=== PATIENT | female | born 1960 | race African-American/Black ===

== ENCOUNTER 2018-11-01 15:38 | Inpatient (IN) | payer OTHER ==
--- NOTE | 2018-11-01 16:39 | PDOC ---
History of Present Illness - General Chief Complaint: Shortness of Breath Stated Complaint: SENT BY PCP Time Seen by Provider: 11/01/18 16:39 History Source: Patient Exam Limitations: No Limitations - History of Present Illness Initial Comments: Pt is a 58 yo F, with PMH of HTN, NIDDM, COPD (no home O2, CPAP at night), and L adrenal ademona, who is presenting with complaints of "not feeling well" over the past week, with nasal congestion and clear eye drainage, which she often gets "when the weather changes to rain". Pt also endorses worsening SOB and LE edema over the past 3 days with cough productive of whitish sputum. Pt saw her grain merchandising manager today (Dr. Garcia), who sent her to the ER as her O2 was low 80%s on RA. Pt states she uses a scooter at home for ambulation, but has noticed SOB even at rest. Pt takes 80 mg PO lasix every AM, with minimal relief of her swelling with this acute exacerbation. Pt denies any fevers/chills, headache, vision changes, syncope, chest pain, palpitations, nausea/vomiting, abdominal pain, urinary symptoms, diarrhea/constipation. Allergies: NKDA PCP: Dr Carter Kuhn Social: Pt denies any cigarette, alcohol, or drug use. Pt quit smoking 5 years ago. Pt denies any recent travel or sick contacts. Surgical: no relevant history. Family: no relevant history. 11/01/18 19:03 Past History - Travel Traveled outside of the country in the last 30 days: No Close contact w/someone who was outside of country & ill: No - Past Medical History Allergies/Adverse Reactions: Allergies Allergy/AdvReac Type Severity Reaction Status Date / Time No Known Allergies Allergy Verified 11/01/18 15:47 Home Medications: Ambulatory Orders Unobtainable 11/01/18 COPD: Yes Diabetes: Yes HTN: Yes Hypercholesterolemia: Yes - Suicide/Smoking/Psychosocial Hx Smoking History: Never smoked Information on smoking cessation initiated: No Hx Alcohol Use: No Drug/Substance Use Hx: No Review of Systems - Review of Systems Able to Perform ROS?: Yes Is the patient limited Romanian proficient: No Constitutional: Yes: Weight Stable. No: Chills, Diaphoresis, Fever, Loss of Appetite, Malaise, Weakness HEENTM: Yes: Nose Congestion. No: Blurred Vision, Double Vision, Throat Pain, Throat Swelling, Difficulty Swallowing Respiratory: Yes: See HPI, Cough, Shortness of Breath, SOB with Exertion, SOB at Rest, Productive cough. No: Orthopnea, Wheezing, Hemoptysis Cardiac (ROS): Yes: Edema. No: Chest Pain, Irregular Heart Rate, Lightheadedness, Palpitations, Syncope, Chest Tightness ABD/GI: No: Constipated, Diarrhea, Nausea, Poor Appetite, Poor Fluid Intake, Vomiting : No: Burning, Dysuria, Pain, Urgency Musculoskeletal: No: Back Pain, Joint Pain Integumentary: No: Rash Neurological: No: Headache, Numbness, Weakness, Unsteady Gait, Dizziness Psychiatric: No: Sleep Pattern Change, Change in Appetite Endocrine: No: Increased Urine, Change in Weight Hematologic/Lymphatic: Yes: Anemia. No: Blood Clots, Easy Bleeding, Easy Bruising All Other Systems: Reviewed and Negative *Physical Exam - Vital Signs Last Vital Signs Temp Pulse Resp BP Pulse Ox 98.8 F 85 19 133/67 87 L 11/01/18 15:44 11/01/18 15:44 11/01/18 15:44 11/01/18 15:44 11/01/18 15:44 - Physical Exam Comments: BP stable, 87% on 2L NC (improved to 92% on 4L on exam). Pt in NAD, morbidly obese body habitus. Pt alert and oriented x3. lip cutter generally intact, muscular strength and sensation intact. No midline spinal tenderness, step-offs, or crepitus. Head normocephalic, atraumatic. Eyes PERRLA, EOMI. Oropharynx without erythema or exudates, no LAD b/l. No nasal congestion, hearing intact. Clear heart sounds, S1/S2, no JVD, or heart murmur. B/l pitting edema to mid shins. Severely diminished lung sounds at b/l posterior bases with b/l wheezing. No abdominal or CVA tenderness to palpation, no rebound, no guarding. Abdomen soft, protuberant, and with normoactive bowel sounds. Skin without jaundice or rash. 11/01/18 18:12 ED Treatment Course - LABORATORY CBC & Chemistry Diagram: 11/01/18 17:00 11/01/18 17:00 Medical Decision Making - Medical Decision Making Pt was seen at bedside, also will be seen by attending Dr. Hill. Pt presenting with complaints of "not feeling well" over the past week, with nasal congestion and clear eye drainage, which she often gets "when the weather changes to rain" . Pt also endorses worsening SOB and LE edema over the past 3 days with cough productive of whitish sputum. Pt saw her grain merchandising manager today (Dr. Garcia), who sent her to the ER as her O2 was low 80%s on RA. Pt states she uses a scooter at home for ambulation, but has noticed SOB even at rest. Pt takes 80 mg PO lasix every AM, with minimal relief of her swelling with this acute exacerbation. Pt denies any fevers/chills, headache, vision changes, syncope, chest pain, palpitations, nausea/vomiting, abdominal pain, urinary symptoms, diarrhea/constipation. Considering COPD exacerbation vs HF vs ACS vs infectious (pneumonia) vs pulmonary (effusion). Pt has no history of DVT/PE, not tachycardic, and O2 has improved with oxygen supplementation. Will order infectious and cardiac work-up with ABG to eval for respiratory status. Provided duonebs and 40 mg IV lasix for improvement of SOB and edema. Will continue to reassess pt and monitor for symptomatic improvement. ECG: Sinus with PVCs and prolonged QTc (HR 93, OH 160, QRS 90, QTC 507). No TWIs or significant ST segment changes. No prior ECG for comparison. Paged Dr. Liriano x2 (admits for Dr. Carter Kuhn) for admission to inpatient m/ s. 11/01/18 18:48 Dr. Liriano accepted pt for admission for med/surg. Pt stable and resting comfortably. 11/01/18 18:59 *DC/Admit/Observation/Transfer Diagnosis at time of Disposition: COPD exacerbation, Hypoxia Obesity Qualifiers: Obesity type: unspecified obesity type Obesity classification: adult class 3 ( BMI >= 40) Serious obesity comorbidity presence: with serious comorbidity Body mass index: BMI 50.0-59.9 Qualified Code(s): E66.01 - Morbid (severe) obesity due to excess calories; Z68.43 - Body mass index (BMI) 50-59.9, adult - Discharge Dispostion Condition at time of disposition: Stable Decision to Admit order: Yes - Referrals Referrals: Carter Kuhn MD [Primary Care Provider] - - Patient Instructions - Post Discharge Activity
[2018-11-01 17:21] LABS: BASO % 0.4 % (0-2.0); EOS % 0.8 % (0-4.5); HEMATOCRIT 34.1 % (32.4-45.2); HEMOGLOBIN 10.7 GM/dL (10.7-15.3); LYMPH % 5.4 % (8-40); MCH 22.7 pg (25.7-33.7); MCHC 31.3 g/dl (32.0-36.0); MEAN CELL VOLUME 72.3 fl (80-96); MEAN PLT VOLUME 8.5 fl (7.5-11.1); MONO % 5.2 % (3.8-10.2); NEUT % 88.2 % (42.8-82.8); PLATELET COUNT 209 K/MM3 (134-434); RBC 4.72 M/mm3 (3.60-5.2); RDW 17.6 % (11.6-15.6); WHITE BLOOD COUNT 7.8 K/mm3 (4.0-10.0)
[2018-11-01 17:36] LABS: ALBUMIN 3.6 g/dl (3.4-5.0); ALK PHOS 102 U/L (45-117); ANION GAP 4 MMOL/L (8-16); BILIRUBIN,TOTAL 0.2 mg/dL (0.2-1); BLOOD UREA NITROGEN 16.4 mg/dL (7-18); CALCIUM 9.4 mg/dL (8.5-10.1); CHLORIDE 104 mmol/L (98-107); CO2 36 mmol/L (21-32); CREATININE 0.8 mg/dL (0.55-1.3); GLUCOSE,RANDOM 108 mg/dL (74-106); N-TERMINAL BNP 979.4 pg/ml (5-125); SGOT/AST 29 U/L (15-37); SGPT/ALT 39 U/L (13-61); SODIUM 143 mmol/L (136-145); TOT PROT 6.8 g/dl (6.4-8.2)
[2018-11-01 17:37] LABS: INR 1.25 (0.83-1.09); PROTHROMBIN TIME (PATIENT) 14.8 SEC (9.7-13.0)
[2018-11-01 17:45] LABS: ARTERIAL BLD GAS O2 SATURATION 92.6 % (95-98); ARTERIAL BLOOD GAS BASE EXCESS 9.5 meq/l (-2-2); ARTERIAL BLOOD GAS PCO2 66.3 mmHg (35-45); ARTERIAL BLOOD GAS PO2 70.1 mmHg (80-105); ARTERIAL BLOOD GAS pH 7.36 (7.35-7.45); CARBOXYHEMOGLOBIN 1.8 % (0-2)
[2018-11-01 17:48] LABS: ALLENS TEST POSITIVE
[2018-11-01] MEDS ORDERED: FUROSEMIDE 40 MG/4 ML INJECTABLE VIAL IVPUSH ONE (18:01)
[2018-11-01] MEDS ORDERED: FUROSEMIDE 40 MG/4 ML INJECTABLE VIAL ONE (18:34)
[2018-11-01] MEDS ORDERED: ALBUTEROL SO4 2.5/IPRATROPIUM 0.5 INH SOL 3 ML VIAL.NEB. NEB ONE ×2 (18:57→19:16)
[2018-11-01 18:58] LABS: PH,URINE 5.5 (5.0-8.0); URINE APPEARANCE CLEAR; URINE BILIRUBIN NEGATIVE (NEGATIVE); URINE COLOR YELLOW; URINE GLUCOSE (UA) NEGATIVE (NEGATIVE); URINE KETONE NEGATIVE (NEGATIVE); URINE LEUK ESTERASE NEGATIVE (NEGATIVE); URINE NITRITE NEGATIVE (NEGATIVE); URINE PROTEIN NEGATIVE (NEGATIVE); URINE UROBILINOGEN 0.2 mg/dL (0.2-1.0)
[2018-11-01] MEDS: ALBUTEROL SO4 0.083% IH SOL 2.5 MG/3 ML VIAL.NEB. NEB SCH (20:03)
[2018-11-01] MEDS ORDERED: ALBUTEROL SO4 0.083% IH SOL 2.5 MG/3 ML VIAL.NEB. NEB ONE (20:07)
[2018-11-01] MEDS ORDERED: ACETAMINOPHEN 325 MG TABLET (FP) PO ONE (23:15)
[2018-11-01] MEDS ORDERED: ALBUTEROL SO4 2.5/IPRATROPIUM 0.5 INH SOL 3 ML VIAL.NEB. NEB PRN (23:43)
[2018-11-01] MEDS ORDERED: AZITHROMYCIN IVPB 500 MG/250 ML BAG IVPB ONE (23:45)
[2018-11-02] MEDS ORDERED: DEXTROSE 5%-WATER - 50 ML IVPB ONE ×2 (00:08→10:38)
[2018-11-02] MEDS ORDERED: cefTRIAXone SODIUM 1 GM VIAL ONE ×2 (00:08→10:38)
[2018-11-02] MEDS: ALBUTEROL SO4 0.083% IH SOL 2.5 MG/3 ML VIAL.NEB. NEB SCH ×7 (00:34→23:47)
[2018-11-02] MEDS: CEFTRIAXONE 1 GM in DEXTROSE 5%-WATER - 50 ML IVPB SCH ×2 (00:58→10:40)
[2018-11-02] MEDS: methylPREDNISolone NA SUCC 40 MG/1 ML VIAL IVPUSH SCH ×3 (01:39→17:17)
[2018-11-02] MEDS: PANTOPRAZOLE 40 MG TABLET (FP) PO SCH ×2 (02:57→10:39)
[2018-11-02 06:23] LABS: ALBUMIN 3.5 g/dl (3.4-5.0); ALK PHOS 104 U/L (45-117); ANION GAP 5 MMOL/L (8-16); BILIRUBIN,TOTAL 0.3 mg/dL (0.2-1); BLOOD UREA NITROGEN 16.6 mg/dL (7-18); CALCIUM 9.1 mg/dL (8.5-10.1); CHLORIDE 102 mmol/L (98-107); CO2 36 mmol/L (21-32); CREATININE 0.8 mg/dL (0.55-1.3); GLUCOSE,RANDOM 187 mg/dL (74-106); POTASSIUM 3.9 mmol/L (3.5-5.1); SGOT/AST 31 U/L (15-37); SGPT/ALT 46 U/L (13-61); SODIUM 143 mmol/L (136-145); TOT PROT 6.9 g/dl (6.4-8.2)
[2018-11-02] MEDS: INSULIN SLIDING SCALE (NOVOLOG) 1 VIAL SQ SCH ×4 (06:51→21:11)
[2018-11-02] MEDS: metFORMIN HCL 500 MG TABLET (FP) PO SCH ×2 (06:52→17:18)
[2018-11-02 08:59] LABS: BASO % 0.4 % (0-2.0); EOS % 0.1 % (0-4.5); HEMATOCRIT 33.3 % (32.4-45.2); HEMOGLOBIN 10.3 GM/dL (10.7-15.3); LYMPH % 3.8 % (8-40); MCH 22.6 pg (25.7-33.7); MEAN CELL VOLUME 73.1 fl (80-96); MEAN PLT VOLUME 8.3 fl (7.5-11.1); MONO % 2.2 % (3.8-10.2); NEUT % 93.5 % (42.8-82.8); PLATELET COUNT 179 K/MM3 (134-434); RBC 4.56 M/mm3 (3.60-5.2)
[2018-11-02] MEDS ORDERED: methylPREDNISolone NA SUCC 125 MG/2 ML VIAL IVPUSH SCH (10:00)
[2018-11-02] MEDS ORDERED: AZITHROMYCIN IVPB 250 MG in DEXTROSE 5%-WATER - 250 ML IVPB SCH ×2 (10:00→22:00)
--- NOTE | 2018-11-02 10:32 | CON.CARD ---
Consult Consult Specialty:: Cardiology Referred by:: Dr. Liriano Reason for Consultation:: SOB, CHF, Abnl ECG - History of Present Illness Chief Complaint: SOB History of Present Illness: Pt is a 58 yo F, with PMH of HTN, NIDDM, Pulmonary Embolism, COPD (no home O2, CPAP at night), and L adrenal ademona, who is presenting with complaints of " not feeling well" over the past week, with nasal congestion and clear eye drainage, which she often gets "when the weather changes to rain". Pt also endorses worsening SOB and LE edema over the past 3 days with cough productive of whitish sputum. Pt saw her mycologist today (Dr. Garcia), who sent her to the ER as her O2 was low 80%s on RA. Pt states she uses a scooter at home for ambulation, but has noticed SOB even at rest. Pt takes 80 mg PO lasix every AM, with minimal relief of her swelling with this acute exacerbation. Pt denies any fevers/chills, headache, vision changes, syncope, chest pain, palpitations, nausea/vomiting, abdominal pain, urinary symptoms, diarrhea/constipation. Denies CP, syncope. + LE b/l - History Source History Provided By: Patient Limitations to Obtaining History: No Limitations - Past Medical History Cardio/Vascular: Yes: CHF, HTN, Other (LE Edema) Pulmonary: Yes: COPD, Pulmonary Embolus Endocrine: Yes: Diabetes Mellitus - Alcohol/Substance Use Hx Alcohol Use: No - Smoking History Smoking history: Former smoker Have you smoked in the past 12 months: No - Social History Usual Living Arrangement: Alone History of Recent Travel: No Home Medications - Allergies Allergies/Adverse Reactions: Allergies Allergy/AdvReac Type Severity Reaction Status Date / Time No Known Allergies Allergy Verified 11/01/18 15:47 - Home Medications Home Medications: Ambulatory Orders Apixaban [Eliquis] 5 mg PO BID 11/02/18 Aspirin 81 mg PO DAILY 11/02/18 Losartan Potassium 50 mg PO DAILY 11/02/18 Metformin HCl [Glucophage] 1,000 mg PO BID 11/02/18 Pantoprazole Sodium 40 mg PO DAILY 11/02/18 Rosuvastatin Calcium [Crestor] 40 mg PO HS 11/02/18 Family Disease History - Family Disease History Family History: Unremarkable Review of Systems - Review of Systems Constitutional: reports: No Symptoms Eyes: reports: No Symptoms Cardiovascular: reports: Edema, Shortness of Breath Respiratory: reports: SOB on Exertion Neurological: reports: No Symptoms Endocrine: reports: No Symptoms Hematology/Lymphatic: reports: No Symptoms - Risk Factors Known Risk Factors: Yes: Diabetes Mellitus, Hypertension, Smoking Vital Signs: Vital Signs Temperature 98.1 F 11/02/18 08:37 Pulse Rate 102 H 11/02/18 08:37 Respiratory Rate 20 11/02/18 08:37 Blood Pressure 142/80 11/02/18 08:37 O2 Sat by Pulse Oximetry (%) 93 L 11/01/18 23:28 Constitutional: Yes: No Distress, Calm Eyes: Yes: Conjunctiva Clear Respiratory: Yes: Other (rales at bases b/l) Gastrointestinal: Yes: Soft, Abdomen, Obese Cardiovascular: Yes: Regular Rate and Rhythm JVD: No Carotid Bruit: No Heart Sounds: Yes: S1, S2 (RRR, No M/R/G) Edema: Yes Edema: LLE: 2+, RLE: 2+ Peripheral Pulses WNL: Yes Neurological: Yes: Alert, Oriented ...Motor Strength: WNL - Other Data Labs, Other Data: CBC, BMP 11/02/18 07:24 11/02/18 05:30 INR, PTT INR 1.25 (0.83-1.09) H 11/01/18 17:00 Troponin, BNP 11/01/18 11/02/18 17:00 05:30 Troponin I < 0.02 < 0.02 B-Natriuretic Peptide 979.4 H Troponin, BNP 11/01/18 11/02/18 17:00 05:30 Troponin I < 0.02 < 0.02 B-Natriuretic Peptide 979.4 H Laboratory Tests 11/01/18 11/01/18 11/02/18 17:00 17:00 05:30 WBC Hgb Hct Plt Count INR 1.25 H Sodium 143 Potassium 3.9 Creatinine 0.8 AST 31 ALT 46 Creatine Kinase 508 H 547 H Troponin I < 0.02 < 0.02 11/02/18 07:24 WBC 7.0 Hgb 10.3 L Hct 33.3 Plt Count 179 INR Sodium Potassium Creatinine AST ALT Creatine Kinase Troponin I NSR, VPC, Prolonged QTc: 507ms Echo: Pending Prior Cardiac Procedures: Cardiac Catheterization, Other (Non-obstx CAD) Imaging - Results X-ray: Image Reviewed EKG: Image Reviewed Assessment/Plan IMP: 1. Morbid Obesity 2. Acute on Chronic combined systolic and diastolic CHF, non-ischemic CM 3. Chronic HTN 4. Obstructive sleep apnea 5. COPD, former smoker 6. Hypoxia: likely multifactorial--> MARIE, CHF, COPD 7. 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 DM 9. Prolonged QTc REC: 1. Transfer to telemetry: Prolonged QT, receiving IV Lasix for decomp. CHF 2. Echo 3. Daily weights and BMP to monitor renal fx and lytes: keep K+ and Mg2+ normalized 4. Agree w/ IV Lasix 40mg daily for now 5. Cont home Losartan, Statin and low dose ASA for h/o non-obstx CAD. 6. Cont Eliquis for h/o DVT, PE. Need to review old records to understand circumstances provoking VTE to determine length of AC 7. Supplimental O2/ Abx as per Pulmonary Will follow, thank you
[2018-11-02] MEDS: FUROSEMIDE 40 MG/4 ML INJECTABLE VIAL IVPUSH SCH (10:39)
[2018-11-02] MEDS: APIXABAN 5 MG TABLET PO SCH ×2 (10:39→21:06)
[2018-11-02] MEDS: ASPIRIN 81 MG CHEWABLE TABLETS PO SCH (10:39)
[2018-11-02] MEDS: LOSARTAN POTASSIUM 50 MG TABLET (FP) PO SCH (10:39)
[2018-11-02 12:49] LABS: ANISOCYTOSIS 1+; PLATELET ESTIMATE NORMAL
--- NOTE | 2018-11-02 13:36 | EKG ---
Test Reason : Blood Pressure : / mmHG Vent. Rate : 093 BPM Atrial Rate : 093 BPM P-R Int : 160 ms QRS Dur : 090 ms QT Int : 408 ms P-R-T Axes : 070 056 072 degrees QTc Int : 507 ms SINUS RHYTHM WITH FREQUENT and consecutive PREMATURE VENTRICULAR COMPLEXES POSSIBLE LEFT ATRIAL ENLARGEMENT PROLONGED QT ABNORMAL ECG NO PREVIOUS ECGS AVAILABLE Confirmed by OLGA SEGOVIA MD ([id number]) on 11/02/2018 1:36:37 PM Referred By: Confirmed By:OLGA SEGOVIA MD
--- NOTE | 2018-11-02 16:44 | PN ---
Progress Note (short form) - Note Progress Note: PULMONARY CONSULTATION DICTATED 11/02/18 IMP ACUTE ON CHRONIC HYPOXEMIC/HYPERCAPNEIC RESPIRATORY FAILURE LIKELY MARIE/OHS COPD ADVANCED ACUTE ON CHRONIC DIASTOLIC HF H/O DVT/PE ? UNPROVOKED PULMONARY HTN DM RECENT PNEUMONIA HTN PROLONGED QTc PLAN LASIX INHALED BRONCHODILATORS O2 NIPPV IF PT DEVELOPES INCREASED RESPIRATORY DISTRESS DAILY WTS CHEST CT ECHO WT REDUCTION PT WOULD BE A GOOD CANDIDATE FOR HOME TRILOGY DEVICE DR SHEIKH Problem List - Problems (1) Acute on chronic respiratory failure with hypoxia and hypercapnia Code(s): J96.21 - ACUTE AND CHRONIC RESPIRATORY FAILURE WITH HYPOXIA; J96.22 - ACUTE AND CHRONIC RESPIRATORY FAILURE WITH HYPERCAPNIA (2) COPD exacerbation Code(s): J44.1 - CHRONIC OBSTRUCTIVE PULMONARY DISEASE W (ACUTE) EXACERBATION (3) Pulmonary HTN Code(s): I27.20 - PULMONARY HYPERTENSION, UNSPECIFIED (4) Obesity hypoventilation syndrome Code(s): E66.2 - MORBID (SEVERE) OBESITY WITH ALVEOLAR HYPOVENTILATION (5) MARIE (obstructive sleep apnea) Code(s): G47.33 - OBSTRUCTIVE SLEEP APNEA (ADULT) (PEDIATRIC) (6) Diastolic CHF Code(s): I50.30 - UNSPECIFIED DIASTOLIC (CONGESTIVE) HEART FAILURE (7) Pulmonary embolism Code(s): I26.99 - OTHER PULMONARY EMBOLISM WITHOUT ACUTE COR PULMONALE
--- NOTE | 2018-11-02 17:10 | CONS ---
DATE OF CONSULTATION: 11/02/2018 PULMONARY CONSULTATION REFERRING PHYSICIAN: Kena Liriano M.D. HISTORY OF PRESENT ILLNESS: The patient is a 58-year-old black female with a past medical history of pulmonary embolism, DVT, currently on Eliquis, advanced COPD not on home O2, obstructive sleep apnea, currently not using CPAP, noninsulin dependent diabetes mellitus, hypertension, pulmonary hypertension, diastolic heart failure , left adrenal adenoma, recently hospitalized at [place] secondary to pneumonia, admitted to [facility] with increasing shortness of breath and dyspnea on exertion. Patient presented to my office yesterday with complaint of 3-4 day history of increasing shortness of breath, dyspnea on exertion and lower extremity edema. She also complained of cough productive of white sputum. In the office she was noted to have O2 saturation in the high 70s after minimal ambulation and ranged in 83 to 84 on room air at rest, at which time she was advised to go to the emergency room. Patient states normally uses scooter at home for ambulation but in the last few days noticed shortness of breath at rest. She denies any chest pain, nausea, vomiting, diaphoresis. Denied any fevers. Stated before she was complaining of cough productive of white sputum. She denies any hemoptysis. Patient has a history of tobacco use, quit a few years ago. There was no history of occupational exposure to chemicals or fumes. PAST MEDICAL HISTORY: Again includes hypertension, diastolic heart failure, noninsulin dependent diabetes mellitus, history of pulmonary emboli, DVT, chronic obstructive pulmonary disease not on home O2, obstructive sleep apnea currently not on CPAP, adrenal adenoma, diastolic heart failure, morbid obesity and a prolonged QTC. REVIEW OF SYSTEMS: Positive orthopnea. Positive dyspnea. No chest pain. No palpitations. Positive cough. No fever. No chills. No hemoptysis. No weight loss. No night sweats. CURRENT MEDICATIONS: Include Solu-Medrol 40 q.8, Tylenol, Cozaar, Zithromax, ceftriaxone, Eliquis, albuterol, DuoNeb, Glucophage, Crestor, NovoLog, Lasix, aspirin, and Protonix. SOCIAL HISTORY: Again, history of tobacco use, quit a few years ago. No occupational exposures. FAMILY HISTORY: Her mother of lung cancer. Father had diabetes and sepsis. One sister of sudden by CHF. Obesity. She has 2 children alive and well ages 32 and 34. PHYSICAL EXAMINATION: GENERAL: The patient is a morbidly obese female, awake, alert, sitting up in bed. Current in no acute distress. She is currently afebrile. VITAL SIGNS: Blood pressure 105/80, respiratory rate 20, O2 saturation 93% on 2 L. HEENT: Normocephalic, atraumatic. NECK: Supple. HEART: Regular S1, S2. CHEST: Diffuse bilateral scattered wheezes. ABDOMEN: Soft, bowel sounds positive. EXTREMITIES: Bilateral lower extremity edema right greater than left. LABORATORY: BUN is 16, creatinine 0.8. WBC is 7, hemoglobin 10.3, hematocrit 33.3, with platelet count of 179,000. INR is 1.25. Blood gas: pH 7.36, pCO2 of 66, pO2 of 70, bicarbonate 36, and saturation of 92 that was on 4 L of nasal cannula. Chest x-ray, cardiomegaly, prominent hilar markings, mild congestion. Atelectatic changes to the left base. IMPRESSION: Acute on chronic hypercapnic, hypoxemic respiratory failure likely secondary to: 1. Obstructive sleep apnea, obesity hypoventilation syndrome. 2. Chronic obstructive pulmonary disease, advanced, exacerbation. 3. Acute on chronic diastolic heart failure. 4. History of deep venous thrombosis, questionable unprovoked. 5. Diabetes. 6. Recent pneumonia. 7. Hypertension. 8. Pulmonary hypertension. 9. Prolonged QTC. PLAN: Continue Lasix. Inhaled bronchodilators. Supplemental O2. Daily weights. Chest CT. Echo. NIPPV if patient develops increasing respiratory distress, progressive hypercapnia. Also patient would be a good candidate for Trilogy device. So stress weight reduction. Discontinue Zithromax. LEO SHEIKH M.D. PETEY/[id number] MTDD
[2018-11-02] MEDS: ROSUVASTATIN CA 20 MG TABLET (FP) PO SCH (21:06)
--- NOTE | 2018-11-02 23:11 | HP ---
Admitting History and Physical - Admission History of Present Illness: Pt is a 58 yo F, with PMH of HTN, NIDDM, COPD (no home O2, CPAP at night), and L alessia luke, who is presenting with complaints of "not feeling well" over the past week, with nasal congestion and clear eye drainage, which she often gets "when the weather changes to rain". Pt also endorses worsening SOB and LE edema over the past 3 days with cough productive of whitish sputum. Pt saw her forensic economist (Dr. Garcia), who sent her to the ER as her O2 was low 80%s on RA. Pt states she uses a scooter at home for ambulation, but has noticed SOB even at rest. Pt takes 80 mg PO lasix every AM, with minimal relief of her swelling with this acute exacerbation. Pt denies any fevers/chills, headache, vision changes, syncope, chest pain, palpitations, nausea/vomiting, abdominal pain, urinary symptoms, diarrhea/constipation. - Past Medical History Cardiovascular: Yes: CHF, HTN, Other (LE Edema) Pulmonary: Yes: COPD, Pulmonary Embolus Endocrine: Yes: Diabetes Mellitus - Smoking History Smoking history: Former smoker Have you smoked in the past 12 months: No - Alcohol/Substance Use Hx Alcohol Use: No - Social History History of Recent Travel: No Home Medications - Allergies Allergies/Adverse Reactions: Allergies Allergy/AdvReac Type Severity Reaction Status Date / Time No Known Allergies Allergy Verified 11/01/18 15:47 - Home Medications Home Medications: Ambulatory Orders Apixaban [Eliquis] 5 mg PO BID 11/02/18 Aspirin 81 mg PO DAILY 11/02/18 Losartan Potassium 50 mg PO DAILY 11/02/18 Metformin HCl [Glucophage] 1,000 mg PO BID 11/02/18 Pantoprazole Sodium 40 mg PO DAILY 11/02/18 Rosuvastatin Calcium [Crestor] 40 mg PO HS 11/02/18 Family Disease History - Family Disease History Family History: Unremarkable Review of Systems - Review of Systems Constitutional: reports: Weakness HENT: reports: No Symptoms Neck: reports: No Symptoms Cardiovascular: reports: Edema, Shortness of Breath Respiratory: reports: Cough, SOB Gastrointestinal: reports: No Symptoms Genitourinary: reports: No Symptoms Physical Examination Vital Signs: Vital Signs Temperature 98.0 F 11/02/18 21:00 Pulse Rate 90 11/02/18 21:00 Respiratory Rate 20 11/02/18 21:00 Blood Pressure 146/57 L 11/02/18 21:00 O2 Sat by Pulse Oximetry (%) 94 L 11/02/18 21:00 Constitutional: Yes: Obese HENT: Yes: WNL Neck: Yes: WNL, Supple Cardiovascular: Yes: Regular Rate and Rhythm Respiratory: Yes: Rales, Wheezes Gastrointestinal: Yes: WNL, Normal Bowel Sounds, Soft, Abdomen, Obese Extremities: Yes: WNL Edema: LLE: 1+, RLE: 1+ Neurological: Yes: WNL, Alert, Oriented ...Motor Strength: WNL Labs: CBC, BMP 11/02/18 07:24 11/02/18 05:30 Problem List - Problems (1) Acute on chronic systolic and diastolic heart failure, NYHA class 1 Assessment/Plan: Cont IV lasix Check echo Monitor electrolytes Code(s): I50.43 - ACUTE ON CHRONIC COMBINED SYSTOLIC AND DIASTOLIC HRT FAIL (2) COPD exacerbation Assessment/Plan: Cont IV solumedrol and IV ceftriaxone Cont inhalers As per pulmonary Code(s): J44.1 - CHRONIC OBSTRUCTIVE PULMONARY DISEASE W (ACUTE) EXACERBATION (3) Diabetes Assessment/Plan: Cont metformin and sliding scale w/ coverage Code(s): E11.9 - TYPE 2 DIABETES MELLITUS WITHOUT COMPLICATIONS (4) HTN (hypertension) Assessment/Plan: BP stable Code(s): I10 - ESSENTIAL (PRIMARY) HYPERTENSION (5) HLD (hyperlipidemia) Assessment/Plan: Cont crestor Code(s): E78.5 - HYPERLIPIDEMIA, UNSPECIFIED (6) Pulmonary emboli Assessment/Plan: Cont eliquis Code(s): I26.99 - OTHER PULMONARY EMBOLISM WITHOUT ACUTE COR PULMONALE (7) MARIE (obstructive sleep apnea) Code(s): G47.33 - OBSTRUCTIVE SLEEP APNEA (ADULT) (PEDIATRIC) (8) Obesity Code(s): E66.9 - OBESITY, UNSPECIFIED Qualifiers: Obesity type: unspecified obesity type Obesity classification: adult class 3 (BMI >= 40) Serious obesity comorbidity presence: with serious comorbidity Body mass index: BMI 50.0-59.9 Qualified Code(s): E66.01 - Morbid (severe) obesity due to excess calories; Z68.43 - Body mass index (BMI) 50-59.9, adult
[2018-11-03] MEDS: methylPREDNISolone NA SUCC 40 MG/1 ML VIAL IVPUSH SCH ×4 (01:38→17:04)
[2018-11-03] MEDS: ALBUTEROL SO4 0.083% IH SOL 2.5 MG/3 ML VIAL.NEB. NEB SCH ×5 (03:11→19:36)
[2018-11-03] MEDS: ACETAMINOPHEN 650 MG/20.3 ML ORAL SOLUTION (CUPS) PO PRN (03:14)
[2018-11-03] MEDS: INSULIN SLIDING SCALE (NOVOLOG) 1 VIAL SQ SCH ×4 (06:16→22:20)
[2018-11-03] MEDS: metFORMIN HCL 500 MG TABLET (FP) PO SCH ×2 (06:19→16:51)
[2018-11-03 06:20] LABS: BASO % 0.1 % (0-2.0); HEMATOCRIT 33.9 % (32.4-45.2); HEMOGLOBIN 10.4 GM/dL (10.7-15.3); LYMPH % 3.2 % (8-40); MCH 22.5 pg (25.7-33.7); MCHC 30.5 g/dl (32.0-36.0); MEAN CELL VOLUME 73.8 fl (80-96); MEAN PLT VOLUME 8.6 fl (7.5-11.1); MONO % 3.6 % (3.8-10.2); NEUT % 93.1 % (42.8-82.8); PLATELET COUNT 199 K/MM3 (134-434); RBC 4.59 M/mm3 (3.60-5.2); RDW 17.8 % (11.6-15.6); WHITE BLOOD COUNT 8.3 K/mm3 (4.0-10.0)
[2018-11-03 07:31] LABS: ALBUMIN 3.5 g/dl (3.4-5.0); BILIRUBIN,TOTAL 0.2 mg/dL (0.2-1); BLOOD UREA NITROGEN 15.3 mg/dL (7-18); CALCIUM 9.6 mg/dL (8.5-10.1); CREATININE 0.9 mg/dL (0.55-1.3); MAGNESIUM 2.3 mg/dL (1.8-2.4); POTASSIUM 4.4 mmol/L (3.5-5.1); TOT PROT 6.6 g/dl (6.4-8.2)
--- NOTE | 2018-11-03 09:41 | PN ---
Progress Note (short form) - Note Progress Note: PULMONARY REPORTS SUBJECTIVE IMPROVEMENT APPEARS SLIGHTLY DYSPNEIC AT REST VSS/AFEBRILE M. OBESITY ANICTERIC DIMINISHED BREATH SOUNDS BIBASILAR S1S2 BS+ OBESE NONTENDER 2+BILATERAL LOWER EXT EDEMA LABS/MEDS/NOTES/IMAGES REVIEWED IMP ACUTE ON CHRONIC HYPOXEMIC/HYPERCAPNEIC RESPIRATORY FAILURE LIKELY MARIE/OHS COPD ADVANCED ACUTE ON CHRONIC DIASTOLIC HF H/O DVT/PE ? UNPROVOKED PULMONARY HTN DM RECENT PNEUMONIA HTN PROLONGED QTc PLAN LASIX INHALED BRONCHODILATORS O2 NIPPV IF PT DEVELOPES INCREASED RESPIRATORY DISTRESS DAILY WTS CHEST CT ECHO WT REDUCTION R MEL NI
--- NOTE | 2018-11-03 09:48 | PN ---
Progress Note, Physician Chief Complaint: c/o of headaches and cough History of Present Illness: Patient is a 58 year old female with a significant past medical history of hypertension, diabetes, COPD (does not currently have home oxygen, only CPAP at night) and left adrenal ademona. Patient presented to the ED with c/o nasal congestion and eye drainage. She attributes her symptoms to a sinus infection. She also endorses worsening shortness of breath and lower ext edema over the pat 3 days wit a cough with white sputum. She went to see her pulmonolosist Dr. Garcia who sent her to the ED when her oxygen levels were in the low 80s on room air. imaging: chest xray: congestive changes of the left base abdominal ultrasound 11/03/2018: borderline splenomegaly with probable left adrenal mass mimicking accessory spleen. - Current Medication List Current Medications: Active Medications Acetaminophen (Tylenol Oral Solution -) 650 mg PO Q4H PRN PRN Reason: pain Last Admin: 11/03/18 03:14 Dose: 650 mg Albuterol Sulfate (Ventolin 0.083% Nebulizer Soln -) 1 amp NEB RQ4H JANEY Last Admin: 11/03/18 03:11 Dose: Not Given Albuterol/Ipratropium (Duoneb -) 1 amp NEB Q6H PRN PRN Reason: SHORTNESS OF BREATH Apixaban (Eliquis -) 5 mg PO BID JANEY Last Admin: 11/02/18 21:06 Dose: 5 mg Aspirin (Asa -) 81 mg PO DAILY JANEY Last Admin: 11/02/18 10:39 Dose: 81 mg Furosemide (Lasix Injection -) 40 mg IVPUSH DAILY JANEY Last Admin: 11/02/18 10:39 Dose: 40 mg Ceftriaxone Sodium 1 gm/ (Dextrose) 50 mls @ 100 mls/hr IVPB DAILY JANEY; Protocol Last Admin: 11/02/18 10:40 Dose: 100 mls/hr Insulin Aspart (Novolog Vial Sliding Scale -) 1 vial SQ ACHS JANEY; Protocol Last Admin: 11/03/18 06:16 Dose: Not Given Losartan Potassium (Cozaar -) 50 mg PO DAILY JANEY Last Admin: 11/02/18 10:39 Dose: 50 mg Metformin HCl (Glucophage -) 1,000 mg PO BIDAC [facility] Last Admin: 11/03/18 06:19 Dose: 1,000 mg Methylprednisolone Sodium Succinate (Solu-Medrol -) 40 mg IVPUSH Q8H-IV [facility] Last Admin: 11/03/18 01:38 Dose: 40 mg Pantoprazole Sodium (Protonix -) 40 mg PO DAILY [facility] Last Admin: 11/02/18 10:39 Dose: 40 mg Rosuvastatin Calcium (Crestor -) 40 mg PO HS [facility] Last Admin: 11/02/18 21:06 Dose: 40 mg - Objective Vital Signs: Vital Signs Temperature 97.9 F 11/03/18 06:00 Pulse Rate 101 H 11/03/18 06:00 Respiratory Rate 20 11/03/18 06:00 Blood Pressure 114/62 11/03/18 06:00 O2 Sat by Pulse Oximetry (%) 97 11/02/18 22:46 Constitutional: Yes: No Distress, Calm Eyes: Yes: WNL HENT: Yes: WNL, Atraumatic, Tonsillar Exudate Neck: Yes: Supple Cardiovascular: Yes: Regular Rate and Rhythm Respiratory: Yes: Accessory Muscle Use, On Nasal O2, Poor Air Entry, SOB Gastrointestinal: Yes: Normal Bowel Sounds ...Rectal Exam: Yes: Deferred Edema: Yes Edema: LLE: 1+, RLE: 1+ Integumentary: Yes: WNL Wound/Incision: Yes: Clean/Dry Neurological: Yes: WNL, Alert, Oriented Psychiatric: Yes: Alert, Oriented Labs: CBC, BMP 11/03/18 05:15 11/03/18 05:15 INR, PTT INR 1.25 (0.83-1.09) H 11/01/18 17:00 - ....Imaging Chest X-ray: Report Reviewed Problem List - Problems (1) COPD exacerbation Assessment/Plan: On supplemental oxygen to maintain oxygen saturations above 92% On duonebs and solumedrol taper Will need pre and post prior to discharge to assess need for home oxygen Code(s): J44.1 - CHRONIC OBSTRUCTIVE PULMONARY DISEASE W (ACUTE) EXACERBATION (2) Diabetes Assessment/Plan: BGMs controlled continue SS and Novolog Code(s): E11.9 - TYPE 2 DIABETES MELLITUS WITHOUT COMPLICATIONS (3) HLD (hyperlipidemia) Assessment/Plan: On Crestor Code(s): E78.5 - HYPERLIPIDEMIA, UNSPECIFIED (4) HTN (hypertension) Assessment/Plan: BP stable Code(s): I10 - ESSENTIAL (PRIMARY) HYPERTENSION (5) Obesity Assessment/Plan: morbid obesity with BMI 45 along with other risk factors of DM, HTN, HLD and sedentary life style patient will benefit from outpatient nutrition evaluation Code(s): E66.9 - OBESITY, UNSPECIFIED Qualifiers: Obesity type: unspecified obesity type Obesity classification: adult class 3 (BMI >= 40) Serious obesity comorbidity presence: with serious comorbidity Body mass index: BMI 50.0-59.9 Qualified Code(s): E66.01 - Morbid (severe) obesity due to excess calories; Z68.43 - Body mass index (BMI) 50-59.9, adult (6) Pulmonary embolism Assessment/Plan: History of DVT/PE On Eliquis 5mg BID Code(s): I26.99 - OTHER PULMONARY EMBOLISM WITHOUT ACUTE COR PULMONALE Visit type - Emergency Visit Emergency Visit: Yes ED Registration Date: 11/01/18 Care time: The patient presented to the Emergency Department on the above date and was hospitalized for further evaluation of their emergent condition. - New Patient This patient is new to me today: Yes Date on this admission: 11/03/18 - Critical Care Critical Care patient: No - Discharge Referral Referred to [facility] Med P.C.: No
[2018-11-03] MEDS ORDERED: PT OWN MED DRAWER 7, Y5N ONE (10:33)
[2018-11-03] MEDS: ASPIRIN 81 MG CHEWABLE TABLETS PO SCH (10:59)
[2018-11-03] MEDS: FUROSEMIDE 40 MG/4 ML INJECTABLE VIAL IVPUSH SCH (10:59)
[2018-11-03] MEDS: LOSARTAN POTASSIUM 50 MG TABLET (FP) PO SCH (10:59)
[2018-11-03] MEDS: PANTOPRAZOLE 40 MG TABLET (FP) PO SCH (10:59)
[2018-11-03] MEDS: APIXABAN 5 MG TABLET PO SCH ×2 (10:59→22:20)
[2018-11-03] MEDS ORDERED: ACETAMINOPHEN/CAFFEINE/BUTALBITAL 1 TAB PO ONE (11:17)
[2018-11-03] MEDS ORDERED: DEXTROSE 5%-WATER - 50 ML IVPB ONE (11:28)
[2018-11-03] MEDS ORDERED: cefTRIAXone SODIUM 1 GM VIAL ONE (11:28)
[2018-11-03] MEDS: CEFTRIAXONE 1 GM in DEXTROSE 5%-WATER - 50 ML IVPB SCH (11:33)
--- NOTE | 2018-11-03 12:07 | PN ---
Progress Note (short form) - Note Progress Note: s: less sob, no cp palps dizzy o: Vital Signs Period Temp Pulse Resp BP Sys/Torres Pulse Ox Last 24 Hr 97.9 F-99.2 F 90-103 20-20 105-146/57-80 93-97 Constitutional: Yes: No Distress, Calm Eyes: Yes: Conjunctiva Clear Respiratory: cta bl nl eff Gastrointestinal: Yes: Soft, Abdomen, Obese Cardiovascular: Yes: Regular Rate and Rhythm JVD: No Heart Sounds: Yes: S1, S2 (RRR, No M/R/G) Edema:yes, trace bl le edema Neurological: Yes: Alert, Oriented no jaundice diaphoresis Current Medications Generic Name Dose Route Start Last Admin Trade Name Freq PRN Reason Stop Dose Admin Acetaminophen 650 mg 11/01/18 23:48 11/03/18 03:14 Tylenol Oral Solution - PO 650 mg Q4H PRN Administration pain Albuterol Sulfate 1 amp 11/01/18 20:00 11/03/18 08:19 Ventolin 0.083% Nebulizer Soln - NEB 1 amp RQ4H JANEY Administration Albuterol/Ipratropium 1 amp 11/01/18 23:43 Duoneb - NEB Q6H PRN SHORTNESS OF BREATH Apixaban 5 mg 11/02/18 10:00 11/03/18 10:59 Eliquis - PO 5 mg BID JANEY Administration Aspirin 81 mg 11/02/18 10:00 11/03/18 10:59 Asa - PO 81 mg DAILY JANEY Administration Furosemide 40 mg 11/02/18 10:00 11/03/18 10:59 Lasix Injection - IVPUSH 40 mg DAILY JANEY Administration Guaifenesin 10 ml 11/03/18 11:18 Robitussin - PO Q4H PRN COUGH Ceftriaxone Sodium 1 gm/ 50 mls @ 100 mls/hr 11/01/18 23:45 11/03/18 11:33 Dextrose IVPB 100 mls/hr DAILY JANEY Administration Protocol Insulin Aspart 1 vial 11/02/18 07:00 11/03/18 06:16 Novolog Vial Sliding Scale - SQ Not Given ACHS JANEY Protocol Losartan Potassium 50 mg 11/02/18 10:00 11/03/18 10:59 Cozaar - PO 50 mg DAILY JANEY Administration Metformin HCl 1,000 mg 11/02/18 07:00 11/03/18 06:19 Glucophage - PO 1,000 mg BIDAC JANEY Administration Methylprednisolone Sodium Succinate 40 mg 11/02/18 02:00 11/03/18 11:00 Solu-Medrol - IVPUSH 40 mg Q8H-IV JANEY Administration Pantoprazole Sodium 40 mg 11/02/18 02:27 11/03/18 10:59 Protonix - PO 40 mg DAILY JANEY Administration Rosuvastatin Calcium 40 mg 11/02/18 22:00 11/02/18 21:06 Crestor - PO 40 mg HS JANEY Administration CBC, BMP 11/03/18 05:15 11/03/18 05:15 tele: sr, occ pvcs Assessment/Plan IMP: 1. Morbid Obesity 2. Acute on Chronic combined systolic and diastolic CHF, non-ischemic CM 3. Chronic HTN 4. Obstructive sleep apnea 5. COPD, former smoker 6. Hypoxia: likely multifactorial--> MARIE, CHF, COPD 7. 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 DM 9. Prolonged QTc REC: 1. Tele benign. Prolonged QT, receiving IV Lasix for decomp. CHF 2. Echo pending 3. Daily weights and BMP to monitor renal fx and lytes: keep K+ and Mg2+ normalized 4. Agree w/ IV Lasix 40mg daily for now 5. Cont home Losartan, Statin and low dose ASA for h/o non-obstx CAD. 6. Cont Eliquis for h/o DVT, PE. Need to review old records to understand circumstances provoking VTE to determine length of AC 7. copd tx as per Pulmonary
[2018-11-03 13:19] LABS: ANISOCYTOSIS 1+; MACROCYTOSIS 0; OVALOCYTE 1+; PLATELET ESTIMATE NORMAL
[2018-11-03] MEDS: ROSUVASTATIN CA 20 MG TABLET (FP) PO SCH (22:20)
[2018-11-04] MEDS: methylPREDNISolone NA SUCC 40 MG/1 ML VIAL IVPUSH SCH ×3 (02:16→18:44)
[2018-11-04] MEDS: ALBUTEROL SO4 0.083% IH SOL 2.5 MG/3 ML VIAL.NEB. NEB SCH ×6 (02:27→20:28)
[2018-11-04] MEDS: ACETAMINOPHEN 650 MG/20.3 ML ORAL SOLUTION (CUPS) PO PRN (06:39)
[2018-11-04] MEDS: metFORMIN HCL 500 MG TABLET (FP) PO SCH ×2 (06:40→17:02)
[2018-11-04] MEDS: INSULIN SLIDING SCALE (NOVOLOG) 1 VIAL SQ SCH ×4 (06:50→22:23)
--- NOTE | 2018-11-04 10:52 | PN ---
Progress Note (short form) - Note Progress Note: s: less sob, no cp palps dizzy o: Vital Signs Period Temp Pulse Resp BP Sys/Torres Pulse Ox Last 24 Hr 97.5 F-98.8 F 96-111 19-20 122-135/50-80 94-95 Constitutional: Yes: No Distress, Calm Eyes: Yes: Conjunctiva Clear Respiratory: cta bl nl eff Gastrointestinal: Yes: Soft, Abdomen, Obese Cardiovascular: Yes: Regular Rate and Rhythm JVD: No Heart Sounds: Yes: S1, S2 (RRR, No M/R/G) Edema:yes, trace bl le edema Neurological: Yes: Alert, Oriented no jaundice diaphoresis Current Medications Generic Name Dose Route Start Last Admin Trade Name Freq PRN Reason Stop Dose Admin Acetaminophen 650 mg 11/01/18 23:48 11/04/18 06:39 Tylenol Oral Solution - PO 650 mg Q4H PRN Administration pain Albuterol Sulfate 1 amp 11/01/18 20:00 11/04/18 07:57 Ventolin 0.083% Nebulizer Soln - NEB 1 amp RQ4H JANEY Administration Albuterol/Ipratropium 1 amp 11/01/18 23:43 Duoneb - NEB Q6H PRN SHORTNESS OF BREATH Apixaban 5 mg 11/02/18 10:00 11/03/18 22:20 Eliquis - PO 5 mg BID JANEY Administration Aspirin 81 mg 11/02/18 10:00 11/03/18 10:59 Asa - PO 81 mg DAILY JANEY Administration Furosemide 40 mg 11/02/18 10:00 11/03/18 10:59 Lasix Injection - IVPUSH 40 mg DAILY JANEY Administration Guaifenesin 10 ml 11/03/18 11:18 Robitussin - PO Q4H PRN COUGH Ceftriaxone Sodium 1 gm/ 50 mls @ 100 mls/hr 11/01/18 23:45 11/03/18 11:33 Dextrose IVPB 100 mls/hr DAILY JANEY Administration Protocol Insulin Aspart 1 vial 11/02/18 07:00 11/04/18 06:50 Novolog Vial Sliding Scale - SQ 2 units ACHS JANEY Administration Protocol Losartan Potassium 50 mg 11/02/18 10:00 11/03/18 10:59 Cozaar - PO 50 mg DAILY JANEY Administration Metformin HCl 1,000 mg 11/02/18 07:00 07/14/19 06:40 Glucophage - PO 1,000 mg BIDAC JANEY Administration Methylprednisolone Sodium Succinate 40 mg 11/02/18 02:00 11/04/18 02:16 Solu-Medrol - IVPUSH 40 mg Q8H-IV JANEY Administration Pantoprazole Sodium 40 mg 11/02/18 02:27 11/03/18 10:59 Protonix - PO 40 mg DAILY JANEY Administration Rosuvastatin Calcium 40 mg 11/02/18 22:00 11/03/18 22:20 Crestor - PO 40 mg HS JANEY Administration CBC, BMP 11/03/18 05:15 11/03/18 05:15 tele: sr, occ pvcs Assessment/Plan IMP: 1. Morbid Obesity 2. Acute on Chronic combined systolic and diastolic CHF, non-ischemic CM 3. Chronic HTN 4. Obstructive sleep apnea 5. COPD, former smoker 6. Hypoxia: likely multifactorial--> MARIE, CHF, COPD 7. 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 DM REC: 1. Tele benign. 2. Echo pending 3. Daily weights and BMP to monitor renal fx and lytes: keep K+ and Mg2+ normalized 4. Agree w/ IV Lasix 40mg daily for now 5. Cont home Losartan, Statin and low dose ASA for h/o non-obstx CAD. 6. Cont Eliquis for h/o DVT, PE. Need to review old records to understand circumstances provoking VTE to determine length of AC 7. copd tx as per Pulmonary dc tele
[2018-11-04] MEDS ORDERED: DEXTROSE 5%-WATER - 50 ML IVPB ONE (11:43)
[2018-11-04] MEDS ORDERED: cefTRIAXone SODIUM 1 GM VIAL ONE (11:43)
[2018-11-04] MEDS: FUROSEMIDE 40 MG/4 ML INJECTABLE VIAL IVPUSH SCH (11:49)
[2018-11-04] MEDS: ASPIRIN 81 MG CHEWABLE TABLETS PO SCH (11:49)
[2018-11-04] MEDS: LOSARTAN POTASSIUM 50 MG TABLET (FP) PO SCH (11:49)
[2018-11-04] MEDS: APIXABAN 5 MG TABLET PO SCH ×2 (11:50→22:22)
[2018-11-04] MEDS: PANTOPRAZOLE 40 MG TABLET (FP) PO SCH (11:50)
[2018-11-04] MEDS: CEFTRIAXONE 1 GM in DEXTROSE 5%-WATER - 50 ML IVPB SCH (11:51)
--- NOTE | 2018-11-04 22:03 | PN ---
Progress Note, Physician History of Present Illness: Pt feels more dyspneic today - Current Medication List Current Medications: Active Medications Acetaminophen (Tylenol Oral Solution -) 650 mg PO Q4H PRN PRN Reason: pain Last Admin: 11/04/18 06:39 Dose: 650 mg Albuterol Sulfate (Ventolin 0.083% Nebulizer Soln -) 1 amp NEB RQ4H JANEY Last Admin: 11/04/18 20:28 Dose: 1 amp Albuterol/Ipratropium (Duoneb -) 1 amp NEB Q6H PRN PRN Reason: SHORTNESS OF BREATH Apixaban (Eliquis -) 5 mg PO BID JANEY Last Admin: 11/04/18 11:50 Dose: 5 mg Aspirin (Asa -) 81 mg PO DAILY JANEY Last Admin: 11/04/18 11:49 Dose: 81 mg Furosemide (Lasix Injection -) 40 mg IVPUSH DAILY JANEY Last Admin: 11/04/18 11:49 Dose: 40 mg Guaifenesin (Robitussin -) 10 ml PO Q4H PRN PRN Reason: COUGH Ceftriaxone Sodium 1 gm/ (Dextrose) 50 mls @ 100 mls/hr IVPB DAILY JANEY; Protocol Last Admin: 11/04/18 11:51 Dose: 100 mls/hr Insulin Aspart (Novolog Vial Sliding Scale -) 1 vial SQ ACHS JANEY; Protocol Last Admin: 11/04/18 17:02 Dose: 2 units Losartan Potassium (Cozaar -) 50 mg PO DAILY JANEY Last Admin: 11/04/18 11:49 Dose: 50 mg Metformin HCl (Glucophage -) 1,000 mg PO BIDAC JANEY Last Admin: 11/04/18 17:02 Dose: 1,000 mg Methylprednisolone Sodium Succinate (Solu-Medrol -) 40 mg IVPUSH Q8H-IV JANEY Last Admin: 11/04/18 18:44 Dose: 40 mg Pantoprazole Sodium (Protonix -) 40 mg PO DAILY JANEY Last Admin: 11/04/18 11:50 Dose: 40 mg Rosuvastatin Calcium (Crestor -) 40 mg PO HS JANEY Last Admin: 11/03/18 22:20 Dose: 40 mg - Objective Vital Signs: Vital Signs Temperature 97.9 F 11/04/18 18:00 Pulse Rate 103 H 11/04/18 18:00 Respiratory Rate 19 11/04/18 18:00 Blood Pressure 136/63 11/04/18 18:00 O2 Sat by Pulse Oximetry (%) 95 11/04/18 09:00 Constitutional: Yes: Well Nourished, Obese HENT: Yes: WNL Neck: Yes: WNL, Supple Cardiovascular: Yes: WNL, Regular Rate and Rhythm Respiratory: Yes: Diminished Gastrointestinal: Yes: WNL, Normal Bowel Sounds, Soft, Abdomen, Obese Edema: LLE: Trace, RLE: Trace Labs: CBC, BMP 11/03/18 05:15 11/03/18 05:15 INR, PTT INR 1.25 (0.83-1.09) H 11/01/18 17:00 Problem List - Problems (1) Acute on chronic systolic and diastolic heart failure, NYHA class 1 Assessment/Plan: Cont IV lasix Echo pending Monitor electrolytes Code(s): I50.43 - ACUTE ON CHRONIC COMBINED SYSTOLIC AND DIASTOLIC HRT FAIL (2) COPD exacerbation Assessment/Plan: Cont IV solumedrol and IV ceftriaxone/IV zithro Cont inhalers As per pulmonary Code(s): J44.1 - CHRONIC OBSTRUCTIVE PULMONARY DISEASE W (ACUTE) EXACERBATION (3) Diabetes Assessment/Plan: Cont metformin and sliding scale w/ coverage Code(s): E11.9 - TYPE 2 DIABETES MELLITUS WITHOUT COMPLICATIONS (4) HTN (hypertension) Assessment/Plan: BP stable Code(s): I10 - ESSENTIAL (PRIMARY) HYPERTENSION (5) HLD (hyperlipidemia) Assessment/Plan: Cont crestor Code(s): E78.5 - HYPERLIPIDEMIA, UNSPECIFIED (6) Pulmonary emboli Assessment/Plan: Cont eliquis Code(s): I26.99 - OTHER PULMONARY EMBOLISM WITHOUT ACUTE COR PULMONALE (7) MARIE (obstructive sleep apnea) Code(s): G47.33 - OBSTRUCTIVE SLEEP APNEA (ADULT) (PEDIATRIC) (8) Obesity Code(s): E66.9 - OBESITY, UNSPECIFIED Qualifiers: Obesity type: unspecified obesity type Obesity classification: adult class 3 (BMI >= 40) Serious obesity comorbidity presence: with serious comorbidity Body mass index: BMI 50.0-59.9 Qualified Code(s): E66.01 - Morbid (severe) obesity due to excess calories; Z68.43 - Body mass index (BMI) 50-59.9, adult
[2018-11-04] MEDS: ROSUVASTATIN CA 20 MG TABLET (FP) PO SCH (22:22)
[2018-11-05] MEDS: methylPREDNISolone NA SUCC 40 MG/1 ML VIAL IVPUSH SCH ×3 (01:20→17:24)
[2018-11-05] MEDS: ALBUTEROL SO4 0.083% IH SOL 2.5 MG/3 ML VIAL.NEB. NEB SCH ×7 (04:32→23:46)
[2018-11-05] MEDS: INSULIN SLIDING SCALE (NOVOLOG) 1 VIAL SQ SCH ×4 (06:37→22:25)
[2018-11-05] MEDS: metFORMIN HCL 500 MG TABLET (FP) PO SCH ×2 (06:37→17:24)
--- NOTE | 2018-11-05 07:02 | ECHO ---
Name: MILAN FRIEDMAN Exam:Adult Echocardiogram Study Date: 11/02/2018 09:47 AM Age: 58 yrs Reason For Study: CHF MMode/2D Measurements & Calculations IVSd: 1.2 cm Ao root diam: 2.9 cm LVIDd: 4.8 cm LA dimension: 5.4 cm LVIDs: 3.2 cm LVPWd: 1.7 cm LVPWs: 2.2 cm EDV(Teich): 109.5 ml ESV(Teich): 40.9 ml LVOT diam: 2.3 cm Doppler Measurements & Calculations MV E max boris: 89.3 cm/sec Ao V2 max: 181.3 cm/sec MV A max boris: 129.3 cm/sec Ao max P.2 mmHg MV E/A: 0.69 Ao V2 mean: 117.2 cm/sec MV dec time: 0.08 sec Ao mean P.6 mmHg Ao V2 VTI: 29.4 cm YUSRA(I,D): 2.4 cm2 YUSRA(V,D): 2.9 cm2 LV V1 max P.0 mmHg SV(LVOT): 71.4 ml LV V1 mean P.2 mmHg LV V1 max: 122.4 cm/sec LV V1 mean: 62.3 cm/sec LV V1 VTI: 16.9 cm PA V2 max: 99.0 cm/sec Med Peak E' Boris: 5.9 cm/sec PA max P.9 mmHg Med E/e': 15.2 Lat Peak E' Boris: 9.1 cm/sec Lat E/e': 9.8 Procedure The study was technically difficult with many images being suboptimal in quality. Left Ventricle Left ventricular systolic function is grossly normal. Ejection Fraction = 50-55%. The transmitral spe ctral Doppler flow pattern is suggestive of impaired LV relaxation. Regional wall motion abnormalities gabriella ot be excluded due to limited visualization. Right Ventricle The right ventricle is grossly normal size. The right ventricular systolic function is grossly normal . Atria The left atrium is moderately dilated. Right atrium not well visualized. Mitral Valve The mitral valve is grossly normal. There is no mitral valve stenosis. There is trace to mild mitral regurgitation. Tricuspid Valve The tricuspid valve is not well visualized, but is grossly normal. There is mild tricuspid regurgitat ion. There was insufficient TR detected to calculate RV systolic pressure. Aortic Valve The aortic valve is not well visualized. No hemodynamically significant valvular aortic stenosis. No aortic regurgitation is present. Pulmonic Valve The pulmonic valve is not well seen, but is grossly normal. There is no pulmonic valvular stenosis. T race pulmonic valvular regurgitation. Great Vessels The aortic root is normal size. Pericardium/Pleura There is no pericardial effusion. Interpretation Summary The study was technically difficult with many images being suboptimal in quality. Regional wall motion abnormalities cannot be excluded due to limited visualization. Left ventricular systolic function is grossly normal. Ejection Fraction = 50-55%. The transmitral spectral Doppler flow pattern is suggestive of impaired LV relaxation. The left atrium is moderately dilated. There is trace to mild mitral regurgitation. There is mild tricuspid regurgitation. There was insufficient TR detected to calculate RV systolic pressure. There is no pericardial effusion. MD Landeros *Phuong 11/02/2018 01:13 PM
[2018-11-05] MEDS ORDERED: INSULIN SLIDING SCALE (NOVOLOG) 1 VIAL SQ ONE (07:57)
[2018-11-05 08:25] LABS: ALBUMIN 3.3 g/dl (3.4-5.0); BILIRUBIN,TOTAL 0.2 mg/dL (0.2-1); BLOOD UREA NITROGEN 22.3 mg/dL (7-18); CALCIUM 9.5 mg/dL (8.5-10.1); CREATININE 0.8 mg/dL (0.55-1.3); POTASSIUM 5.1 mmol/L (3.5-5.1); TOT PROT 6.3 g/dl (6.4-8.2)
[2018-11-05 09:04] LABS: BASO % 0.1 % (0-2.0); HEMATOCRIT 34.1 % (32.4-45.2); HEMOGLOBIN 10.4 GM/dL (10.7-15.3); LYMPH % 3.3 % (8-40); MCH 22.7 pg (25.7-33.7); MCHC 30.6 g/dl (32.0-36.0); MEAN CELL VOLUME 74.1 fl (80-96); MEAN PLT VOLUME 8.6 fl (7.5-11.1); MONO % 4.2 % (3.8-10.2); NEUT % 92.4 % (42.8-82.8); PLATELET COUNT 198 K/MM3 (134-434); RDW 17.5 % (11.6-15.6); WHITE BLOOD COUNT 8.9 K/mm3 (4.0-10.0)
--- NOTE | 2018-11-05 09:42 | PN ---
Progress Note, Physician Chief Complaint: sob History of Present Illness: breathing is getting better. leg swelling going down. no cp, palpit, syncope - Current Medication List Current Medications: Active Medications Acetaminophen (Tylenol Oral Solution -) 650 mg PO Q4H PRN PRN Reason: pain Last Admin: 11/04/18 06:39 Dose: 650 mg Albuterol Sulfate (Ventolin 0.083% Nebulizer Soln -) 1 amp NEB RQ4H JANEY Last Admin: 11/05/18 07:31 Dose: 1 amp Albuterol/Ipratropium (Duoneb -) 1 amp NEB Q6H PRN PRN Reason: SHORTNESS OF BREATH Apixaban (Eliquis -) 5 mg PO BID JANEY Last Admin: 11/04/18 22:22 Dose: 5 mg Aspirin (Asa -) 81 mg PO DAILY JANEY Last Admin: 11/04/18 11:49 Dose: 81 mg Furosemide (Lasix Injection -) 40 mg IVPUSH DAILY JANEY Last Admin: 11/04/18 11:49 Dose: 40 mg Guaifenesin (Robitussin -) 10 ml PO Q4H PRN PRN Reason: COUGH Ceftriaxone Sodium 1 gm/ (Dextrose) 50 mls @ 100 mls/hr IVPB DAILY JANEY; Protocol Last Admin: 11/04/18 11:51 Dose: 100 mls/hr Insulin Aspart (Novolog Vial Sliding Scale -) 1 vial SQ ACHS JANEY; Protocol Last Admin: 11/05/18 06:37 Dose: Not Given Losartan Potassium (Cozaar -) 50 mg PO DAILY JANEY Last Admin: 11/04/18 11:49 Dose: 50 mg Metformin HCl (Glucophage -) 1,000 mg PO BIDAC JANEY Last Admin: 11/05/18 06:37 Dose: 1,000 mg Methylprednisolone Sodium Succinate (Solu-Medrol -) 40 mg IVPUSH Q8H-IV JANEY Last Admin: 11/05/18 01:20 Dose: 40 mg Pantoprazole Sodium (Protonix -) 40 mg PO DAILY JANEY Last Admin: 11/04/18 11:50 Dose: 40 mg Rosuvastatin Calcium (Crestor -) 40 mg PO HS JANEY Last Admin: 11/04/18 22:22 Dose: 40 mg - Objective Vital Signs: Vital Signs Temperature 97.8 F 11/05/18 06:00 Pulse Rate 104 H 11/05/18 06:00 Respiratory Rate 18 11/05/18 06:00 Blood Pressure 136/61 11/05/18 06:00 O2 Sat by Pulse Oximetry (%) 95 11/05/18 06:33 Constitutional: Yes: Well Nourished, No Distress, Obese Cardiovascular: Yes: Regular Rate and Rhythm, S1, S2. No: JVD (very tds neck, cpap on), Gallop, Murmur Respiratory: Yes: Regular, CTA Bilaterally. No: Accessory Muscle Use, Rales, Wheezes Extremities: No: Cold Edema: No Neurological: Yes: Alert, Oriented Psychiatric: No: Agitated Labs: CBC, BMP 11/05/18 06:55 11/05/18 06:55 INR, PTT INR 1.25 (0.83-1.09) H 11/01/18 17:00 Assessment/Plan Echo 11/09: nl LVEF. nl RV. LAE. mild TR. no RVSP CXR: prominent hilar markings, some congestive changes, L base atx vs infiltrate tele: NSR, artifact. IMP: 1. Morbid Obesity 2. Acute on Chronic combined systolic and diastolic CHF, non-ischemic CM. (note : normal coronaries on recent cath) 3. Chronic HTN, well controlled 4. Obstructive sleep apnea 5. COPD, former smoker 6. Hypoxia: likely sec to COPD, ? MARIE, suspect obesity hypoventilation 7. 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 DM REC: - initial cxr with congestive finding. receiving IV Lasix 40mg daily here. recorded wts not helpful. bun and bicarb rising. suspect she is becoming dry. repeat CXR--rec change to maintenance po lasix regimen if cxr ok - bp control, same regimen - Cont Eliquis for h/o DVT, PE. details unknown (provoked vs unprovoked)--outpt f/u including ? heme input - copd tx as per Pulmonary - D/C TELE
[2018-11-05] MEDS ORDERED: cefTRIAXone SODIUM 1 GM VIAL ONE (09:45)
[2018-11-05] MEDS ORDERED: DEXTROSE 5%-WATER - 50 ML IVPB ONE (09:45)
[2018-11-05] MEDS: APIXABAN 5 MG TABLET PO SCH ×2 (09:52→22:25)
[2018-11-05] MEDS: ASPIRIN 81 MG CHEWABLE TABLETS PO SCH (09:52)
[2018-11-05] MEDS: PANTOPRAZOLE 40 MG TABLET (FP) PO SCH (09:52)
[2018-11-05] MEDS: LOSARTAN POTASSIUM 50 MG TABLET (FP) PO SCH (09:52)
[2018-11-05] MEDS: FUROSEMIDE 40 MG/4 ML INJECTABLE VIAL IVPUSH SCH (09:55)
[2018-11-05] MEDS: CEFTRIAXONE 1 GM in DEXTROSE 5%-WATER - 50 ML IVPB SCH (09:56)
--- NOTE | 2018-11-05 11:51 | PN ---
Progress Note, Physician History of Present Illness: pulmonary alert,sitting up in bed,less dyspneic on nasal cannula - Current Medication List Current Medications: Active Medications Acetaminophen (Tylenol Oral Solution -) 650 mg PO Q4H PRN PRN Reason: pain Last Admin: 11/04/18 06:39 Dose: 650 mg Albuterol Sulfate (Ventolin 0.083% Nebulizer Soln -) 1 amp NEB RQ4H JANEY Last Admin: 11/05/18 07:31 Dose: 1 amp Albuterol/Ipratropium (Duoneb -) 1 amp NEB Q6H PRN PRN Reason: SHORTNESS OF BREATH Apixaban (Eliquis -) 5 mg PO BID JANEY Last Admin: 11/05/18 09:52 Dose: 5 mg Aspirin (Asa -) 81 mg PO DAILY JANEY Last Admin: 11/05/18 09:52 Dose: 81 mg Furosemide (Lasix Injection -) 40 mg IVPUSH DAILY JANEY Last Admin: 11/05/18 09:55 Dose: 40 mg Guaifenesin (Robitussin -) 10 ml PO Q4H PRN PRN Reason: COUGH Ceftriaxone Sodium 1 gm/ (Dextrose) 50 mls @ 100 mls/hr IVPB DAILY JANEY; Protocol Last Admin: 11/05/18 09:56 Dose: 100 mls/hr Insulin Aspart (Novolog Vial Sliding Scale -) 1 vial SQ ACHS JANEY; Protocol Last Admin: 11/05/18 06:37 Dose: Not Given Losartan Potassium (Cozaar -) 50 mg PO DAILY JANEY Last Admin: 11/05/18 09:52 Dose: 50 mg Metformin HCl (Glucophage -) 1,000 mg PO BIDAC JANEY Last Admin: 11/05/18 06:37 Dose: 1,000 mg Methylprednisolone Sodium Succinate (Solu-Medrol -) 40 mg IVPUSH Q8H-IV JANEY Last Admin: 11/05/18 09:55 Dose: 40 mg Pantoprazole Sodium (Protonix -) 40 mg PO DAILY JANEY Last Admin: 11/05/18 09:52 Dose: 40 mg Rosuvastatin Calcium (Crestor -) 40 mg PO HS JANEY Last Admin: 11/04/18 22:22 Dose: 40 mg - Objective Vital Signs: Vital Signs Temperature 98.1 F 11/05/18 10:12 Pulse Rate 104 H 11/05/18 10:12 Respiratory Rate 22 H 11/05/18 10:12 Blood Pressure 136/77 11/05/18 10:12 O2 Sat by Pulse Oximetry (%) 90 L 11/05/18 10:16 Constitutional: Yes: Well Nourished, Calm, Obese Eyes: Yes: WNL HENT: Yes: WNL Neck: Yes: WNL Cardiovascular: Yes: Regular Rate and Rhythm, S1, S2 Respiratory: Yes: Diminished Gastrointestinal: Yes: Normal Bowel Sounds, Soft Extremities: Yes: WNL Edema: Yes Labs: CBC, BMP 11/05/18 06:55 11/05/18 06:55 INR, PTT INR 1.25 (0.83-1.09) H 11/01/18 17:00 Problem List - Problems (1) Acute on chronic respiratory failure with hypoxia and hypercapnia Code(s): J96.21 - ACUTE AND CHRONIC RESPIRATORY FAILURE WITH HYPOXIA; J96.22 - ACUTE AND CHRONIC RESPIRATORY FAILURE WITH HYPERCAPNIA (2) COPD exacerbation Code(s): J44.1 - CHRONIC OBSTRUCTIVE PULMONARY DISEASE W (ACUTE) EXACERBATION (3) Pulmonary HTN Code(s): I27.20 - PULMONARY HYPERTENSION, UNSPECIFIED (4) Obesity hypoventilation syndrome Code(s): E66.2 - MORBID (SEVERE) OBESITY WITH ALVEOLAR HYPOVENTILATION (5) MARIE (obstructive sleep apnea) Code(s): G47.33 - OBSTRUCTIVE SLEEP APNEA (ADULT) (PEDIATRIC) (6) Diastolic CHF Code(s): I50.30 - UNSPECIFIED DIASTOLIC (CONGESTIVE) HEART FAILURE (7) Pulmonary embolism Code(s): I26.99 - OTHER PULMONARY EMBOLISM WITHOUT ACUTE COR PULMONALE Assessment/Plan IMP ACUTE ON CHRONIC HYPOXEMIC/HYPERCAPNEIC RESPIRATORY FAILURE clinically improving LIKELY MARIE/OHS COPD ADVANCED ACUTE ON CHRONIC DIASTOLIC HF H/O DVT/PE ? UNPROVOKED PULMONARY HTN DM RECENT PNEUMONIA HTN PROLONGED QTc PLAN LASIX INHALED BRONCHODILATORS O2 NIPPV IF PT DEVELOPES INCREASED RESPIRATORY DISTRESS DAILY WTS CHEST CT WT REDUCTION PT WOULD BE A GOOD CANDIDATE FOR HOME TRILOGY DEVICE DR SHEIKH Problem List - Problems (1) Acute on chronic respiratory failure with hypoxia and hypercapnia Code(s): J96.21 - ACUTE AND CHRONIC RESPIRATORY FAILURE WITH HYPOXIA; J96.22 - ACUTE AND CHRONIC RESPIRATORY FAILURE WITH HYPERCAPNIA (2) COPD exacerbation Code(s): J44.1 - CHRONIC OBSTRUCTIVE PULMONARY DISEASE W (ACUTE) EXACERBATION (3) Pulmonary HTN Code(s): I27.20 - PULMONARY HYPERTENSION, UNSPECIFIED (4) Obesity hypoventilation syndrome Code(s): E66.2 - MORBID (SEVERE) OBESITY WITH ALVEOLAR HYPOVENTILATION (5) MARIE (obstructive sleep apnea) Code(s): G47.33 - OBSTRUCTIVE SLEEP APNEA (ADULT) (PEDIATRIC) (6) Diastolic CHF Code(s): I50.30 - UNSPECIFIED DIASTOLIC (CONGESTIVE) HEART FAILURE (7) Pulmonary embolism Code(s): I26.99 - OTHER PULMONARY EMBOLISM WITHOUT ACUTE COR PULMONALE
[2018-11-05 12:21] LABS: ANISOCYTOSIS 0; MACROCYTOSIS 0; PLATELET ESTIMATE NORMAL
[2018-11-05 16:59] VITALS: BMI 52.8
[2018-11-05] MEDS: ACETAMINOPHEN 650 MG/20.3 ML ORAL SOLUTION (CUPS) PO PRN (20:19)
[2018-11-05] MEDS: ROSUVASTATIN CA 20 MG TABLET (FP) PO SCH (22:25)
--- NOTE | 2018-11-05 23:10 | PN ---
Progress Note, Physician - Current Medication List Current Medications: Active Medications Acetaminophen (Tylenol Oral Solution -) 650 mg PO Q4H PRN PRN Reason: pain Last Admin: 11/05/18 20:19 Dose: 650 mg Albuterol Sulfate (Ventolin 0.083% Nebulizer Soln -) 1 amp NEB RQ4H JANEY Last Admin: 11/05/18 22:17 Dose: 1 amp Albuterol/Ipratropium (Duoneb -) 1 amp NEB Q6H PRN PRN Reason: SHORTNESS OF BREATH Apixaban (Eliquis -) 5 mg PO BID JANEY Last Admin: 11/05/18 22:25 Dose: 5 mg Aspirin (Asa -) 81 mg PO DAILY JANEY Last Admin: 11/05/18 09:52 Dose: 81 mg Furosemide (Lasix Injection -) 40 mg IVPUSH DAILY JANEY Last Admin: 11/05/18 09:55 Dose: 40 mg Guaifenesin (Robitussin -) 10 ml PO Q4H PRN PRN Reason: COUGH Ceftriaxone Sodium 1 gm/ (Dextrose) 50 mls @ 100 mls/hr IVPB DAILY JANEY; Protocol Last Admin: 11/05/18 09:56 Dose: 100 mls/hr Insulin Aspart (Novolog Vial Sliding Scale -) 1 vial SQ ACHS JANEY; Protocol Last Admin: 11/05/18 22:25 Dose: 2 units Losartan Potassium (Cozaar -) 50 mg PO DAILY JANEY Last Admin: 11/05/18 09:52 Dose: 50 mg Metformin HCl (Glucophage -) 1,000 mg PO BIDAC JANEY Last Admin: 11/05/18 17:24 Dose: 1,000 mg Methylprednisolone Sodium Succinate (Solu-Medrol -) 40 mg IVPUSH Q8H-IV JANEY Last Admin: 11/05/18 17:24 Dose: 40 mg Pantoprazole Sodium (Protonix -) 40 mg PO DAILY JANEY Last Admin: 11/05/18 09:52 Dose: 40 mg Rosuvastatin Calcium (Crestor -) 40 mg PO HS JANEY Last Admin: 11/05/18 22:25 Dose: 40 mg - Objective Vital Signs: Vital Signs Temperature 98.2 F 11/05/18 22:40 Pulse Rate 107 H 11/05/18 22:40 Respiratory Rate 20 11/05/18 22:40 Blood Pressure 123/53 L 11/05/18 22:40 O2 Sat by Pulse Oximetry (%) 90 L 11/05/18 10:16 Labs: CBC, BMP 11/05/18 06:55 11/05/18 06:55 INR, PTT INR 1.25 (0.83-1.09) H 11/01/18 17:00 Problem List - Problems (1) Acute on chronic systolic and diastolic heart failure, NYHA class 1 Code(s): I50.43 - ACUTE ON CHRONIC COMBINED SYSTOLIC AND DIASTOLIC HRT FAIL (2) COPD exacerbation Code(s): J44.1 - CHRONIC OBSTRUCTIVE PULMONARY DISEASE W (ACUTE) EXACERBATION (3) Diabetes Code(s): E11.9 - TYPE 2 DIABETES MELLITUS WITHOUT COMPLICATIONS (4) HTN (hypertension) Code(s): I10 - ESSENTIAL (PRIMARY) HYPERTENSION (5) HLD (hyperlipidemia) Code(s): E78.5 - HYPERLIPIDEMIA, UNSPECIFIED (6) Pulmonary emboli Code(s): I26.99 - OTHER PULMONARY EMBOLISM WITHOUT ACUTE COR PULMONALE (7) MARIE (obstructive sleep apnea) Code(s): G47.33 - OBSTRUCTIVE SLEEP APNEA (ADULT) (PEDIATRIC) (8) Obesity Code(s): E66.9 - OBESITY, UNSPECIFIED Qualifiers: Obesity type: unspecified obesity type Obesity classification: adult class 3 (BMI >= 40) Serious obesity comorbidity presence: with serious comorbidity Body mass index: BMI 50.0-59.9 Qualified Code(s): E66.01 - Morbid (severe) obesity due to excess calories; Z68.43 - Body mass index (BMI) 50-59.9, adult
[2018-11-06] MEDS: methylPREDNISolone NA SUCC 40 MG/1 ML VIAL IVPUSH SCH ×3 (01:53→23:00)
[2018-11-06] MEDS: ALBUTEROL SO4 0.083% IH SOL 2.5 MG/3 ML VIAL.NEB. NEB SCH ×5 (03:29→20:39)
[2018-11-06] MEDS: INSULIN SLIDING SCALE (NOVOLOG) 1 VIAL SQ SCH ×4 (06:51→22:39)
[2018-11-06] MEDS: metFORMIN HCL 500 MG TABLET (FP) PO SCH ×2 (06:51→16:33)
[2018-11-06 07:12] LABS: BASO % 0.2 % (0-2.0); HEMATOCRIT 34.1 % (32.4-45.2); HEMOGLOBIN 10.5 GM/dL (10.7-15.3); LYMPH % 2.9 % (8-40); MCH 22.7 pg (25.7-33.7); MCHC 30.7 g/dl (32.0-36.0); MEAN CELL VOLUME 74.1 fl (80-96); MEAN PLT VOLUME 8.5 fl (7.5-11.1); MONO % 6.1 % (3.8-10.2); NEUT % 90.8 % (42.8-82.8); RDW 17.5 % (11.6-15.6); WHITE BLOOD COUNT 9.3 K/mm3 (4.0-10.0)
[2018-11-06 07:43] LABS: ALBUMIN 3.4 g/dl (3.4-5.0); BILIRUBIN,TOTAL 0.2 mg/dL (0.2-1); BLOOD UREA NITROGEN 27.8 mg/dL (7-18); CALCIUM 9.8 mg/dL (8.5-10.1); CREATININE 0.8 mg/dL (0.55-1.3); POTASSIUM 5.1 mmol/L (3.5-5.1); TOT PROT 6.7 g/dl (6.4-8.2)
[2018-11-06 08:17] LABS: PLATELET COUNT 218 K/MM3 (134-434)
[2018-11-06] MEDS ORDERED: cefTRIAXone SODIUM 1 GM VIAL ONE (10:05)
[2018-11-06] MEDS ORDERED: DEXTROSE 5%-WATER - 50 ML IVPB ONE (10:06)
[2018-11-06] MEDS: LOSARTAN POTASSIUM 50 MG TABLET (FP) PO SCH (10:27)
[2018-11-06] MEDS: PANTOPRAZOLE 40 MG TABLET (FP) PO SCH (10:27)
[2018-11-06] MEDS: APIXABAN 5 MG TABLET PO SCH ×2 (10:27→22:39)
[2018-11-06] MEDS: ASPIRIN 81 MG CHEWABLE TABLETS PO SCH (10:27)
[2018-11-06] MEDS: FUROSEMIDE 40 MG/4 ML INJECTABLE VIAL IVPUSH SCH ×2 (10:28→15:18)
[2018-11-06] MEDS: CEFTRIAXONE 1 GM in DEXTROSE 5%-WATER - 50 ML IVPB SCH (11:17)
[2018-11-06 11:31] LABS: ANISOCYTOSIS 1+; MACROCYTOSIS 0; PLATELET ESTIMATE NORMAL
--- NOTE | 2018-11-06 11:35 | PN ---
Progress Note, Physician History of Present Illness: PULMONARY ALERT,FEELING BETTER,LESS DYSPNEIC ON NASAL O2 - Current Medication List Current Medications: Active Medications Acetaminophen (Tylenol Oral Solution -) 650 mg PO Q4H PRN PRN Reason: pain Last Admin: 11/05/18 20:19 Dose: 650 mg Albuterol Sulfate (Ventolin 0.083% Nebulizer Soln -) 1 amp NEB RQ4H JANEY Last Admin: 11/06/18 08:25 Dose: 1 amp Albuterol/Ipratropium (Duoneb -) 1 amp NEB Q6H PRN PRN Reason: SHORTNESS OF BREATH Apixaban (Eliquis -) 5 mg PO BID JANEY Last Admin: 11/06/18 10:27 Dose: 5 mg Aspirin (Asa -) 81 mg PO DAILY JANEY Last Admin: 11/06/18 10:27 Dose: 81 mg Furosemide (Lasix Injection -) 40 mg IVPUSH DAILY JANEY Last Admin: 11/06/18 10:28 Dose: 40 mg Guaifenesin (Robitussin -) 10 ml PO Q4H PRN PRN Reason: COUGH Ceftriaxone Sodium 1 gm/ (Dextrose) 50 mls @ 100 mls/hr IVPB DAILY JANEY; Protocol Last Admin: 11/06/18 11:17 Dose: 100 mls/hr Insulin Aspart (Novolog Vial Sliding Scale -) 1 vial SQ ACHS JANEY; Protocol Last Admin: 11/06/18 06:51 Dose: Not Given Losartan Potassium (Cozaar -) 50 mg PO DAILY JANEY Last Admin: 11/06/18 10:27 Dose: 50 mg Metformin HCl (Glucophage -) 1,000 mg PO BIDAC JANEY Last Admin: 11/06/18 06:51 Dose: 1,000 mg Methylprednisolone Sodium Succinate (Solu-Medrol -) 40 mg IVPUSH Q8H-IV JANEY Last Admin: 11/06/18 10:27 Dose: 40 mg Pantoprazole Sodium (Protonix -) 40 mg PO DAILY JANEY Last Admin: 11/06/18 10:27 Dose: 40 mg Rosuvastatin Calcium (Crestor -) 40 mg PO HS JANEY Last Admin: 11/05/18 22:25 Dose: 40 mg - Objective Vital Signs: Vital Signs Temperature 98.2 F 11/06/18 06:00 Pulse Rate 104 H 11/06/18 06:00 Respiratory Rate 20 11/06/18 06:00 Blood Pressure 127/63 11/06/18 06:00 O2 Sat by Pulse Oximetry (%) 96 11/05/18 23:33 Constitutional: Yes: Calm, Obese Eyes: Yes: WNL HENT: Yes: WNL Neck: Yes: WNL Cardiovascular: Yes: Regular Rate and Rhythm, S1, S2 Respiratory: Yes: Diminished Gastrointestinal: Yes: Normal Bowel Sounds, Soft Extremities: Yes: WNL Edema: No Labs: CBC, BMP 11/06/18 06:25 11/06/18 06:25 INR, PTT INR 1.25 (0.83-1.09) H 11/01/18 17:00 Problem List - Problems (1) Acute on chronic respiratory failure with hypoxia and hypercapnia Code(s): J96.21 - ACUTE AND CHRONIC RESPIRATORY FAILURE WITH HYPOXIA; J96.22 - ACUTE AND CHRONIC RESPIRATORY FAILURE WITH HYPERCAPNIA (2) COPD exacerbation Code(s): J44.1 - CHRONIC OBSTRUCTIVE PULMONARY DISEASE W (ACUTE) EXACERBATION (3) Pulmonary HTN Code(s): I27.20 - PULMONARY HYPERTENSION, UNSPECIFIED (4) Obesity hypoventilation syndrome Code(s): E66.2 - MORBID (SEVERE) OBESITY WITH ALVEOLAR HYPOVENTILATION (5) MARIE (obstructive sleep apnea) Code(s): G47.33 - OBSTRUCTIVE SLEEP APNEA (ADULT) (PEDIATRIC) (6) Diastolic CHF Code(s): I50.30 - UNSPECIFIED DIASTOLIC (CONGESTIVE) HEART FAILURE (7) Pulmonary embolism Code(s): I26.99 - OTHER PULMONARY EMBOLISM WITHOUT ACUTE COR PULMONALE Assessment/Plan IMP ACUTE ON CHRONIC HYPOXEMIC/HYPERCAPNEIC RESPIRATORY FAILURE clinically improving LIKELY MARIE/OHS COPD ADVANCED ACUTE ON CHRONIC DIASTOLIC HF H/O DVT/PE ? UNPROVOKED PULMONARY HTN DM RECENT PNEUMONIA HTN PROLONGED QTc PLAN LASIX INHALED BRONCHODILATORS O2 NIPPV IF PT DEVELOPES INCREASED RESPIRATORY DISTRESS DAILY WTS CHEST CT WT REDUCTION MEDROL TAPER PT WOULD BE A GOOD CANDIDATE FOR HOME TRILOGY DEVICE DR SHEIKH Problem List - Problems (1) Acute on chronic respiratory failure with hypoxia and hypercapnia Code(s): J96.21 - ACUTE AND CHRONIC RESPIRATORY FAILURE WITH HYPOXIA; J96.22 - ACUTE AND CHRONIC RESPIRATORY FAILURE WITH HYPERCAPNIA (2) COPD exacerbation Code(s): J44.1 - CHRONIC OBSTRUCTIVE PULMONARY DISEASE W (ACUTE) EXACERBATION (3) Pulmonary HTN Code(s): I27.20 - PULMONARY HYPERTENSION, UNSPECIFIED (4) Obesity hypoventilation syndrome Code(s): E66.2 - MORBID (SEVERE) OBESITY WITH ALVEOLAR HYPOVENTILATION (5) MARIE (obstructive sleep apnea) Code(s): G47.33 - OBSTRUCTIVE SLEEP APNEA (ADULT) (PEDIATRIC) (6) Diastolic CHF Code(s): I50.30 - UNSPECIFIED DIASTOLIC (CONGESTIVE) HEART FAILURE (7) Pulmonary embolism Code(s): I26.99 - OTHER PULMONARY EMBOLISM WITHOUT ACUTE COR PULMONALE
--- NOTE | 2018-11-06 11:50 | PN ---
Progress Note (short form) - Note Progress Note: s: sob feels worse today, leg swelling improved. no chest pain, palps, dizziness Current Medications Acetaminophen (Tylenol Oral Solution -) 650 mg PO Q4H PRN PRN Reason: pain Last Admin: 11/05/18 20:19 Dose: 650 mg Albuterol Sulfate (Ventolin 0.083% Nebulizer Soln -) 1 amp NEB RQ4H JANEY Last Admin: 11/06/18 08:25 Dose: 1 amp Albuterol/Ipratropium (Duoneb -) 1 amp NEB Q6H PRN PRN Reason: SHORTNESS OF BREATH Apixaban (Eliquis -) 5 mg PO BID JANEY Last Admin: 11/06/18 10:27 Dose: 5 mg Aspirin (Asa -) 81 mg PO DAILY JANEY Last Admin: 11/06/18 10:27 Dose: 81 mg Furosemide (Lasix Injection -) 40 mg IVPUSH DAILY [facility] Last Admin: 11/06/18 10:28 Dose: 40 mg Guaifenesin (Robitussin -) 10 ml PO Q4H PRN PRN Reason: COUGH Ceftriaxone Sodium 1 gm/ (Dextrose) 50 mls @ 100 mls/hr IVPB DAILY [facility]; Protocol Last Admin: 11/06/18 11:17 Dose: 100 mls/hr Insulin Aspart (Novolog Vial Sliding Scale -) 1 vial SQ ACHS [facility]; Protocol Last Admin: 11/06/18 11:41 Dose: Not Given Losartan Potassium (Cozaar -) 50 mg PO DAILY [facility] Last Admin: 11/06/18 10:27 Dose: 50 mg Metformin HCl (Glucophage -) 1,000 mg PO BIDAC JANEY Last Admin: 11/06/18 06:51 Dose: 1,000 mg Methylprednisolone Sodium Succinate (Solu-Medrol -) 40 mg IVPUSH Q12H JANEY Pantoprazole Sodium (Protonix -) 40 mg PO DAILY JANEY Last Admin: 11/06/18 10:27 Dose: 40 mg Rosuvastatin Calcium (Crestor -) 40 mg PO HS [facility] Last Admin: 11/05/18 22:25 Dose: 40 mg Vital Signs Period Temp Pulse Resp BP Sys/Torres Pulse Ox Last 24 Hr 98 F-98.3 F 101-108 18-20 123-145/53-63 96-96 Constitutional: Yes: Well Nourished, No Distress, Obese Cardiovascular: Yes: Regular Rate and Rhythm, S1, S2. No: JVD (very tds neck, cpap on), Gallop, Murmur Respiratory: Yes: Regular, CTA Bilaterally. No: Accessory Muscle Use, Rales, Wheezes Extremities: No: Cold Edema: No Neurological: Yes: Alert, Oriented Psychiatric: No: Agitated Assessment/Plan Echo 11/09: nl LVEF. nl RV. LAE. mild TR. no RVSP CXR: prominent hilar markings, some congestive changes, L base atx vs infiltrate tele: NSR, artifact, ST IMP: 1. Morbid Obesity 2. Acute on Chronic combined systolic and diastolic CHF, non-ischemic CM. (note : normal coronaries on recent cath) 3. Chronic HTN, well controlled 4. Obstructive sleep apnea 5. COPD, former smoker 6. Hypoxia: likely sec to COPD, ? MARIE, suspect obesity hypoventilation 7. 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 DM REC: - initial cxr with congestive finding. receiving IV Lasix 40mg daily here. BUN rising, however CXR showed worsening effusions, respiratory status worse today - increase lasix to 40 mg IV BID - bp control, same regimen - Cont Eliquis for h/o DVT, PE. details unknown (provoked vs unprovoked)--outpt f/u including ? heme input - copd tx as per Pulmonary - D/C TELE
[2018-11-06] MEDS: ACETAMINOPHEN 650 MG/20.3 ML ORAL SOLUTION (CUPS) PO PRN (15:18)
--- NOTE | 2018-11-06 16:05 | PDOC ---
Documentation entered by Todd Pryor SCRIBE, acting as scribe for Bc Hill MD. Bc Hill MD: This documentation has been prepared by the Konstantin sin Daniel, SCRIBE, under my direction and personally reviewed by me in its entirety. I confirm that the documentation accurately reflects all work, treatment, procedures, and medical decision making performed by me. Attending Attestation - Resident Resident Name: CodySherrie - ED Attending Attestation I have performed the following: I have examined & evaluated the patient, The case was reviewed & discussed with the resident, I agree w/resident's findings & plan, Exceptions are as noted - HPI HPI: 11/01/18 18:01 58 F with h/o obesity, DM, HTN, presenting to ED with SOB. Pt attributes the SOB to the recent humidity. However, she also notes that her legs are more swollen than normal. Pt endorses BEE. Denies CP. Denies F/C. Pt uses CPAP occasionally when she sleeps but states she has not been 100% compliant with it because it is not comfortable. In Dr. Garcia's office today, pt was noted to be satting in the 80s on RA. - Physicial Exam PE: 11/01/18 18:11 "GENERAL: Awake, alert, and fully oriented, in no acute distress. HEAD: No signs of trauma EYES: PERRLA, EOMI, sclera anicteric, conjunctiva clear ENT: Auricles normal inspection, hearing grossly normal, nares patent, oropharynx clear without exudates. Moist mucosa NECK: Nontender, no stepoffs, Normal ROM, supple, no lymphadenopathy, JVD, or masses LUNGS: Breath sounds diminished bilaterally HEART: Regular rate and rhythm, normal S1 and S2, no murmurs, rubs or gallops ABDOMEN: Soft, nontender, normoactive bowel sounds. No guarding, no rebound. No masses EXTREMITIES: +2 PE BLE, No clubbing or cyanosis. No cords, erythema, or tenderness NEUROLOGICAL: Cranial nerves II through XII intact. 5/5 strength and sensation in all extremities, Normal speech, normal gait, normal cerebellar function SKIN: Warm, Dry, normal turgor, no rashes or lesions noted. - Medical Decision Making 11/01/18 18:11 58 F with SOB. Vitals notable for hypoxia to 80s on RA. Pt with worsening pitting edema, suspicious for volume overload. Lung sounds diminished on both sides due to body habitus. - Labs, trop, BNP - CXR - IV lasix 11/01/18 18:12 Pt with hypercapnia on ABG. Suspect this is chronic due to obesity hypoventilation. Pt with normal pH, elevated serum bicarb. CXR with mild congestion Will admit for diuresis
[2018-11-06] MEDS ORDERED: SODIUM CHLORIDE FOR INHALATION 3 ML VIAL.NEB IH PRN (21:34)
--- NOTE | 2018-11-06 21:50 | PN ---
Progress Note, Physician - Current Medication List Current Medications: Active Medications Acetaminophen (Tylenol Oral Solution -) 650 mg PO Q4H PRN PRN Reason: pain Last Admin: 11/06/18 15:18 Dose: 650 mg Al Hydroxide/Mg Hydroxide (Mylanta Suspension -) 30 ml PO TID JANEY Albuterol Sulfate (Ventolin 0.083% Nebulizer Soln -) 1 amp NEB RQ4H JANEY Last Admin: 11/06/18 20:39 Dose: 1 amp Albuterol/Ipratropium (Duoneb -) 1 amp NEB Q6H PRN PRN Reason: SHORTNESS OF BREATH Apixaban (Eliquis -) 5 mg PO BID JANEY Last Admin: 11/06/18 10:27 Dose: 5 mg Aspirin (Asa -) 81 mg PO DAILY JANEY Last Admin: 11/06/18 10:27 Dose: 81 mg Furosemide (Lasix Injection -) 40 mg IVPUSH BID@0600,1400 [facility] Last Admin: 11/06/18 15:18 Dose: 40 mg Guaifenesin (Robitussin -) 10 ml PO Q4H PRN PRN Reason: COUGH Ceftriaxone Sodium 1 gm/ (Dextrose) 50 mls @ 100 mls/hr IVPB DAILY [facility]; Protocol Last Admin: 11/06/18 11:17 Dose: 100 mls/hr Insulin Aspart (Novolog Vial Sliding Scale -) 1 vial SQ ACHS [facility]; Protocol Last Admin: 11/06/18 16:35 Dose: 4 units Losartan Potassium (Cozaar -) 50 mg PO DAILY [facility] Last Admin: 11/06/18 10:27 Dose: 50 mg Metformin HCl (Glucophage -) 1,000 mg PO BIDAC JANEY Last Admin: 11/06/18 16:33 Dose: 1,000 mg Methylprednisolone Sodium Succinate (Solu-Medrol -) 40 mg IVPUSH Q12H JANEY Pantoprazole Sodium (Protonix -) 40 mg PO DAILY JANEY Last Admin: 11/06/18 10:27 Dose: 40 mg Rosuvastatin Calcium (Crestor -) 40 mg PO HS [facility] Last Admin: 11/05/18 22:25 Dose: 40 mg Sodium Chloride (Normal Saline For Inhalation -) 3 ml IH Q6H PRN PRN Reason: FLUSH - Objective Vital Signs: Vital Signs Temperature 98.2 F 11/06/18 18:00 Pulse Rate 108 H 11/06/18 18:00 Respiratory Rate 18 11/06/18 18:00 Blood Pressure 109/81 11/06/18 18:00 O2 Sat by Pulse Oximetry (%) 92 L 11/06/18 20:40 Labs: CBC, BMP 11/06/18 06:25 11/06/18 06:25 INR, PTT INR 1.25 (0.83-1.09) H 11/01/18 17:00 Problem List - Problems (1) Acute on chronic systolic and diastolic heart failure, NYHA class 1 Code(s): I50.43 - ACUTE ON CHRONIC COMBINED SYSTOLIC AND DIASTOLIC HRT FAIL (2) COPD exacerbation Code(s): J44.1 - CHRONIC OBSTRUCTIVE PULMONARY DISEASE W (ACUTE) EXACERBATION (3) Diabetes Code(s): E11.9 - TYPE 2 DIABETES MELLITUS WITHOUT COMPLICATIONS (4) HTN (hypertension) Code(s): I10 - ESSENTIAL (PRIMARY) HYPERTENSION (5) HLD (hyperlipidemia) Code(s): E78.5 - HYPERLIPIDEMIA, UNSPECIFIED (6) Pulmonary emboli Code(s): I26.99 - OTHER PULMONARY EMBOLISM WITHOUT ACUTE COR PULMONALE (7) MARIE (obstructive sleep apnea) Code(s): G47.33 - OBSTRUCTIVE SLEEP APNEA (ADULT) (PEDIATRIC) (8) Obesity Code(s): E66.9 - OBESITY, UNSPECIFIED Qualifiers: Obesity type: unspecified obesity type Obesity classification: adult class 3 (BMI >= 40) Serious obesity comorbidity presence: with serious comorbidity Body mass index: BMI 50.0-59.9 Qualified Code(s): E66.01 - Morbid (severe) obesity due to excess calories; Z68.43 - Body mass index (BMI) 50-59.9, adult
[2018-11-06] MEDS ORDERED: MAG HYDROX/AL HYDROX/SIMETH -MYLANTA- ORAL SUSPENSION PO SCH (22:00)
[2018-11-06] MEDS: ROSUVASTATIN CA 20 MG TABLET (FP) PO SCH (22:38)
[2018-11-06] MEDS: MAG HYDROX/AL HYDROX/SIMETH 30 ML UNIT-DOSE CUP PO SCH (22:39)
[2018-11-07] MEDS: ALBUTEROL SO4 0.083% IH SOL 2.5 MG/3 ML VIAL.NEB. NEB SCH ×6 (00:45→20:55)
[2018-11-07 07:47] LABS: BASO % 0.1 % (0-2.0); HEMATOCRIT 33.8 % (32.4-45.2); HEMOGLOBIN 10.5 GM/dL (10.7-15.3); LYMPH % 4.9 % (8-40); MCH 22.6 pg (25.7-33.7); MEAN CELL VOLUME 72.8 fl (80-96); MEAN PLT VOLUME 8.5 fl (7.5-11.1); MONO % 5.4 % (3.8-10.2); NEUT % 89.6 % (42.8-82.8); PLATELET COUNT 219 K/MM3 (134-434); RBC 4.65 M/mm3 (3.60-5.2); RDW 17.6 % (11.6-15.6); WHITE BLOOD COUNT 9.1 K/mm3 (4.0-10.0)
[2018-11-07 08:10] LABS: ALBUMIN 3.6 g/dl (3.4-5.0); BILIRUBIN,TOTAL 0.3 mg/dL (0.2-1); BLOOD UREA NITROGEN 29.8 mg/dL (7-18); CALCIUM 9.8 mg/dL (8.5-10.1); CREATININE 0.8 mg/dL (0.55-1.3); POTASSIUM 4.5 mmol/L (3.5-5.1); TOT PROT 6.6 g/dl (6.4-8.2)
[2018-11-07 10:05] LABS: ANISOCYTOSIS 0; MACROCYTOSIS 0; PLATELET ESTIMATE NORMAL
[2018-11-07] MEDS ORDERED: DEXTROSE 5%-WATER - 50 ML IVPB ONE (10:06)
[2018-11-07] MEDS ORDERED: cefTRIAXone SODIUM 1 GM VIAL ONE (10:06)
[2018-11-07] MEDS: ASPIRIN 81 MG CHEWABLE TABLETS PO SCH (10:12)
[2018-11-07] MEDS: CEFTRIAXONE 1 GM in DEXTROSE 5%-WATER - 50 ML IVPB SCH (10:12)
[2018-11-07] MEDS: LOSARTAN POTASSIUM 50 MG TABLET (FP) PO SCH (10:12)
[2018-11-07] MEDS: PANTOPRAZOLE 40 MG TABLET (FP) PO SCH (10:12)
[2018-11-07] MEDS: APIXABAN 5 MG TABLET PO SCH ×2 (10:12→22:06)
[2018-11-07] MEDS: methylPREDNISolone NA SUCC 40 MG/1 ML VIAL IVPUSH SCH (10:13)
[2018-11-07] MEDS: INSULIN SLIDING SCALE (NOVOLOG) 1 VIAL SQ SCH ×3 (10:22→22:05)
[2018-11-07] MEDS ORDERED: PT OWN MED DRAWER 7, Y5N ONE ×2 (13:20→16:42)
[2018-11-07] MEDS: MAG HYDROX/AL HYDROX/SIMETH 30 ML UNIT-DOSE CUP PO SCH ×2 (14:54→22:05)
[2018-11-07] MEDS: FUROSEMIDE 40 MG/4 ML INJECTABLE VIAL IVPUSH SCH (14:54)
--- NOTE | 2018-11-07 15:39 | PN ---
Progress Note, Physician History of Present Illness: pulmonary alert,sitting up in bed less dyspneic,o2 sat 94% on o2 - Current Medication List Current Medications: Active Medications Acetaminophen (Tylenol Oral Solution -) 650 mg PO Q4H PRN PRN Reason: pain Last Admin: 11/06/18 15:18 Dose: 650 mg Al Hydroxide/Mg Hydroxide (Mylanta Oral Suspension -) 30 ml PO TID [facility] Last Admin: 11/07/18 14:54 Dose: 30 ml Albuterol Sulfate (Ventolin 0.083% Nebulizer Soln -) 1 amp NEB RQ4H JANEY Last Admin: 11/07/18 12:00 Dose: 1 amp Apixaban (Eliquis -) 5 mg PO BID JANEY Last Admin: 11/07/18 10:12 Dose: 5 mg Aspirin (Asa -) 81 mg PO DAILY [facility] Last Admin: 11/07/18 10:12 Dose: 81 mg Furosemide (Lasix Injection -) 40 mg IVPUSH BID@0600,1400 [facility] Last Admin: 11/07/18 14:54 Dose: 40 mg Guaifenesin (Robitussin -) 10 ml PO Q4H PRN PRN Reason: COUGH Ceftriaxone Sodium 1 gm/ (Dextrose) 50 mls @ 100 mls/hr IVPB DAILY [facility]; Protocol Last Admin: 11/07/18 10:12 Dose: 100 mls/hr Insulin Aspart (Novolog Vial Sliding Scale -) 1 vial SQ ACHS JANEY; Protocol Last Admin: 11/07/18 10:22 Dose: 2 units Losartan Potassium (Cozaar -) 50 mg PO DAILY [facility] Last Admin: 11/07/18 10:12 Dose: 50 mg Metformin HCl (Glucophage -) 1,000 mg PO BIDAC JANEY Last Admin: 11/06/18 16:33 Dose: 1,000 mg Methylprednisolone Sodium Succinate (Solu-Medrol -) 40 mg IVPUSH Q12H JANEY Last Admin: 11/07/18 10:13 Dose: 40 mg Pantoprazole Sodium (Protonix -) 40 mg PO DAILY JANEY Last Admin: 11/07/18 10:12 Dose: 40 mg Rosuvastatin Calcium (Crestor -) 40 mg PO HS [facility] Last Admin: 11/06/18 22:38 Dose: 40 mg Sodium Chloride (Normal Saline For Inhalation -) 3 ml IH Q6H PRN PRN Reason: FLUSH - Objective Vital Signs: Vital Signs Temperature 98.8 F 11/07/18 14:04 Pulse Rate 108 H 11/07/18 14:04 Respiratory Rate 18 11/07/18 14:04 Blood Pressure 133/72 11/07/18 14:04 O2 Sat by Pulse Oximetry (%) 98 11/07/18 09:00 Constitutional: Yes: Calm, Obese Eyes: Yes: WNL HENT: Yes: WNL Neck: Yes: WNL Cardiovascular: Yes: Regular Rate and Rhythm, S1, S2 Respiratory: Yes: Diminished Gastrointestinal: Yes: Normal Bowel Sounds, Abdomen, Obese Extremities: Yes: WNL Edema: No Labs: CBC, BMP 11/07/18 06:20 11/07/18 06:20 INR, PTT INR 1.25 (0.83-1.09) H 11/01/18 17:00 - ....Imaging Cat Scan: Report Reviewed, Image Reviewed (left adrenal mass) Problem List - Problems (1) Acute on chronic respiratory failure with hypoxia and hypercapnia Code(s): J96.21 - ACUTE AND CHRONIC RESPIRATORY FAILURE WITH HYPOXIA; J96.22 - ACUTE AND CHRONIC RESPIRATORY FAILURE WITH HYPERCAPNIA (2) COPD exacerbation Code(s): J44.1 - CHRONIC OBSTRUCTIVE PULMONARY DISEASE W (ACUTE) EXACERBATION (3) Pulmonary HTN Code(s): I27.20 - PULMONARY HYPERTENSION, UNSPECIFIED (4) Obesity hypoventilation syndrome Code(s): E66.2 - MORBID (SEVERE) OBESITY WITH ALVEOLAR HYPOVENTILATION (5) MARIE (obstructive sleep apnea) Code(s): G47.33 - OBSTRUCTIVE SLEEP APNEA (ADULT) (PEDIATRIC) (6) Diastolic CHF Code(s): I50.30 - UNSPECIFIED DIASTOLIC (CONGESTIVE) HEART FAILURE (7) Pulmonary embolism Code(s): I26.99 - OTHER PULMONARY EMBOLISM WITHOUT ACUTE COR PULMONALE Assessment/Plan IMP ACUTE ON CHRONIC HYPOXEMIC/HYPERCAPNEIC RESPIRATORY FAILURE clinically improving LIKELY MARIE/OHS COPD ADVANCED ACUTE ON CHRONIC DIASTOLIC HF H/O DVT/PE ? UNPROVOKED PULMONARY HTN DM RECENT PNEUMONIA HTN PROLONGED QTc LEFT ADRENAL MASS PLAN LASIX INHALED BRONCHODILATORS RENAL CONSULT O2 NIPPV IF PT DEVELOPES INCREASED RESPIRATORY DISTRESS DAILY WTS CHEST CT WT REDUCTION MEDROL TAPER PT WOULD BE A GOOD CANDIDATE FOR HOME TRILOGY DEVICE DR SHEIKH Problem List - Problems (1) Acute on chronic respiratory failure with hypoxia and hypercapnia Code(s): J96.21 - ACUTE AND CHRONIC RESPIRATORY FAILURE WITH HYPOXIA; J96.22 - ACUTE AND CHRONIC RESPIRATORY FAILURE WITH HYPERCAPNIA (2) COPD exacerbation Code(s): J44.1 - CHRONIC OBSTRUCTIVE PULMONARY DISEASE W (ACUTE) EXACERBATION (3) Pulmonary HTN Code(s): I27.20 - PULMONARY HYPERTENSION, UNSPECIFIED (4) Obesity hypoventilation syndrome Code(s): E66.2 - MORBID (SEVERE) OBESITY WITH ALVEOLAR HYPOVENTILATION (5) MARIE (obstructive sleep apnea) Code(s): G47.33 - OBSTRUCTIVE SLEEP APNEA (ADULT) (PEDIATRIC) (6) Diastolic CHF Code(s): I50.30 - UNSPECIFIED DIASTOLIC (CONGESTIVE) HEART FAILURE (7) Pulmonary embolism Code(s): I26.99 - OTHER PULMONARY EMBOLISM WITHOUT ACUTE COR PULMONALE
--- NOTE | 2018-11-07 15:54 | PN ---
Progress Note (short form) - Note Progress Note: s: less sob, no cp palps dizzy o: Vital Signs Period Temp Pulse Resp BP Sys/Torres Pulse Ox Last 24 Hr 98.2 F-98.8 F 108-108 18-18 109-159/72-81 92-98 Constitutional: Yes: No Distress, Calm Eyes: Yes: Conjunctiva Clear Respiratory: cta bl nl eff Gastrointestinal: Yes: Soft, Abdomen, Obese Cardiovascular: Yes: Regular Rate and Rhythm JVD: No Heart Sounds: Yes: S1, S2 (RRR, No M/R/G) Edema:yes, trace bl le edema Neurological: Yes: Alert, Oriented no jaundice diaphoresis Current Medications Generic Name Dose Route Start Last Admin Trade Name Freq PRN Reason Stop Dose Admin Acetaminophen 650 mg 11/01/18 23:48 11/06/18 15:18 Tylenol Oral Solution - PO 650 mg Q4H PRN Administration pain Al Hydroxide/Mg Hydroxide 30 ml 11/06/18 22:00 11/07/18 14:54 Mylanta Oral Suspension - PO 30 ml TID JANEY Administration Albuterol Sulfate 1 amp 11/01/18 20:00 11/07/18 12:00 Ventolin 0.083% Nebulizer Soln - NEB 1 amp RQ4H JANEY Administration Apixaban 5 mg 11/02/18 10:00 11/07/18 10:12 Eliquis - PO 5 mg BID JANEY Administration Aspirin 81 mg 11/02/18 10:00 11/07/18 10:12 Asa - PO 81 mg DAILY JANEY Administration Furosemide 40 mg 11/06/18 14:00 11/07/18 14:54 Lasix Injection - IVPUSH 40 mg BID@0600,1400 JANEY Administration Guaifenesin 10 ml 11/03/18 11:18 Robitussin - PO Q4H PRN COUGH Ceftriaxone Sodium 1 gm/ 50 mls @ 100 mls/hr 11/01/18 23:45 11/07/18 10:12 Dextrose IVPB 100 mls/hr DAILY JANEY Administration Protocol Insulin Aspart 1 vial 11/02/18 07:00 11/07/18 10:22 Novolog Vial Sliding Scale - SQ 2 units ACHS JANEY Administration Protocol Losartan Potassium 50 mg 11/02/18 10:00 11/07/18 10:12 Cozaar - PO 50 mg DAILY JANEY Administration Metformin HCl 1,000 mg 11/02/18 07:00 11/06/18 16:33 Glucophage - PO 1,000 mg BIDAC JANEY Administration Methylprednisolone Sodium Succinate 40 mg 11/08/18 10:00 Solu-Medrol - IVPUSH DAILY JANEY Pantoprazole Sodium 40 mg 11/02/18 02:27 11/07/18 10:12 Protonix - PO 40 mg DAILY JANEY Administration Rosuvastatin Calcium 40 mg 11/02/18 22:00 11/06/18 22:38 Crestor - PO 40 mg HS JANEY Administration Sodium Chloride 3 ml 11/06/18 21:34 Normal Saline For Inhalation - IH Q6H PRN FLUSH Vital Signs Period Temp Pulse Resp BP Sys/Torres Pulse Ox Last 24 Hr 98.2 F-98.8 F 108-108 18-18 109-159/72-81 92-98 Assessment/Plan IMP: 1. Morbid Obesity 2. Acute on Chronic combined systolic and diastolic CHF, non-ischemic CM 3. Chronic HTN 4. Obstructive sleep apnea 5. COPD, former smoker 6. Hypoxia: likely multifactorial--> MARIE, CHF, COPD 7. 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 DM REC: 1. Tele benign. 2. Echo unremarkable here. 3. Daily weights and BMP to monitor renal fx and lytes: keep K+ and Mg2+ normalized 4. Agree w/ IV Lasix for now. CT shows no sig chf. 5. Cont home Losartan, Statin and low dose ASA for h/o non-obstx CAD. 6. Cont Eliquis for h/o DVT, PE. 7. copd tx as per Pulmonary
[2018-11-07] MEDS: metFORMIN HCL 500 MG TABLET (FP) PO SCH (16:31)
[2018-11-07] MEDS: ACETAMINOPHEN 650 MG/20.3 ML ORAL SOLUTION (CUPS) PO PRN (17:47)
[2018-11-07] MEDS ORDERED: INSULIN (NOVOLOG) ASPART 100 UNITS/ML 10ML VIAL ONE (21:26)
[2018-11-07] MEDS: ROSUVASTATIN CA 20 MG TABLET (FP) PO SCH (22:06)
--- NOTE | 2018-11-07 23:55 | PN ---
Progress Note, Physician - Current Medication List Current Medications: Active Medications Acetaminophen (Tylenol Oral Solution -) 650 mg PO Q4H PRN PRN Reason: pain Last Admin: 11/07/18 17:47 Dose: 650 mg Al Hydroxide/Mg Hydroxide (Mylanta Oral Suspension -) 30 ml PO TID [facility] Last Admin: 11/07/18 22:05 Dose: 30 ml Albuterol Sulfate (Ventolin 0.083% Nebulizer Soln -) 1 amp NEB RQ4H [facility] Last Admin: 11/07/18 20:55 Dose: 1 amp Apixaban (Eliquis -) 5 mg PO BID [facility] Last Admin: 11/07/18 22:06 Dose: 5 mg Aspirin (Asa -) 81 mg PO DAILY [facility] Last Admin: 11/07/18 10:12 Dose: 81 mg Furosemide (Lasix Injection -) 40 mg IVPUSH BID@0600,1400 [facility] Last Admin: 11/07/18 14:54 Dose: 40 mg Guaifenesin (Robitussin -) 10 ml PO Q4H PRN PRN Reason: COUGH Ceftriaxone Sodium 1 gm/ (Dextrose) 50 mls @ 100 mls/hr IVPB DAILY [facility]; Protocol Last Admin: 11/07/18 10:12 Dose: 100 mls/hr Insulin Aspart (Novolog Vial Sliding Scale -) 1 vial SQ ACHS [facility]; Protocol Last Admin: 11/07/18 22:05 Dose: 4 units Losartan Potassium (Cozaar -) 50 mg PO DAILY [facility] Last Admin: 11/07/18 10:12 Dose: 50 mg Metformin HCl (Glucophage -) 1,000 mg PO BIDAC [facility] Last Admin: 11/07/18 16:31 Dose: Not Given Methylprednisolone Sodium Succinate (Solu-Medrol -) 40 mg IVPUSH DAILY [facility] Pantoprazole Sodium (Protonix -) 40 mg PO DAILY [facility] Last Admin: 11/07/18 10:12 Dose: 40 mg Rosuvastatin Calcium (Crestor -) 40 mg PO HS [facility] Last Admin: 11/07/18 22:06 Dose: 40 mg Sodium Chloride (Normal Saline For Inhalation -) 3 ml IH Q6H PRN PRN Reason: FLUSH - Objective Vital Signs: Vital Signs Temperature 98.7 F 11/07/18 19:05 Pulse Rate 107 H 11/07/18 19:05 Respiratory Rate 21 H 11/07/18 19:05 Blood Pressure 127/53 L 11/07/18 19:05 O2 Sat by Pulse Oximetry (%) 98 11/07/18 21:00 Labs: CBC, BMP 11/07/18 06:20 11/07/18 06:20 INR, PTT INR 1.25 (0.83-1.09) H 11/01/18 17:00 Problem List - Problems (1) Acute on chronic systolic and diastolic heart failure, NYHA class 1 Code(s): I50.43 - ACUTE ON CHRONIC COMBINED SYSTOLIC AND DIASTOLIC HRT FAIL (2) COPD exacerbation Code(s): J44.1 - CHRONIC OBSTRUCTIVE PULMONARY DISEASE W (ACUTE) EXACERBATION (3) Diabetes Code(s): E11.9 - TYPE 2 DIABETES MELLITUS WITHOUT COMPLICATIONS (4) HTN (hypertension) Code(s): I10 - ESSENTIAL (PRIMARY) HYPERTENSION (5) HLD (hyperlipidemia) Code(s): E78.5 - HYPERLIPIDEMIA, UNSPECIFIED (6) Pulmonary emboli Code(s): I26.99 - OTHER PULMONARY EMBOLISM WITHOUT ACUTE COR PULMONALE (7) MARIE (obstructive sleep apnea) Code(s): G47.33 - OBSTRUCTIVE SLEEP APNEA (ADULT) (PEDIATRIC) (8) Obesity Code(s): E66.9 - OBESITY, UNSPECIFIED Qualifiers: Obesity type: unspecified obesity type Obesity classification: adult class 3 (BMI >= 40) Serious obesity comorbidity presence: with serious comorbidity Body mass index: BMI 50.0-59.9 Qualified Code(s): E66.01 - Morbid (severe) obesity due to excess calories; Z68.43 - Body mass index (BMI) 50-59.9, adult
[2018-11-08] MEDS: ALBUTEROL SO4 0.083% IH SOL 2.5 MG/3 ML VIAL.NEB. NEB SCH ×6 (00:33→20:15)
[2018-11-08] MEDS: ACETAMINOPHEN 650 MG/20.3 ML ORAL SOLUTION (CUPS) PO PRN ×2 (02:14→18:01)
[2018-11-08] MEDS: guaiFENesin 200 MG/10 ML 10 ML UNIT-DOSE CUPS PO PRN ×2 (04:40→15:16)
[2018-11-08] MEDS: FUROSEMIDE 40 MG/4 ML INJECTABLE VIAL IVPUSH SCH ×2 (06:28→15:16)
[2018-11-08] MEDS: MAG HYDROX/AL HYDROX/SIMETH 30 ML UNIT-DOSE CUP PO SCH ×3 (06:28→22:30)
[2018-11-08] MEDS: INSULIN SLIDING SCALE (NOVOLOG) 1 VIAL SQ SCH ×4 (06:29→22:30)
[2018-11-08] MEDS: metFORMIN HCL 500 MG TABLET (FP) PO SCH ×2 (06:29→17:57)
[2018-11-08] MEDS ORDERED: cefTRIAXone SODIUM 1 GM VIAL ONE (09:46)
[2018-11-08] MEDS ORDERED: DEXTROSE 5%-WATER - 50 ML IVPB ONE (09:47)
[2018-11-08] MEDS: LOSARTAN POTASSIUM 50 MG TABLET (FP) PO SCH (09:58)
[2018-11-08] MEDS: APIXABAN 5 MG TABLET PO SCH ×2 (09:58→22:31)
[2018-11-08] MEDS: PANTOPRAZOLE 40 MG TABLET (FP) PO SCH (09:58)
[2018-11-08] MEDS: CEFTRIAXONE 1 GM in DEXTROSE 5%-WATER - 50 ML IVPB SCH (09:58)
[2018-11-08] MEDS: ASPIRIN 81 MG CHEWABLE TABLETS PO SCH (09:58)
[2018-11-08] MEDS: methylPREDNISolone NA SUCC 40 MG/1 ML VIAL IVPUSH SCH (10:00)
--- NOTE | 2018-11-08 11:00 | PN ---
Progress Note (short form) - Note Progress Note: PULMONARY States breathing is improving. Still some chest congestion, nonproductive cough. Vital Signs Period Temp Pulse Resp BP Sys/Torres Pulse Ox Last 24 Hr 98.2 F-98.8 F 97-108 18-21 127-143/53-76 98-98 Gen: NAD at rest Heart: RRR Lung: scattered rhonchi Abd: soft, nontender Ext: no edema CBC, BMP 11/07/18 06:20 11/07/18 06:20 Active Medications Acetaminophen (Tylenol Oral Solution -) 650 mg PO Q4H PRN PRN Reason: pain Last Admin: 11/08/18 02:14 Dose: 650 mg Al Hydroxide/Mg Hydroxide (Mylanta Oral Suspension -) 30 ml PO TID [facility] Last Admin: 11/08/18 06:28 Dose: 30 ml Albuterol Sulfate (Ventolin 0.083% Nebulizer Soln -) 1 amp NEB RQ4H JANEY Last Admin: 11/08/18 07:30 Dose: 1 amp Apixaban (Eliquis -) 5 mg PO BID JANEY Last Admin: 11/08/18 09:58 Dose: 5 mg Aspirin (Asa -) 81 mg PO DAILY [facility] Last Admin: 11/08/18 09:58 Dose: 81 mg Furosemide (Lasix Injection -) 40 mg IVPUSH BID@0600,1400 [facility] Last Admin: 11/08/18 06:28 Dose: 40 mg Guaifenesin (Robitussin -) 10 ml PO Q4H PRN PRN Reason: COUGH Last Admin: 11/08/18 04:40 Dose: 10 ml Ceftriaxone Sodium 1 gm/ (Dextrose) 50 mls @ 100 mls/hr IVPB DAILY [facility]; Protocol Last Admin: 11/08/18 09:58 Dose: 100 mls/hr Insulin Aspart (Novolog Vial Sliding Scale -) 1 vial SQ ACHS JANEY; Protocol Last Admin: 11/08/18 06:29 Dose: Not Given Losartan Potassium (Cozaar -) 50 mg PO DAILY [facility] Last Admin: 11/08/18 09:58 Dose: 50 mg Metformin HCl (Glucophage -) 1,000 mg PO BIDAC [facility] Last Admin: 11/08/18 06:29 Dose: 1,000 mg Methylprednisolone Sodium Succinate (Solu-Medrol -) 40 mg IVPUSH DAILY [facility] Last Admin: 11/08/18 10:00 Dose: 40 mg Pantoprazole Sodium (Protonix -) 40 mg PO DAILY [facility] Last Admin: 11/08/18 09:58 Dose: 40 mg Rosuvastatin Calcium (Crestor -) 40 mg PO HS [facility] Last Admin: 11/07/18 22:06 Dose: 40 mg Sodium Chloride (Normal Saline For Inhalation -) 3 ml IH Q6H PRN PRN Reason: FLUSH A/P Acute on Chronic Hypoxic and Hypercapneic Respiratory Failure improving COPD Acute on Chronic Diastolic Heart Failure Morbid Obesity Likely MARIE Pulmonary HTN HTN DM - continue lasix - monitor urine output, creatinine - medrol taper - O2 to keep Spo2 >90% - will need outpt PFTs, PSG - DVT prophylaxis
--- NOTE | 2018-11-08 11:51 | PN ---
Progress Note (short form) - Note Progress Note: s: less sob, no cp palps dizzy o: Vital Signs Period Temp Pulse Resp BP Sys/Torres Pulse Ox Last 24 Hr 98.2 F-98.8 F 97-108 18-21 127-143/53-76 98-98 Constitutional: Yes: No Distress, Calm Eyes: Yes: Conjunctiva Clear Respiratory: cta bl nl eff Gastrointestinal: Yes: Soft, Abdomen, Obese Cardiovascular: Yes: Regular Rate and Rhythm JVD: No Heart Sounds: Yes: S1, S2 (RRR, No M/R/G) Edema:yes, trace bl le edema Neurological: Yes: Alert, Oriented no jaundice diaphoresis Current Medications Generic Name Dose Route Start Last Admin Trade Name Freq PRN Reason Stop Dose Admin Acetaminophen 650 mg 11/01/18 23:48 11/08/18 02:14 Tylenol Oral Solution - PO 650 mg Q4H PRN Administration pain Al Hydroxide/Mg Hydroxide 30 ml 11/06/18 22:00 11/08/18 06:28 Mylanta Oral Suspension - PO 30 ml TID JANEY Administration Albuterol Sulfate 1 amp 11/01/18 20:00 11/08/18 11:15 Ventolin 0.083% Nebulizer Soln - NEB 1 amp RQ4H JANEY Administration Apixaban 5 mg 11/02/18 10:00 11/08/18 09:58 Eliquis - PO 5 mg BID JANEY Administration Aspirin 81 mg 11/02/18 10:00 11/08/18 09:58 Asa - PO 81 mg DAILY JANEY Administration Furosemide 40 mg 11/06/18 14:00 11/08/18 06:28 Lasix Injection - IVPUSH 40 mg BID@0600,1400 JANEY Administration Guaifenesin 10 ml 11/03/18 11:18 11/08/18 04:40 Robitussin - PO 10 ml Q4H PRN Administration COUGH Ceftriaxone Sodium 1 gm/ 50 mls @ 100 mls/hr 11/01/18 23:45 11/08/18 09:58 Dextrose IVPB 100 mls/hr DAILY JANEY Administration Protocol Insulin Aspart 1 vial 11/02/18 07:00 11/08/18 06:29 Novolog Vial Sliding Scale - SQ Not Given ACHS JANEY Protocol Losartan Potassium 50 mg 11/02/18 10:00 07/18/19 09:58 Cozaar - PO 50 mg DAILY JANEY Administration Metformin HCl 1,000 mg 11/02/18 07:00 11/08/18 06:29 Glucophage - PO 1,000 mg BIDAC JANEY Administration Methylprednisolone Sodium Succinate 40 mg 11/08/18 10:00 11/08/18 10:00 Solu-Medrol - IVPUSH 40 mg DAILY JANEY Administration Pantoprazole Sodium 40 mg 11/02/18 02:27 11/08/18 09:58 Protonix - PO 40 mg DAILY JANEY Administration Rosuvastatin Calcium 40 mg 11/02/18 22:00 11/07/18 22:06 Crestor - PO 40 mg HS JANEY Administration Sodium Chloride 3 ml 11/06/18 21:34 Normal Saline For Inhalation - IH Q6H PRN FLUSH CBC, BMP 11/07/18 06:20 11/07/18 06:20 Assessment/Plan IMP: 1. Morbid Obesity 2. Acute on Chronic combined systolic and diastolic CHF, non-ischemic CM 3. Chronic HTN 4. Obstructive sleep apnea 5. COPD, former smoker 6. Hypoxia: likely multifactorial--> MARIE, CHF, COPD 7. 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 DM REC: 1. Tele benign. 2. Echo unremarkable here. 3. Daily weights and BMP to monitor renal fx and lytes: keep K+ and Mg2+ normalized 4. Agree w/ IV Lasix for now. CT shows no sig chf. Can change to po lasix 40 bid when steroids changed to po 5. Cont home Losartan, Statin and low dose ASA for h/o non-obstx CAD. 6. Cont Eliquis for h/o DVT, PE. 7. copd tx as per Pulmonary
--- NOTE | 2018-11-08 15:22 | CONSULT ---
Consult Consult Specialty:: Nephrology Reason for Consultation:: azotemia - History of Present Illness Chief Complaint: malaise History of Present Illness: Pt is a 58 year old female with pmhx of htn, DM, COPD, left adrenal adenoma and obesity who presents to the ER with malaise. She was noted to have elevated bun and I was called to evaluate her. SHe denies history of CKD. She denies dysuria or hematuria. She did have shortness of breath that is improving. She also complained of lower ext edema when she presented. She denies fevers or chills. She denies chest pain or palpitations. - History Source History Provided By: Patient, Medical Record - Past Medical History Cardio/Vascular: Yes: CHF, HTN, Other (LE Edema) Pulmonary: Yes: COPD, Pulmonary Embolus Endocrine: Yes: Diabetes Mellitus - Alcohol/Substance Use Hx Alcohol Use: No - Smoking History Smoking history: Former smoker Have you smoked in the past 12 months: No - Social History Usual Living Arrangement: Alone History of Recent Travel: No Home Medications - Allergies Allergies/Adverse Reactions: Allergies Allergy/AdvReac Type Severity Reaction Status Date / Time No Known Allergies Allergy Verified 11/01/18 15:47 - Home Medications Home Medications: Ambulatory Orders Apixaban [Eliquis] 5 mg PO BID 11/02/18 Aspirin 81 mg PO DAILY 11/02/18 Losartan Potassium 50 mg PO DAILY 11/02/18 Metformin HCl [Glucophage] 1,000 mg PO BID 11/02/18 Pantoprazole Sodium 40 mg PO DAILY 11/02/18 Rosuvastatin Calcium [Crestor] 40 mg PO HS 11/02/18 Family Disease History - Family Disease History Family History: Denies Review of Systems - Review of Systems Constitutional: reports: Malaise Eyes: reports: No Symptoms HENT: reports: No Symptoms Neck: reports: No Symptoms Cardiovascular: reports: No Symptoms Respiratory: reports: SOB on Exertion Gastrointestinal: reports: No Symptoms Genitourinary: reports: No Symptoms Musculoskeletal: reports: No Symptoms Integumentary: reports: No Symptoms Neurological: reports: No Symptoms Endocrine: reports: No Symptoms Hematology/Lymphatic: reports: No Symptoms Physical Exam Vital Signs: Vital Signs Temperature 99.0 F 11/08/18 14:14 Pulse Rate 118 H 11/08/18 14:14 Respiratory Rate 20 11/08/18 14:14 Blood Pressure 115/75 11/08/18 14:14 O2 Sat by Pulse Oximetry (%) 95 11/08/18 10:00 Constitutional: Yes: Calm Eyes: Yes: Conjunctiva Clear HENT: Yes: Atraumatic Neck: Yes: Supple Cardiovascular: Yes: S1, S2 Respiratory: Yes: CTA Bilaterally Gastrointestinal: Yes: Soft, Abdomen, Obese Renal/: Yes: WNL Musculoskeletal: Yes: WNL Edema: Yes Edema: LLE: Trace, RLE: Trace Neurological: Yes: Oriented Psychiatric: Yes: Oriented Labs: CBC, BMP 11/07/18 06:20 11/07/18 06:20 Laboratory Tests 11/01/18 11/05/18 11/06/18 18:40 06:55 06:25 Hgb 10.5 L BUN 22.3 H Creatinine Urine Protein Negative Urine Blood Negative 11/06/18 11/07/18 11/07/18 06:25 06:20 06:20 Hgb 10.5 L BUN 27.8 H 29.8 H Creatinine 0.8 Urine Protein Urine Blood Imaging - Results Cat Scan: Report Reviewed (left adrenal mass) Problem List - Problems (1) Azotemia Code(s): R79.89 - OTHER SPECIFIED ABNORMAL FINDINGS OF BLOOD CHEMISTRY (2) Acute on chronic respiratory failure with hypoxia and hypercapnia Code(s): J96.21 - ACUTE AND CHRONIC RESPIRATORY FAILURE WITH HYPOXIA; J96.22 - ACUTE AND CHRONIC RESPIRATORY FAILURE WITH HYPERCAPNIA (3) HTN (hypertension) Code(s): I10 - ESSENTIAL (PRIMARY) HYPERTENSION (4) Obesity Code(s): E66.9 - OBESITY, UNSPECIFIED Qualifiers: Obesity type: unspecified obesity type Obesity classification: adult class 3 (BMI >= 40) Serious obesity comorbidity presence: with serious comorbidity Body mass index: BMI 50.0-59.9 Qualified Code(s): E66.01 - Morbid (severe) obesity due to excess calories; Z68.43 - Body mass index (BMI) 50-59.9, adult Assessment/Plan Current Medications Generic Name Dose Route Start Last Admin Trade Name Freq PRN Reason Stop Dose Admin Acetaminophen 650 mg 11/01/18 23:48 11/08/18 02:14 Tylenol Oral Solution - PO 650 mg Q4H PRN Administration pain Al Hydroxide/Mg Hydroxide 30 ml 11/06/18 22:00 11/08/18 15:16 Mylanta Oral Suspension - PO 30 ml TID JANEY Administration Albuterol Sulfate 1 amp 11/01/18 20:00 11/08/18 11:15 Ventolin 0.083% Nebulizer Soln - NEB 1 amp RQ4H JANEY Administration Apixaban 5 mg 11/02/18 10:00 11/08/18 09:58 Eliquis - PO 5 mg BID JANEY Administration Aspirin 81 mg 11/02/18 10:00 11/08/18 09:58 Asa - PO 81 mg DAILY JANEY Administration Furosemide 40 mg 11/06/18 14:00 11/08/18 15:16 Lasix Injection - IVPUSH 40 mg BID@0600,1400 JANEY Administration Guaifenesin 10 ml 11/03/18 11:18 11/08/18 15:16 Robitussin - PO 10 ml Q4H PRN Administration COUGH Ceftriaxone Sodium 1 gm/ 50 mls @ 100 mls/hr 11/01/18 23:45 11/08/18 09:58 Dextrose IVPB 100 mls/hr DAILY JANEY Administration Protocol Insulin Aspart 1 vial 11/02/18 07:00 11/08/18 15:16 Novolog Vial Sliding Scale - SQ Not Given ACHS JANEY Protocol Losartan Potassium 50 mg 11/02/18 10:00 11/08/18 09:58 Cozaar - PO 50 mg DAILY JANEY Administration Metformin HCl 1,000 mg 11/02/18 07:00 11/08/18 06:29 Glucophage - PO 1,000 mg BIDAC JANEY Administration Methylprednisolone Sodium Succinate 40 mg 11/08/18 10:00 11/08/18 10:00 Solu-Medrol - IVPUSH 40 mg DAILY JANEY Administration Pantoprazole Sodium 40 mg 11/02/18 02:27 11/08/18 09:58 Protonix - PO 40 mg DAILY JANEY Administration Rosuvastatin Calcium 40 mg 11/02/18 22:00 11/07/18 22:06 Crestor - PO 40 mg HS JANEY Administration Sodium Chloride 3 ml 11/06/18 21:34 Normal Saline For Inhalation - IH Q6H PRN FLUSH Impression 1. azotemia 2. obesity 3. left adrenal adenoma - follows with Javad 4. HLD 5. COPD 6. CHF Plan - steroids may be contributing to elevated bun - monitor bun - check stool for occult blood - repeat labs in am - pt follows with Javad for adrenal adenoma
[2018-11-08] MEDS: ROSUVASTATIN CA 20 MG TABLET (FP) PO SCH (22:31)
--- NOTE | 2018-11-08 22:31 | PN ---
Progress Note, Physician - Current Medication List Current Medications: Active Medications Acetaminophen (Tylenol Oral Solution -) 650 mg PO Q4H PRN PRN Reason: pain Last Admin: 11/08/18 18:01 Dose: 650 mg Al Hydroxide/Mg Hydroxide (Mylanta Oral Suspension -) 30 ml PO TID [facility] Last Admin: 11/08/18 15:16 Dose: 30 ml Albuterol Sulfate (Ventolin 0.083% Nebulizer Soln -) 1 amp NEB RQ4H JANEY Last Admin: 11/08/18 20:15 Dose: 1 amp Apixaban (Eliquis -) 5 mg PO BID JANEY Last Admin: 11/08/18 09:58 Dose: 5 mg Aspirin (Asa -) 81 mg PO DAILY JANEY Last Admin: 11/08/18 09:58 Dose: 81 mg Furosemide (Lasix Injection -) 40 mg IVPUSH BID@0600,1400 [facility] Last Admin: 11/08/18 15:16 Dose: 40 mg Guaifenesin (Robitussin -) 10 ml PO Q4H PRN PRN Reason: COUGH Last Admin: 11/08/18 15:16 Dose: 10 ml Ceftriaxone Sodium 1 gm/ (Dextrose) 50 mls @ 100 mls/hr IVPB DAILY [facility]; Protocol Last Admin: 11/08/18 09:58 Dose: 100 mls/hr Insulin Aspart (Novolog Vial Sliding Scale -) 1 vial SQ ACHS [facility]; Protocol Last Admin: 11/08/18 16:25 Dose: 4 units Losartan Potassium (Cozaar -) 50 mg PO DAILY [facility] Last Admin: 11/08/18 09:58 Dose: 50 mg Metformin HCl (Glucophage -) 1,000 mg PO BIDAC JANEY Last Admin: 11/08/18 17:57 Dose: 1,000 mg Methylprednisolone Sodium Succinate (Solu-Medrol -) 40 mg IVPUSH DAILY [facility] Last Admin: 11/08/18 10:00 Dose: 40 mg Pantoprazole Sodium (Protonix -) 40 mg PO DAILY [facility]ANEY Last Admin: 11/08/18 09:58 Dose: 40 mg Rosuvastatin Calcium (Crestor -) 40 mg PO HS [facility] Last Admin: 11/07/18 22:06 Dose: 40 mg Sodium Chloride (Normal Saline For Inhalation -) 3 ml IH Q6H PRN PRN Reason: FLUSH - Objective Vital Signs: Vital Signs Temperature 98.8 F 07/18/19 19:00 Pulse Rate 81 11/08/18 19:00 Respiratory Rate 20 11/08/18 19:00 Blood Pressure 143/88 11/08/18 19:00 O2 Sat by Pulse Oximetry (%) 95 11/08/18 10:00 Constitutional: Yes: Obese HENT: Yes: WNL Neck: Yes: WNL, Supple Cardiovascular: Yes: WNL, Regular Rate and Rhythm Respiratory: Yes: Diminished Gastrointestinal: Yes: WNL, Normal Bowel Sounds, Soft, Abdomen, Obese Edema: LLE: Trace, RLE: Trace Labs: CBC, BMP 11/07/18 06:20 11/07/18 06:20 INR, PTT INR 1.25 (0.83-1.09) H 11/01/18 17:00 Problem List - Problems (1) Acute on chronic systolic and diastolic heart failure, NYHA class 1 Assessment/Plan: Cont IV lasix Monitor electrolytes Code(s): I50.43 - ACUTE ON CHRONIC COMBINED SYSTOLIC AND DIASTOLIC HRT FAIL (2) COPD exacerbation Assessment/Plan: Cont IV solumedrol wc is being tapered IV ceftriaxone/IV zithro Cont inhalers As per pulmonary Code(s): J44.1 - CHRONIC OBSTRUCTIVE PULMONARY DISEASE W (ACUTE) EXACERBATION (3) Diabetes Assessment/Plan: Cont metformin and sliding scale w/ coverage Code(s): E11.9 - TYPE 2 DIABETES MELLITUS WITHOUT COMPLICATIONS (4) HTN (hypertension) Assessment/Plan: BP stable Code(s): I10 - ESSENTIAL (PRIMARY) HYPERTENSION (5) HLD (hyperlipidemia) Assessment/Plan: Cont crestor Code(s): E78.5 - HYPERLIPIDEMIA, UNSPECIFIED (6) Pulmonary emboli Assessment/Plan: Cont eliquis Code(s): I26.99 - OTHER PULMONARY EMBOLISM WITHOUT ACUTE COR PULMONALE (7) MARIE (obstructive sleep apnea) Code(s): G47.33 - OBSTRUCTIVE SLEEP APNEA (ADULT) (PEDIATRIC) (8) Obesity Code(s): E66.9 - OBESITY, UNSPECIFIED Qualifiers: Obesity type: unspecified obesity type Obesity classification: adult class 3 (BMI >= 40) Serious obesity comorbidity presence: with serious comorbidity Body mass index: BMI 50.0-59.9 Qualified Code(s): E66.01 - Morbid (severe) obesity due to excess calories; Z68.43 - Body mass index (BMI) 50-59.9, adult (9) Adrenal adenoma Assessment/Plan: Pt has follow up at [facility] as outpt Code(s): D35.00 - BENIGN NEOPLASM OF UNSPECIFIED ADRENAL GLAND (10) Acute on chronic respiratory failure with hypoxia and hypercapnia Code(s): J96.21 - ACUTE AND CHRONIC RESPIRATORY FAILURE WITH HYPOXIA; J96.22 - ACUTE AND CHRONIC RESPIRATORY FAILURE WITH HYPERCAPNIA
[2018-11-09] MEDS: ALBUTEROL SO4 0.083% IH SOL 2.5 MG/3 ML VIAL.NEB. NEB SCH ×7 (00:32→23:57)
[2018-11-09] MEDS: FUROSEMIDE 40 MG/4 ML INJECTABLE VIAL IVPUSH SCH ×2 (06:00→14:24)
[2018-11-09] MEDS: metFORMIN HCL 500 MG TABLET (FP) PO SCH ×2 (06:00→16:55)
[2018-11-09] MEDS: MAG HYDROX/AL HYDROX/SIMETH 30 ML UNIT-DOSE CUP PO SCH ×3 (06:00→21:51)
[2018-11-09] MEDS: INSULIN SLIDING SCALE (NOVOLOG) 1 VIAL SQ SCH ×4 (06:18→21:51)
[2018-11-09 09:22] LABS: BASO % 0.2 % (0-2.0); HEMATOCRIT 31.9 % (32.4-45.2); HEMOGLOBIN 9.8 GM/dL (10.7-15.3); LYMPH % 8.6 % (8-40); MCH 22.3 pg (25.7-33.7); MCHC 30.7 g/dl (32.0-36.0); MEAN CELL VOLUME 72.6 fl (80-96); MEAN PLT VOLUME 8.4 fl (7.5-11.1); MONO % 11.1 % (3.8-10.2); NEUT % 79.1 % (42.8-82.8); PLATELET COUNT 194 K/MM3 (134-434); RDW 18.4 % (11.6-15.6); WHITE BLOOD COUNT 7.2 K/mm3 (4.0-10.0)
[2018-11-09 09:32] LABS: ALBUMIN 3.2 g/dl (3.4-5.0); BILIRUBIN,TOTAL 0.2 mg/dL (0.2-1); BLOOD UREA NITROGEN 32.3 mg/dL (7-18); CALCIUM 9.5 mg/dL (8.5-10.1); CREATININE 0.8 mg/dL (0.55-1.3); POTASSIUM 4.1 mmol/L (3.5-5.1); TOT PROT 5.8 g/dl (6.4-8.2)
[2018-11-09] MEDS ORDERED: DEXTROSE 5%-WATER - 50 ML IVPB ONE (09:50)
[2018-11-09] MEDS ORDERED: cefTRIAXone SODIUM 1 GM VIAL ONE (09:50)
[2018-11-09] MEDS: CEFTRIAXONE 1 GM in DEXTROSE 5%-WATER - 50 ML IVPB SCH (09:51)
[2018-11-09] MEDS: APIXABAN 5 MG TABLET PO SCH ×2 (09:52→21:52)
[2018-11-09] MEDS: ASPIRIN 81 MG CHEWABLE TABLETS PO SCH (09:52)
[2018-11-09] MEDS: SERTRALINE HCL 50 MG TABLET (FP) PO SCH (09:52)
[2018-11-09] MEDS: methylPREDNISolone NA SUCC 40 MG/1 ML VIAL IVPUSH SCH (09:52)
[2018-11-09] MEDS: LORATADINE 10 MG TABLET PO SCH (09:52)
[2018-11-09] MEDS: PANTOPRAZOLE 40 MG TABLET (FP) PO SCH (09:52)
[2018-11-09] MEDS: guaiFENesin 200 MG/10 ML 10 ML UNIT-DOSE CUPS PO PRN (10:01)
[2018-11-09] MEDS: LOSARTAN POTASSIUM 50 MG TABLET (FP) PO SCH (11:11)
[2018-11-09] MEDS ORDERED: INSULIN (NOVOLOG) ASPART 100 UNITS/ML 10ML VIAL ONE ×2 (12:05→21:21)
[2018-11-09] MEDS: ACETAMINOPHEN 650 MG/20.3 ML ORAL SOLUTION (CUPS) PO PRN (14:58)
--- NOTE | 2018-11-09 15:15 | PN ---
Progress Note, Physician History of Present Illness: pulmonary alert,feeling better,less dyspneic. - Current Medication List Current Medications: Active Medications Acetaminophen (Tylenol Oral Solution -) 650 mg PO Q4H PRN PRN Reason: pain Last Admin: 11/09/18 14:58 Dose: 650 mg Al Hydroxide/Mg Hydroxide (Mylanta Oral Suspension -) 30 ml PO TID [facility] Last Admin: 11/09/18 14:24 Dose: 30 ml Albuterol Sulfate (Ventolin 0.083% Nebulizer Soln -) 1 amp NEB RQ4H JANEY Last Admin: 11/09/18 13:02 Dose: 1 amp Apixaban (Eliquis -) 5 mg PO BID [facility] Last Admin: 11/09/18 09:52 Dose: 5 mg Aspirin (Asa -) 81 mg PO DAILY [facility] Last Admin: 11/09/18 09:52 Dose: 81 mg Furosemide (Lasix Injection -) 40 mg IVPUSH BID@0600,1400 [facility] Last Admin: 11/09/18 14:24 Dose: 40 mg Guaifenesin (Robitussin -) 10 ml PO Q4H PRN PRN Reason: COUGH Last Admin: 11/09/18 10:01 Dose: 10 ml Ceftriaxone Sodium 1 gm/ (Dextrose) 50 mls @ 100 mls/hr IVPB DAILY [facility]; Protocol Last Admin: 11/09/18 09:51 Dose: 100 mls/hr Insulin Aspart (Novolog Vial Sliding Scale -) 1 vial SQ ACHS [facility]; Protocol Last Admin: 11/09/18 12:05 Dose: 2 units Loratadine (Claritin -) 10 mg PO DAILY [facility] Last Admin: 11/09/18 09:52 Dose: 10 mg Losartan Potassium (Cozaar -) 50 mg PO DAILY [facility] Last Admin: 11/09/18 11:11 Dose: 50 mg Metformin HCl (Glucophage -) 1,000 mg PO BIDAC [facility] Last Admin: 11/09/18 06:00 Dose: 1,000 mg Methylprednisolone Sodium Succinate (Solu-Medrol -) 40 mg IVPUSH DAILY [facility] Last Admin: 11/09/18 09:52 Dose: 40 mg Pantoprazole Sodium (Protonix -) 40 mg PO DAILY [facility] Last Admin: 11/09/18 09:52 Dose: 40 mg Rosuvastatin Calcium (Crestor -) 40 mg PO HS [facility] Last Admin: 11/08/18 22:31 Dose: 40 mg Sertraline HCl (Zoloft -) 100 mg PO DAILY [facility] Last Admin: 11/09/18 09:52 Dose: 100 mg Sodium Chloride (Normal Saline For Inhalation -) 3 ml IH Q6H PRN PRN Reason: FLUSH - Objective Vital Signs: Vital Signs Temperature 98.6 F 11/09/18 14:46 Pulse Rate 106 H 11/09/18 14:46 Respiratory Rate 20 11/09/18 14:46 Blood Pressure 136/84 11/09/18 14:46 O2 Sat by Pulse Oximetry (%) 94 L 11/09/18 10:00 Constitutional: Yes: Well Nourished, Obese Eyes: Yes: WNL HENT: Yes: WNL Neck: Yes: WNL Cardiovascular: Yes: Regular Rate and Rhythm, S1, S2 Respiratory: Yes: Diminished, Wheezes (few wheezes) Gastrointestinal: Yes: Normal Bowel Sounds, Soft Extremities: Yes: WNL Edema: No Labs: CBC, BMP 11/09/18 08:15 11/09/18 08:15 INR, PTT INR 1.25 (0.83-1.09) H 11/01/18 17:00 Problem List - Problems (1) Acute on chronic respiratory failure with hypoxia and hypercapnia Code(s): J96.21 - ACUTE AND CHRONIC RESPIRATORY FAILURE WITH HYPOXIA; J96.22 - ACUTE AND CHRONIC RESPIRATORY FAILURE WITH HYPERCAPNIA (2) COPD exacerbation Code(s): J44.1 - CHRONIC OBSTRUCTIVE PULMONARY DISEASE W (ACUTE) EXACERBATION (3) Pulmonary HTN Code(s): I27.20 - PULMONARY HYPERTENSION, UNSPECIFIED (4) Obesity hypoventilation syndrome Code(s): E66.2 - MORBID (SEVERE) OBESITY WITH ALVEOLAR HYPOVENTILATION (5) MARIE (obstructive sleep apnea) Code(s): G47.33 - OBSTRUCTIVE SLEEP APNEA (ADULT) (PEDIATRIC) (6) Diastolic CHF Code(s): I50.30 - UNSPECIFIED DIASTOLIC (CONGESTIVE) HEART FAILURE (7) Pulmonary embolism Code(s): I26.99 - OTHER PULMONARY EMBOLISM WITHOUT ACUTE COR PULMONALE Assessment/Plan IMP ACUTE ON CHRONIC HYPOXEMIC/HYPERCAPNEIC RESPIRATORY FAILURE clinically improving LIKELY MARIE/OHS COPD ADVANCED ACUTE ON CHRONIC DIASTOLIC HF H/O DVT/PE ? UNPROVOKED PULMONARY HTN DM RECENT PNEUMONIA HTN PROLONGED QTc LEFT ADRENAL ADENOMA PLAN LASIX INHALED BRONCHODILATORS O2 NIPPV NEEDED DAILY WTS WT REDUCTION MEDROL PT WOULD BE A GOOD CANDIDATE FOR HOME TRILOGY DEVICE DR SHEIKH Problem List - Problems (1) Acute on chronic respiratory failure with hypoxia and hypercapnia Code(s): J96.21 - ACUTE AND CHRONIC RESPIRATORY FAILURE WITH HYPOXIA; J96.22 - ACUTE AND CHRONIC RESPIRATORY FAILURE WITH HYPERCAPNIA (2) COPD exacerbation Code(s): J44.1 - CHRONIC OBSTRUCTIVE PULMONARY DISEASE W (ACUTE) EXACERBATION (3) Pulmonary HTN Code(s): I27.20 - PULMONARY HYPERTENSION, UNSPECIFIED (4) Obesity hypoventilation syndrome Code(s): E66.2 - MORBID (SEVERE) OBESITY WITH ALVEOLAR HYPOVENTILATION (5) MARIE (obstructive sleep apnea) Code(s): G47.33 - OBSTRUCTIVE SLEEP APNEA (ADULT) (PEDIATRIC) (6) Diastolic CHF Code(s): I50.30 - UNSPECIFIED DIASTOLIC (CONGESTIVE) HEART FAILURE (7) Pulmonary embolism Code(s): I26.99 - OTHER PULMONARY EMBOLISM WITHOUT ACUTE COR PULMONALE
--- NOTE | 2018-11-09 15:42 | PN ---
Progress Note (short form) - Note Progress Note: s: less sob, no cp palps dizzy o: Vital Signs Period Temp Pulse Resp BP Sys/Torres Pulse Ox Last 24 Hr 97.8 F-98.8 F 81-114 20-20 118-143/83-88 94 Constitutional: Yes: No Distress, Calm Eyes: Yes: Conjunctiva Clear Respiratory: cta bl nl eff Gastrointestinal: Yes: Soft, Abdomen, Obese Cardiovascular: Yes: Regular Rate and Rhythm JVD: No Heart Sounds: Yes: S1, S2 (RRR, No M/R/G) Edema:yes, trace bl le edema Neurological: Yes: Alert, Oriented no jaundice diaphoresis Current Medications Generic Name Dose Route Start Last Admin Trade Name Freq PRN Reason Stop Dose Admin Acetaminophen 650 mg 11/01/18 23:48 11/09/18 14:58 Tylenol Oral Solution - PO 650 mg Q4H PRN Administration pain Al Hydroxide/Mg Hydroxide 30 ml 11/06/18 22:00 11/09/18 14:24 Mylanta Oral Suspension - PO 30 ml TID JANEY Administration Albuterol Sulfate 1 amp 11/01/18 20:00 11/09/18 13:02 Ventolin 0.083% Nebulizer Soln - NEB 1 amp RQ4H JANEY Administration Apixaban 5 mg 11/02/18 10:00 11/09/18 09:52 Eliquis - PO 5 mg BID JANEY Administration Aspirin 81 mg 11/02/18 10:00 11/09/18 09:52 Asa - PO 81 mg DAILY JANEY Administration Furosemide 40 mg 11/06/18 14:00 11/09/18 14:24 Lasix Injection - IVPUSH 40 mg BID@0600,1400 JANEY Administration Guaifenesin 10 ml 11/03/18 11:18 11/09/18 10:01 Robitussin - PO 10 ml Q4H PRN Administration COUGH Ceftriaxone Sodium 1 gm/ 50 mls @ 100 mls/hr 11/01/18 23:45 11/09/18 09:51 Dextrose IVPB 100 mls/hr DAILY JANEY Administration Protocol Insulin Aspart 1 vial 11/02/18 07:00 11/09/18 12:05 Novolog Vial Sliding Scale - SQ 2 units ACHS JANEY Administration Protocol Loratadine 10 mg 11/09/18 10:00 07/19/19 09:52 Claritin - PO 10 mg DAILY JANEY Administration Losartan Potassium 50 mg 11/02/18 10:00 11/09/18 11:11 Cozaar - PO 50 mg DAILY JANEY Administration Metformin HCl 1,000 mg 11/02/18 07:00 11/09/18 06:00 Glucophage - PO 1,000 mg BIDAC JANEY Administration Methylprednisolone Sodium Succinate 40 mg 11/08/18 10:00 11/09/18 09:52 Solu-Medrol - IVPUSH 40 mg DAILY JANEY Administration Pantoprazole Sodium 40 mg 11/02/18 02:27 11/09/18 09:52 Protonix - PO 40 mg DAILY JANEY Administration Rosuvastatin Calcium 40 mg 11/02/18 22:00 11/08/18 22:31 Crestor - PO 40 mg HS JANEY Administration Sertraline HCl 100 mg 11/09/18 10:00 11/09/18 09:52 Zoloft - PO 100 mg DAILY JANEY Administration Sodium Chloride 3 ml 11/06/18 21:34 Normal Saline For Inhalation - IH Q6H PRN FLUSH CBC, BMP 11/09/18 08:15 11/09/18 08:15 Assessment/Plan IMP: 1. Morbid Obesity 2. Acute on Chronic combined systolic and diastolic CHF, non-ischemic CM 3. Chronic HTN 4. Obstructive sleep apnea 5. COPD, former smoker 6. Hypoxia: likely multifactorial--> MARIE, CHF, COPD 7. 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 DM REC: 1. Tele was benign here. 2. Echo unremarkable here. 3. Daily weights and BMP to monitor renal fx and lytes: keep K+ and Mg2+ normalized 4. Agree w/ IV Lasix for now. CT shows no sig chf. Can change to po lasix 40 bid when steroids changed to po 5. Cont home Losartan, Statin and low dose ASA for h/o non-obstx CAD. 6. Cont Eliquis for h/o DVT, PE. 7. copd tx as per Pulmonary
--- NOTE | 2018-11-09 16:11 | PN ---
Progress Note, Physician History of Present Illness: Pt seen and examined at bedside. She is awake and alert. She still complains of shortness of breath with minimal activity. - Current Medication List Current Medications: Active Medications Acetaminophen (Tylenol Oral Solution -) 650 mg PO Q4H PRN PRN Reason: pain Last Admin: 11/09/18 14:58 Dose: 650 mg Al Hydroxide/Mg Hydroxide (Mylanta Oral Suspension -) 30 ml PO TID [facility] Last Admin: 11/09/18 14:24 Dose: 30 ml Albuterol Sulfate (Ventolin 0.083% Nebulizer Soln -) 1 amp NEB RQ4H JANEY Last Admin: 11/09/18 13:02 Dose: 1 amp Apixaban (Eliquis -) 5 mg PO BID [facility] Last Admin: 11/09/18 09:52 Dose: 5 mg Aspirin (Asa -) 81 mg PO DAILY [facility] Last Admin: 11/09/18 09:52 Dose: 81 mg Furosemide (Lasix Injection -) 40 mg IVPUSH BID@0600,1400 [facility] Last Admin: 11/09/18 14:24 Dose: 40 mg Guaifenesin (Robitussin -) 10 ml PO Q4H PRN PRN Reason: COUGH Last Admin: 11/09/18 10:01 Dose: 10 ml Ceftriaxone Sodium 1 gm/ (Dextrose) 50 mls @ 100 mls/hr IVPB DAILY [facility]; Protocol Last Admin: 11/09/18 09:51 Dose: 100 mls/hr Insulin Aspart (Novolog Vial Sliding Scale -) 1 vial SQ ACHS [facility]; Protocol Last Admin: 11/09/18 12:05 Dose: 2 units Loratadine (Claritin -) 10 mg PO DAILY [facility] Last Admin: 11/09/18 09:52 Dose: 10 mg Losartan Potassium (Cozaar -) 50 mg PO DAILY [facility] Last Admin: 11/09/18 11:11 Dose: 50 mg Metformin HCl (Glucophage -) 1,000 mg PO BIDAC [facility] Last Admin: 11/09/18 06:00 Dose: 1,000 mg Methylprednisolone Sodium Succinate (Solu-Medrol -) 40 mg IVPUSH DAILY [facility] Last Admin: 11/09/18 09:52 Dose: 40 mg Pantoprazole Sodium (Protonix -) 40 mg PO DAILY [facility] Last Admin: 11/09/18 09:52 Dose: 40 mg Rosuvastatin Calcium (Crestor -) 40 mg PO HS [facility] Last Admin: 11/08/18 22:31 Dose: 40 mg Sertraline HCl (Zoloft -) 100 mg PO DAILY [facility] Last Admin: 11/09/18 09:52 Dose: 100 mg Sodium Chloride (Normal Saline For Inhalation -) 3 ml IH Q6H PRN PRN Reason: FLUSH - Objective Vital Signs: Vital Signs Temperature 98.6 F 11/09/18 14:46 Pulse Rate 106 H 11/09/18 14:46 Respiratory Rate 20 11/09/18 14:46 Blood Pressure 136/84 11/09/18 14:46 O2 Sat by Pulse Oximetry (%) 94 L 11/09/18 10:00 Constitutional: Yes: Calm Eyes: Yes: Conjunctiva Clear HENT: Yes: Atraumatic Neck: Yes: Supple Cardiovascular: Yes: S1, S2 Respiratory: Yes: On Nasal O2, Wheezes Gastrointestinal: Yes: Soft, Abdomen, Obese Genitourinary: Yes: WNL Musculoskeletal: Yes: WNL Edema: No Neurological: Yes: Oriented Psychiatric: Yes: Oriented Labs: CBC, BMP 11/09/18 08:15 11/09/18 08:15 INR, PTT INR 1.25 (0.83-1.09) H 11/01/18 17:00 Problem List - Problems (1) Azotemia Code(s): R79.89 - OTHER SPECIFIED ABNORMAL FINDINGS OF BLOOD CHEMISTRY (2) Acute on chronic respiratory failure with hypoxia and hypercapnia Code(s): J96.21 - ACUTE AND CHRONIC RESPIRATORY FAILURE WITH HYPOXIA; J96.22 - ACUTE AND CHRONIC RESPIRATORY FAILURE WITH HYPERCAPNIA (3) HTN (hypertension) Code(s): I10 - ESSENTIAL (PRIMARY) HYPERTENSION (4) Obesity Code(s): E66.9 - OBESITY, UNSPECIFIED Qualifiers: Obesity type: unspecified obesity type Obesity classification: adult class 3 (BMI >= 40) Serious obesity comorbidity presence: with serious comorbidity Body mass index: BMI 50.0-59.9 Qualified Code(s): E66.01 - Morbid (severe) obesity due to excess calories; Z68.43 - Body mass index (BMI) 50-59.9, adult Assessment/Plan Current Medications Generic Name Dose Route Start Last Admin Trade Name Freq PRN Reason Stop Dose Admin Acetaminophen 650 mg 11/01/18 23:48 11/09/18 14:58 Tylenol Oral Solution - PO 650 mg Q4H PRN Administration pain Al Hydroxide/Mg Hydroxide 30 ml 11/06/18 22:00 11/09/18 14:24 Mylanta Oral Suspension - PO 30 ml TID JANEY Administration Albuterol Sulfate 1 amp 11/01/18 20:00 11/09/18 13:02 Ventolin 0.083% Nebulizer Soln - NEB 1 amp RQ4H JANEY Administration Apixaban 5 mg 11/02/18 10:00 11/09/18 09:52 Eliquis - PO 5 mg BID [facility]ANEY Administration Aspirin 81 mg 11/02/18 10:00 11/09/18 09:52 Asa - PO 81 mg DAILY [facility]ANEY Administration Furosemide 40 mg 11/06/18 14:00 11/09/18 14:24 Lasix Injection - IVPUSH 40 mg BID@0600,1400 [facility] Administration Guaifenesin 10 ml 11/03/18 11:18 11/09/18 10:01 Robitussin - PO 10 ml Q4H PRN Administration COUGH Ceftriaxone Sodium 1 gm/ 50 mls @ 100 mls/hr 11/01/18 23:45 11/09/18 09:51 Dextrose IVPB 100 mls/hr DAILY [facility]ANEY Administration Protocol Insulin Aspart 1 vial 11/02/18 07:00 11/09/18 12:05 Novolog Vial Sliding Scale - SQ 2 units ACHS JANEY Administration Protocol Loratadine 10 mg 11/09/18 10:00 11/09/18 09:52 Claritin - PO 10 mg DAILY [facility] Administration Losartan Potassium 50 mg 11/02/18 10:00 11/09/18 11:11 Cozaar - PO 50 mg DAILY [facility] Administration Metformin HCl 1,000 mg 11/02/18 07:00 11/09/18 06:00 Glucophage - PO 1,000 mg BIDAC JANEY Administration Methylprednisolone Sodium Succinate 40 mg 11/08/18 10:00 11/09/18 09:52 Solu-Medrol - IVPUSH 40 mg DAILY [facility] Administration Pantoprazole Sodium 40 mg 11/02/18 02:27 11/09/18 09:52 Protonix - PO 40 mg DAILY [facility] Administration Rosuvastatin Calcium 40 mg 11/02/18 22:00 11/08/18 22:31 Crestor - PO 40 mg HS JANEY Administration Sertraline HCl 100 mg 11/09/18 10:00 11/09/18 09:52 Zoloft - PO 100 mg DAILY [facility]Y Administration Sodium Chloride 3 ml 11/06/18 21:34 Normal Saline For Inhalation - IH Q6H PRN FLUSH Impression 1. azotemia 2. obesity 3. left adrenal adenoma - follows with Javad 4. HLD 5. COPD 6. CHF Plan - monitor bun while on steroids - ua neg for blood or protein - follow up stool for occult blood and call gi if positive - pt follows with Javad for adrenal adenoma - recommend weight loss - will follow PRN
--- NOTE | 2018-11-09 21:42 | PN ---
Progress Note, Physician - Current Medication List Current Medications: Active Medications Acetaminophen (Tylenol Oral Solution -) 650 mg PO Q4H PRN PRN Reason: pain Last Admin: 11/09/18 14:58 Dose: 650 mg Al Hydroxide/Mg Hydroxide (Mylanta Oral Suspension -) 30 ml PO TID [facility] Last Admin: 11/09/18 14:24 Dose: 30 ml Albuterol Sulfate (Ventolin 0.083% Nebulizer Soln -) 1 amp NEB RQ4H JANEY Last Admin: 11/09/18 20:11 Dose: 1 amp Apixaban (Eliquis -) 5 mg PO BID [facility] Last Admin: 11/09/18 09:52 Dose: 5 mg Aspirin (Asa -) 81 mg PO DAILY [facility] Last Admin: 11/09/18 09:52 Dose: 81 mg Furosemide (Lasix Injection -) 40 mg IVPUSH BID@0600,1400 [facility] Last Admin: 11/09/18 14:24 Dose: 40 mg Guaifenesin (Robitussin -) 10 ml PO Q4H PRN PRN Reason: COUGH Last Admin: 11/09/18 10:01 Dose: 10 ml Ceftriaxone Sodium 1 gm/ (Dextrose) 50 mls @ 100 mls/hr IVPB DAILY [facility]; Protocol Last Admin: 11/09/18 09:51 Dose: 100 mls/hr Insulin Aspart (Novolog Vial Sliding Scale -) 1 vial SQ ACHS [facility]; Protocol Last Admin: 11/09/18 16:34 Dose: 6 units Loratadine (Claritin -) 10 mg PO DAILY [facility] Last Admin: 11/09/18 09:52 Dose: 10 mg Losartan Potassium (Cozaar -) 50 mg PO DAILY [facility] Last Admin: 11/09/18 11:11 Dose: 50 mg Metformin HCl (Glucophage -) 1,000 mg PO BIDAC [facility] Last Admin: 11/09/18 16:55 Dose: 1,000 mg Methylprednisolone Sodium Succinate (Solu-Medrol -) 40 mg IVPUSH DAILY [facility] Last Admin: 11/09/18 09:52 Dose: 40 mg Pantoprazole Sodium (Protonix -) 40 mg PO DAILY [facility] Last Admin: 11/09/18 09:52 Dose: 40 mg Rosuvastatin Calcium (Crestor -) 40 mg PO HS [facility] Last Admin: 11/08/18 22:31 Dose: 40 mg Sertraline HCl (Zoloft -) 100 mg PO DAILY [facility] Last Admin: 11/09/18 09:52 Dose: 100 mg Sodium Chloride (Normal Saline For Inhalation -) 3 ml IH Q6H PRN PRN Reason: FLUSH - Objective Vital Signs: Vital Signs Temperature 99.0 F 11/09/18 18:00 Pulse Rate 103 H 11/09/18 18:00 Respiratory Rate 20 11/09/18 18:00 Blood Pressure 126/55 L 11/09/18 18:00 O2 Sat by Pulse Oximetry (%) 94 L 11/09/18 16:24 Labs: CBC, BMP 11/09/18 08:15 11/09/18 08:15 INR, PTT INR 1.25 (0.83-1.09) H 11/01/18 17:00 Problem List - Problems (1) Acute on chronic systolic and diastolic heart failure, NYHA class 1 Code(s): I50.43 - ACUTE ON CHRONIC COMBINED SYSTOLIC AND DIASTOLIC HRT FAIL (2) COPD exacerbation Code(s): J44.1 - CHRONIC OBSTRUCTIVE PULMONARY DISEASE W (ACUTE) EXACERBATION (3) Diabetes Code(s): E11.9 - TYPE 2 DIABETES MELLITUS WITHOUT COMPLICATIONS (4) HTN (hypertension) Code(s): I10 - ESSENTIAL (PRIMARY) HYPERTENSION (5) HLD (hyperlipidemia) Code(s): E78.5 - HYPERLIPIDEMIA, UNSPECIFIED (6) Pulmonary emboli Code(s): I26.99 - OTHER PULMONARY EMBOLISM WITHOUT ACUTE COR PULMONALE (7) MARIE (obstructive sleep apnea) Code(s): G47.33 - OBSTRUCTIVE SLEEP APNEA (ADULT) (PEDIATRIC) (8) Obesity Code(s): E66.9 - OBESITY, UNSPECIFIED Qualifiers: Obesity type: unspecified obesity type Obesity classification: adult class 3 (BMI >= 40) Serious obesity comorbidity presence: with serious comorbidity Body mass index: BMI 50.0-59.9 Qualified Code(s): E66.01 - Morbid (severe) obesity due to excess calories; Z68.43 - Body mass index (BMI) 50-59.9, adult (9) Adrenal adenoma Code(s): D35.00 - BENIGN NEOPLASM OF UNSPECIFIED ADRENAL GLAND (10) Acute on chronic respiratory failure with hypoxia and hypercapnia Code(s): J96.21 - ACUTE AND CHRONIC RESPIRATORY FAILURE WITH HYPOXIA; J96.22 - ACUTE AND CHRONIC RESPIRATORY FAILURE WITH HYPERCAPNIA
[2018-11-09] MEDS: ROSUVASTATIN CA 20 MG TABLET (FP) PO SCH (21:51)
[2018-11-10] MEDS: ALBUTEROL SO4 0.083% IH SOL 2.5 MG/3 ML VIAL.NEB. NEB SCH ×6 (03:15→23:50)
[2018-11-10] MEDS: ACETAMINOPHEN 650 MG/20.3 ML ORAL SOLUTION (CUPS) PO PRN ×2 (03:44→13:35)
[2018-11-10] MEDS: FUROSEMIDE 40 MG/4 ML INJECTABLE VIAL IVPUSH SCH ×2 (06:34→14:58)
[2018-11-10] MEDS: MAG HYDROX/AL HYDROX/SIMETH 30 ML UNIT-DOSE CUP PO SCH ×4 (06:34→22:00)
[2018-11-10] MEDS: metFORMIN HCL 500 MG TABLET (FP) PO SCH ×2 (06:34→17:18)
[2018-11-10] MEDS: INSULIN SLIDING SCALE (NOVOLOG) 1 VIAL SQ SCH ×4 (06:34→21:04)
[2018-11-10] MEDS ORDERED: DEXTROSE 5%-WATER - 50 ML IVPB ONE (09:21)
[2018-11-10] MEDS ORDERED: cefTRIAXone SODIUM 1 GM VIAL ONE (09:21)
[2018-11-10] MEDS: SERTRALINE HCL 50 MG TABLET (FP) PO SCH (09:24)
[2018-11-10] MEDS: PANTOPRAZOLE 40 MG TABLET (FP) PO SCH (09:24)
[2018-11-10] MEDS: guaiFENesin 200 MG/10 ML 10 ML UNIT-DOSE CUPS PO PRN (09:24)
[2018-11-10] MEDS: LORATADINE 10 MG TABLET PO SCH (09:24)
[2018-11-10] MEDS: LOSARTAN POTASSIUM 50 MG TABLET (FP) PO SCH (09:24)
[2018-11-10] MEDS: ASPIRIN 81 MG CHEWABLE TABLETS PO SCH (09:24)
[2018-11-10] MEDS: APIXABAN 5 MG TABLET PO SCH ×2 (09:24→21:00)
[2018-11-10] MEDS: CEFTRIAXONE 1 GM in DEXTROSE 5%-WATER - 50 ML IVPB SCH (09:25)
[2018-11-10] MEDS: methylPREDNISolone NA SUCC 40 MG/1 ML VIAL IVPUSH SCH (09:25)
--- NOTE | 2018-11-10 12:47 | PN ---
Progress Note (short form) - Note Progress Note: Breathing overall feels better. Less SOB. No acute events overnight. Intake & Output 11/07/18 11/08/18 11/09/18 11/10/18 23:59 23:59 23:59 23:59 Intake Total 2240 1340 2300 50 Balance 2240 1340 2300 50 Weight 359 lb 4 oz 354 lb 11.2 oz 356 lb 1 oz Last Vital Signs Temp Pulse Resp BP Pulse Ox 99 F 101 H 20 131/73 94 L 11/10/18 06:06 11/10/18 06:06 11/10/18 06:06 11/10/18 06:06 11/10/18 10:00 Active Medications Acetaminophen (Tylenol Oral Solution -) 650 mg PO Q4H PRN PRN Reason: pain Last Admin: 11/10/18 03:44 Dose: 650 mg Al Hydroxide/Mg Hydroxide (Mylanta Oral Suspension -) 30 ml PO TID [facility] Last Admin: 11/10/18 06:34 Dose: 30 ml Albuterol Sulfate (Ventolin 0.083% Nebulizer Soln -) 1 amp NEB RQ4H [facility] Last Admin: 11/10/18 11:30 Dose: 1 amp Apixaban (Eliquis -) 5 mg PO BID [facility] Last Admin: 11/10/18 09:24 Dose: 5 mg Aspirin (Asa -) 81 mg PO DAILY [facility] Last Admin: 11/10/18 09:24 Dose: 81 mg Furosemide (Lasix Injection -) 40 mg IVPUSH BID@0600,1400 [facility] Last Admin: 11/10/18 06:34 Dose: 40 mg Guaifenesin (Robitussin -) 10 ml PO Q4H PRN PRN Reason: COUGH Last Admin: 11/10/18 09:24 Dose: 10 ml Ceftriaxone Sodium 1 gm/ (Dextrose) 50 mls @ 100 mls/hr IVPB DAILY [facility]; Protocol Last Admin: 11/10/18 09:25 Dose: 100 mls/hr Insulin Aspart (Novolog Vial Sliding Scale -) 1 vial SQ ACHS [facility]; Protocol Last Admin: 11/10/18 11:49 Dose: Not Given Loratadine (Claritin -) 10 mg PO DAILY [facility] Last Admin: 11/10/18 09:24 Dose: 10 mg Losartan Potassium (Cozaar -) 50 mg PO DAILY [facility] Last Admin: 11/10/18 09:24 Dose: 50 mg Metformin HCl (Glucophage -) 1,000 mg PO BIDAC [facility] Last Admin: 11/10/18 06:34 Dose: 1,000 mg Methylprednisolone Sodium Succinate (Solu-Medrol -) 40 mg IVPUSH DAILY [facility] Last Admin: 11/10/18 09:25 Dose: 40 mg Pantoprazole Sodium (Protonix -) 40 mg PO DAILY [facility] Last Admin: 11/10/18 09:24 Dose: 40 mg Rosuvastatin Calcium (Crestor -) 40 mg PO HS [facility] Last Admin: 11/09/18 21:51 Dose: 40 mg Sertraline HCl (Zoloft -) 100 mg PO DAILY [facility] Last Admin: 11/10/18 09:24 Dose: 100 mg Sodium Chloride (Normal Saline For Inhalation -) 3 ml IH Q6H PRN PRN Reason: FLUSH Constitutional: Yes: Well Nourished, Obese Eyes: Yes: WNL HENT: Yes: WNL Neck: Yes: WNL Cardiovascular: Yes: Regular Rate and Rhythm, S1, S2 Respiratory: Yes: Diminished, No wheezes Gastrointestinal: Yes: Normal Bowel Sounds, Soft, obese Extremities: Yes: WNL Edema: No Labs: Laboratory Results - last 24 hr 11/09/18 11/09/18 11/10/18 16:30 21:46 06:32 POC Glucometer 299 122 106 Hemoglobin A1c % 11/10/18 11/10/18 07:10 11:47 POC Glucometer 125 Hemoglobin A1c % 7.2 H Problem List - Problems (1) Acute on chronic respiratory failure with hypoxia and hypercapnia Code(s): J96.21 - ACUTE AND CHRONIC RESPIRATORY FAILURE WITH HYPOXIA; J96.22 - ACUTE AND CHRONIC RESPIRATORY FAILURE WITH HYPERCAPNIA (2) COPD exacerbation Code(s): J44.1 - CHRONIC OBSTRUCTIVE PULMONARY DISEASE W (ACUTE) EXACERBATION (3) Pulmonary HTN Code(s): I27.20 - PULMONARY HYPERTENSION, UNSPECIFIED (4) Obesity hypoventilation syndrome Code(s): E66.2 - MORBID (SEVERE) OBESITY WITH ALVEOLAR HYPOVENTILATION (5) MARIE (obstructive sleep apnea) Code(s): G47.33 - OBSTRUCTIVE SLEEP APNEA (ADULT) (PEDIATRIC) (6) Diastolic CHF Code(s): I50.30 - UNSPECIFIED DIASTOLIC (CONGESTIVE) HEART FAILURE (7) Pulmonary embolism Code(s): I26.99 - OTHER PULMONARY EMBOLISM WITHOUT ACUTE COR PULMONALE Assessment/Plan IMP ACUTE ON CHRONIC HYPOXEMIC/HYPERCAPNEIC RESPIRATORY FAILURE clinically improving LIKELY MARIE/OHS COPD ADVANCED ACUTE ON CHRONIC DIASTOLIC HF H/O DVT/PE ? UNPROVOKED PULMONARY HTN DM RECENT PNEUMONIA HTN PROLONGED QTc LEFT ADRENAL ADENOMA PLAN LASIX INHALED BRONCHODILATORS O2 NIPPV NEEDED DAILY WTS WT REDUCTION CHANGE TO PREDNISONE IN THE AM DR ALMEIDA
[2018-11-10] MEDS ORDERED: INSULIN (NOVOLOG) ASPART 100 UNITS/ML 10ML VIAL ONE (17:09)
--- NOTE | 2018-11-10 19:08 | CONSULT ---
Consult Consult Specialty:: endocrine Referred by:: dr.joseph francis Reason for Consultation:: adrenal mass - History of Present Illness Chief Complaint: short of breath History of Present Illness: 58 year old female with pmhx of left adrenal adenoma htn, DM, COPD, and obesity who presents with difficulty breathing cough, was noted to have elevated blood pressure,leftadrenal mass. SHe denies history of CKD. She denies dysuria or hematuria. She did have shortness of breath that is improving. She has leg edema,high sugars,muscle weakness denies palpitations, and chest pain. - History Source History Provided By: Patient - Past Medical History Cardio/Vascular: Yes: CHF, HTN, Other (LE Edema) Pulmonary: Yes: COPD, Pulmonary Embolus Endocrine: Yes: Diabetes Mellitus - Alcohol/Substance Use Hx Alcohol Use: No - Smoking History Smoking history: Former smoker Have you smoked in the past 12 months: No - Social History Usual Living Arrangement: Alone History of Recent Travel: No Home Medications - Allergies Allergies/Adverse Reactions: Allergies Allergy/AdvReac Type Severity Reaction Status Date / Time No Known Allergies Allergy Verified 11/01/18 15:47 - Home Medications Home Medications: Ambulatory Orders Apixaban [Eliquis] 5 mg PO BID 11/02/18 Aspirin 81 mg PO DAILY 11/02/18 Losartan Potassium 50 mg PO DAILY 11/02/18 Metformin HCl [Glucophage] 1,000 mg PO BID 11/02/18 Pantoprazole Sodium 40 mg PO DAILY 11/02/18 Rosuvastatin Calcium [Crestor] 40 mg PO HS 11/02/18 Review of Systems - Review of Systems Constitutional: reports: Loss of Appetite, Weakness Eyes: reports: No Symptoms HENT: reports: No Symptoms Neck: reports: No Symptoms Cardiovascular: reports: Shortness of Breath Respiratory: reports: Exercise Intolerance, Orthopnea, PND, SOB on Exertion Gastrointestinal: reports: Bloating Genitourinary: reports: No Symptoms Breasts: reports: No Symptoms Reported Musculoskeletal: reports: Joint Pain, Joint Swelling, Muscle Pain, Muscle Cramps Neurological: reports: Weakness Endocrine: reports: Unexplained Weight Gain Physical Exam Vital Signs: Vital Signs Temperature 99.1 F 11/10/18 15:49 Pulse Rate 111 H 11/10/18 15:49 Respiratory Rate 11/10/18 06:06 Blood Pressure 128/77 11/10/18 15:49 O2 Sat by Pulse Oximetry (%) 94 L 11/10/18 10:00 Constitutional: Yes: Anxious Eyes: Yes: EOM Intact HENT: Yes: Normocephalic Neck: Yes: Trachea Midline Cardiovascular: Yes: Tachycardia Respiratory: Yes: On BiPap Gastrointestinal: Yes: Normal Bowel Sounds ...Rectal Exam: Yes: Deferred Renal/: Yes: WNL Musculoskeletal: Yes: WNL Extremities: Yes: WNL Integumentary: Yes: WNL Psychiatric: Yes: Alert, Oriented Labs: CBC, BMP 11/09/18 08:15 11/09/18 08:15 Problem List - Problems (1) Acute on chronic respiratory failure with hypoxia and hypercapnia Code(s): J96.21 - ACUTE AND CHRONIC RESPIRATORY FAILURE WITH HYPOXIA; J96.22 - ACUTE AND CHRONIC RESPIRATORY FAILURE WITH HYPERCAPNIA (2) Acute on chronic systolic and diastolic heart failure, NYHA class 1 Code(s): I50.43 - ACUTE ON CHRONIC COMBINED SYSTOLIC AND DIASTOLIC HRT FAIL (3) Adrenal adenoma Code(s): D35.00 - BENIGN NEOPLASM OF UNSPECIFIED ADRENAL GLAND (4) COPD exacerbation Code(s): J44.1 - CHRONIC OBSTRUCTIVE PULMONARY DISEASE W (ACUTE) EXACERBATION (5) COPD exacerbation Code(s): J44.1 - CHRONIC OBSTRUCTIVE PULMONARY DISEASE W (ACUTE) EXACERBATION (6) Diabetes Code(s): E11.9 - TYPE 2 DIABETES MELLITUS WITHOUT COMPLICATIONS (7) Diastolic CHF Code(s): I50.30 - UNSPECIFIED DIASTOLIC (CONGESTIVE) HEART FAILURE Assessment/Plan Current Active Problems Acute on chronic respiratory failure with hypoxia and hypercapnia (Acute) Acute on chronic systolic and diastolic heart failure, NYHA class 1 (Acute) Adrenal adenoma (Acute) Azotemia (Acute) COPD exacerbation (Acute) COPD exacerbation (Acute) Diabetes (Acute) Diastolic CHF (Acute) HLD (hyperlipidemia) (Acute) HTN (hypertension) (Acute) Hypoxia (Acute) MARIE (obstructive sleep apnea) (Acute) Obesity (Acute) Obesity hypoventilation syndrome (Acute) Pulmonary HTN (Acute) Pulmonary emboli (Acute) Pulmonary embolism (Acute) Abnormal Lab Results 11/10/18 07:10 Hemoglobin A1c % 7.2 H Laboratory Results - last 24 hr 11/09/18 11/10/18 11/10/18 21:46 06:32 07:10 POC Glucometer 122 106 Hemoglobin A1c % 7.2 H 11/10/18 11/10/18 11:47 17:06 POC Glucometer 125 224 Hemoglobin A1c % Laboratory Tests 11/10/18 07:10 Hemoglobin A1c % 7.2 H plan; dexamethasone suppression test acth 24hr urine cortisol
--- NOTE | 2018-11-10 19:10 | PN ---
Progress Note, Physician History of Present Illness: Pt feels more dyspneic today - Current Medication List Current Medications: Active Medications Acetaminophen (Tylenol Oral Solution -) 650 mg PO Q4H PRN PRN Reason: pain Last Admin: 11/10/18 13:35 Dose: 650 mg Al Hydroxide/Mg Hydroxide (Mylanta Oral Suspension -) 30 ml PO TID [facility] Last Admin: 11/10/18 14:58 Dose: 30 ml Albuterol Sulfate (Ventolin 0.083% Nebulizer Soln -) 1 amp NEB RQ4H [facility] Last Admin: 11/10/18 16:21 Dose: Not Given Apixaban (Eliquis -) 5 mg PO BID [facility] Last Admin: 11/10/18 09:24 Dose: 5 mg Aspirin (Asa -) 81 mg PO DAILY [facility] Last Admin: 11/10/18 09:24 Dose: 81 mg Furosemide (Lasix Injection -) 40 mg IVPUSH BID@0600,1400 [facility] Last Admin: 11/10/18 14:58 Dose: 40 mg Guaifenesin (Robitussin -) 10 ml PO Q4H PRN PRN Reason: COUGH Last Admin: 11/10/18 09:24 Dose: 10 ml Ceftriaxone Sodium 1 gm/ (Dextrose) 50 mls @ 100 mls/hr IVPB DAILY [facility]; Protocol Last Admin: 11/10/18 09:25 Dose: 100 mls/hr Insulin Aspart (Novolog Vial Sliding Scale -) 1 vial SQ ACHS [facility]; Protocol Last Admin: 11/10/18 17:17 Dose: 4 units Loratadine (Claritin -) 10 mg PO DAILY [facility] Last Admin: 11/10/18 09:24 Dose: 10 mg Losartan Potassium (Cozaar -) 50 mg PO DAILY [facility] Last Admin: 11/10/18 09:24 Dose: 50 mg Metformin HCl (Glucophage -) 1,000 mg PO BIDAC [facility] Last Admin: 11/10/18 17:18 Dose: 1,000 mg Pantoprazole Sodium (Protonix -) 40 mg PO DAILY [facility] Last Admin: 11/10/18 09:24 Dose: 40 mg Prednisone (Deltasone -) 40 mg PO DAILY [facility] Rosuvastatin Calcium (Crestor -) 40 mg PO HS [facility] Last Admin: 11/09/18 21:51 Dose: 40 mg Sertraline HCl (Zoloft -) 100 mg PO DAILY [facility] Last Admin: 11/10/18 09:24 Dose: 100 mg Sodium Chloride (Normal Saline For Inhalation -) 3 ml IH Q6H PRN PRN Reason: FLUSH - Objective Vital Signs: Vital Signs Temperature 99.1 F 11/10/18 15:49 Pulse Rate 111 H 11/10/18 15:49 Respiratory Rate 11/10/18 06:06 Blood Pressure 128/77 11/10/18 15:49 O2 Sat by Pulse Oximetry (%) 94 L 11/10/18 10:00 Constitutional: Yes: Obese Neck: Yes: WNL, Supple Cardiovascular: Yes: WNL, Regular Rate and Rhythm Respiratory: Yes: WNL, Regular, CTA Bilaterally Gastrointestinal: Yes: WNL, Normal Bowel Sounds, Soft, Abdomen, Obese Labs: CBC, BMP 11/09/18 08:15 11/09/18 08:15 INR, PTT INR 1.25 (0.83-1.09) H 11/01/18 17:00 Problem List - Problems (1) Acute on chronic systolic and diastolic heart failure, NYHA class 1 Assessment/Plan: Cont IV lasix Monitor electrolytes Code(s): I50.43 - ACUTE ON CHRONIC COMBINED SYSTOLIC AND DIASTOLIC HRT FAIL (2) COPD exacerbation Assessment/Plan: Pt now on po prednisone IV ceftriaxone/IV zithro Cont inhalers Pt need pulmonary rehab Code(s): J44.1 - CHRONIC OBSTRUCTIVE PULMONARY DISEASE W (ACUTE) EXACERBATION (3) Diabetes Assessment/Plan: Cont metformin and sliding scale w/ coverage Code(s): E11.9 - TYPE 2 DIABETES MELLITUS WITHOUT COMPLICATIONS (4) HTN (hypertension) Assessment/Plan: BP stable Code(s): I10 - ESSENTIAL (PRIMARY) HYPERTENSION (5) HLD (hyperlipidemia) Assessment/Plan: Cont crestor Code(s): E78.5 - HYPERLIPIDEMIA, UNSPECIFIED (6) Pulmonary emboli Assessment/Plan: Cont eliquis Code(s): I26.99 - OTHER PULMONARY EMBOLISM WITHOUT ACUTE COR PULMONALE (7) MARIE (obstructive sleep apnea) Code(s): G47.33 - OBSTRUCTIVE SLEEP APNEA (ADULT) (PEDIATRIC) (8) Obesity Code(s): E66.9 - OBESITY, UNSPECIFIED Qualifiers: Obesity type: unspecified obesity type Obesity classification: adult class 3 (BMI >= 40) Serious obesity comorbidity presence: with serious comorbidity Body mass index: BMI 50.0-59.9 Qualified Code(s): E66.01 - Morbid (severe) obesity due to excess calories; Z68.43 - Body mass index (BMI) 50-59.9, adult (9) Adrenal adenoma Assessment/Plan: Pt has follow up at [facility] as outpt Code(s): D35.00 - BENIGN NEOPLASM OF UNSPECIFIED ADRENAL GLAND (10) Acute on chronic respiratory failure with hypoxia and hypercapnia Code(s): J96.21 - ACUTE AND CHRONIC RESPIRATORY FAILURE WITH HYPOXIA; J96.22 - ACUTE AND CHRONIC RESPIRATORY FAILURE WITH HYPERCAPNIA
[2018-11-10] MEDS: ROSUVASTATIN CA 20 MG TABLET (FP) PO SCH (20:59)
[2018-11-10] MEDS ORDERED: DEXAMETHASONE 0.5 MG TABLET PO ONE (22:00)
[2018-11-11] MEDS: ALBUTEROL SO4 0.083% IH SOL 2.5 MG/3 ML VIAL.NEB. NEB SCH ×5 (03:46→21:29)
[2018-11-11] MEDS: ACETAMINOPHEN 650 MG/20.3 ML ORAL SOLUTION (CUPS) PO PRN (03:49)
[2018-11-11] MEDS: FUROSEMIDE 40 MG/4 ML INJECTABLE VIAL IVPUSH SCH ×3 (06:17→14:45)
[2018-11-11] MEDS: MAG HYDROX/AL HYDROX/SIMETH 30 ML UNIT-DOSE CUP PO SCH ×3 (06:18→21:48)
[2018-11-11] MEDS: INSULIN SLIDING SCALE (NOVOLOG) 1 VIAL SQ SCH ×4 (06:18→21:49)
[2018-11-11] MEDS: metFORMIN HCL 500 MG TABLET (FP) PO SCH ×2 (06:19→17:09)
[2018-11-11] MEDS ORDERED: DEXTROSE 5%-WATER - 50 ML IVPB ONE (10:05)
[2018-11-11] MEDS ORDERED: cefTRIAXone SODIUM 1 GM VIAL ONE (10:05)
[2018-11-11] MEDS ORDERED: PT OWN MED DRAWER 7, Y5N ONE (10:05)
[2018-11-11] MEDS: CEFTRIAXONE 1 GM in DEXTROSE 5%-WATER - 50 ML IVPB SCH (10:14)
[2018-11-11] MEDS: LOSARTAN POTASSIUM 50 MG TABLET (FP) PO SCH (10:15)
[2018-11-11] MEDS: LORATADINE 10 MG TABLET PO SCH (10:15)
[2018-11-11] MEDS: PANTOPRAZOLE 40 MG TABLET (FP) PO SCH (10:15)
[2018-11-11] MEDS: predniSONE 20 MG TABLET (UD) PO SCH (10:15)
[2018-11-11] MEDS: ASPIRIN 81 MG CHEWABLE TABLETS PO SCH (10:15)
[2018-11-11] MEDS: APIXABAN 5 MG TABLET PO SCH ×2 (10:15→21:48)
--- NOTE | 2018-11-11 11:50 | PN ---
Progress Note (short form) - Note Progress Note: Breathing overall feels better. Less SOB. No acute events overnight. Intake & Output 11/08/18 11/09/18 11/10/18 11/11/18 23:59 23:59 23:59 23:59 Intake Total 1340 2300 1420 Balance 1340 2300 1420 Weight 354 lb 11.2 oz 356 lb 1 oz 350 lb 350 lb Last Vital Signs Temp Pulse Resp BP Pulse Ox 97.8 F 100 H 20 140/82 94 L 11/11/18 06:00 11/11/18 06:00 11/11/18 06:00 11/11/18 06:00 11/10/18 10:00 Active Medications Acetaminophen (Tylenol Oral Solution -) 650 mg PO Q4H PRN PRN Reason: pain Last Admin: 11/11/18 03:49 Dose: 650 mg Al Hydroxide/Mg Hydroxide (Mylanta Oral Suspension -) 30 ml PO TID [facility] Last Admin: 11/11/18 06:18 Dose: 30 ml Albuterol Sulfate (Ventolin 0.083% Nebulizer Soln -) 1 amp NEB RQ4H [facility] Last Admin: 11/11/18 11:36 Dose: 1 amp Apixaban (Eliquis -) 5 mg PO BID [facility] Last Admin: 11/11/18 10:15 Dose: 5 mg Aspirin (Asa -) 81 mg PO DAILY [facility] Last Admin: 11/11/18 10:15 Dose: 81 mg Furosemide (Lasix Injection -) 40 mg IVPUSH BID@0600,1400 [facility] Last Admin: 11/11/18 06:18 Dose: 40 mg Guaifenesin (Robitussin -) 10 ml PO Q4H PRN PRN Reason: COUGH Last Admin: 11/10/18 09:24 Dose: 10 ml Ceftriaxone Sodium 1 gm/ (Dextrose) 50 mls @ 100 mls/hr IVPB DAILY [facility]; Protocol Last Admin: 11/11/18 10:14 Dose: 100 mls/hr Insulin Aspart (Novolog Vial Sliding Scale -) 1 vial SQ ACHS [facility]; Protocol Last Admin: 11/11/18 11:48 Dose: Not Given Loratadine (Claritin -) 10 mg PO DAILY [facility] Last Admin: 11/11/18 10:15 Dose: 10 mg Losartan Potassium (Cozaar -) 50 mg PO DAILY [facility] Last Admin: 11/11/18 10:15 Dose: 50 mg Metformin HCl (Glucophage -) 1,000 mg PO BIDAC [facility] Last Admin: 11/11/18 06:19 Dose: 1,000 mg Pantoprazole Sodium (Protonix -) 40 mg PO DAILY [facility] Last Admin: 11/11/18 10:15 Dose: 40 mg Prednisone (Deltasone -) 40 mg PO DAILY [facility] Last Admin: 11/11/18 10:15 Dose: 40 mg Rosuvastatin Calcium (Crestor -) 40 mg PO HS [facility] Last Admin: 11/10/18 20:59 Dose: 40 mg Sertraline HCl (Zoloft -) [address] [facility] Sodium Chloride (Normal Saline For Inhalation -) 3 ml IH Q6H PRN PRN Reason: FLUSH Constitutional: Yes: Well Nourished, Obese Eyes: Yes: WNL HENT: Yes: WNL Neck: Yes: WNL Cardiovascular: Yes: Regular Rate and Rhythm, S1, S2 Respiratory: Yes: Diminished, No wheezes Gastrointestinal: Yes: Normal Bowel Sounds, Soft, obese Extremities: Yes: WNL Edema: No Labs: Laboratory Results - last 24 hr 11/10/18 11/10/18 11/10/18 11:47 17:06 21:02 POC Glucometer 125 224 144 11/11/18 06:17 POC Glucometer 162 Problem List - Problems (1) Acute on chronic respiratory failure with hypoxia and hypercapnia Code(s): J96.21 - ACUTE AND CHRONIC RESPIRATORY FAILURE WITH HYPOXIA; J96.22 - ACUTE AND CHRONIC RESPIRATORY FAILURE WITH HYPERCAPNIA (2) COPD exacerbation Code(s): J44.1 - CHRONIC OBSTRUCTIVE PULMONARY DISEASE W (ACUTE) EXACERBATION (3) Pulmonary HTN Code(s): I27.20 - PULMONARY HYPERTENSION, UNSPECIFIED (4) Obesity hypoventilation syndrome Code(s): E66.2 - MORBID (SEVERE) OBESITY WITH ALVEOLAR HYPOVENTILATION (5) MARIE (obstructive sleep apnea) Code(s): G47.33 - OBSTRUCTIVE SLEEP APNEA (ADULT) (PEDIATRIC) (6) Diastolic CHF Code(s): I50.30 - UNSPECIFIED DIASTOLIC (CONGESTIVE) HEART FAILURE (7) Pulmonary embolism Code(s): I26.99 - OTHER PULMONARY EMBOLISM WITHOUT ACUTE COR PULMONALE Assessment/Plan IMP ACUTE ON CHRONIC HYPOXEMIC/HYPERCAPNEIC RESPIRATORY FAILURE clinically improving LIKELY MARIE/OHS COPD ADVANCED ACUTE ON CHRONIC DIASTOLIC HF H/O DVT/PE ? UNPROVOKED PULMONARY HTN DM RECENT PNEUMONIA HTN PROLONGED QTc LEFT ADRENAL ADENOMA PLAN LASIX INHALED BRONCHODILATORS O2 NIPPV NEEDED DAILY WTS WT REDUCTION PREDNISONE D/C PLANNING DR ALMEIDA
--- NOTE | 2018-11-11 20:50 | PN ---
Progress Note, Physician History of Present Illness: No new complaints - Current Medication List Current Medications: Active Medications Acetaminophen (Tylenol Oral Solution -) 650 mg PO Q4H PRN PRN Reason: pain Last Admin: 11/11/18 03:49 Dose: 650 mg Al Hydroxide/Mg Hydroxide (Mylanta Oral Suspension -) 30 ml PO TID [facility] Last Admin: 11/11/18 14:45 Dose: 30 ml Albuterol Sulfate (Ventolin 0.083% Nebulizer Soln -) 1 amp NEB RQ4H [facility] Last Admin: 11/11/18 16:12 Dose: 1 amp Apixaban (Eliquis -) 5 mg PO BID [facility] Last Admin: 11/11/18 10:15 Dose: 5 mg Aspirin (Asa -) 81 mg PO DAILY [facility] Last Admin: 11/11/18 10:15 Dose: 81 mg Furosemide (Lasix Injection -) 40 mg IVPUSH BID@0600,1400 [facility] Last Admin: 11/11/18 14:45 Dose: 40 mg Guaifenesin (Robitussin -) 10 ml PO Q4H PRN PRN Reason: COUGH Last Admin: 11/10/18 09:24 Dose: 10 ml Ceftriaxone Sodium 1 gm/ (Dextrose) 50 mls @ 100 mls/hr IVPB DAILY [facility]; Protocol Last Admin: 11/11/18 10:14 Dose: 100 mls/hr Insulin Aspart (Novolog Vial Sliding Scale -) 1 vial SQ ACHS [facility]; Protocol Last Admin: 11/11/18 17:07 Dose: 6 units Loratadine (Claritin -) 10 mg PO DAILY [facility] Last Admin: 11/11/18 10:15 Dose: 10 mg Losartan Potassium (Cozaar -) 50 mg PO DAILY [facility] Last Admin: 11/11/18 10:15 Dose: 50 mg Metformin HCl (Glucophage -) 1,000 mg PO BIDAC [facility] Last Admin: 11/11/18 17:09 Dose: 1,000 mg Pantoprazole Sodium (Protonix -) 40 mg PO DAILY [facility] Last Admin: 11/11/18 10:15 Dose: 40 mg Prednisone (Deltasone -) 40 mg PO DAILY [facility] Last Admin: 11/11/18 10:15 Dose: 40 mg Rosuvastatin Calcium (Crestor -) 40 mg PO HS [facility] Last Admin: 11/10/18 20:59 Dose: 40 mg Sertraline HCl (Zoloft -) 100 mg PO HS [facility] Sodium Chloride (Normal Saline For Inhalation -) 3 ml IH Q6H PRN PRN Reason: FLUSH - Objective Vital Signs: Vital Signs Temperature 98.1 F 11/11/18 15:44 Pulse Rate 121 H 11/11/18 15:44 Respiratory Rate 11/11/18 09:00 Blood Pressure 153/97 11/11/18 15:44 O2 Sat by Pulse Oximetry (%) 93 L 11/11/18 16:11 Constitutional: Yes: Obese Neck: Yes: WNL, Supple Cardiovascular: Yes: WNL, Regular Rate and Rhythm Respiratory: Yes: WNL, Regular, CTA Bilaterally Gastrointestinal: Yes: WNL, Normal Bowel Sounds, Soft, Abdomen, Obese Labs: CBC, BMP 11/09/18 08:15 11/09/18 08:15 INR, PTT INR 1.25 (0.83-1.09) H 11/01/18 17:00 Problem List - Problems (1) Acute on chronic systolic and diastolic heart failure, NYHA class 1 Assessment/Plan: Change to po lasix in am DC planning to rehab in am Monitor electrolytes Code(s): I50.43 - ACUTE ON CHRONIC COMBINED SYSTOLIC AND DIASTOLIC HRT FAIL (2) COPD exacerbation Assessment/Plan: Pt now on po prednisone IV ceftriaxone/IV zithro Cont inhalers Pt need pulmonary rehab Code(s): J44.1 - CHRONIC OBSTRUCTIVE PULMONARY DISEASE W (ACUTE) EXACERBATION (3) Diabetes Assessment/Plan: Cont metformin and sliding scale w/ coverage Code(s): E11.9 - TYPE 2 DIABETES MELLITUS WITHOUT COMPLICATIONS (4) HTN (hypertension) Assessment/Plan: BP stable Code(s): I10 - ESSENTIAL (PRIMARY) HYPERTENSION (5) HLD (hyperlipidemia) Assessment/Plan: Cont crestor Code(s): E78.5 - HYPERLIPIDEMIA, UNSPECIFIED (6) Pulmonary emboli Assessment/Plan: Cont eliquis Code(s): I26.99 - OTHER PULMONARY EMBOLISM WITHOUT ACUTE COR PULMONALE (7) MARIE (obstructive sleep apnea) Code(s): G47.33 - OBSTRUCTIVE SLEEP APNEA (ADULT) (PEDIATRIC) (8) Obesity Code(s): E66.9 - OBESITY, UNSPECIFIED Qualifiers: Obesity type: unspecified obesity type Obesity classification: adult class 3 (BMI >= 40) Serious obesity comorbidity presence: with serious comorbidity Body mass index: BMI 50.0-59.9 Qualified Code(s): E66.01 - Morbid (severe) obesity due to excess calories; Z68.43 - Body mass index (BMI) 50-59.9, adult (9) Adrenal adenoma Assessment/Plan: Pt has follow up [facility] as outpt Code(s): D35.00 - BENIGN NEOPLASM OF UNSPECIFIED ADRENAL GLAND (10) Acute on chronic respiratory failure with hypoxia and hypercapnia Code(s): J96.21 - ACUTE AND CHRONIC RESPIRATORY FAILURE WITH HYPOXIA; J96.22 - ACUTE AND CHRONIC RESPIRATORY FAILURE WITH HYPERCAPNIA
[2018-11-11] MEDS ORDERED: INSULIN (NOVOLOG) ASPART 100 UNITS/ML 10ML VIAL ONE (21:42)
[2018-11-11] MEDS: ROSUVASTATIN CA 20 MG TABLET (FP) PO SCH (21:48)
[2018-11-11] MEDS: SERTRALINE HCL 50 MG TABLET (FP) PO SCH (21:48)
[2018-11-12] MEDS: ALBUTEROL SO4 0.083% IH SOL 2.5 MG/3 ML VIAL.NEB. NEB SCH ×7 (00:45→23:51)
[2018-11-12] MEDS: metFORMIN HCL 500 MG TABLET (FP) PO SCH ×2 (06:46→17:22)
[2018-11-12] MEDS: MAG HYDROX/AL HYDROX/SIMETH 30 ML UNIT-DOSE CUP PO SCH ×3 (06:46→21:11)
[2018-11-12] MEDS: FUROSEMIDE 40 MG/4 ML INJECTABLE VIAL IVPUSH SCH (06:46)
[2018-11-12] MEDS: INSULIN SLIDING SCALE (NOVOLOG) 1 VIAL SQ SCH ×4 (06:47→21:31)
[2018-11-12 07:57] LABS: BLOOD UREA NITROGEN 26.1 mg/dL (7-18); CALCIUM 9.4 mg/dL (8.5-10.1); CREATININE 0.8 mg/dL (0.55-1.3); POTASSIUM 4.4 mmol/L (3.5-5.1)
[2018-11-12] MEDS ORDERED: DEXTROSE 5%-WATER - 50 ML IVPB ONE (09:15)
[2018-11-12] MEDS ORDERED: cefTRIAXone SODIUM 1 GM VIAL ONE (09:15)
[2018-11-12] MEDS: CEFTRIAXONE 1 GM in DEXTROSE 5%-WATER - 50 ML IVPB SCH (09:22)
[2018-11-12] MEDS: LORATADINE 10 MG TABLET PO SCH (09:23)
[2018-11-12] MEDS: PANTOPRAZOLE 40 MG TABLET (FP) PO SCH (09:23)
[2018-11-12] MEDS: APIXABAN 5 MG TABLET PO SCH ×2 (09:23→21:12)
[2018-11-12] MEDS: ASPIRIN 81 MG CHEWABLE TABLETS PO SCH (09:23)
[2018-11-12] MEDS: LOSARTAN POTASSIUM 50 MG TABLET (FP) PO SCH (09:23)
[2018-11-12] MEDS: predniSONE 20 MG TABLET (UD) PO SCH (09:23)
[2018-11-12] MEDS: ACETAMINOPHEN 650 MG/20.3 ML ORAL SOLUTION (CUPS) PO PRN ×3 (10:24→21:12)
[2018-11-12] MEDS ORDERED: INSULIN (NOVOLOG) ASPART 100 UNITS/ML 10ML VIAL ONE (11:25)
[2018-11-12] MEDS: FUROSEMIDE 40 MG TABLET (FP) PO SCH (14:23)
--- NOTE | 2018-11-12 14:28 | PN ---
Progress Note, Physician History of Present Illness: PULMONARY ALERT,COMFORTABLE,-RESP DISTRESS - Current Medication List Current Medications: Active Medications Acetaminophen (Tylenol Oral Solution -) 650 mg PO Q4H PRN PRN Reason: pain Last Admin: 11/12/18 10:24 Dose: 650 mg Al Hydroxide/Mg Hydroxide (Mylanta Oral Suspension -) 30 ml PO TID [facility] Last Admin: 11/12/18 14:23 Dose: 30 ml Albuterol Sulfate (Ventolin 0.083% Nebulizer Soln -) 1 amp NEB RQ4H [facility] Last Admin: 11/12/18 11:17 Dose: 1 amp Apixaban (Eliquis -) 5 mg PO BID [facility] Last Admin: 11/12/18 09:23 Dose: 5 mg Aspirin (Asa -) 81 mg PO DAILY [facility] Last Admin: 11/12/18 09:23 Dose: 81 mg Furosemide (Lasix -) 40 mg PO BID@0600,1400 [facility] Last Admin: 11/12/18 14:23 Dose: 40 mg Guaifenesin (Robitussin -) 10 ml PO Q4H PRN PRN Reason: COUGH Last Admin: 11/10/18 09:24 Dose: 10 ml Ceftriaxone Sodium 1 gm/ (Dextrose) 50 mls @ 100 mls/hr IVPB DAILY [facility]; Protocol Last Admin: 11/12/18 09:22 Dose: 100 mls/hr Insulin Aspart (Novolog Vial Sliding Scale -) 1 vial SQ ACHS [facility]; Protocol Last Admin: 11/12/18 11:49 Dose: 2 units Loratadine (Claritin -) 10 mg PO DAILY [facility] Last Admin: 11/12/18 09:23 Dose: 10 mg Losartan Potassium (Cozaar -) 50 mg PO DAILY [facility] Last Admin: 11/12/18 09:23 Dose: 50 mg Metformin HCl (Glucophage -) 1,000 mg PO BIDAC [facility] Last Admin: 11/12/18 06:46 Dose: 1,000 mg Pantoprazole Sodium (Protonix -) 40 mg PO DAILY [facility] Last Admin: 11/12/18 09:23 Dose: 40 mg Prednisone (Deltasone -) 40 mg PO DAILY [facility] Last Admin: 11/12/18 09:23 Dose: 40 mg Rosuvastatin Calcium (Crestor -) 40 mg PO HS [facility] Last Admin: 11/11/18 21:48 Dose: 40 mg Sertraline HCl (Zoloft -) 100 mg PO HS [facility] Last Admin: 11/11/18 21:48 Dose: 100 mg Sodium Chloride (Normal Saline For Inhalation -) 3 ml IH Q6H PRN PRN Reason: FLUSH - Objective Vital Signs: Vital Signs Temperature 98.8 F 11/12/18 09:13 Pulse Rate 101 H 11/12/18 09:13 Respiratory Rate 18 11/12/18 09:13 Blood Pressure 133/67 11/12/18 09:13 O2 Sat by Pulse Oximetry (%) 93 L 11/12/18 09:13 Constitutional: Yes: Calm, Obese Eyes: Yes: WNL HENT: Yes: WNL Neck: Yes: WNL Cardiovascular: Yes: Regular Rate and Rhythm, S1, S2 Respiratory: Yes: Diminished Gastrointestinal: Yes: Normal Bowel Sounds, Soft Extremities: Yes: WNL Edema: No Labs: CBC, BMP 11/09/18 08:15 11/12/18 06:15 Problem List - Problems (1) Acute on chronic respiratory failure with hypoxia and hypercapnia Code(s): J96.21 - ACUTE AND CHRONIC RESPIRATORY FAILURE WITH HYPOXIA; J96.22 - ACUTE AND CHRONIC RESPIRATORY FAILURE WITH HYPERCAPNIA (2) COPD exacerbation Code(s): J44.1 - CHRONIC OBSTRUCTIVE PULMONARY DISEASE W (ACUTE) EXACERBATION (3) Pulmonary HTN Code(s): I27.20 - PULMONARY HYPERTENSION, UNSPECIFIED (4) Obesity hypoventilation syndrome Code(s): E66.2 - MORBID (SEVERE) OBESITY WITH ALVEOLAR HYPOVENTILATION (5) MARIE (obstructive sleep apnea) Code(s): G47.33 - OBSTRUCTIVE SLEEP APNEA (ADULT) (PEDIATRIC) (6) Diastolic CHF Code(s): I50.30 - UNSPECIFIED DIASTOLIC (CONGESTIVE) HEART FAILURE (7) Pulmonary embolism Code(s): I26.99 - OTHER PULMONARY EMBOLISM WITHOUT ACUTE COR PULMONALE Assessment/Plan IMP ACUTE ON CHRONIC HYPOXEMIC/HYPERCAPNEIC RESPIRATORY FAILURE IMPROVED LIKELY MARIE/OHS COPD ADVANCED ACUTE ON CHRONIC DIASTOLIC HF H/O DVT/PE ? UNPROVOKED PULMONARY HTN DM RECENT PNEUMONIA HTN PROLONGED QTc LEFT ADRENAL ADENOMA PLAN LASIX INHALED BRONCHODILATORS O2 NIPPV NEEDED WT REDUCTION [facility] HOME TRILOGY DEVICE DR SHEIKH Problem List - Problems (1) Acute on chronic respiratory failure with hypoxia and hypercapnia Code(s): J96.21 - ACUTE AND CHRONIC RESPIRATORY FAILURE WITH HYPOXIA; J96.22 - ACUTE AND CHRONIC RESPIRATORY FAILURE WITH HYPERCAPNIA (2) COPD exacerbation Code(s): J44.1 - CHRONIC OBSTRUCTIVE PULMONARY DISEASE W (ACUTE) EXACERBATION (3) Pulmonary HTN Code(s): I27.20 - PULMONARY HYPERTENSION, UNSPECIFIED (4) Obesity hypoventilation syndrome Code(s): E66.2 - MORBID (SEVERE) OBESITY WITH ALVEOLAR HYPOVENTILATION (5) MARIE (obstructive sleep apnea) Code(s): G47.33 - OBSTRUCTIVE SLEEP APNEA (ADULT) (PEDIATRIC) (6) Diastolic CHF Code(s): I50.30 - UNSPECIFIED DIASTOLIC (CONGESTIVE) HEART FAILURE (7) Pulmonary embolism Code(s): I26.99 - OTHER PULMONARY EMBOLISM WITHOUT ACUTE COR PULMONALE
--- NOTE | 2018-11-12 16:40 | PN ---
Progress Note (short form) - Note Progress Note: s: feels better. no cp palps dizzy o: Vital Signs Period Temp Pulse Resp BP Sys/Torres Pulse Ox Last 24 Hr 97 F-98.8 F 100-106 18-19 130-144/58-72 93-94 Constitutional: Yes: No Distress, Calm Eyes: Yes: Conjunctiva Clear Respiratory: cta bl nl eff Gastrointestinal: Yes: Soft, Abdomen, Obese Cardiovascular: Yes: Regular Rate and Rhythm JVD: No Heart Sounds: Yes: S1, S2 (RRR, No M/R/G) Edema:yes, trace bl le edema Neurological: Yes: Alert, Oriented no jaundice diaphoresis Current Medications Acetaminophen (Tylenol Oral Solution -) 650 mg PO Q4H PRN PRN Reason: pain Last Admin: 11/12/18 10:24 Dose: 650 mg Al Hydroxide/Mg Hydroxide (Mylanta Oral Suspension -) 30 ml PO TID [facility] Last Admin: 11/12/18 14:23 Dose: 30 ml Albuterol Sulfate (Ventolin 0.083% Nebulizer Soln -) 1 amp NEB RQ4H [facility] Last Admin: 11/12/18 11:17 Dose: 1 amp Apixaban (Eliquis -) 5 mg PO BID [facility] Last Admin: 11/12/18 09:23 Dose: 5 mg Aspirin (Asa -) 81 mg PO DAILY [facility] Last Admin: 11/12/18 09:23 Dose: 81 mg Furosemide (Lasix -) 40 mg PO BID@0600,1400 [facility] Last Admin: 11/12/18 14:23 Dose: 40 mg Guaifenesin (Robitussin -) 10 ml PO Q4H PRN PRN Reason: COUGH Last Admin: 11/10/18 09:24 Dose: 10 ml Ceftriaxone Sodium 1 gm/ (Dextrose) 50 mls @ 100 mls/hr IVPB DAILY [facility]; Protocol Last Admin: 11/12/18 09:22 Dose: 100 mls/hr Insulin Aspart (Novolog Vial Sliding Scale -) 1 vial SQ ACHS [facility]; Protocol Last Admin: 11/12/18 11:49 Dose: 2 units Loratadine (Claritin -) 10 mg PO DAILY [facility] Last Admin: 11/12/18 09:23 Dose: 10 mg Losartan Potassium (Cozaar -) 50 mg PO DAILY [facility] Last Admin: 11/12/18 09:23 Dose: 50 mg Metformin HCl (Glucophage -) 1,000 mg PO BIDAC [facility] Last Admin: 11/12/18 06:46 Dose: 1,000 mg Pantoprazole Sodium (Protonix -) 40 mg PO DAILY [facility] Last Admin: 11/12/18 09:23 Dose: 40 mg Prednisone (Deltasone -) 40 mg PO DAILY [facility] Last Admin: 11/12/18 09:23 Dose: 40 mg Rosuvastatin Calcium (Crestor -) 40 mg PO HS [facility] Last Admin: 11/11/18 21:48 Dose: 40 mg Sertraline HCl (Zoloft -) 100 mg PO HS [facility] Last Admin: 11/11/18 21:48 Dose: 100 mg Sodium Chloride (Normal Saline For Inhalation -) 3 ml IH Q6H PRN PRN Reason: FLUSH Assessment/Plan IMP: 1. Morbid Obesity 2. Acute on Chronic combined systolic and diastolic CHF, non-ischemic CM 3. Chronic HTN 4. Obstructive sleep apnea 5. COPD, former smoker 6. Hypoxia: likely multifactorial--> MARIE, CHF, COPD 7. 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 DM REC: 1. Tele was benign here. 2. Echo unremarkable here. 3. Daily weights and BMP to monitor renal fx and lytes: keep K+ and Mg2+ normalized 4. Diuresed with IV lasix, resp status improved, appears euvolemic. CT shows no sig chf. Now on po lasix 40 bid, continue 5. Cont home Losartan, Statin and low dose ASA for h/o non-obstx CAD. 6. Cont Eliquis for h/o DVT, PE. 7. copd tx as per Pulmonary
--- NOTE | 2018-11-12 20:35 | PN ---
Progress Note, Physician - Current Medication List Current Medications: Active Medications Acetaminophen (Tylenol Oral Solution -) 650 mg PO Q4H PRN PRN Reason: pain Last Admin: 11/12/18 17:48 Dose: 650 mg Al Hydroxide/Mg Hydroxide (Mylanta Oral Suspension -) 30 ml PO TID [facility] Last Admin: 11/12/18 14:23 Dose: 30 ml Albuterol Sulfate (Ventolin 0.083% Nebulizer Soln -) 1 amp NEB RQ4H [facility] Last Admin: 11/12/18 20:23 Dose: 1 amp Apixaban (Eliquis -) 5 mg PO BID [facility] Last Admin: 11/12/18 09:23 Dose: 5 mg Aspirin (Asa -) 81 mg PO DAILY [facility] Last Admin: 11/12/18 09:23 Dose: 81 mg Furosemide (Lasix -) 40 mg PO BID@0600,1400 [facility] Last Admin: 11/12/18 14:23 Dose: 40 mg Guaifenesin (Robitussin -) 10 ml PO Q4H PRN PRN Reason: COUGH Last Admin: 11/10/18 09:24 Dose: 10 ml Ceftriaxone Sodium 1 gm/ (Dextrose) 50 mls @ 100 mls/hr IVPB DAILY [facility]; Protocol Last Admin: 11/12/18 09:22 Dose: 100 mls/hr Insulin Aspart (Novolog Vial Sliding Scale -) 1 vial SQ ACHS [facility]; Protocol Last Admin: 11/12/18 17:22 Dose: 2 units Loratadine (Claritin -) 10 mg PO DAILY [facility] Last Admin: 11/12/18 09:23 Dose: 10 mg Losartan Potassium (Cozaar -) 50 mg PO DAILY [facility] Last Admin: 11/12/18 09:23 Dose: 50 mg Metformin HCl (Glucophage -) 1,000 mg PO BIDAC [facility] Last Admin: 11/12/18 17:22 Dose: 1,000 mg Pantoprazole Sodium (Protonix -) 40 mg PO DAILY [facility] Last Admin: 11/12/18 09:23 Dose: 40 mg Prednisone (Deltasone -) 40 mg PO DAILY [facility] Last Admin: 11/12/18 09:23 Dose: 40 mg Rosuvastatin Calcium (Crestor -) 40 mg PO HS [facility] Last Admin: 11/11/18 21:48 Dose: 40 mg Sertraline HCl (Zoloft -) 100 mg PO HS [facility] Last Admin: 11/11/18 21:48 Dose: 100 mg Sodium Chloride (Normal Saline For Inhalation -) 3 ml IH Q6H PRN PRN Reason: FLUSH - Objective Vital Signs: Vital Signs Temperature 99.0 F 11/12/18 18:45 Pulse Rate 120 H 11/12/18 18:45 Respiratory Rate 18 11/12/18 18:45 Blood Pressure 112/54 L 11/12/18 18:45 O2 Sat by Pulse Oximetry (%) 93 L 11/12/18 09:13 Labs: CBC, BMP 11/09/18 08:15 11/12/18 06:15 INR, PTT INR 1.25 (0.83-1.09) H 11/01/18 17:00 Problem List - Problems (1) Acute on chronic systolic and diastolic heart failure, NYHA class 1 Code(s): I50.43 - ACUTE ON CHRONIC COMBINED SYSTOLIC AND DIASTOLIC HRT FAIL (2) COPD exacerbation Code(s): J44.1 - CHRONIC OBSTRUCTIVE PULMONARY DISEASE W (ACUTE) EXACERBATION (3) Diabetes Code(s): E11.9 - TYPE 2 DIABETES MELLITUS WITHOUT COMPLICATIONS (4) HTN (hypertension) Code(s): I10 - ESSENTIAL (PRIMARY) HYPERTENSION (5) HLD (hyperlipidemia) Code(s): E78.5 - HYPERLIPIDEMIA, UNSPECIFIED (6) Pulmonary emboli Code(s): I26.99 - OTHER PULMONARY EMBOLISM WITHOUT ACUTE COR PULMONALE (7) MARIE (obstructive sleep apnea) Code(s): G47.33 - OBSTRUCTIVE SLEEP APNEA (ADULT) (PEDIATRIC) (8) Obesity Code(s): E66.9 - OBESITY, UNSPECIFIED Qualifiers: Obesity type: unspecified obesity type Obesity classification: adult class 3 (BMI >= 40) Serious obesity comorbidity presence: with serious comorbidity Body mass index: BMI 50.0-59.9 Qualified Code(s): E66.01 - Morbid (severe) obesity due to excess calories; Z68.43 - Body mass index (BMI) 50-59.9, adult (9) Adrenal adenoma Code(s): D35.00 - BENIGN NEOPLASM OF UNSPECIFIED ADRENAL GLAND (10) Acute on chronic respiratory failure with hypoxia and hypercapnia Code(s): J96.21 - ACUTE AND CHRONIC RESPIRATORY FAILURE WITH HYPOXIA; J96.22 - ACUTE AND CHRONIC RESPIRATORY FAILURE WITH HYPERCAPNIA
[2018-11-12] MEDS: ROSUVASTATIN CA 20 MG TABLET (FP) PO SCH (21:12)
[2018-11-12] MEDS: SERTRALINE HCL 50 MG TABLET (FP) PO SCH (21:12)
[2018-11-12] MEDS: guaiFENesin 200 MG/10 ML 10 ML UNIT-DOSE CUPS PO PRN (21:13)
[2018-11-13] MEDS: ALBUTEROL SO4 0.083% IH SOL 2.5 MG/3 ML VIAL.NEB. NEB SCH ×2 (04:00→08:00)
[2018-11-13] MEDS: metFORMIN HCL 500 MG TABLET (FP) PO SCH (06:40)
[2018-11-13] MEDS: MAG HYDROX/AL HYDROX/SIMETH 30 ML UNIT-DOSE CUP PO SCH (06:40)
[2018-11-13] MEDS: FUROSEMIDE 40 MG TABLET (FP) PO SCH (06:41)
[2018-11-13] MEDS: INSULIN SLIDING SCALE (NOVOLOG) 1 VIAL SQ SCH (06:44)
[2018-11-13] MEDS ORDERED: INSULIN (NOVOLOG) ASPART 100 UNITS/ML 10ML VIAL ONE (07:05)
[2018-11-13] MEDS ORDERED: DEXTROSE 5%-WATER - 50 ML IVPB ONE (10:01)
[2018-11-13] MEDS ORDERED: cefTRIAXone SODIUM 1 GM VIAL ONE (10:01)
[2018-11-13] MEDS: ASPIRIN 81 MG CHEWABLE TABLETS PO SCH (10:04)
[2018-11-13] MEDS: LOSARTAN POTASSIUM 50 MG TABLET (FP) PO SCH (10:04)
[2018-11-13] MEDS: CEFTRIAXONE 1 GM in DEXTROSE 5%-WATER - 50 ML IVPB SCH (10:04)
[2018-11-13] MEDS: PANTOPRAZOLE 40 MG TABLET (FP) PO SCH (10:04)
[2018-11-13] MEDS: APIXABAN 5 MG TABLET PO SCH (10:04)
[2018-11-13] MEDS: LORATADINE 10 MG TABLET PO SCH (10:04)
[2018-11-13] MEDS: predniSONE 20 MG TABLET (UD) PO SCH (10:05)
[2018-11-13] MEDS: ACETAMINOPHEN 650 MG/20.3 ML ORAL SOLUTION (CUPS) PO PRN (10:59)
[2018-11-13 11:19] VITALS: BP 151/88; PULSE 100; TEMP 98.3
--- NOTE | 2018-11-13 13:29 | PN ---
Progress Note, Physician History of Present Illness: PULMONARY ALERT,COMFORTABLE,-RESP DISTRESS - Current Medication List Current Medications: Active Medications Acetaminophen (Tylenol Oral Solution -) 650 mg PO Q4H PRN PRN Reason: pain Last Admin: 11/13/18 10:59 Dose: 650 mg Al Hydroxide/Mg Hydroxide (Mylanta Oral Suspension -) 30 ml PO TID [facility] Last Admin: 11/13/18 06:40 Dose: 30 ml Apixaban (Eliquis -) 5 mg PO BID [facility] Last Admin: 11/13/18 10:04 Dose: 5 mg Aspirin (Asa -) 81 mg PO DAILY [facility] Last Admin: 11/13/18 10:04 Dose: 81 mg Furosemide (Lasix -) 40 mg PO BID@0600,1400 [facility] Last Admin: 11/13/18 06:41 Dose: 40 mg Guaifenesin (Robitussin -) 10 ml PO Q4H PRN PRN Reason: COUGH Last Admin: 11/12/18 21:13 Dose: 10 ml Ceftriaxone Sodium 1 gm/ (Dextrose) 50 mls @ 100 mls/hr IVPB DAILY [facility]; Protocol Last Admin: 11/13/18 10:04 Dose: 100 mls/hr Insulin Aspart (Novolog Vial Sliding Scale -) 1 vial SQ ACHS [facility]; Protocol Last Admin: 11/13/18 06:44 Dose: Not Given Loratadine (Claritin -) 10 mg PO DAILY [facility] Last Admin: 11/13/18 10:04 Dose: 10 mg Losartan Potassium (Cozaar -) 50 mg PO DAILY [facility] Last Admin: 11/13/18 10:04 Dose: 50 mg Metformin HCl (Glucophage -) 1,000 mg PO BIDAC [facility] Last Admin: 11/13/18 06:40 Dose: 1,000 mg Pantoprazole Sodium (Protonix -) 40 mg PO DAILY [facility] Last Admin: 11/13/18 10:04 Dose: 40 mg Prednisone (Deltasone -) 40 mg PO DAILY [facility] Last Admin: 11/13/18 10:05 Dose: 40 mg Rosuvastatin Calcium (Crestor -) 40 mg PO HS [facility] Last Admin: 11/12/18 21:12 Dose: 40 mg Sertraline HCl (Zoloft -) 100 mg PO HS [facility] Last Admin: 11/12/18 21:12 Dose: 100 mg Sodium Chloride (Normal Saline For Inhalation -) 3 ml IH Q6H PRN PRN Reason: FLUSH - Objective Vital Signs: Vital Signs Temperature 98.3 F 11/13/18 10:00 Pulse Rate 100 H 11/13/18 10:00 Respiratory Rate 22 H 11/13/18 10:00 Blood Pressure 151/88 11/13/18 10:00 O2 Sat by Pulse Oximetry (%) 92 L 11/12/18 21:00 Constitutional: Yes: Well Nourished, Calm, Obese Eyes: Yes: WNL HENT: Yes: WNL Neck: Yes: WNL Cardiovascular: Yes: Regular Rate and Rhythm, S1, S2 Respiratory: Yes: Diminished Gastrointestinal: Yes: Normal Bowel Sounds, Soft Extremities: Yes: WNL Edema: No Labs: CBC, BMP Problem List - Problems (1) Acute on chronic respiratory failure with hypoxia and hypercapnia Code(s): J96.21 - ACUTE AND CHRONIC RESPIRATORY FAILURE WITH HYPOXIA; J96.22 - ACUTE AND CHRONIC RESPIRATORY FAILURE WITH HYPERCAPNIA (2) COPD exacerbation Code(s): J44.1 - CHRONIC OBSTRUCTIVE PULMONARY DISEASE W (ACUTE) EXACERBATION (3) Pulmonary HTN Code(s): I27.20 - PULMONARY HYPERTENSION, UNSPECIFIED (4) Obesity hypoventilation syndrome Code(s): E66.2 - MORBID (SEVERE) OBESITY WITH ALVEOLAR HYPOVENTILATION (5) MARIE (obstructive sleep apnea) Code(s): G47.33 - OBSTRUCTIVE SLEEP APNEA (ADULT) (PEDIATRIC) (6) Diastolic CHF Code(s): I50.30 - UNSPECIFIED DIASTOLIC (CONGESTIVE) HEART FAILURE (7) Pulmonary embolism Code(s): I26.99 - OTHER PULMONARY EMBOLISM WITHOUT ACUTE COR PULMONALE Assessment/Plan IMP ACUTE ON CHRONIC HYPOXEMIC/HYPERCAPNEIC RESPIRATORY FAILURE IMPROVED LIKELY MARIE/OHS COPD ADVANCED ACUTE ON CHRONIC DIASTOLIC HF H/O DVT/PE ? UNPROVOKED PULMONARY HTN DM RECENT PNEUMONIA HTN PROLONGED QTc LEFT ADRENAL ADENOMA PLAN LASIX INHALED BRONCHODILATORS O2 NIPPV NEEDED WT REDUCTION [facility] REHAB HOME TRILOGY DEVICE DR SHEIKH Problem List - Problems (1) Acute on chronic respiratory failure with hypoxia and hypercapnia Code(s): J96.21 - ACUTE AND CHRONIC RESPIRATORY FAILURE WITH HYPOXIA; J96.22 - ACUTE AND CHRONIC RESPIRATORY FAILURE WITH HYPERCAPNIA (2) COPD exacerbation Code(s): J44.1 - CHRONIC OBSTRUCTIVE PULMONARY DISEASE W (ACUTE) EXACERBATION (3) Pulmonary HTN Code(s): I27.20 - PULMONARY HYPERTENSION, UNSPECIFIED (4) Obesity hypoventilation syndrome Code(s): E66.2 - MORBID (SEVERE) OBESITY WITH ALVEOLAR HYPOVENTILATION (5) MARIE (obstructive sleep apnea) Code(s): G47.33 - OBSTRUCTIVE SLEEP APNEA (ADULT) (PEDIATRIC) (6) Diastolic CHF Code(s): I50.30 - UNSPECIFIED DIASTOLIC (CONGESTIVE) HEART FAILURE (7) Pulmonary embolism Code(s): I26.99 - OTHER PULMONARY EMBOLISM WITHOUT ACUTE COR PULMONALE
--- NOTE | 2018-11-13 13:36 | PN ---
Progress Note, Physician Chief Complaint: Denies CP or SOB - Current Medication List Current Medications: Active Medications Acetaminophen (Tylenol Oral Solution -) 650 mg PO Q4H PRN PRN Reason: pain Last Admin: 11/13/18 10:59 Dose: 650 mg Al Hydroxide/Mg Hydroxide (Mylanta Oral Suspension -) 30 ml PO TID [facility] Last Admin: 11/13/18 06:40 Dose: 30 ml Apixaban (Eliquis -) 5 mg PO BID [facility] Last Admin: 11/13/18 10:04 Dose: 5 mg Aspirin (Asa -) 81 mg PO DAILY [facility] Last Admin: 11/13/18 10:04 Dose: 81 mg Furosemide (Lasix -) 40 mg PO BID@0600,1400 [facility] Last Admin: 11/13/18 06:41 Dose: 40 mg Guaifenesin (Robitussin -) 10 ml PO Q4H PRN PRN Reason: COUGH Last Admin: 11/12/18 21:13 Dose: 10 ml Ceftriaxone Sodium 1 gm/ (Dextrose) 50 mls @ 100 mls/hr IVPB DAILY [facility]; Protocol Last Admin: 11/13/18 10:04 Dose: 100 mls/hr Insulin Aspart (Novolog Vial Sliding Scale -) 1 vial SQ ACHS [facility]; Protocol Last Admin: 11/13/18 06:44 Dose: Not Given Loratadine (Claritin -) 10 mg PO DAILY [facility] Last Admin: 11/13/18 10:04 Dose: 10 mg Losartan Potassium (Cozaar -) 50 mg PO DAILY [facility] Last Admin: 11/13/18 10:04 Dose: 50 mg Metformin HCl (Glucophage -) 1,000 mg PO BIDAC [facility] Last Admin: 11/13/18 06:40 Dose: 1,000 mg Pantoprazole Sodium (Protonix -) 40 mg PO DAILY [facility] Last Admin: 11/13/18 10:04 Dose: 40 mg Prednisone (Deltasone -) 40 mg PO DAILY [facility] Last Admin: 11/13/18 10:05 Dose: 40 mg Rosuvastatin Calcium (Crestor -) 40 mg PO HS [facility] Last Admin: 11/12/18 21:12 Dose: 40 mg Sertraline HCl (Zoloft -) 100 mg PO HS [facility] Last Admin: 11/12/18 21:12 Dose: 100 mg Sodium Chloride (Normal Saline For Inhalation -) 3 ml IH Q6H PRN PRN Reason: FLUSH - Objective Vital Signs: Vital Signs Temperature 98.3 F 11/13/18 10:00 Pulse Rate 100 H 11/13/18 10:00 Respiratory Rate 22 H 11/13/18 10:00 Blood Pressure 151/88 11/13/18 10:00 O2 Sat by Pulse Oximetry (%) 92 L 11/12/18 21:00 Constitutional: Yes: No Distress, Calm Eyes: Yes: Conjunctiva Clear Cardiovascular: Yes: Regular Rate and Rhythm Respiratory: Yes: CTA Bilaterally Gastrointestinal: Yes: Soft, Abdomen, Obese Edema: No Neurological: Yes: Alert, Oriented Labs: CBC, BMP 11/09/18 08:15 11/12/18 06:15 INR, PTT INR 1.25 (0.83-1.09) H 11/01/18 17:00 Laboratory Tests 11/09/18 11/12/18 08:15 06:15 WBC 7.2 Hgb 9.8 L Plt Count 194 Sodium 138 Potassium 4.4 Creatinine 0.8 Assessment/Plan IMP: 1. Morbid Obesity 2. Acute on Chronic combined systolic and diastolic CHF, non-ischemic CM 3. Chronic HTN 4. Obstructive sleep apnea 5. COPD, former smoker 6. Hypoxia: likely multifactorial--> MARIE, CHF, COPD 7. 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 DM REC: 1. Tele was benign here. 2. Echo unremarkable here. 3. Daily weights and BMP to monitor renal fx and lytes: keep K+ and Mg2+ normalized 4. Diuresed with IV lasix, resp status improved, appears euvolemic. CT shows no sig chf. Now on po lasix 40 bid, continue 5. Cont home Losartan, Statin and low dose ASA for h/o non-obstx CAD. 6. Cont Eliquis for h/o DVT, PE. 7. copd tx as per Pulmonary
--- NOTE | 2018-11-13 13:48 | PN ---
Progress Note, Physician History of Present Illness: Pt seen and examined at bedside. She is awake and alert. She feels that her breathing is improved. - Current Medication List Current Medications: Active Medications Acetaminophen (Tylenol Oral Solution -) 650 mg PO Q4H PRN PRN Reason: pain Last Admin: 11/13/18 10:59 Dose: 650 mg Al Hydroxide/Mg Hydroxide (Mylanta Oral Suspension -) 30 ml PO TID JANEY Last Admin: 11/13/18 06:40 Dose: 30 ml Apixaban (Eliquis -) 5 mg PO BID JANEY Last Admin: 11/13/18 10:04 Dose: 5 mg Aspirin (Asa -) 81 mg PO DAILY JANEY Last Admin: 11/13/18 10:04 Dose: 81 mg Furosemide (Lasix -) 40 mg PO BID@0600,1400 JANEY Last Admin: 11/13/18 06:41 Dose: 40 mg Guaifenesin (Robitussin -) 10 ml PO Q4H PRN PRN Reason: COUGH Last Admin: 11/12/18 21:13 Dose: 10 ml Ceftriaxone Sodium 1 gm/ (Dextrose) 50 mls @ 100 mls/hr IVPB DAILY [facility]; Protocol Last Admin: 11/13/18 10:04 Dose: 100 mls/hr Insulin Aspart (Novolog Vial Sliding Scale -) 1 vial SQ ACHS [facility]; Protocol Last Admin: 11/13/18 06:44 Dose: Not Given Loratadine (Claritin -) 10 mg PO DAILY [facility] Last Admin: 11/13/18 10:04 Dose: 10 mg Losartan Potassium (Cozaar -) 50 mg PO DAILY JANEY Last Admin: 11/13/18 10:04 Dose: 50 mg Metformin HCl (Glucophage -) 1,000 mg PO BIDAC JANEY Last Admin: 11/13/18 06:40 Dose: 1,000 mg Pantoprazole Sodium (Protonix -) 40 mg PO DAILY JANEY Last Admin: 11/13/18 10:04 Dose: 40 mg Prednisone (Deltasone -) 40 mg PO DAILY JANEY Last Admin: 11/13/18 10:05 Dose: 40 mg Rosuvastatin Calcium (Crestor -) 40 mg PO HS [facility] Last Admin: 11/12/18 21:12 Dose: 40 mg Sertraline HCl (Zoloft -) 100 mg PO HS [facility] Last Admin: 11/12/18 21:12 Dose: 100 mg Sodium Chloride (Normal Saline For Inhalation -) 3 ml IH Q6H PRN PRN Reason: FLUSH - Objective Vital Signs: Vital Signs Temperature 98.3 F 11/13/18 10:00 Pulse Rate 100 H 11/13/18 10:00 Respiratory Rate 22 H 11/13/18 10:00 Blood Pressure 151/88 11/13/18 10:00 O2 Sat by Pulse Oximetry (%) 92 L 11/12/18 21:00 Constitutional: Yes: Calm Eyes: Yes: Conjunctiva Clear HENT: Yes: Atraumatic Cardiovascular: Yes: S1, S2 Respiratory: Yes: CTA Bilaterally Gastrointestinal: Yes: Soft, Abdomen, Obese Genitourinary: Yes: WNL Musculoskeletal: Yes: WNL Edema: No Integumentary: Yes: WNL Neurological: Yes: Oriented Psychiatric: Yes: Oriented Labs: CBC, BMP 11/09/18 08:15 11/12/18 06:15 INR, PTT INR 1.25 (0.83-1.09) H 11/01/18 17:00 Problem List - Problems (1) Azotemia Code(s): R79.89 - OTHER SPECIFIED ABNORMAL FINDINGS OF BLOOD CHEMISTRY (2) Acute on chronic respiratory failure with hypoxia and hypercapnia Code(s): J96.21 - ACUTE AND CHRONIC RESPIRATORY FAILURE WITH HYPOXIA; J96.22 - ACUTE AND CHRONIC RESPIRATORY FAILURE WITH HYPERCAPNIA (3) HTN (hypertension) Code(s): I10 - ESSENTIAL (PRIMARY) HYPERTENSION (4) Obesity Code(s): E66.9 - OBESITY, UNSPECIFIED Qualifiers: Obesity type: unspecified obesity type Obesity classification: adult class 3 (BMI >= 40) Serious obesity comorbidity presence: with serious comorbidity Body mass index: BMI 50.0-59.9 Qualified Code(s): E66.01 - Morbid (severe) obesity due to excess calories; Z68.43 - Body mass index (BMI) 50-59.9, adult Assessment/Plan Current Medications Generic Name Dose Route Start Last Admin Trade Name Freq PRN Reason Stop Dose Admin Acetaminophen 650 mg 11/01/18 23:48 11/13/18 10:59 Tylenol Oral Solution - PO 650 mg Q4H PRN Administration pain Al Hydroxide/Mg Hydroxide 30 ml 11/06/18 22:00 11/13/18 06:40 Mylanta Oral Suspension - PO 30 ml TID JANEY Administration Apixaban 5 mg 11/02/18 10:00 11/13/18 10:04 Eliquis - PO 5 mg BID JANEY Administration Aspirin 81 mg 11/02/18 10:00 11/13/18 10:04 Asa - PO 81 mg DAILY JANEY Administration Furosemide 40 mg 11/12/18 14:00 11/13/18 06:41 Lasix - PO 40 mg BID@0600,1400 JANEY Administration Guaifenesin 10 ml 11/03/18 11:18 11/12/18 21:13 Robitussin - PO 10 ml Q4H PRN Administration COUGH Ceftriaxone Sodium 1 gm/ 50 mls @ 100 mls/hr 11/01/18 23:45 11/13/18 10:04 Dextrose IVPB 100 mls/hr DAILY JANEY Administration Protocol Insulin Aspart 1 vial 11/02/18 07:00 11/13/18 06:44 Novolog Vial Sliding Scale - SQ Not Given ACHS JANEY Protocol Loratadine 10 mg 11/09/18 10:00 11/13/18 10:04 Claritin - PO 10 mg DAILY JANEY Administration Losartan Potassium 50 mg 11/02/18 10:00 11/13/18 10:04 Cozaar - PO 50 mg DAILY JANEY Administration Metformin HCl 1,000 mg 11/02/18 07:00 11/13/18 06:40 Glucophage - PO 1,000 mg BIDAC JANEY Administration Pantoprazole Sodium 40 mg 11/02/18 02:27 11/13/18 10:04 Protonix - PO 40 mg DAILY JANEY Administration Prednisone 40 mg 11/11/18 10:00 11/13/18 10:05 Deltasone - PO 40 mg DAILY JANEY Administration Rosuvastatin Calcium 40 mg 11/02/18 22:00 11/12/18 21:12 Crestor - PO 40 mg HS JANEY Administration Sertraline HCl 100 mg 11/11/18 22:00 11/12/18 21:12 Zoloft - PO 100 mg HS JANEY Administration Sodium Chloride 3 ml 11/06/18 21:34 Normal Saline For Inhalation - IH Q6H PRN FLUSH Impression 1. azotemia 2. obesity 3. left adrenal adenoma - follows with Javad 4. HLD 5. COPD 6. CHF Plan - bun is improving with lower dose steroids - met alk is compendatory for resp acid - pt follows with Javad for adrenal adenoma - recommend weight loss - will follow PRN
== END 2018-11-13 14:17 | DRG 205 ==
LOC: JER 15:38 → JERBED 18:04 → J6S 20:21 → J4S 11-02 12:46 → J6S 11-06 22:07
PROVIDERS: ADMIT Internal Medicine; ATTEND Internal Medicine
PROC: 5A09457 Assistance with Respiratory Ventilation, 24-96 Consecutive Hours, Continuous Positive Airway Pressure (ICD-10-PCS; principal; 2018-11-02)
DX: E66.2 Morbid (severe) obesity with alveolar hypoventilation (principal); J96.21 Acute and chronic respiratory failure with hypoxia; I26.99 Other pulmonary embolism without acute cor pulmonale; I50.43 Acute on chronic combined systolic (congestive) and diastolic (congestive) heart failure; J96.22 Acute and chronic respiratory failure with hypercapnia; Z68.43 Body mass index [BMI] 50.0-59.9, adult; I42.8 Other cardiomyopathies; J44.1 Chronic obstructive pulmonary disease with (acute) exacerbation; R79.89 Other specified abnormal findings of blood chemistry; I10 Essential (primary) hypertension; E11.9 Type 2 diabetes mellitus without complications; D35.00 Benign neoplasm of unspecified adrenal gland; I11.0 Hypertensive heart disease with heart failure; I27.20 Pulmonary hypertension, unspecified; I45.81 Long QT syndrome; E78.5 Hyperlipidemia, unspecified; Z87.891 Personal history of nicotine dependence; Z86.718 Personal history of other venous thrombosis and embolism
CPT/HCPCS: 36415; 36600; 71045-TC-FY; 71260-TC; 76700-TC; 80048; 80053; 81003; 82024; 82375; 82533; 82550; 82553; 82803; 82962; 83036; 83050; 83735; 83880; 84484; 85025; 85610; 93005; 93010; 93306-TC; 94640; 94660; 97116-GP; 97162-GP; 99284-25; J8540

== ENCOUNTER 2021-05-18 14:25 | Inpatient (IN) | payer OTHER ==
[2021-05-18 14:56] VITALS: BMI 51.6
[2021-05-18] MEDS ORDERED: METOPROLOL TARTRATE 5 MG/5 ML VIAL IVPUSH ONE ×3 (16:13→16:58)
[2021-05-18] MEDS ORDERED: METOPROLOL TARTRATE 5 MG/5 ML VIAL ONE ×2 (16:30→17:05)
[2021-05-18] MEDS ORDERED: FUROSEMIDE 40 MG/4 ML INJECTABLE VIAL IVPUSH ONE (17:36)
[2021-05-18 17:39] LABS: BASO % 0.1 % (0-2.0); HEMATOCRIT 35.9 % (32.4-45.2); HEMOGLOBIN 11.4 GM/dL (10.7-15.3); LYMPH % 4.5 % (8-40); MCH 22.6 pg (25.7-33.7); MCHC 31.8 g/dl (32.0-36.0); MEAN CELL VOLUME 71.2 fl (80-96); MEAN PLT VOLUME 8.5 fl (7.5-11.1); NEUT % 88.4 % (42.8-82.8); PLATELET COUNT 234 10^3/uL (134-434); RBC 5.05 M/mm3 (3.60-5.2); RDW 18.1 % (11.6-15.6); WHITE BLOOD COUNT 7.8 K/mm3 (4.0-10.0)
[2021-05-18] MEDS ORDERED: FUROSEMIDE 40 MG/4 ML INJECTABLE VIAL ONE (17:49)
[2021-05-18 18:01] LABS: CHLORIDE 105 mmol/L (98-107); SODIUM 144 mmol/L (136-145)
[2021-05-18 18:04] LABS: ALBUMIN 3.6 g/dl (3.4-5.0); ANION GAP 4 MMOL/L (8-16); BLOOD UREA NITROGEN 28.3 mg/dL (7-18); CO2 35 mmol/L (21-32); GLUCOSE,RANDOM 130 mg/dL (74-106); MAGNESIUM 2.3 mg/dL (1.8-2.4)
[2021-05-18 18:06] LABS: CREATININE 0.9 mg/dL (0.55-1.3)
[2021-05-18 18:07] LABS: PHOSPHOROUS 4.6 mg/dL (2.5-4.9); SGOT/AST 18 U/L (15-37); SGPT/ALT 73 U/L (13-61)
[2021-05-18 18:08] LABS: BILIRUBIN,TOTAL 0.4 mg/dL (0.2-1); TOT PROT 6.9 g/dl (6.4-8.2)
[2021-05-18 18:09] LABS: ALK PHOS 118 U/L (45-117)
[2021-05-18 18:12] LABS: N-TERMINAL BNP 3157.1 pg/ml (5-125)
[2021-05-18] MEDS ORDERED: dilTIAZem HCL 25 MG/5 ML - 5 ML VIAL IV ONE (21:30)
[2021-05-18] MEDS: APIXABAN 5 MG TABLET PO SCH (21:54)
[2021-05-18] MEDS: NYSTATIN 500,000 UNITS/5 ML SUSPENSION PO SCH (21:54)
[2021-05-18] MEDS: ACETAMINOPHEN 325 MG TABLET (FP) PO PRN (22:25)
[2021-05-18] MEDS: ALBUTEROL SO4 0.083% IH SOL 2.5 MG/3 ML VIAL.NEB. NEB PRN (22:30)
[2021-05-19] MEDS ORDERED: dilTIAZem HCL 25 MG/5 ML - 5 ML VIAL IVPUSH PRN (00:09)
[2021-05-19] MEDS: NYSTATIN 500,000 UNITS/5 ML SUSPENSION PO SCH ×4 (02:44→22:17)
[2021-05-19] MEDS: ACETAMINOPHEN 325 MG TABLET (FP) PO PRN ×3 (04:45→22:18)
[2021-05-19] MEDS ORDERED: SODIUM CHLORIDE NASAL SPRAY 44 ML BOTTLE NS PRN (05:33)
[2021-05-19 08:16] LABS: BASO % 0.3 % (0-2.0); EOS % 0.9 % (0-4.5); HEMATOCRIT 35.4 % (32.4-45.2); HEMOGLOBIN 10.7 GM/dL (10.7-15.3); LYMPH % 8.1 % (8-40); MCH 21.8 pg (25.7-33.7); MCHC 30.1 g/dl (32.0-36.0); MEAN CELL VOLUME 72.4 fl (80-96); MEAN PLT VOLUME 8.6 fl (7.5-11.1); MONO % 11.6 % (3.8-10.2); NEUT % 79.1 % (42.8-82.8); PLATELET COUNT 247 10^3/uL (134-434); RBC 4.89 M/mm3 (3.60-5.2); RDW 17.7 % (11.6-15.6)
[2021-05-19 08:42] LABS: ALBUMIN 3.7 g/dl (3.4-5.0); BLOOD UREA NITROGEN 30.6 mg/dL (7-18); CALCIUM 9.4 mg/dL (8.5-10.1)
[2021-05-19 08:45] LABS: CREATININE 0.9 mg/dL (0.55-1.3)
[2021-05-19 08:47] LABS: BILIRUBIN,TOTAL 0.8 mg/dL (0.2-1); TOT PROT 6.6 g/dl (6.4-8.2)
[2021-05-19] MEDS: ALBUTEROL SO4 0.083% IH SOL 2.5 MG/3 ML VIAL.NEB. NEB PRN ×2 (09:09→18:42)
[2021-05-19] MEDS ORDERED: FLU VACC QS2021-22(6MOS UP)/PF 60 MCG/0.5 ML SYRINGE IM ONE (10:00)
[2021-05-19 10:16] LABS: ANISOCYTOSIS 1+; MACROCYTOSIS 0; PLATELET ESTIMATE NORMAL
[2021-05-19] MEDS: SERTRALINE HCL 50 MG TABLET (FP) PO SCH (11:07)
[2021-05-19] MEDS: hydrALAZINE HCL 10 MG TABLET PO SCH ×2 (11:07→22:17)
[2021-05-19] MEDS: APIXABAN 5 MG TABLET PO SCH ×2 (11:07→22:17)
[2021-05-19] MEDS: FUROSEMIDE 40 MG/4 ML INJECTABLE VIAL IVPUSH SCH (11:07)
[2021-05-19] MEDS: LOSARTAN POTASSIUM 50 MG TABLET PO SCH (11:08)
[2021-05-19] MEDS ORDERED: dilTIAZem HCL 50 MG/10 ML - 10 ML VIAL IVPUSH ONE (13:15)
[2021-05-19] MEDS ORDERED: FUROSEMIDE 40 MG/4 ML INJECTABLE VIAL IVPUSH ONE (14:00)
[2021-05-19 14:50] LABS: ARTERIAL BLD GAS O2 SATURATION 95.6 % (95-98); ARTERIAL BLOOD GAS BASE EXCESS 4.2 mmol/L (-2-2); ARTERIAL BLOOD GAS PO2 88.6 mmHg (80-100); ARTERIAL BLOOD GAS pH 7.297 (7.350-7.450)
[2021-05-19 14:52] LABS: ALLENS TEST POSITIVE
[2021-05-19] MEDS: DOCUSATE SODIUM 100 MG CAPSULE (FP) PO PRN (15:27)
[2021-05-19] MEDS: BUDESONIDE/FORMETEROL FUMARATE 160/4.5 mcg INHALER IH SCH ×2 (17:55→22:17)
[2021-05-19] MEDS: ATORVASTATIN CA 20 MG TABLET (FP) PO SCH (22:17)
[2021-05-19] MEDS: MONTELUKAST NA 10 MG TABLET PO SCH (22:17)
[2021-05-20] MEDS: NYSTATIN 500,000 UNITS/5 ML SUSPENSION PO SCH ×4 (03:53→21:33)
[2021-05-20] MEDS: ALBUTEROL SO4 0.083% IH SOL 2.5 MG/3 ML VIAL.NEB. NEB PRN (07:55)
[2021-05-20] MEDS: SERTRALINE HCL 50 MG TABLET (FP) PO SCH (09:05)
[2021-05-20] MEDS: LOSARTAN POTASSIUM 50 MG TABLET PO SCH (09:05)
[2021-05-20] MEDS: FUROSEMIDE 40 MG/4 ML INJECTABLE VIAL IVPUSH SCH (09:06)
[2021-05-20] MEDS: hydrALAZINE HCL 10 MG TABLET PO SCH ×2 (09:06→21:33)
[2021-05-20] MEDS: APIXABAN 5 MG TABLET PO SCH ×2 (09:06→21:33)
[2021-05-20] MEDS: BUDESONIDE/FORMETEROL FUMARATE 160/4.5 mcg INHALER IH SCH ×2 (09:07→21:34)
[2021-05-20 09:39] LABS: BASO % 0.2 % (0-2.0); EOS % 0.7 % (0-4.5); HEMATOCRIT 34.2 % (32.4-45.2); HEMOGLOBIN 10.2 GM/dL (10.7-15.3); LYMPH % 5.7 % (8-40); MCH 21.7 pg (25.7-33.7); MCHC 29.7 g/dl (32.0-36.0); MEAN CELL VOLUME 73.2 fl (80-96); MEAN PLT VOLUME 8.7 fl (7.5-11.1); MONO % 7.8 % (3.8-10.2); NEUT % 85.6 % (42.8-82.8); PLATELET COUNT 226 10^3/uL (134-434); RBC 4.67 M/mm3 (3.60-5.2); RDW 18.2 % (11.6-15.6); WHITE BLOOD COUNT 5.2 K/mm3 (4.0-10.0)
[2021-05-20 09:57] LABS: ALBUMIN 3.5 g/dl (3.4-5.0); CALCIUM 9.4 mg/dL (8.5-10.1)
[2021-05-20 10:02] LABS: BILIRUBIN,TOTAL 0.4 mg/dL (0.2-1); TOT PROT 6.6 g/dl (6.4-8.2)
[2021-05-20] MEDS: ACETAMINOPHEN 325 MG TABLET (FP) PO PRN ×2 (15:13→21:36)
[2021-05-20] MEDS: POLYETHYLENE GLYCOL (HEALTHYLAX) 3350 17 GM PACKET PO PRN (15:14)
[2021-05-20] MEDS: DOCUSATE SODIUM 100 MG CAPSULE (FP) PO PRN (15:16)
[2021-05-20] MEDS: ATORVASTATIN CA 20 MG TABLET (FP) PO SCH (21:33)
[2021-05-20] MEDS: MONTELUKAST NA 10 MG TABLET PO SCH (21:33)
[2021-05-20] MEDS: DOCUSATE SODIUM 100 MG CAPSULE (FP) PO SCH (21:33)
[2021-05-21] MEDS: ACETAMINOPHEN 325 MG TABLET (FP) PO PRN ×3 (03:12→20:14)
[2021-05-21] MEDS: NYSTATIN 500,000 UNITS/5 ML SUSPENSION PO SCH ×4 (03:12→21:07)
[2021-05-21] MEDS: DOCUSATE SODIUM 100 MG CAPSULE (FP) PO SCH ×2 (09:19→21:08)
[2021-05-21] MEDS: FUROSEMIDE 40 MG/4 ML INJECTABLE VIAL IVPUSH SCH (09:20)
[2021-05-21] MEDS: APIXABAN 5 MG TABLET PO SCH ×2 (09:20→21:08)
[2021-05-21] MEDS: SERTRALINE HCL 50 MG TABLET (FP) PO SCH (09:20)
[2021-05-21] MEDS: BUDESONIDE/FORMETEROL FUMARATE 160/4.5 mcg INHALER IH SCH ×2 (09:23→21:08)
[2021-05-21] MEDS: hydrALAZINE HCL 10 MG TABLET PO SCH (09:30)
[2021-05-21] MEDS: LOSARTAN POTASSIUM 50 MG TABLET PO SCH (09:30)
[2021-05-21] MEDS: dilTIAZem HCL 30 MG TABLET PO SCH ×2 (15:54→21:08)
[2021-05-21] MEDS: ATORVASTATIN CA 20 MG TABLET (FP) PO SCH (21:08)
[2021-05-21] MEDS: MONTELUKAST NA 10 MG TABLET PO SCH (21:08)
[2021-05-21] MEDS: GABAPENTIN 100 MG CAPSULE PO PRN (21:08)
[2021-05-22] MEDS: ACETAMINOPHEN 325 MG TABLET (FP) PO PRN ×2 (02:20→18:51)
[2021-05-22] MEDS: NYSTATIN 500,000 UNITS/5 ML SUSPENSION PO SCH ×4 (04:19→21:17)
[2021-05-22] MEDS: dilTIAZem HCL 30 MG TABLET PO SCH ×3 (05:39→21:18)
[2021-05-22] MEDS: LOSARTAN POTASSIUM 50 MG TABLET PO SCH (09:26)
[2021-05-22] MEDS: DOCUSATE SODIUM 100 MG CAPSULE (FP) PO SCH ×2 (09:26→21:18)
[2021-05-22] MEDS: SERTRALINE HCL 50 MG TABLET (FP) PO SCH (09:27)
[2021-05-22] MEDS: FUROSEMIDE 40 MG/4 ML INJECTABLE VIAL IVPUSH SCH (09:27)
[2021-05-22] MEDS: APIXABAN 5 MG TABLET PO SCH ×2 (09:27→21:17)
[2021-05-22] MEDS: BUDESONIDE/FORMETEROL FUMARATE 160/4.5 mcg INHALER IH SCH ×2 (09:30→21:50)
[2021-05-22] MEDS: GABAPENTIN 100 MG CAPSULE PO PRN (13:34)
[2021-05-22] MEDS: ATORVASTATIN CA 20 MG TABLET (FP) PO SCH (21:18)
[2021-05-22] MEDS: MONTELUKAST NA 10 MG TABLET PO SCH (21:18)
[2021-05-23] MEDS: NYSTATIN 500,000 UNITS/5 ML SUSPENSION PO SCH ×4 (02:31→21:47)
[2021-05-23] MEDS: dilTIAZem HCL 30 MG TABLET PO SCH ×3 (05:06→21:47)
[2021-05-23] MEDS: FUROSEMIDE 40 MG/4 ML INJECTABLE VIAL IVPUSH SCH (09:30)
[2021-05-23] MEDS: BUDESONIDE/FORMETEROL FUMARATE 160/4.5 mcg INHALER IH SCH ×2 (09:31→21:48)
[2021-05-23] MEDS: APIXABAN 5 MG TABLET PO SCH ×2 (09:31→21:47)
[2021-05-23] MEDS: DOCUSATE SODIUM 100 MG CAPSULE (FP) PO SCH ×2 (09:31→21:47)
[2021-05-23] MEDS: LOSARTAN POTASSIUM 50 MG TABLET PO SCH (09:31)
[2021-05-23] MEDS: SERTRALINE HCL 50 MG TABLET (FP) PO SCH (09:32)
[2021-05-23] MEDS: ACETAMINOPHEN 325 MG TABLET (FP) PO PRN (21:46)
[2021-05-23] MEDS: MONTELUKAST NA 10 MG TABLET PO SCH (21:47)
[2021-05-23] MEDS: ATORVASTATIN CA 20 MG TABLET (FP) PO SCH (21:47)
[2021-05-24] MEDS: NYSTATIN 500,000 UNITS/5 ML SUSPENSION PO SCH ×4 (03:30→21:58)
[2021-05-24] MEDS: dilTIAZem HCL 30 MG TABLET PO SCH ×3 (05:42→17:41)
[2021-05-24 07:27] LABS: BASO % 0.4 % (0-2.0); EOS % 3.4 % (0-4.5); HEMATOCRIT 32.5 % (32.4-45.2); HEMOGLOBIN 9.9 GM/dL (10.7-15.3); LYMPH % 6.4 % (8-40); MCH 22.2 pg (25.7-33.7); MCHC 30.6 g/dl (32.0-36.0); MEAN CELL VOLUME 72.5 fl (80-96); MEAN PLT VOLUME 8.3 fl (7.5-11.1); MONO % 11.3 % (3.8-10.2); NEUT % 78.5 % (42.8-82.8); PLATELET COUNT 184 10^3/uL (134-434); RBC 4.48 M/mm3 (3.60-5.2); WHITE BLOOD COUNT 4.3 K/mm3 (4.0-10.0)
[2021-05-24 07:40] LABS: ALBUMIN 3.5 g/dl (3.4-5.0); BLOOD UREA NITROGEN 19.2 mg/dL (7-18); CREATININE 0.7 mg/dL (0.55-1.3)
[2021-05-24 07:42] LABS: BILIRUBIN,TOTAL 0.4 mg/dL (0.2-1); TOT PROT 6.3 g/dl (6.4-8.2)
[2021-05-24] MEDS: SERTRALINE HCL 50 MG TABLET (FP) PO SCH (09:44)
[2021-05-24] MEDS: APIXABAN 5 MG TABLET PO SCH ×2 (09:45→21:58)
[2021-05-24] MEDS: LOSARTAN POTASSIUM 50 MG TABLET PO SCH (09:45)
[2021-05-24] MEDS: DOCUSATE SODIUM 100 MG CAPSULE (FP) PO SCH ×2 (09:46→21:58)
[2021-05-24] MEDS: FUROSEMIDE 40 MG/4 ML INJECTABLE VIAL IVPUSH SCH (09:46)
[2021-05-24] MEDS: BUDESONIDE/FORMETEROL FUMARATE 160/4.5 mcg INHALER IH SCH ×2 (09:47→22:00)
[2021-05-24] MEDS: ACETAMINOPHEN 325 MG TABLET (FP) PO PRN (10:02)
[2021-05-24] MEDS: LORATADINE 10 MG TABLET PO SCH (21:58)
[2021-05-24] MEDS: ATORVASTATIN CA 20 MG TABLET (FP) PO SCH (21:58)
[2021-05-24] MEDS: MONTELUKAST NA 10 MG TABLET PO SCH (21:58)
[2021-05-25] MEDS: dilTIAZem HCL 30 MG TABLET PO SCH ×4 (00:15→17:44)
[2021-05-25] MEDS ORDERED: MAG HYDROX/AL HYDROX/SIMETH 30 ML UNIT-DOSE CUP PO ONE (01:50)
[2021-05-25] MEDS: NYSTATIN 500,000 UNITS/5 ML SUSPENSION PO SCH ×4 (03:58→21:09)
[2021-05-25] MEDS: DOCUSATE SODIUM 100 MG CAPSULE (FP) PO SCH ×2 (09:29→21:09)
[2021-05-25] MEDS: LOSARTAN POTASSIUM 50 MG TABLET PO SCH (09:30)
[2021-05-25] MEDS: APIXABAN 5 MG TABLET PO SCH ×2 (09:30→21:09)
[2021-05-25] MEDS: SERTRALINE HCL 50 MG TABLET (FP) PO SCH (09:30)
[2021-05-25] MEDS: LORATADINE 10 MG TABLET PO SCH (09:30)
[2021-05-25] MEDS: FUROSEMIDE 40 MG/4 ML INJECTABLE VIAL IVPUSH SCH (09:31)
[2021-05-25] MEDS: BUDESONIDE/FORMETEROL FUMARATE 160/4.5 mcg INHALER IH SCH ×2 (10:04→21:07)
[2021-05-25] MEDS: AMIODARONE HCL 200 MG TABLET PO SCH ×2 (11:04→21:09)
[2021-05-25] MEDS: ACETAMINOPHEN 325 MG TABLET (FP) PO PRN ×2 (12:13→21:13)
[2021-05-25] MEDS: ATORVASTATIN CA 20 MG TABLET (FP) PO SCH (21:09)
[2021-05-25] MEDS: MONTELUKAST NA 10 MG TABLET PO SCH (21:09)
[2021-05-25] MEDS: PANTOPRAZOLE 40 MG TABLET PO SCH (22:11)
[2021-05-26] MEDS: dilTIAZem HCL 30 MG TABLET PO SCH ×5 (00:57→17:57)
[2021-05-26] MEDS: NYSTATIN 500,000 UNITS/5 ML SUSPENSION PO SCH ×5 (03:30→21:41)
[2021-05-26 07:41] LABS: BASO % 0.4 % (0-2.0); EOS % 3.8 % (0-4.5); HEMATOCRIT 31.7 % (32.4-45.2); HEMOGLOBIN 9.6 GM/dL (10.7-15.3); LYMPH % 6.4 % (8-40); MCH 22.1 pg (25.7-33.7); MCHC 30.3 g/dl (32.0-36.0); MEAN CELL VOLUME 72.8 fl (80-96); MEAN PLT VOLUME 8.6 fl (7.5-11.1); MONO % 10.5 % (3.8-10.2); NEUT % 78.9 % (42.8-82.8); PLATELET COUNT 183 10^3/uL (134-434); RBC 4.36 M/mm3 (3.60-5.2); RDW 17.7 % (11.6-15.6); WHITE BLOOD COUNT 5.1 K/mm3 (4.0-10.0)
[2021-05-26 08:10] LABS: ALBUMIN 3.6 g/dl (3.4-5.0); CALCIUM 9.9 mg/dL (8.5-10.1)
[2021-05-26 08:11] LABS: BLOOD UREA NITROGEN 24.9 mg/dL (7-18)
[2021-05-26 08:13] LABS: CREATININE 0.8 mg/dL (0.55-1.3)
[2021-05-26 08:14] LABS: TOT PROT 6.6 g/dl (6.4-8.2)
[2021-05-26 08:15] LABS: BILIRUBIN,TOTAL 0.4 mg/dL (0.2-1)
[2021-05-26] MEDS: DOCUSATE SODIUM 100 MG CAPSULE (FP) PO SCH ×2 (09:57→21:41)
[2021-05-26] MEDS: LOSARTAN POTASSIUM 50 MG TABLET PO SCH (09:58)
[2021-05-26] MEDS: LORATADINE 10 MG TABLET PO SCH (09:59)
[2021-05-26] MEDS: SERTRALINE HCL 50 MG TABLET (FP) PO SCH (10:00)
[2021-05-26] MEDS: PANTOPRAZOLE 40 MG TABLET PO SCH (10:00)
[2021-05-26] MEDS: AMIODARONE HCL 200 MG TABLET PO SCH ×2 (10:00→21:42)
[2021-05-26] MEDS: APIXABAN 5 MG TABLET PO SCH ×2 (10:00→21:41)
[2021-05-26] MEDS: FUROSEMIDE 40 MG/4 ML INJECTABLE VIAL IVPUSH SCH (10:01)
[2021-05-26] MEDS: ACETAMINOPHEN 325 MG TABLET (FP) PO PRN ×2 (10:13→19:43)
[2021-05-26] MEDS: BUDESONIDE/FORMETEROL FUMARATE 160/4.5 mcg INHALER IH SCH ×2 (10:14→21:43)
[2021-05-26] MEDS: MONTELUKAST NA 10 MG TABLET PO SCH (21:41)
[2021-05-26] MEDS: ATORVASTATIN CA 20 MG TABLET (FP) PO SCH (21:41)
[2021-05-27] MEDS: dilTIAZem HCL 30 MG TABLET PO SCH ×5 (00:18→23:56)
[2021-05-27] MEDS: NYSTATIN 500,000 UNITS/5 ML SUSPENSION PO SCH ×4 (04:10→21:07)
[2021-05-27] MEDS: ACETAMINOPHEN 325 MG TABLET (FP) PO PRN ×3 (05:47→22:46)
[2021-05-27] MEDS: FUROSEMIDE 40 MG/4 ML INJECTABLE VIAL IVPUSH SCH (09:49)
[2021-05-27] MEDS: AMIODARONE HCL 200 MG TABLET PO SCH ×2 (09:49→21:08)
[2021-05-27] MEDS: APIXABAN 5 MG TABLET PO SCH ×2 (09:49→21:07)
[2021-05-27] MEDS: SERTRALINE HCL 50 MG TABLET (FP) PO SCH (09:49)
[2021-05-27] MEDS: PANTOPRAZOLE 40 MG TABLET PO SCH (09:49)
[2021-05-27] MEDS: DOCUSATE SODIUM 100 MG CAPSULE (FP) PO SCH ×2 (09:49→21:07)
[2021-05-27] MEDS: LORATADINE 10 MG TABLET PO SCH (09:49)
[2021-05-27] MEDS: LOSARTAN POTASSIUM 50 MG TABLET PO SCH (09:49)
[2021-05-27] MEDS: BUDESONIDE/FORMETEROL FUMARATE 160/4.5 mcg INHALER IH SCH ×2 (09:50→21:10)
[2021-05-27] MEDS ORDERED: FUROSEMIDE 40 MG/4 ML INJECTABLE VIAL IVPUSH ONE (14:00)
[2021-05-27] MEDS: MONTELUKAST NA 10 MG TABLET PO SCH (21:07)
[2021-05-27] MEDS: ATORVASTATIN CA 20 MG TABLET (FP) PO SCH (21:07)
[2021-05-28] MEDS: NYSTATIN 500,000 UNITS/5 ML SUSPENSION PO SCH ×4 (04:46→23:28)
[2021-05-28] MEDS: dilTIAZem HCL 30 MG TABLET PO SCH ×4 (05:34→23:32)
[2021-05-28] MEDS: DOCUSATE SODIUM 100 MG CAPSULE (FP) PO SCH ×2 (09:59→23:32)
[2021-05-28] MEDS: FUROSEMIDE 40 MG/4 ML INJECTABLE VIAL IVPUSH SCH (10:00)
[2021-05-28] MEDS: LORATADINE 10 MG TABLET PO SCH (10:00)
[2021-05-28] MEDS: ACETAMINOPHEN 325 MG TABLET (FP) PO PRN ×2 (10:01→17:37)
[2021-05-28] MEDS: PANTOPRAZOLE 40 MG TABLET PO SCH (10:02)
[2021-05-28] MEDS: LOSARTAN POTASSIUM 50 MG TABLET PO SCH (10:02)
[2021-05-28] MEDS: APIXABAN 5 MG TABLET PO SCH ×2 (10:02→23:32)
[2021-05-28] MEDS: SERTRALINE HCL 50 MG TABLET (FP) PO SCH (10:02)
[2021-05-28] MEDS: GABAPENTIN 100 MG CAPSULE PO PRN ×2 (10:02→23:33)
[2021-05-28] MEDS: AMIODARONE HCL 200 MG TABLET PO SCH ×2 (10:03→23:32)
[2021-05-28] MEDS: BUDESONIDE/FORMETEROL FUMARATE 160/4.5 mcg INHALER IH SCH ×2 (10:13→23:32)
[2021-05-28] MEDS: MONTELUKAST NA 10 MG TABLET PO SCH (23:32)
[2021-05-28] MEDS: ATORVASTATIN CA 20 MG TABLET (FP) PO SCH (23:32)
[2021-05-29] MEDS: NYSTATIN 500,000 UNITS/5 ML SUSPENSION PO SCH ×4 (04:46→22:20)
[2021-05-29] MEDS: dilTIAZem HCL 30 MG TABLET PO SCH ×3 (05:58→17:45)
[2021-05-29] MEDS: ACETAMINOPHEN 325 MG TABLET (FP) PO PRN ×2 (06:36→17:45)
[2021-05-29] MEDS: LOSARTAN POTASSIUM 50 MG TABLET PO SCH (09:27)
[2021-05-29] MEDS: AMIODARONE HCL 200 MG TABLET PO SCH ×2 (09:27→22:20)
[2021-05-29] MEDS: PANTOPRAZOLE 40 MG TABLET PO SCH (09:27)
[2021-05-29] MEDS: SERTRALINE HCL 50 MG TABLET (FP) PO SCH (09:27)
[2021-05-29] MEDS: APIXABAN 5 MG TABLET PO SCH ×2 (09:27→22:20)
[2021-05-29] MEDS: DOCUSATE SODIUM 100 MG CAPSULE (FP) PO SCH ×2 (09:27→22:21)
[2021-05-29] MEDS: LORATADINE 10 MG TABLET PO SCH (09:28)
[2021-05-29] MEDS: FUROSEMIDE 40 MG/4 ML INJECTABLE VIAL IVPUSH SCH (09:28)
[2021-05-29] MEDS: BUDESONIDE/FORMETEROL FUMARATE 160/4.5 mcg INHALER IH SCH ×2 (09:28→22:21)
[2021-05-29] MEDS ORDERED: MAG HYDROX/AL HYDROX/SIMETH 30 ML UNIT-DOSE CUP PO ONE (21:45)
[2021-05-29] MEDS: GABAPENTIN 100 MG CAPSULE PO PRN (22:20)
[2021-05-29] MEDS: MONTELUKAST NA 10 MG TABLET PO SCH (22:21)
[2021-05-29] MEDS: ATORVASTATIN CA 20 MG TABLET (FP) PO SCH (22:21)
[2021-05-30] MEDS: dilTIAZem HCL 30 MG TABLET PO SCH ×4 (00:13→18:06)
[2021-05-30] MEDS: NYSTATIN 500,000 UNITS/5 ML SUSPENSION PO SCH ×4 (03:35→22:00)
[2021-05-30] MEDS: ACETAMINOPHEN 325 MG TABLET (FP) PO PRN (06:56)
[2021-05-30 07:31] LABS: BASO % 0.4 % (0-2.0); EOS % 3.1 % (0-4.5); HEMATOCRIT 30.9 % (32.4-45.2); HEMOGLOBIN 9.3 GM/dL (10.7-15.3); LYMPH % 8.2 % (8-40); MCH 22.2 pg (25.7-33.7); MCHC 30.3 g/dl (32.0-36.0); MEAN CELL VOLUME 73.3 fl (80-96); MEAN PLT VOLUME 9.1 fl (7.5-11.1); MONO % 10.7 % (3.8-10.2); NEUT % 77.6 % (42.8-82.8); PLATELET COUNT 163 10^3/uL (134-434); RBC 4.21 M/mm3 (3.60-5.2); RDW 18.4 % (11.6-15.6); WHITE BLOOD COUNT 4.3 K/mm3 (4.0-10.0)
[2021-05-30 08:00] LABS: ALBUMIN 3.5 g/dl (3.4-5.0); BLOOD UREA NITROGEN 25.2 mg/dL (7-18); CALCIUM 9.6 mg/dL (8.5-10.1)
[2021-05-30 08:03] LABS: CREATININE 0.9 mg/dL (0.55-1.3)
[2021-05-30 08:05] LABS: BILIRUBIN,TOTAL 0.2 mg/dL (0.2-1); TOT PROT 6.4 g/dl (6.4-8.2)
[2021-05-30] MEDS: APIXABAN 5 MG TABLET PO SCH ×2 (09:20→22:00)
[2021-05-30] MEDS: DOCUSATE SODIUM 100 MG CAPSULE (FP) PO SCH ×2 (09:20→22:00)
[2021-05-30] MEDS: BUDESONIDE/FORMETEROL FUMARATE 160/4.5 mcg INHALER IH SCH ×2 (09:20→22:01)
[2021-05-30] MEDS: FUROSEMIDE 40 MG/4 ML INJECTABLE VIAL IVPUSH SCH (09:20)
[2021-05-30] MEDS: PANTOPRAZOLE 40 MG TABLET PO SCH (09:20)
[2021-05-30] MEDS: SERTRALINE HCL 50 MG TABLET (FP) PO SCH (09:21)
[2021-05-30] MEDS: AMIODARONE HCL 200 MG TABLET PO SCH ×2 (09:21→22:00)
[2021-05-30] MEDS: LORATADINE 10 MG TABLET PO SCH (09:21)
[2021-05-30] MEDS: LOSARTAN POTASSIUM 50 MG TABLET PO SCH (09:30)
[2021-05-30] MEDS: ATORVASTATIN CA 20 MG TABLET (FP) PO SCH (22:00)
[2021-05-30] MEDS: MONTELUKAST NA 10 MG TABLET PO SCH (22:00)
[2021-05-31] MEDS: dilTIAZem HCL 30 MG TABLET PO SCH ×5 (00:34→23:12)
[2021-05-31] MEDS: NYSTATIN 500,000 UNITS/5 ML SUSPENSION PO SCH ×4 (03:53→21:41)
[2021-05-31] MEDS: FUROSEMIDE 40 MG/4 ML INJECTABLE VIAL IVPUSH SCH (10:25)
[2021-05-31] MEDS: LOSARTAN POTASSIUM 50 MG TABLET PO SCH (10:25)
[2021-05-31] MEDS: DOCUSATE SODIUM 100 MG CAPSULE (FP) PO SCH ×2 (10:26→21:41)
[2021-05-31] MEDS: PANTOPRAZOLE 40 MG TABLET PO SCH (10:26)
[2021-05-31] MEDS: APIXABAN 5 MG TABLET PO SCH ×2 (10:26→21:41)
[2021-05-31] MEDS: SERTRALINE HCL 50 MG TABLET (FP) PO SCH (10:26)
[2021-05-31] MEDS: BUDESONIDE/FORMETEROL FUMARATE 160/4.5 mcg INHALER IH SCH ×2 (10:27→21:41)
[2021-05-31] MEDS: AMIODARONE HCL 200 MG TABLET PO SCH ×2 (10:27→21:41)
[2021-05-31] MEDS: LORATADINE 10 MG TABLET PO SCH (10:27)
[2021-05-31 11:12] LABS: BASO % 0.3 % (0-2.0); EOS % 2.6 % (0-4.5); HEMATOCRIT 29.7 % (32.4-45.2); LYMPH % 4.5 % (8-40); MCH 22.2 pg (25.7-33.7); MCHC 30.1 g/dl (32.0-36.0); MEAN CELL VOLUME 73.5 fl (80-96); MEAN PLT VOLUME 8.8 fl (7.5-11.1); MONO % 11.4 % (3.8-10.2); NEUT % 81.2 % (42.8-82.8); PLATELET COUNT 153 10^3/uL (134-434); RBC 4.04 M/mm3 (3.60-5.2); RDW 18.7 % (11.6-15.6); WHITE BLOOD COUNT 4.4 K/mm3 (4.0-10.0)
[2021-05-31 11:29] LABS: ALBUMIN 3.3 g/dl (3.4-5.0); BLOOD UREA NITROGEN 23.3 mg/dL (7-18); CALCIUM 9.1 mg/dL (8.5-10.1)
[2021-05-31 11:32] LABS: CREATININE 0.9 mg/dL (0.55-1.3)
[2021-05-31 11:33] LABS: BILIRUBIN,TOTAL 0.3 mg/dL (0.2-1); TOT PROT 6.1 g/dl (6.4-8.2)
[2021-05-31] MEDS: ACETAMINOPHEN 325 MG TABLET (FP) PO PRN ×2 (13:04→22:26)
[2021-05-31] MEDS: MONTELUKAST NA 10 MG TABLET PO SCH (21:41)
[2021-05-31] MEDS: ATORVASTATIN CA 20 MG TABLET (FP) PO SCH (21:41)
[2021-05-31] MEDS: GABAPENTIN 100 MG CAPSULE PO PRN (22:27)
[2021-06-01] MEDS: NYSTATIN 500,000 UNITS/5 ML SUSPENSION PO SCH ×4 (03:30→21:15)
[2021-06-01] MEDS: dilTIAZem HCL 30 MG TABLET PO SCH ×4 (06:23→23:20)
[2021-06-01] MEDS: DOCUSATE SODIUM 100 MG CAPSULE (FP) PO SCH ×2 (11:06→21:15)
[2021-06-01] MEDS: ACETAMINOPHEN 325 MG TABLET (FP) PO PRN ×2 (11:06→18:16)
[2021-06-01] MEDS: APIXABAN 5 MG TABLET PO SCH ×2 (11:07→21:15)
[2021-06-01] MEDS: PANTOPRAZOLE 40 MG TABLET PO SCH (11:07)
[2021-06-01] MEDS: LORATADINE 10 MG TABLET PO SCH (11:07)
[2021-06-01] MEDS: AMIODARONE HCL 200 MG TABLET PO SCH ×2 (11:07→21:15)
[2021-06-01] MEDS: GABAPENTIN 100 MG CAPSULE PO PRN ×2 (11:07→23:13)
[2021-06-01] MEDS: LOSARTAN POTASSIUM 50 MG TABLET PO SCH (11:08)
[2021-06-01] MEDS: FUROSEMIDE 40 MG/4 ML INJECTABLE VIAL IVPUSH SCH (11:09)
[2021-06-01] MEDS: BUDESONIDE/FORMETEROL FUMARATE 160/4.5 mcg INHALER IH SCH ×2 (11:09→21:15)
[2021-06-01] MEDS: SERTRALINE HCL 50 MG TABLET (FP) PO SCH (11:09)
[2021-06-01] MEDS: POLYETHYLENE GLYCOL (HEALTHYLAX) 3350 17 GM PACKET PO PRN (17:25)
[2021-06-01] MEDS: MONTELUKAST NA 10 MG TABLET PO SCH (21:15)
[2021-06-01] MEDS: ATORVASTATIN CA 20 MG TABLET (FP) PO SCH (21:15)
[2021-06-02] MEDS: NYSTATIN 500,000 UNITS/5 ML SUSPENSION PO SCH ×4 (02:36→22:37)
[2021-06-02] MEDS: dilTIAZem HCL 30 MG TABLET PO SCH ×3 (05:32→18:26)
[2021-06-02] MEDS: LOSARTAN POTASSIUM 50 MG TABLET PO SCH (09:30)
[2021-06-02] MEDS: BUDESONIDE/FORMETEROL FUMARATE 160/4.5 mcg INHALER IH SCH ×2 (09:30→22:39)
[2021-06-02] MEDS: DOCUSATE SODIUM 100 MG CAPSULE (FP) PO SCH ×2 (09:30→22:37)
[2021-06-02] MEDS: AMIODARONE HCL 200 MG TABLET PO SCH ×2 (09:30→22:37)
[2021-06-02] MEDS: FUROSEMIDE 40 MG/4 ML INJECTABLE VIAL IVPUSH SCH (09:30)
[2021-06-02] MEDS: LORATADINE 10 MG TABLET PO SCH (09:30)
[2021-06-02] MEDS: APIXABAN 5 MG TABLET PO SCH ×2 (09:30→22:37)
[2021-06-02] MEDS: PANTOPRAZOLE 40 MG TABLET PO SCH (09:30)
[2021-06-02] MEDS: SERTRALINE HCL 50 MG TABLET (FP) PO SCH (09:30)
[2021-06-02] MEDS: ACETAMINOPHEN 325 MG TABLET (FP) PO PRN (12:54)
[2021-06-02] MEDS: GABAPENTIN 100 MG CAPSULE PO PRN (18:29)
[2021-06-02] MEDS: ATORVASTATIN CA 20 MG TABLET (FP) PO SCH (22:37)
[2021-06-02] MEDS: MONTELUKAST NA 10 MG TABLET PO SCH (22:38)
[2021-06-03] MEDS: ACETAMINOPHEN 325 MG TABLET (FP) PO PRN ×2 (00:26→10:22)
[2021-06-03] MEDS: dilTIAZem HCL 30 MG TABLET PO SCH ×2 (00:27→05:39)
[2021-06-03] MEDS: NYSTATIN 500,000 UNITS/5 ML SUSPENSION PO SCH ×3 (05:39→16:35)
[2021-06-03] MEDS: PANTOPRAZOLE 40 MG TABLET PO SCH (10:05)
[2021-06-03] MEDS: FUROSEMIDE 40 MG/4 ML INJECTABLE VIAL IVPUSH SCH (10:05)
[2021-06-03] MEDS: DOCUSATE SODIUM 100 MG CAPSULE (FP) PO SCH (10:05)
[2021-06-03] MEDS: LOSARTAN POTASSIUM 50 MG TABLET PO SCH (10:05)
[2021-06-03] MEDS: SERTRALINE HCL 50 MG TABLET (FP) PO SCH (10:05)
[2021-06-03] MEDS: LORATADINE 10 MG TABLET PO SCH (10:06)
[2021-06-03] MEDS: AMIODARONE HCL 200 MG TABLET PO SCH (10:06)
[2021-06-03] MEDS: APIXABAN 5 MG TABLET PO SCH (10:06)
[2021-06-03] MEDS: BUDESONIDE/FORMETEROL FUMARATE 160/4.5 mcg INHALER IH SCH (10:23)
[2021-06-03] MEDS ORDERED: FUROSEMIDE 40 MG/4 ML INJECTABLE VIAL IVPUSH ONE (14:00)
[2021-06-03 15:54] VITALS: BP 135/64; PULSE 108; TEMP 98.5
[2021-06-04] MEDS ORDERED: FUROSEMIDE 40 MG TABLET (FP) PO SCH (10:00)
[2021-06-04] MEDS ORDERED: AMIODARONE HCL 200 MG TABLET PO SCH (10:00)
== END 2021-06-03 18:32 | disposition home or self-care (01) | DRG 291 ==
LOC: JER 14:25 → JERBED 18:35 → J4S 20:40 → J4W 05-19 18:10
PROVIDERS: ADMIT Internal Medicine; ATTEND Internal Medicine
DX: I11.0 Hypertensive heart disease with heart failure (principal); J96.22 Acute and chronic respiratory failure with hypercapnia; J96.21 Acute and chronic respiratory failure with hypoxia; I50.43 Acute on chronic combined systolic (congestive) and diastolic (congestive) heart failure; I48.92 Unspecified atrial flutter; E66.2 Morbid (severe) obesity with alveolar hypoventilation; Z68.43 Body mass index [BMI] 50.0-59.9, adult; J44.9 Chronic obstructive pulmonary disease, unspecified; E11.9 Type 2 diabetes mellitus without complications; M54.41 Lumbago with sciatica, right side; E78.5 Hyperlipidemia, unspecified; I42.8 Other cardiomyopathies; I27.20 Pulmonary hypertension, unspecified; D64.9 Anemia, unspecified
CPT/HCPCS: 36415; 36600; 71045-TC-FY; 80053; 82550; 82803; 82962; 83735; 83880; 84100; 84439; 84443; 84481; 84484; 85025; 93005; 93010; 94640; 94660; 97116-GP; 97162-GP; 99285-25; C9803; U0003; U0005

== ENCOUNTER 2021-12-20 18:15 | Inpatient (IN) | payer OTHER ==
[2021-12-20 18:42] VITALS: BMI 47.5
[2021-12-20] MEDS ORDERED: ACETAMINOPHEN 1000 MG/100 ML BAG IVPB ONE (20:48)
[2021-12-20] MEDS ORDERED: SODIUM CHLORIDE 0.9%/KCL 20 MEQ/1,000 ML INFUS.BAG IV SCH (21:00)
[2021-12-20] MEDS ORDERED: FAMOTIDINE 20 MG/50 ML IVPB 20 MG/50 ML MG IVPB ONE (21:08)
[2021-12-20] MEDS ORDERED: MAG HYDROX/AL HYDROX/SIMETH 30 ML UNIT-DOSE CUP PO ONE (21:08)
[2021-12-20] MEDS ORDERED: POTASSIUM CHLORIDE TABS 20 MEQ TABLET.ER (FP) PO ONE ×2 (21:09→21:10)
[2021-12-20] MEDS ORDERED: MAG HYDROX/AL HYDROX/SIMETH 30 ML UNIT-DOSE CUP ONE (21:10)
[2021-12-20] MEDS ORDERED: ACETAMINOPHEN INJECTION 100 ML IVPB ONE (21:21)
[2021-12-21] MEDS ORDERED: METOCLOPRAMIDE HCL INJECTION 10 MG/2 ML VIAL ONE (00:23)
[2021-12-21] MEDS ORDERED: METOCLOPRAMIDE HCL INJECTION 10 MG/2 ML VIAL IVPUSH ONE (00:23)
[2021-12-21 00:50] LABS: CALCIUM 9.8 mg/dL (8.5-10.1)
[2021-12-21 00:52] LABS: BLOOD UREA NITROGEN 53.3 mg/dL (7-18)
[2021-12-21 00:55] LABS: CREATININE 2.2 mg/dL (0.55-1.3)
[2021-12-21] MEDS ORDERED: DEXTROSE 5%-0.45% SALINE 1,000 ML IV SCH (07:45)
[2021-12-21] MEDS ORDERED: FUROSEMIDE 40 MG TABLET (FP) ONE (09:20)
[2021-12-21] MEDS ORDERED: APIXABAN 5 MG TABLET ONE (09:20)
[2021-12-21] MEDS ORDERED: AMIODARONE HCL 200 MG TABLET ONE (09:21)
[2021-12-21] MEDS ORDERED: SERTRALINE HCL 50 MG TABLET (FP) ONE (09:21)
[2021-12-21] MEDS ORDERED: FUROSEMIDE 40 MG TABLET (FP) PO SCH (10:00)
[2021-12-21] MEDS: AMIODARONE HCL 200 MG TABLET PO SCH (10:05)
[2021-12-21] MEDS: APIXABAN 5 MG TABLET PO SCH ×2 (10:05→22:46)
[2021-12-21] MEDS: PANTOPRAZOLE 40 MG TABLET PO SCH (10:05)
[2021-12-21] MEDS: SERTRALINE HCL 50 MG TABLET (FP) PO SCH (10:06)
[2021-12-21] MEDS: SODIUM CHLORIDE 1,000 ML IV SCH (17:43)
[2021-12-21 18:10] LABS: BASO % 0.4 % (0-2.0); EOS % 2.3 % (0-4.5); HEMOGLOBIN 11.4 GM/dL (10.7-15.3); LYMPH % 8.2 % (8-40); MCH 23.7 pg (25.7-33.7); MCHC 30.9 g/dl (32.0-36.0); MEAN CELL VOLUME 76.7 fl (80-96); MEAN PLT VOLUME 8.3 fl (7.5-11.1); MONO % 8.9 % (3.8-10.2); NEUT % 80.2 % (42.8-82.8); PLATELET COUNT 230 10^3/uL (134-434); RBC 4.82 M/mm3 (3.60-5.2); RDW 16.8 % (11.6-15.6); WHITE BLOOD COUNT 5.2 K/mm3 (4.0-10.0)
[2021-12-21] MEDS ORDERED: GABAPENTIN 100 MG CAPSULE ONE (18:15)
[2021-12-21] MEDS: GABAPENTIN 100 MG CAPSULE PO PRN (18:18)
[2021-12-21 19:00] LABS: PH,URINE 5.5 (5.0-8.0); URINE APPEARANCE CLEAR; URINE BILIRUBIN NEGATIVE (NEGATIVE); URINE COLOR YELLOW; URINE GLUCOSE (UA) NEGATIVE (NEGATIVE); URINE KETONE NEGATIVE (NEGATIVE); URINE LEUK ESTERASE NEGATIVE (NEGATIVE); URINE NITRITE NEGATIVE (NEGATIVE); URINE PROTEIN TRACE (NEGATIVE); URINE UROBILINOGEN 0.2 mg/dL (0.2-1.0)
[2021-12-21 19:48] LABS: ALBUMIN 3.7 g/dl (3.4-5.0); BILIRUBIN,TOTAL 0.2 mg/dL (0.2-1); BLOOD UREA NITROGEN 53.1 mg/dL (7-18); CALCIUM 9.9 mg/dL (8.5-10.1); CREATININE 2.1 mg/dL (0.55-1.3); TOT PROT 6.6 g/dl (6.4-8.2)
[2021-12-21] MEDS: ATORVASTATIN CA 20 MG TABLET (FP) PO SCH (22:46)
[2021-12-21] MEDS: BUDESONIDE/FORMETEROL FUMARATE 160/4.5 mcg INHALER IH SCH (22:46)
[2021-12-22 05:00] LABS: PH,URINE 5.5 (5.0-8.0); URINE APPEARANCE CLEAR; URINE BILIRUBIN NEGATIVE (NEGATIVE); URINE COLOR YELLOW; URINE GLUCOSE (UA) NEGATIVE (NEGATIVE); URINE KETONE NEGATIVE (NEGATIVE); URINE LEUK ESTERASE NEGATIVE (NEGATIVE); URINE NITRITE NEGATIVE (NEGATIVE); URINE PROTEIN NEGATIVE (NEGATIVE); URINE UROBILINOGEN 0.2 mg/dL (0.2-1.0)
[2021-12-22] MEDS: AMIODARONE HCL 200 MG TABLET PO SCH (09:54)
[2021-12-22] MEDS: APIXABAN 5 MG TABLET PO SCH ×2 (09:55→22:38)
[2021-12-22] MEDS: SERTRALINE HCL 50 MG TABLET (FP) PO SCH (09:55)
[2021-12-22] MEDS: PANTOPRAZOLE 40 MG TABLET PO SCH (09:55)
[2021-12-22] MEDS: BUDESONIDE/FORMETEROL FUMARATE 160/4.5 mcg INHALER IH SCH ×2 (09:56→22:38)
[2021-12-22 12:21] LABS: BASO % 0.6 % (0-2.0); EOS % 3.2 % (0-4.5); HEMATOCRIT 33.6 % (32.4-45.2); HEMOGLOBIN 10.8 GM/dL (10.7-15.3); LYMPH % 6.8 % (8-40); MCH 24.7 pg (25.7-33.7); MCHC 32.1 g/dl (32.0-36.0); MEAN CELL VOLUME 76.9 fl (80-96); MEAN PLT VOLUME 8.6 fl (7.5-11.1); MONO % 11.2 % (3.8-10.2); NEUT % 78.2 % (42.8-82.8); PLATELET COUNT 201 10^3/uL (134-434); RBC 4.37 M/mm3 (3.60-5.2); RDW 16.6 % (11.6-15.6); WHITE BLOOD COUNT 4.8 K/mm3 (4.0-10.0)
[2021-12-22] MEDS: SODIUM CHLORIDE 1,000 ML IV SCH (12:56)
[2021-12-22 14:01] LABS: CALCIUM 9.3 mg/dL (8.5-10.1)
[2021-12-22 14:02] LABS: ALBUMIN 3.2 g/dl (3.4-5.0); BLOOD UREA NITROGEN 49.6 mg/dL (7-18); MAGNESIUM 2.5 mg/dL (1.8-2.4)
[2021-12-22 14:05] LABS: CREATININE 1.6 mg/dL (0.55-1.3)
[2021-12-22 14:11] LABS: BILIRUBIN,TOTAL 0.5 mg/dL (0.2-1); TOT PROT 5.8 g/dl (6.4-8.2)
[2021-12-22 15:59] VITALS: RESP 20
[2021-12-22] MEDS: KCL 10 MEQ IVPB 10 MEQ/100 ML INFUS.BAG IVPB SCH ×2 (17:23→23:00)
[2021-12-22] MEDS: ATORVASTATIN CA 20 MG TABLET (FP) PO SCH (22:38)
[2021-12-23] MEDS: KCL 10 MEQ IVPB 10 MEQ/100 ML INFUS.BAG IVPB SCH ×3 (00:56→04:04)
[2021-12-23] MEDS: ACETAMINOPHEN 325 MG TABLET (FP) PO PRN (08:42)
[2021-12-23] MEDS: PANTOPRAZOLE 40 MG TABLET PO SCH (09:22)
[2021-12-23] MEDS: AMIODARONE HCL 200 MG TABLET PO SCH (09:22)
[2021-12-23] MEDS: SERTRALINE HCL 50 MG TABLET (FP) PO SCH (09:22)
[2021-12-23] MEDS: APIXABAN 5 MG TABLET PO SCH ×2 (09:22→21:29)
[2021-12-23] MEDS: BUDESONIDE/FORMETEROL FUMARATE 160/4.5 mcg INHALER IH SCH ×2 (09:23→21:29)
[2021-12-23 10:22] LABS: BASO % 0.4 % (0-2.0); HEMATOCRIT 34.8 % (32.4-45.2); LYMPH % 9.4 % (8-40); MCH 24.1 pg (25.7-33.7); MCHC 31.5 g/dl (32.0-36.0); MEAN CELL VOLUME 76.5 fl (80-96); MONO % 12.2 % (3.8-10.2); PLATELET COUNT 233 10^3/uL (134-434); RBC 4.55 M/mm3 (3.60-5.2); RDW 16.7 % (11.6-15.6)
[2021-12-23 11:23] LABS: CALCIUM 9.6 mg/dL (8.5-10.1)
[2021-12-23 11:24] LABS: ALBUMIN 3.5 g/dl (3.4-5.0)
[2021-12-23 11:27] LABS: CREATININE 1.7 mg/dL (0.55-1.3)
[2021-12-23 11:29] LABS: TOT PROT 6.3 g/dl (6.4-8.2)
[2021-12-23 11:30] LABS: BILIRUBIN,TOTAL 0.8 mg/dL (0.2-1)
[2021-12-23] MEDS ORDERED: POTASSIUM CHLORIDE TABS 20 MEQ TABLET.ER (FP) PO ONE (13:34)
[2021-12-23] MEDS: GABAPENTIN 100 MG CAPSULE PO PRN (21:29)
[2021-12-23] MEDS: ATORVASTATIN CA 20 MG TABLET (FP) PO SCH (21:29)
[2021-12-23] MEDS ORDERED: DOCUSATE SODIUM 100 MG CAPSULE (FP) PO ONE (23:45)
[2021-12-24] MEDS: ACETAMINOPHEN 325 MG TABLET (FP) PO PRN ×2 (00:47→14:57)
[2021-12-24] MEDS: AMIODARONE HCL 200 MG TABLET PO SCH (09:18)
[2021-12-24] MEDS: SERTRALINE HCL 50 MG TABLET (FP) PO SCH (09:18)
[2021-12-24] MEDS: PANTOPRAZOLE 40 MG TABLET PO SCH (09:18)
[2021-12-24] MEDS: APIXABAN 5 MG TABLET PO SCH ×2 (09:18→22:29)
[2021-12-24] MEDS: BUDESONIDE/FORMETEROL FUMARATE 160/4.5 mcg INHALER IH SCH ×2 (09:19→22:29)
[2021-12-24 10:20] LABS: ALBUMIN 3.3 g/dl (3.4-5.0)
[2021-12-24 10:21] LABS: BLOOD UREA NITROGEN 46.8 mg/dL (7-18); CALCIUM 9.1 mg/dL (8.5-10.1); MAGNESIUM 2.6 mg/dL (1.8-2.4)
[2021-12-24 10:23] LABS: CREATININE 1.6 mg/dL (0.55-1.3)
[2021-12-24 10:26] LABS: BILIRUBIN,TOTAL 0.3 mg/dL (0.2-1)
[2021-12-24] MEDS ORDERED: POTASSIUM CHLORIDE TABS 20 MEQ TABLET.ER (FP) PO ONE (15:13)
[2021-12-24] MEDS ORDERED: ALBUTEROL SO4 2.5/IPRATROPIUM 0.5 INH SOL 3 ML VIAL.NEB. NEB PRN (22:15)
[2021-12-24] MEDS ORDERED: DOCUSATE SODIUM 100 MG CAPSULE (FP) PO SCH (22:15)
[2021-12-24] MEDS ORDERED: MELATONIN 5 MG TABLETS PO SCH (22:16)
[2021-12-24] MEDS: ATORVASTATIN CA 20 MG TABLET (FP) PO SCH (22:29)
[2021-12-24] MEDS: GABAPENTIN 100 MG CAPSULE PO PRN (22:29)
[2021-12-25] MEDS ORDERED: SACUBITRIL/VALSARTAN 24 MG-26 MG TABLET PO SCH (10:00)
[2021-12-25] MEDS: SERTRALINE HCL 50 MG TABLET (FP) PO SCH (10:46)
[2021-12-25] MEDS: AMIODARONE HCL 200 MG TABLET PO SCH (10:46)
[2021-12-25] MEDS: APIXABAN 5 MG TABLET PO SCH (10:46)
[2021-12-25] MEDS: PANTOPRAZOLE 40 MG TABLET PO SCH (10:47)
[2021-12-25] MEDS: BUDESONIDE/FORMETEROL FUMARATE 160/4.5 mcg INHALER IH SCH (10:57)
[2021-12-25 11:05] LABS: ALBUMIN 3.4 g/dl (3.4-5.0); CALCIUM 9.7 mg/dL (8.5-10.1)
[2021-12-25 11:06] LABS: BLOOD UREA NITROGEN 39.7 mg/dL (7-18); MAGNESIUM 2.5 mg/dL (1.8-2.4)
[2021-12-25 11:08] LABS: CREATININE 1.4 mg/dL (0.55-1.3)
[2021-12-25 11:10] LABS: BILIRUBIN,TOTAL 0.2 mg/dL (0.2-1); TOT PROT 5.9 g/dl (6.4-8.2)
[2021-12-25] MEDS: ACETAMINOPHEN 325 MG TABLET (FP) PO PRN (13:06)
[2021-12-25] MEDS ORDERED: POTASSIUM CHLORIDE TABS 20 MEQ TABLET.ER (FP) PO ONE (14:15)
[2021-12-25 15:28] VITALS: BP 109/78; PULSE 61; TEMP 98.2
== END 2021-12-25 16:38 | disposition home or self-care (01) | DRG 683 ==
LOC: JER 18:15 → JERBED 12-21 01:52 → OBSVTOIN 12-21 07:38 → J8W 12-21 19:11
PROVIDERS: ADMIT Internal Medicine; ATTEND Internal Medicine
DX: N17.9 Acute kidney failure, unspecified (principal); I13.0 Hypertensive heart and chronic kidney disease with heart failure and stage 1 through stage 4 chronic kidney disease, or unspecified chronic kidney disease; Z68.42 Body mass index [BMI] 45.0-49.9, adult; I50.32 Chronic diastolic (congestive) heart failure; J44.9 Chronic obstructive pulmonary disease, unspecified; Z99.81 Dependence on supplemental oxygen; G47.33 Obstructive sleep apnea (adult) (pediatric); E78.5 Hyperlipidemia, unspecified; Z86.718 Personal history of other venous thrombosis and embolism; M54.41 Lumbago with sciatica, right side; E87.6 Hypokalemia; E11.22 Type 2 diabetes mellitus with diabetic chronic kidney disease; D35.02 Benign neoplasm of left adrenal gland; F32.A Depression, unspecified; I48.0 Paroxysmal atrial fibrillation; Z79.01 Long term (current) use of anticoagulants; D64.9 Anemia, unspecified; I27.20 Pulmonary hypertension, unspecified; E66.01 Morbid (severe) obesity due to excess calories; N18.9 Chronic kidney disease, unspecified
CPT/HCPCS: 36415; 76775-TC; 76856-TC; 80048; 80053; 81003; 82436; 82570; 83735; 84133; 84156; 84300; 85025; 93005; 93010; 93306-TC; 99285-25; C9803-CS; G0378; U0003; U0005

== ENCOUNTER 2022-04-28 15:28 | Inpatient (IN) | payer OTHER ==
[2022-04-28] MEDS ORDERED: methylPREDNISolone NA SUCC 125 MG/2 ML VIAL IVPUSH ONE (17:32)
[2022-04-28] MEDS ORDERED: CEFTRIAXONE 1 GM in DEXTROSE 5%-WATER - 100 ML IVPB ONE (17:32)
[2022-04-28] MEDS ORDERED: AZITHROMYCIN IVPB 500 MG in DEXTROSE 5%-WATER - 250 ML IVPB ONE (17:32)
[2022-04-28 18:59] LABS: VENOUS BASE EXCESS 8.2 mmol/L (-2-2); VENOUS O2 SATURATION 72.3 % (70-80); VENOUS PCO2 61.5 mmHg (38-52); VENOUS PH 7.375 (7.310-7.410)
[2022-04-28 19:03] LABS: BASO % 0.6 % (0-2.0); EOS % 0.2 % (0-4.5); HEMOGLOBIN 12.7 GM/dL (10.7-15.3); LYMPH % 3.7 % (8-40); MCH 25.3 pg (25.7-33.7); MCHC 31.8 g/dl (32.0-36.0); MEAN CELL VOLUME 79.7 fl (80-96); MEAN PLT VOLUME 8.8 fl (7.5-11.1); MONO % 5.8 % (3.8-10.2); NEUT % 89.7 % (42.8-82.8); PLATELET COUNT 162 10^3/uL (134-434); RBC 5.02 M/mm3 (3.60-5.2); RDW 17.8 % (11.6-15.6)
[2022-04-28 19:17] LABS: ALBUMIN 3.5 g/dl (3.4-5.0); BLOOD UREA NITROGEN 10.6 mg/dL (7-18); CALCIUM 9.4 mg/dL (8.5-10.1)
[2022-04-28 19:20] LABS: CREATININE 0.9 mg/dL (0.55-1.3)
[2022-04-28 19:22] LABS: BILIRUBIN,TOTAL 0.3 mg/dL (0.2-1); TOT PROT 6.6 g/dl (6.4-8.2)
[2022-04-28 19:25] LABS: N-TERMINAL BNP 1265.5 pg/ml (5-125)
[2022-04-28] MEDS ORDERED: ACETAMINOPHEN 325 MG TABLET (FP) PO ONE (19:32)
[2022-04-28] MEDS ORDERED: AZITHROMYCIN IVPB 500 MG/250 ML BAG IVPB ONE (19:35)
[2022-04-28] MEDS ORDERED: methylPREDNISolone NA SUCC 125 MG/2 ML VIAL ONE (19:35)
[2022-04-28] MEDS ORDERED: ALBUTEROL SO4 2.5/IPRATROPIUM 0.5 INH SOL 3 ML VIAL.NEB. NEB SCH (20:00)
[2022-04-28] MEDS: ALBUTEROL SO4 2.5/IPRATROPIUM 0.5 INH SOL 3 ML VIAL.NEB. NEB SCH ×2 (20:22→20:48)
[2022-04-28] MEDS ORDERED: ACETAMINOPHEN 325 MG TABLET (FP) ONE (20:24)
[2022-04-29] MEDS ORDERED: ALBUTEROL SO4 HFA INHALER IH ONE (00:53)
[2022-04-29] MEDS: ALBUTEROL SO4 HFA INHALER IH PRN (00:56)
[2022-04-29] MEDS ORDERED: GABAPENTIN 100 MG CAPSULE PO PRN (01:39)
[2022-04-29] MEDS: TIOTROPIUM BROMIDE 2.5 MCG (SPIRIVA) RESPIMAT INHALER IH SCH ×2 (02:13→10:57)
[2022-04-29] MEDS ORDERED: ACETAMINOPHEN 325 MG TABLET (FP) PO ONE (04:15)
[2022-04-29] MEDS ORDERED: ACETAMINOPHEN 325 MG TABLET (FP) ONE ×2 (04:16→21:22)
[2022-04-29] MEDS ORDERED: AMIODARONE HCL 200 MG TABLET ONE (08:57)
[2022-04-29] MEDS ORDERED: SERTRALINE HCL 50 MG TABLET (FP) ONE (08:57)
[2022-04-29] MEDS ORDERED: APIXABAN 5 MG TABLET ONE ×2 (08:57→21:22)
[2022-04-29] MEDS ORDERED: LORATADINE 10 MG TABLET ONE (08:57)
[2022-04-29] MEDS: SERTRALINE HCL 50 MG TABLET (FP) PO SCH (09:13)
[2022-04-29] MEDS: LORATADINE 10 MG TABLET PO SCH (09:13)
[2022-04-29] MEDS: AMIODARONE HCL 200 MG TABLET PO SCH (09:13)
[2022-04-29] MEDS: SACUBITRIL/VALSARTAN 24 MG-26 MG TABLET PO SCH ×2 (09:13→23:57)
[2022-04-29] MEDS: APIXABAN 5 MG TABLET PO SCH ×2 (09:13→21:28)
[2022-04-29] MEDS ORDERED: DEXAMETHASONE 4 MG TABLET (FP) PO SCH (12:45)
[2022-04-29 13:24] LABS: BASO % 0.1 % (0-2.0); HEMATOCRIT 40.6 % (32.4-45.2); HEMOGLOBIN 12.5 GM/dL (10.7-15.3); LYMPH % 4.8 % (8-40); MCH 24.8 pg (25.7-33.7); MCHC 30.9 g/dl (32.0-36.0); MEAN CELL VOLUME 80.1 fl (80-96); MONO % 11.6 % (3.8-10.2); NEUT % 83.5 % (42.8-82.8); PLATELET COUNT 151 10^3/uL (134-434); RBC 5.07 M/mm3 (3.60-5.2); RDW 17.6 % (11.6-15.6); WHITE BLOOD COUNT 3.3 K/mm3 (4.0-10.0)
[2022-04-29 13:51] LABS: CALCIUM 9.6 mg/dL (8.5-10.1)
[2022-04-29 13:52] LABS: ALBUMIN 3.2 g/dl (3.4-5.0); BLOOD UREA NITROGEN 15.8 mg/dL (7-18)
[2022-04-29 13:56] LABS: BILIRUBIN,TOTAL 0.2 mg/dL (0.2-1); TOT PROT 6.2 g/dl (6.4-8.2)
[2022-04-29] MEDS ORDERED: DEXAMETHASONE 4 MG TABLET (FP) ONE (15:32)
[2022-04-29] MEDS: INSULIN SLIDING SCALE (NOVOLOG) 1 VIAL SQ SCH ×2 (16:00→21:29)
[2022-04-29] MEDS: REMDESIVIR 200 MG in SODIUM CHLORIDE 250 ML IVPB ONE ×2 (17:46→19:45)
[2022-04-29] MEDS ORDERED: ATORVASTATIN CA 20 MG TABLET (FP) ONE (21:22)
[2022-04-29] MEDS ORDERED: DOCUSATE SODIUM 100 MG CAPSULE (FP) PO ONE (21:22)
[2022-04-29] MEDS ORDERED: MONTELUKAST NA 10 MG TABLET ONE (21:22)
[2022-04-29] MEDS: ATORVASTATIN CA 20 MG TABLET (FP) PO SCH (21:28)
[2022-04-29] MEDS: DOCUSATE SODIUM 100 MG CAPSULE (FP) PO SCH (21:28)
[2022-04-29] MEDS: MONTELUKAST NA 10 MG TABLET PO SCH (21:29)
[2022-04-29] MEDS: BUDESONIDE/FORMETEROL FUMARATE 160/4.5 mcg INHALER IH SCH (21:29)
[2022-04-30] MEDS: ACETAMINOPHEN 325 MG TABLET (FP) PO PRN (00:15)
[2022-04-30] MEDS: INSULIN SLIDING SCALE (NOVOLOG) 1 VIAL SQ SCH ×4 (06:05→21:45)
[2022-04-30] MEDS ORDERED: PANTOPRAZOLE 40 MG TABLET PO SCH (10:00)
[2022-04-30] MEDS: SERTRALINE HCL 50 MG TABLET (FP) PO SCH (10:16)
[2022-04-30] MEDS: APIXABAN 5 MG TABLET PO SCH ×2 (10:17→21:40)
[2022-04-30] MEDS: LORATADINE 10 MG TABLET PO SCH (10:17)
[2022-04-30] MEDS: SACUBITRIL/VALSARTAN 24 MG-26 MG TABLET PO SCH ×2 (10:17→21:40)
[2022-04-30] MEDS: REMDESIVIR 100 MG in SODIUM CHLORIDE 250 ML IVPB SCH (10:23)
[2022-04-30] MEDS: ALBUTEROL SO4 HFA INHALER IH PRN (10:51)
[2022-04-30] MEDS: TIOTROPIUM BROMIDE 2.5 MCG (SPIRIVA) RESPIMAT INHALER IH SCH (10:52)
[2022-04-30] MEDS: AMIODARONE HCL 200 MG TABLET PO SCH (11:22)
[2022-04-30] MEDS: DOCUSATE SODIUM 100 MG CAPSULE (FP) PO SCH (21:40)
[2022-04-30] MEDS: MONTELUKAST NA 10 MG TABLET PO SCH (21:40)
[2022-04-30] MEDS: ATORVASTATIN CA 20 MG TABLET (FP) PO SCH (21:40)
[2022-05-01] MEDS: BUDESONIDE/FORMETEROL FUMARATE 160/4.5 mcg INHALER IH SCH ×2 (01:00→21:09)
[2022-05-01] MEDS: INSULIN SLIDING SCALE (NOVOLOG) 1 VIAL SQ SCH ×4 (06:27→21:21)
[2022-05-01] MEDS: PANTOPRAZOLE 40 MG TABLET PO SCH (06:28)
[2022-05-01] MEDS: SACUBITRIL/VALSARTAN 24 MG-26 MG TABLET PO SCH ×2 (09:32→21:09)
[2022-05-01] MEDS: LORATADINE 10 MG TABLET PO SCH (09:32)
[2022-05-01] MEDS: APIXABAN 5 MG TABLET PO SCH ×2 (09:32→21:09)
[2022-05-01] MEDS: SERTRALINE HCL 50 MG TABLET (FP) PO SCH (09:33)
[2022-05-01] MEDS: AMIODARONE HCL 200 MG TABLET PO SCH (09:33)
[2022-05-01] MEDS: REMDESIVIR 100 MG in SODIUM CHLORIDE 250 ML IVPB SCH (09:33)
[2022-05-01] MEDS: ALBUTEROL SO4 HFA INHALER IH PRN (09:43)
[2022-05-01] MEDS: TIOTROPIUM BROMIDE 2.5 MCG (SPIRIVA) RESPIMAT INHALER IH SCH (09:44)
[2022-05-01] MEDS: ACETAMINOPHEN 325 MG TABLET (FP) PO PRN (10:15)
[2022-05-01] MEDS ORDERED: DEXAMETHASONE SOD PHOSPHATE 10 MG/1 ML VIAL IVPUSH STA (11:01)
[2022-05-01 13:10] LABS: HEMATOCRIT 39.8 % (32.4-45.2); HEMOGLOBIN 12.1 GM/dL (10.7-15.3); MCH 24.8 pg (25.7-33.7); MCHC 30.5 g/dl (32.0-36.0); MEAN CELL VOLUME 81.5 fl (80-96); MEAN PLT VOLUME 7.8 fl (7.5-11.1); PLATELET COUNT 185 10^3/uL (134-434); RBC 4.89 M/mm3 (3.60-5.2); RDW 17.7 % (11.6-15.6); WHITE BLOOD COUNT 3.6 K/mm3 (4.0-10.0)
[2022-05-01 13:29] LABS: CALCIUM 9.4 mg/dL (8.5-10.1)
[2022-05-01 13:30] LABS: ALBUMIN 3.2 g/dl (3.4-5.0); BLOOD UREA NITROGEN 21.1 mg/dL (7-18)
[2022-05-01 13:33] LABS: CREATININE 0.9 mg/dL (0.55-1.3)
[2022-05-01 13:35] LABS: BILIRUBIN,TOTAL 0.2 mg/dL (0.2-1); TOT PROT 5.9 g/dl (6.4-8.2)
[2022-05-01] MEDS: FLUTICASONE PROP 0.05% 16 GM NASAL SPRAY NS SCH (13:44)
[2022-05-01 13:53] LABS: ARTERIAL BLD GAS O2 SATURATION 85.5 % (95-98); ARTERIAL BLOOD GAS BASE EXCESS 4.6 mmol/L (-2-2); ARTERIAL BLOOD GAS PO2 62.5 mmHg (80-100); ARTERIAL BLOOD GAS pH 7.213 (7.350-7.450)
[2022-05-01 13:55] LABS: ALLENS TEST POSITIVE
[2022-05-01 13:56] LABS: PT'S TEMP 98.6; VENT MODE S/T; VENT RATE 12
[2022-05-01 14:07] LABS: ANISOCYTOSIS 0; HELMET CELLS 0; HOWELL-JOLLY BODIES 0; MACROCYTOSIS 0; OVALOCYTE 0; ROULEAU 0; SICKELED CELLS 0; TARGET CELLS 0; TEAR DROP CELLS 0; TOXIC GRANULATION 0
[2022-05-01] MEDS ORDERED: FUROSEMIDE 40 MG/4 ML INJECTABLE VIAL IVPUSH ONE (19:43)
[2022-05-01 20:26] LABS: ARTERIAL BLD GAS O2 SATURATION 88.8 % (95-98); ARTERIAL BLOOD GAS BASE EXCESS 7.3 mmol/L (-2-2); ARTERIAL BLOOD GAS PO2 64.8 mmHg (80-100); ARTERIAL BLOOD GAS pH 7.274 (7.350-7.450)
[2022-05-01 20:27] LABS: ALLENS TEST POSITIVE; VENT MODE S/T; VENT RATE 12
[2022-05-01] MEDS: DOCUSATE SODIUM 100 MG CAPSULE (FP) PO SCH (21:09)
[2022-05-01] MEDS: MONTELUKAST NA 10 MG TABLET PO SCH (21:09)
[2022-05-01] MEDS: ATORVASTATIN CA 20 MG TABLET (FP) PO SCH (21:09)
[2022-05-02] MEDS: PANTOPRAZOLE 40 MG TABLET PO SCH (06:14)
[2022-05-02] MEDS: INSULIN SLIDING SCALE (NOVOLOG) 1 VIAL SQ SCH ×4 (06:36→21:34)
[2022-05-02 06:54] LABS: ARTERIAL BLD GAS O2 SATURATION 88.6 % (95-98); ARTERIAL BLOOD GAS BASE EXCESS 6.9 mmol/L (-2-2); ARTERIAL BLOOD GAS PO2 57.7 mmHg (80-100); ARTERIAL BLOOD GAS pH 7.374 (7.350-7.450)
[2022-05-02 07:09] LABS: ALLENS TEST POSITIVE
[2022-05-02 07:10] LABS: VENT MODE S/T
[2022-05-02 07:11] LABS: VENT RATE 22
[2022-05-02 07:25] LABS: HEMATOCRIT 39.5 % (32.4-45.2); HEMOGLOBIN 12.2 GM/dL (10.7-15.3); MCH 24.8 pg (25.7-33.7); MCHC 30.8 g/dl (32.0-36.0); MEAN CELL VOLUME 80.5 fl (80-96); MEAN PLT VOLUME 8.2 fl (7.5-11.1); PLATELET COUNT 159 10^3/uL (134-434); RBC 4.91 M/mm3 (3.60-5.2); RDW 16.9 % (11.6-15.6); WHITE BLOOD COUNT 2.9 K/mm3 (4.0-10.0)
[2022-05-02 07:51] LABS: CALCIUM 9.9 mg/dL (8.5-10.1)
[2022-05-02 07:52] LABS: ALBUMIN 3.2 g/dl (3.4-5.0)
[2022-05-02 07:55] LABS: BLOOD UREA NITROGEN 26.3 mg/dL (7-18)
[2022-05-02 07:56] LABS: BILIRUBIN,TOTAL 0.3 mg/dL (0.2-1)
[2022-05-02 07:57] LABS: TOT PROT 5.6 g/dl (6.4-8.2)
[2022-05-02 08:48] LABS: ANISOCYTOSIS 3+; MACROCYTOSIS 0; OVALOCYTE 1+
[2022-05-02] MEDS: LORATADINE 10 MG TABLET PO SCH (11:20)
[2022-05-02] MEDS: TIOTROPIUM BROMIDE 2.5 MCG (SPIRIVA) RESPIMAT INHALER IH SCH (11:20)
[2022-05-02] MEDS: FUROSEMIDE 40 MG/4 ML INJECTABLE VIAL IVPUSH SCH (11:20)
[2022-05-02] MEDS: APIXABAN 5 MG TABLET PO SCH ×2 (11:20→21:26)
[2022-05-02] MEDS: REMDESIVIR 100 MG in SODIUM CHLORIDE 270 ML IVPB SCH (11:20)
[2022-05-02] MEDS: SACUBITRIL/VALSARTAN 24 MG-26 MG TABLET PO SCH (11:20)
[2022-05-02] MEDS: DEXAMETHASONE SOD PHOSPHATE 10 MG/1 ML VIAL IVPUSH SCH (11:20)
[2022-05-02] MEDS: AMIODARONE HCL 200 MG TABLET PO SCH (11:20)
[2022-05-02] MEDS: SERTRALINE HCL 50 MG TABLET (FP) PO SCH (11:20)
[2022-05-02] MEDS: FLUTICASONE PROP 0.05% 16 GM NASAL SPRAY NS SCH (12:00)
[2022-05-02] MEDS: BUDESONIDE/FORMETEROL FUMARATE 160/4.5 mcg INHALER IH SCH (21:26)
[2022-05-02] MEDS: DOCUSATE SODIUM 100 MG CAPSULE (FP) PO SCH (21:26)
[2022-05-02] MEDS: MONTELUKAST NA 10 MG TABLET PO SCH (21:26)
[2022-05-02] MEDS: ATORVASTATIN CA 20 MG TABLET (FP) PO SCH (21:26)
[2022-05-03] MEDS: PANTOPRAZOLE 40 MG TABLET PO SCH (06:19)
[2022-05-03] MEDS: INSULIN SLIDING SCALE (NOVOLOG) 1 VIAL SQ SCH ×4 (06:20→21:56)
[2022-05-03 07:21] LABS: BASO % 0.2 % (0-2.0); HEMATOCRIT 40.5 % (32.4-45.2); HEMOGLOBIN 12.8 GM/dL (10.7-15.3); LYMPH % 6.9 % (8-40); MCH 24.8 pg (25.7-33.7); MCHC 31.5 g/dl (32.0-36.0); MEAN CELL VOLUME 78.7 fl (80-96); MEAN PLT VOLUME 8.6 fl (7.5-11.1); MONO % 11.4 % (3.8-10.2); NEUT % 81.5 % (42.8-82.8); PLATELET COUNT 199 10^3/uL (134-434); RBC 5.15 M/mm3 (3.60-5.2); RDW 17.1 % (11.6-15.6); WHITE BLOOD COUNT 4.2 K/mm3 (4.0-10.0)
[2022-05-03 07:39] LABS: CALCIUM 9.4 mg/dL (8.5-10.1)
[2022-05-03 07:40] LABS: ALBUMIN 3.1 g/dl (3.4-5.0); BLOOD UREA NITROGEN 27.5 mg/dL (7-18); MAGNESIUM 1.9 mg/dL (1.8-2.4)
[2022-05-03 07:43] LABS: PHOSPHOROUS 2.5 mg/dL (2.5-4.9)
[2022-05-03 07:44] LABS: TOT PROT 5.7 g/dl (6.4-8.2)
[2022-05-03 07:45] LABS: BILIRUBIN,TOTAL 0.3 mg/dL (0.2-1)
[2022-05-03] MEDS: REMDESIVIR 100 MG in SODIUM CHLORIDE 270 ML IVPB SCH (09:46)
[2022-05-03] MEDS: FUROSEMIDE 40 MG/4 ML INJECTABLE VIAL IVPUSH SCH (09:46)
[2022-05-03] MEDS: DEXAMETHASONE SOD PHOSPHATE 10 MG/1 ML VIAL IVPUSH SCH (09:46)
[2022-05-03] MEDS: LORATADINE 10 MG TABLET PO SCH (09:47)
[2022-05-03] MEDS: AMIODARONE HCL 200 MG TABLET PO SCH (09:47)
[2022-05-03] MEDS: SERTRALINE HCL 50 MG TABLET (FP) PO SCH (09:47)
[2022-05-03] MEDS: FLUTICASONE PROP 0.05% 16 GM NASAL SPRAY NS SCH ×2 (09:47→17:01)
[2022-05-03] MEDS: APIXABAN 5 MG TABLET PO SCH ×2 (09:47→21:50)
[2022-05-03] MEDS: TIOTROPIUM BROMIDE 2.5 MCG (SPIRIVA) RESPIMAT INHALER IH SCH ×2 (09:48→17:02)
[2022-05-03] MEDS: ACETAMINOPHEN 325 MG TABLET (FP) PO PRN ×2 (10:21→21:50)
[2022-05-03] MEDS ORDERED: ALBUTEROL SO4 HFA INHALER IH PRN (18:18)
[2022-05-03] MEDS: ATORVASTATIN CA 20 MG TABLET (FP) PO SCH (21:50)
[2022-05-03] MEDS: DOCUSATE SODIUM 100 MG CAPSULE (FP) PO SCH (21:50)
[2022-05-03] MEDS: MONTELUKAST NA 10 MG TABLET PO SCH (21:50)
[2022-05-03] MEDS: BUDESONIDE/FORMETEROL FUMARATE 160/4.5 mcg INHALER IH SCH (23:45)
[2022-05-04] MEDS: PANTOPRAZOLE 40 MG TABLET PO SCH (06:14)
[2022-05-04] MEDS: INSULIN SLIDING SCALE (NOVOLOG) 1 VIAL SQ SCH ×4 (06:14→22:03)
[2022-05-04 08:48] LABS: BASO % 0.1 % (0-2.0); HEMATOCRIT 39.9 % (32.4-45.2); HEMOGLOBIN 12.6 GM/dL (10.7-15.3); LYMPH % 7.2 % (8-40); MCH 24.9 pg (25.7-33.7); MCHC 31.6 g/dl (32.0-36.0); MEAN CELL VOLUME 78.6 fl (80-96); MEAN PLT VOLUME 8.2 fl (7.5-11.1); MONO % 10.2 % (3.8-10.2); NEUT % 82.5 % (42.8-82.8); PLATELET COUNT 203 10^3/uL (134-434); RBC 5.07 M/mm3 (3.60-5.2); RDW 17.4 % (11.6-15.6); WHITE BLOOD COUNT 4.4 K/mm3 (4.0-10.0)
[2022-05-04 09:19] LABS: ALBUMIN 3.2 g/dl (3.4-5.0); BLOOD UREA NITROGEN 26.6 mg/dL (7-18); CALCIUM 9.6 mg/dL (8.5-10.1); CREATININE 0.9 mg/dL (0.55-1.3); MAGNESIUM 1.9 mg/dL (1.8-2.4); PHOSPHOROUS 2.9 mg/dL (2.5-4.9)
[2022-05-04 09:20] LABS: BILIRUBIN,TOTAL 0.3 mg/dL (0.2-1)
[2022-05-04 09:21] LABS: TOT PROT 5.8 g/dl (6.4-8.2)
[2022-05-04] MEDS: SERTRALINE HCL 50 MG TABLET (FP) PO SCH (09:46)
[2022-05-04] MEDS: APIXABAN 5 MG TABLET PO SCH ×2 (09:46→22:02)
[2022-05-04] MEDS: DEXAMETHASONE SOD PHOSPHATE 10 MG/1 ML VIAL IVPUSH SCH (09:47)
[2022-05-04] MEDS: FUROSEMIDE 40 MG/4 ML INJECTABLE VIAL IVPUSH SCH (09:47)
[2022-05-04] MEDS: AMIODARONE HCL 200 MG TABLET PO SCH (09:48)
[2022-05-04] MEDS: LORATADINE 10 MG TABLET PO SCH (09:48)
[2022-05-04] MEDS: FLUTICASONE PROP 0.05% 16 GM NASAL SPRAY NS SCH (09:52)
[2022-05-04] MEDS: TIOTROPIUM BROMIDE 2.5 MCG (SPIRIVA) RESPIMAT INHALER IH SCH (09:52)
[2022-05-04] MEDS: BUDESONIDE/FORMETEROL FUMARATE 160/4.5 mcg INHALER IH SCH ×2 (09:52→22:03)
[2022-05-04] MEDS: ACETAMINOPHEN 325 MG TABLET (FP) PO PRN ×2 (11:27→22:04)
[2022-05-04] MEDS: GABAPENTIN 100 MG CAPSULE PO PRN ×2 (11:27→22:04)
[2022-05-04] MEDS ORDERED: INSULIN (NOVOLOG) ASPART 100 UNITS/ML 10ML VIAL ONE (17:04)
[2022-05-04] MEDS: DOCUSATE SODIUM 100 MG CAPSULE (FP) PO SCH (22:01)
[2022-05-04] MEDS: MONTELUKAST NA 10 MG TABLET PO SCH (22:02)
[2022-05-04] MEDS: ATORVASTATIN CA 20 MG TABLET (FP) PO SCH (22:03)
[2022-05-05] MEDS: INSULIN SLIDING SCALE (NOVOLOG) 1 VIAL SQ SCH ×3 (06:18→18:07)
[2022-05-05] MEDS: PANTOPRAZOLE 40 MG TABLET PO SCH (06:18)
[2022-05-05] MEDS: APIXABAN 5 MG TABLET PO SCH ×2 (10:37→22:34)
[2022-05-05] MEDS: DEXAMETHASONE SOD PHOSPHATE 10 MG/1 ML VIAL IVPUSH SCH (10:37)
[2022-05-05] MEDS: LORATADINE 10 MG TABLET PO SCH (10:37)
[2022-05-05] MEDS: SERTRALINE HCL 50 MG TABLET (FP) PO SCH (10:37)
[2022-05-05] MEDS: FUROSEMIDE 40 MG/4 ML INJECTABLE VIAL IVPUSH SCH (10:38)
[2022-05-05] MEDS: BUDESONIDE/FORMETEROL FUMARATE 160/4.5 mcg INHALER IH SCH ×2 (10:40→22:34)
[2022-05-05] MEDS: FLUTICASONE PROP 0.05% 16 GM NASAL SPRAY NS SCH (10:40)
[2022-05-05] MEDS: TIOTROPIUM BROMIDE 2.5 MCG (SPIRIVA) RESPIMAT INHALER IH SCH (10:40)
[2022-05-05] MEDS: AMIODARONE HCL 200 MG TABLET PO SCH (11:22)
[2022-05-05] MEDS: ACETAMINOPHEN 325 MG TABLET (FP) PO PRN ×2 (11:33→22:46)
[2022-05-05] MEDS: GABAPENTIN 100 MG CAPSULE PO PRN (11:33)
[2022-05-05] MEDS: DOCUSATE SODIUM 100 MG CAPSULE (FP) PO SCH (22:33)
[2022-05-05] MEDS: ATORVASTATIN CA 20 MG TABLET (FP) PO SCH (22:33)
[2022-05-05] MEDS: MONTELUKAST NA 10 MG TABLET PO SCH (22:33)
[2022-05-06] MEDS: INSULIN SLIDING SCALE (NOVOLOG) 1 VIAL SQ SCH ×5 (02:49→22:16)
[2022-05-06] MEDS: PANTOPRAZOLE 40 MG TABLET PO SCH (06:10)
[2022-05-06] MEDS: FLUTICASONE PROP 0.05% 16 GM NASAL SPRAY NS SCH (10:27)
[2022-05-06] MEDS: LORATADINE 10 MG TABLET PO SCH (10:27)
[2022-05-06] MEDS: APIXABAN 5 MG TABLET PO SCH ×2 (10:27→22:15)
[2022-05-06] MEDS: DEXAMETHASONE SOD PHOSPHATE 10 MG/1 ML VIAL IVPUSH SCH (10:27)
[2022-05-06] MEDS: AMIODARONE HCL 200 MG TABLET PO SCH (10:27)
[2022-05-06] MEDS: SERTRALINE HCL 50 MG TABLET (FP) PO SCH (10:28)
[2022-05-06] MEDS: TIOTROPIUM BROMIDE 2.5 MCG (SPIRIVA) RESPIMAT INHALER IH SCH (10:28)
[2022-05-06] MEDS: FUROSEMIDE 40 MG/4 ML INJECTABLE VIAL IVPUSH SCH (10:28)
[2022-05-06] MEDS: BUDESONIDE/FORMETEROL FUMARATE 160/4.5 mcg INHALER IH SCH ×2 (10:28→22:28)
[2022-05-06] MEDS: ACETAMINOPHEN 325 MG TABLET (FP) PO PRN (12:55)
[2022-05-06 14:04] VITALS: BMI 47.7
[2022-05-06] MEDS: DOCUSATE SODIUM 100 MG CAPSULE (FP) PO SCH (22:15)
[2022-05-06] MEDS: MONTELUKAST NA 10 MG TABLET PO SCH (22:15)
[2022-05-06] MEDS: ATORVASTATIN CA 20 MG TABLET (FP) PO SCH (22:15)
[2022-05-07] MEDS: ACETAMINOPHEN 325 MG TABLET (FP) PO PRN ×2 (05:45→10:08)
[2022-05-07] MEDS: PANTOPRAZOLE 40 MG TABLET PO SCH (06:03)
[2022-05-07] MEDS: INSULIN SLIDING SCALE (NOVOLOG) 1 VIAL SQ SCH ×4 (07:31→22:38)
[2022-05-07 08:23] LABS: BASO % 0.1 % (0-2.0); EOS % 0.1 % (0-4.5); HEMATOCRIT 40.4 % (32.4-45.2); HEMOGLOBIN 12.9 GM/dL (10.7-15.3); LYMPH % 6.7 % (8-40); MCHC 31.8 g/dl (32.0-36.0); MEAN CELL VOLUME 78.6 fl (80-96); MEAN PLT VOLUME 8.5 fl (7.5-11.1); MONO % 8.1 % (3.8-10.2); PLATELET COUNT 225 10^3/uL (134-434); RBC 5.14 M/mm3 (3.60-5.2); RDW 16.6 % (11.6-15.6); WHITE BLOOD COUNT 5.9 K/mm3 (4.0-10.0)
[2022-05-07 08:45] LABS: ALBUMIN 3.2 g/dl (3.4-5.0); BLOOD UREA NITROGEN 28.5 mg/dL (7-18); CALCIUM 9.7 mg/dL (8.5-10.1)
[2022-05-07 08:48] LABS: BILIRUBIN,TOTAL 0.3 mg/dL (0.2-1); TOT PROT 5.8 g/dl (6.4-8.2)
[2022-05-07] MEDS: LORATADINE 10 MG TABLET PO SCH (10:04)
[2022-05-07] MEDS: APIXABAN 5 MG TABLET PO SCH ×2 (10:04→22:38)
[2022-05-07] MEDS: AMIODARONE HCL 200 MG TABLET PO SCH (10:04)
[2022-05-07] MEDS: FUROSEMIDE 40 MG TABLET (FP) PO SCH (10:05)
[2022-05-07] MEDS: DEXAMETHASONE SOD PHOSPHATE 10 MG/1 ML VIAL IVPUSH SCH (10:05)
[2022-05-07] MEDS: SERTRALINE HCL 50 MG TABLET (FP) PO SCH (10:07)
[2022-05-07] MEDS: FLUTICASONE PROP 0.05% 16 GM NASAL SPRAY NS SCH (10:28)
[2022-05-07] MEDS: BUDESONIDE/FORMETEROL FUMARATE 160/4.5 mcg INHALER IH SCH ×2 (10:29→22:39)
[2022-05-07] MEDS: TIOTROPIUM BROMIDE 2.5 MCG (SPIRIVA) RESPIMAT INHALER IH SCH (10:29)
[2022-05-07] MEDS: DOCUSATE SODIUM 100 MG CAPSULE (FP) PO SCH (22:38)
[2022-05-07] MEDS: ATORVASTATIN CA 20 MG TABLET (FP) PO SCH (22:38)
[2022-05-07] MEDS: MONTELUKAST NA 10 MG TABLET PO SCH (22:38)
[2022-05-08] MEDS: INSULIN SLIDING SCALE (NOVOLOG) 1 VIAL SQ SCH ×4 (06:33→21:36)
[2022-05-08] MEDS: PANTOPRAZOLE 40 MG TABLET PO SCH (06:37)
[2022-05-08] MEDS: SERTRALINE HCL 50 MG TABLET (FP) PO SCH (10:16)
[2022-05-08] MEDS: AMIODARONE HCL 200 MG TABLET PO SCH (10:16)
[2022-05-08] MEDS: TIOTROPIUM BROMIDE 2.5 MCG (SPIRIVA) RESPIMAT INHALER IH SCH (10:16)
[2022-05-08] MEDS: FLUTICASONE PROP 0.05% 16 GM NASAL SPRAY NS SCH (10:16)
[2022-05-08] MEDS: DEXAMETHASONE SOD PHOSPHATE 10 MG/1 ML VIAL IVPUSH SCH (10:16)
[2022-05-08] MEDS: APIXABAN 5 MG TABLET PO SCH ×2 (10:16→21:31)
[2022-05-08] MEDS: LORATADINE 10 MG TABLET PO SCH (10:16)
[2022-05-08] MEDS: FUROSEMIDE 40 MG TABLET (FP) PO SCH (10:16)
[2022-05-08] MEDS: BUDESONIDE/FORMETEROL FUMARATE 160/4.5 mcg INHALER IH SCH ×2 (10:16→21:59)
[2022-05-08] MEDS: DOCUSATE SODIUM 100 MG CAPSULE (FP) PO SCH (21:31)
[2022-05-08] MEDS: MONTELUKAST NA 10 MG TABLET PO SCH (21:32)
[2022-05-08] MEDS: ATORVASTATIN CA 20 MG TABLET (FP) PO SCH (21:32)
[2022-05-08] MEDS: ACETAMINOPHEN 325 MG TABLET (FP) PO PRN (21:57)
[2022-05-09] MEDS: INSULIN SLIDING SCALE (NOVOLOG) 1 VIAL SQ SCH ×4 (06:36→22:33)
[2022-05-09] MEDS: PANTOPRAZOLE 40 MG TABLET PO SCH (06:40)
[2022-05-09] MEDS: DEXAMETHASONE SOD PHOSPHATE 10 MG/1 ML VIAL IVPUSH SCH (11:03)
[2022-05-09] MEDS: AMIODARONE HCL 200 MG TABLET PO SCH (11:03)
[2022-05-09] MEDS: FUROSEMIDE 40 MG TABLET (FP) PO SCH (11:04)
[2022-05-09] MEDS: LORATADINE 10 MG TABLET PO SCH (11:04)
[2022-05-09] MEDS: SERTRALINE HCL 50 MG TABLET (FP) PO SCH (11:04)
[2022-05-09] MEDS: APIXABAN 5 MG TABLET PO SCH ×2 (11:04→22:32)
[2022-05-09] MEDS: FLUTICASONE PROP 0.05% 16 GM NASAL SPRAY NS SCH (11:05)
[2022-05-09] MEDS: BUDESONIDE/FORMETEROL FUMARATE 160/4.5 mcg INHALER IH SCH ×2 (11:05→22:33)
[2022-05-09] MEDS: TIOTROPIUM BROMIDE 2.5 MCG (SPIRIVA) RESPIMAT INHALER IH SCH (11:06)
[2022-05-09] MEDS: ACETAMINOPHEN 325 MG TABLET (FP) PO PRN ×2 (11:54→22:32)
[2022-05-09] MEDS: MONTELUKAST NA 10 MG TABLET PO SCH (22:32)
[2022-05-09] MEDS: ATORVASTATIN CA 20 MG TABLET (FP) PO SCH (22:32)
[2022-05-09] MEDS: DOCUSATE SODIUM 100 MG CAPSULE (FP) PO SCH (22:32)
[2022-05-10] MEDS: INSULIN SLIDING SCALE (NOVOLOG) 1 VIAL SQ SCH ×4 (06:21→21:24)
[2022-05-10] MEDS: PANTOPRAZOLE 40 MG TABLET PO SCH (06:21)
[2022-05-10 08:10] LABS: HEMATOCRIT 38.9 % (32.4-45.2); HEMOGLOBIN 12.2 GM/dL (10.7-15.3); MCH 24.9 pg (25.7-33.7); MCHC 31.2 g/dl (32.0-36.0); MEAN CELL VOLUME 79.6 fl (80-96); MEAN PLT VOLUME 8.5 fl (7.5-11.1); PLATELET COUNT 204 10^3/uL (134-434); RBC 4.89 M/mm3 (3.60-5.2); RDW 16.6 % (11.6-15.6); WHITE BLOOD COUNT 6.6 K/mm3 (4.0-10.0)
[2022-05-10 08:23] LABS: CALCIUM 9.7 mg/dL (8.5-10.1)
[2022-05-10 08:24] LABS: BLOOD UREA NITROGEN 33.7 mg/dL (7-18)
[2022-05-10 08:27] LABS: CREATININE 1.1 mg/dL (0.55-1.3)
[2022-05-10 08:28] LABS: BILIRUBIN,TOTAL 0.3 mg/dL (0.2-1); TOT PROT 5.5 g/dl (6.4-8.2)
[2022-05-10 09:50] LABS: ANISOCYTOSIS 0; MACROCYTOSIS 0
[2022-05-10] MEDS: AMIODARONE HCL 200 MG TABLET PO SCH (09:53)
[2022-05-10] MEDS: LORATADINE 10 MG TABLET PO SCH (09:53)
[2022-05-10] MEDS: DEXAMETHASONE SOD PHOSPHATE 10 MG/1 ML VIAL IVPUSH SCH (09:53)
[2022-05-10] MEDS: FLUTICASONE PROP 0.05% 16 GM NASAL SPRAY NS SCH (09:53)
[2022-05-10] MEDS: FUROSEMIDE 40 MG TABLET (FP) PO SCH (09:53)
[2022-05-10] MEDS: SERTRALINE HCL 50 MG TABLET (FP) PO SCH (09:53)
[2022-05-10] MEDS: APIXABAN 5 MG TABLET PO SCH ×2 (09:53→21:24)
[2022-05-10] MEDS: BUDESONIDE/FORMETEROL FUMARATE 160/4.5 mcg INHALER IH SCH ×2 (09:54→21:24)
[2022-05-10] MEDS: TIOTROPIUM BROMIDE 2.5 MCG (SPIRIVA) RESPIMAT INHALER IH SCH (09:54)
[2022-05-10] MEDS: ACETAMINOPHEN 325 MG TABLET (FP) PO PRN (15:08)
[2022-05-10] MEDS: ATORVASTATIN CA 20 MG TABLET (FP) PO SCH (21:24)
[2022-05-10] MEDS: MONTELUKAST NA 10 MG TABLET PO SCH (21:24)
[2022-05-10] MEDS: DOCUSATE SODIUM 100 MG CAPSULE (FP) PO SCH (21:24)
[2022-05-11] MEDS: PANTOPRAZOLE 40 MG TABLET PO SCH (06:01)
[2022-05-11] MEDS: GABAPENTIN 100 MG CAPSULE PO PRN (06:01)
[2022-05-11] MEDS: INSULIN SLIDING SCALE (NOVOLOG) 1 VIAL SQ SCH ×4 (06:02→22:08)
[2022-05-11] MEDS: LORATADINE 10 MG TABLET PO SCH (10:34)
[2022-05-11] MEDS: SERTRALINE HCL 50 MG TABLET (FP) PO SCH (10:34)
[2022-05-11] MEDS: APIXABAN 5 MG TABLET PO SCH ×2 (10:34→22:05)
[2022-05-11] MEDS: AMIODARONE HCL 200 MG TABLET PO SCH (10:34)
[2022-05-11] MEDS: FUROSEMIDE 40 MG TABLET (FP) PO SCH (10:34)
[2022-05-11] MEDS: DEXAMETHASONE SOD PHOSPHATE 10 MG/1 ML VIAL IVPUSH SCH (10:34)
[2022-05-11] MEDS: TIOTROPIUM BROMIDE 2.5 MCG (SPIRIVA) RESPIMAT INHALER IH SCH (10:35)
[2022-05-11] MEDS: BUDESONIDE/FORMETEROL FUMARATE 160/4.5 mcg INHALER IH SCH ×2 (10:35→22:08)
[2022-05-11] MEDS: FLUTICASONE PROP 0.05% 16 GM NASAL SPRAY NS SCH (10:35)
[2022-05-11] MEDS: ACETAMINOPHEN 325 MG TABLET (FP) PO PRN (10:45)
[2022-05-11] MEDS ORDERED: INSULIN (NOVOLOG) ASPART 100 UNITS/ML 10ML VIAL ONE (12:29)
[2022-05-11] MEDS: MONTELUKAST NA 10 MG TABLET PO SCH (22:05)
[2022-05-11] MEDS: DOCUSATE SODIUM 100 MG CAPSULE (FP) PO SCH (22:05)
[2022-05-11] MEDS: ATORVASTATIN CA 20 MG TABLET (FP) PO SCH (22:05)
[2022-05-11] MEDS: GABAPENTIN 100 MG CAPSULE PO SCH (22:08)
[2022-05-12] MEDS: INSULIN SLIDING SCALE (NOVOLOG) 1 VIAL SQ SCH ×4 (06:39→22:41)
[2022-05-12] MEDS: GABAPENTIN 100 MG CAPSULE PO SCH ×3 (06:39→22:32)
[2022-05-12] MEDS: PANTOPRAZOLE 40 MG TABLET PO SCH (06:39)
[2022-05-12 08:29] LABS: CALCIUM 8.9 mg/dL (8.5-10.1)
[2022-05-12 08:30] LABS: ALBUMIN 3.6 g/dl (3.4-5.0); BLOOD UREA NITROGEN 18.2 mg/dL (7-18)
[2022-05-12 08:33] LABS: CREATININE 0.7 mg/dL (0.55-1.3)
[2022-05-12 08:34] LABS: BILIRUBIN,TOTAL 0.4 mg/dL (0.2-1)
[2022-05-12 08:35] LABS: TOT PROT 6.9 g/dl (6.4-8.2)
[2022-05-12] MEDS: FUROSEMIDE 40 MG TABLET (FP) PO SCH (09:19)
[2022-05-12] MEDS: AMIODARONE HCL 200 MG TABLET PO SCH (09:20)
[2022-05-12] MEDS: DEXAMETHASONE SOD PHOSPHATE 10 MG/1 ML VIAL IVPUSH SCH (09:20)
[2022-05-12] MEDS: SERTRALINE HCL 50 MG TABLET (FP) PO SCH (09:20)
[2022-05-12] MEDS: APIXABAN 5 MG TABLET PO SCH ×2 (09:20→22:32)
[2022-05-12] MEDS: FLUTICASONE PROP 0.05% 16 GM NASAL SPRAY NS SCH (09:20)
[2022-05-12] MEDS: TIOTROPIUM BROMIDE 2.5 MCG (SPIRIVA) RESPIMAT INHALER IH SCH (09:20)
[2022-05-12] MEDS: LORATADINE 10 MG TABLET PO SCH (09:20)
[2022-05-12] MEDS: BUDESONIDE/FORMETEROL FUMARATE 160/4.5 mcg INHALER IH SCH ×2 (09:21→22:41)
[2022-05-12 13:24] LABS: HEMOGLOBIN 12.4 GM/dL (10.7-15.3); MCHC 30.9 g/dl (32.0-36.0); MEAN CELL VOLUME 80.7 fl (80-96); MEAN PLT VOLUME 8.4 fl (7.5-11.1); PLATELET COUNT 181 10^3/uL (134-434); RBC 4.95 M/mm3 (3.60-5.2); RDW 17.2 % (11.6-15.6); WHITE BLOOD COUNT 7.8 K/mm3 (4.0-10.0)
[2022-05-12 13:49] LABS: ANISOCYTOSIS 3+; MACROCYTOSIS 0; OVALOCYTE 1+
[2022-05-12] MEDS ORDERED: ACETAMINOPHEN 325 MG TABLET (FP) PO PRN (16:28)
[2022-05-12] MEDS: MONTELUKAST NA 10 MG TABLET PO SCH (22:32)
[2022-05-12] MEDS: DOCUSATE SODIUM 100 MG CAPSULE (FP) PO SCH (22:37)
[2022-05-12] MEDS: ATORVASTATIN CA 20 MG TABLET (FP) PO SCH (22:40)
[2022-05-12] MEDS: ACETAMINOPHEN 325 MG TABLET (FP) PO PRN (22:47)
[2022-05-13] MEDS: PANTOPRAZOLE 40 MG TABLET PO SCH (07:00)
[2022-05-13] MEDS: GABAPENTIN 100 MG CAPSULE PO SCH ×3 (07:00→21:03)
[2022-05-13] MEDS: INSULIN SLIDING SCALE (NOVOLOG) 1 VIAL SQ SCH ×4 (07:00→21:04)
[2022-05-13] MEDS: SERTRALINE HCL 50 MG TABLET (FP) PO SCH (09:35)
[2022-05-13] MEDS: FLUTICASONE PROP 0.05% 16 GM NASAL SPRAY NS SCH (09:35)
[2022-05-13] MEDS: BUDESONIDE/FORMETEROL FUMARATE 160/4.5 mcg INHALER IH SCH ×2 (09:35→21:04)
[2022-05-13] MEDS: FUROSEMIDE 40 MG TABLET (FP) PO SCH (09:35)
[2022-05-13] MEDS: AMIODARONE HCL 200 MG TABLET PO SCH (09:35)
[2022-05-13] MEDS: DEXAMETHASONE SOD PHOSPHATE 10 MG/1 ML VIAL IVPUSH SCH (09:35)
[2022-05-13] MEDS: APIXABAN 5 MG TABLET PO SCH ×2 (09:35→21:03)
[2022-05-13] MEDS: LORATADINE 10 MG TABLET PO SCH (09:35)
[2022-05-13] MEDS: TIOTROPIUM BROMIDE 2.5 MCG (SPIRIVA) RESPIMAT INHALER IH SCH (09:36)
[2022-05-13] MEDS: MONTELUKAST NA 10 MG TABLET PO SCH (21:03)
[2022-05-13] MEDS: ACETAMINOPHEN 325 MG TABLET (FP) PO PRN (21:03)
[2022-05-13] MEDS: DOCUSATE SODIUM 100 MG CAPSULE (FP) PO SCH (21:03)
[2022-05-13] MEDS: ATORVASTATIN CA 20 MG TABLET (FP) PO SCH (21:03)
[2022-05-14] MEDS: GABAPENTIN 100 MG CAPSULE PO SCH ×3 (06:59→21:21)
[2022-05-14] MEDS: INSULIN SLIDING SCALE (NOVOLOG) 1 VIAL SQ SCH ×4 (06:59→21:39)
[2022-05-14] MEDS: PANTOPRAZOLE 40 MG TABLET PO SCH (07:00)
[2022-05-14 08:40] LABS: HEMATOCRIT 39.2 % (32.4-45.2); HEMOGLOBIN 12.5 GM/dL (10.7-15.3); MCH 25.4 pg (25.7-33.7); MEAN CELL VOLUME 79.2 fl (80-96); MEAN PLT VOLUME 8.6 fl (7.5-11.1); PLATELET COUNT 188 10^3/uL (134-434); RBC 4.94 M/mm3 (3.60-5.2); RDW 17.2 % (11.6-15.6); WHITE BLOOD COUNT 7.5 K/mm3 (4.0-10.0)
[2022-05-14 08:42] LABS: CALCIUM 9.8 mg/dL (8.5-10.1)
[2022-05-14 08:43] LABS: ALBUMIN 3.2 g/dl (3.4-5.0)
[2022-05-14 08:46] LABS: CREATININE 1.2 mg/dL (0.55-1.3)
[2022-05-14 08:47] LABS: BILIRUBIN,TOTAL 0.3 mg/dL (0.2-1); TOT PROT 5.9 g/dl (6.4-8.2)
[2022-05-14] MEDS: AMIODARONE HCL 200 MG TABLET PO SCH (10:46)
[2022-05-14] MEDS: LORATADINE 10 MG TABLET PO SCH (10:47)
[2022-05-14] MEDS: FUROSEMIDE 40 MG TABLET (FP) PO SCH (10:47)
[2022-05-14] MEDS: TIOTROPIUM BROMIDE 2.5 MCG (SPIRIVA) RESPIMAT INHALER IH SCH (10:47)
[2022-05-14] MEDS: BUDESONIDE/FORMETEROL FUMARATE 160/4.5 mcg INHALER IH SCH ×2 (10:47→21:39)
[2022-05-14] MEDS: SERTRALINE HCL 50 MG TABLET (FP) PO SCH (10:47)
[2022-05-14] MEDS: FLUTICASONE PROP 0.05% 16 GM NASAL SPRAY NS SCH (10:47)
[2022-05-14] MEDS: APIXABAN 5 MG TABLET PO SCH ×2 (10:47→21:21)
[2022-05-14] MEDS: DEXAMETHASONE SOD PHOSPHATE 10 MG/1 ML VIAL IVPUSH SCH (10:54)
[2022-05-14] MEDS: ATORVASTATIN CA 20 MG TABLET (FP) PO SCH (21:21)
[2022-05-14] MEDS: MONTELUKAST NA 10 MG TABLET PO SCH (21:21)
[2022-05-14] MEDS: DOCUSATE SODIUM 100 MG CAPSULE (FP) PO SCH (21:21)
[2022-05-14] MEDS: ACETAMINOPHEN 325 MG TABLET (FP) PO PRN (21:22)
[2022-05-15] MEDS: GABAPENTIN 100 MG CAPSULE PO SCH ×3 (06:37→21:09)
[2022-05-15] MEDS: PANTOPRAZOLE 40 MG TABLET PO SCH (06:38)
[2022-05-15] MEDS: INSULIN SLIDING SCALE (NOVOLOG) 1 VIAL SQ SCH ×4 (06:41→21:20)
[2022-05-15] MEDS: DEXAMETHASONE SOD PHOSPHATE 10 MG/1 ML VIAL IVPUSH SCH (10:35)
[2022-05-15] MEDS: ACETAMINOPHEN 325 MG TABLET (FP) PO PRN ×2 (10:35→18:55)
[2022-05-15] MEDS: BUDESONIDE/FORMETEROL FUMARATE 160/4.5 mcg INHALER IH SCH ×2 (10:38→21:14)
[2022-05-15] MEDS: FLUTICASONE PROP 0.05% 16 GM NASAL SPRAY NS SCH (10:38)
[2022-05-15] MEDS: SERTRALINE HCL 50 MG TABLET (FP) PO SCH (10:38)
[2022-05-15] MEDS: APIXABAN 5 MG TABLET PO SCH ×2 (10:38→21:09)
[2022-05-15] MEDS: TIOTROPIUM BROMIDE 2.5 MCG (SPIRIVA) RESPIMAT INHALER IH SCH ×2 (10:38→12:00)
[2022-05-15] MEDS: AMIODARONE HCL 200 MG TABLET PO SCH (10:38)
[2022-05-15] MEDS: FUROSEMIDE 40 MG TABLET (FP) PO SCH (10:38)
[2022-05-15] MEDS: LORATADINE 10 MG TABLET PO SCH (10:38)
[2022-05-15] MEDS: DOCUSATE SODIUM 100 MG CAPSULE (FP) PO SCH (21:08)
[2022-05-15] MEDS: MONTELUKAST NA 10 MG TABLET PO SCH (21:09)
[2022-05-15] MEDS: ATORVASTATIN CA 20 MG TABLET (FP) PO SCH (21:09)
[2022-05-16] MEDS: GABAPENTIN 100 MG CAPSULE PO SCH ×3 (06:22→21:27)
[2022-05-16] MEDS: PANTOPRAZOLE 40 MG TABLET PO SCH (06:22)
[2022-05-16] MEDS: INSULIN SLIDING SCALE (NOVOLOG) 1 VIAL SQ SCH ×4 (06:24→22:08)
[2022-05-16] MEDS: ACETAMINOPHEN 325 MG TABLET (FP) PO PRN (07:54)
[2022-05-16] MEDS: DEXAMETHASONE 4 MG TABLET (FP) PO SCH (11:02)
[2022-05-16] MEDS: APIXABAN 5 MG TABLET PO SCH ×2 (11:02→21:27)
[2022-05-16] MEDS: LORATADINE 10 MG TABLET PO SCH (11:02)
[2022-05-16] MEDS: AMIODARONE HCL 200 MG TABLET PO SCH (11:02)
[2022-05-16] MEDS: FUROSEMIDE 40 MG TABLET (FP) PO SCH (11:02)
[2022-05-16] MEDS: SERTRALINE HCL 50 MG TABLET (FP) PO SCH (11:02)
[2022-05-16] MEDS: FLUTICASONE PROP 0.05% 16 GM NASAL SPRAY NS SCH (11:03)
[2022-05-16] MEDS: BUDESONIDE/FORMETEROL FUMARATE 160/4.5 mcg INHALER IH SCH ×2 (11:03→21:27)
[2022-05-16] MEDS: TIOTROPIUM BROMIDE 2.5 MCG (SPIRIVA) RESPIMAT INHALER IH SCH (11:25)
[2022-05-16] MEDS: DOCUSATE SODIUM 100 MG CAPSULE (FP) PO SCH (21:27)
[2022-05-16] MEDS: ATORVASTATIN CA 20 MG TABLET (FP) PO SCH (21:27)
[2022-05-16] MEDS: MONTELUKAST NA 10 MG TABLET PO SCH (21:27)
[2022-05-17] MEDS: INSULIN SLIDING SCALE (NOVOLOG) 1 VIAL SQ SCH ×4 (07:05→21:49)
[2022-05-17] MEDS: GABAPENTIN 100 MG CAPSULE PO SCH ×3 (07:05→21:48)
[2022-05-17] MEDS: PANTOPRAZOLE 40 MG TABLET PO SCH (07:05)
[2022-05-17] MEDS: AMIODARONE HCL 200 MG TABLET PO SCH (10:09)
[2022-05-17] MEDS: DEXAMETHASONE 4 MG TABLET (FP) PO SCH (10:09)
[2022-05-17] MEDS: ACETAMINOPHEN 325 MG TABLET (FP) PO PRN ×2 (10:09→17:26)
[2022-05-17] MEDS: APIXABAN 5 MG TABLET PO SCH ×2 (10:09→21:46)
[2022-05-17] MEDS: FUROSEMIDE 40 MG TABLET (FP) PO SCH (10:09)
[2022-05-17] MEDS: LORATADINE 10 MG TABLET PO SCH (10:09)
[2022-05-17] MEDS: SERTRALINE HCL 50 MG TABLET (FP) PO SCH (10:09)
[2022-05-17] MEDS: BUDESONIDE/FORMETEROL FUMARATE 160/4.5 mcg INHALER IH SCH ×2 (10:39→21:52)
[2022-05-17] MEDS: FLUTICASONE PROP 0.05% 16 GM NASAL SPRAY NS SCH (10:39)
[2022-05-17] MEDS: TIOTROPIUM BROMIDE 2.5 MCG (SPIRIVA) RESPIMAT INHALER IH SCH (10:39)
[2022-05-17] MEDS ORDERED: INSULIN (NOVOLOG) ASPART 100 UNITS/ML 10ML VIAL ONE ×3 (17:10→21:38)
[2022-05-17] MEDS ORDERED: ALBUTEROL SO4 HFA INHALER IH PRN (18:24)
[2022-05-17] MEDS: MONTELUKAST NA 10 MG TABLET PO SCH (21:46)
[2022-05-17] MEDS: DOCUSATE SODIUM 100 MG CAPSULE (FP) PO SCH (21:47)
[2022-05-17] MEDS: ATORVASTATIN CA 20 MG TABLET (FP) PO SCH (21:48)
[2022-05-18] MEDS: GABAPENTIN 100 MG CAPSULE PO SCH ×2 (06:19→15:25)
[2022-05-18] MEDS: PANTOPRAZOLE 40 MG TABLET PO SCH (06:19)
[2022-05-18] MEDS: INSULIN SLIDING SCALE (NOVOLOG) 1 VIAL SQ SCH ×4 (06:30→21:37)
[2022-05-18] MEDS ORDERED: INSULIN (NOVOLOG) ASPART 100 UNITS/ML 10ML VIAL ONE (07:24)
[2022-05-18] MEDS: SERTRALINE HCL 50 MG TABLET (FP) PO SCH (09:38)
[2022-05-18] MEDS: AMIODARONE HCL 200 MG TABLET PO SCH (09:38)
[2022-05-18] MEDS: APIXABAN 5 MG TABLET PO SCH ×2 (09:39→21:42)
[2022-05-18] MEDS: LORATADINE 10 MG TABLET PO SCH (09:39)
[2022-05-18] MEDS: FUROSEMIDE 40 MG TABLET (FP) PO SCH (09:39)
[2022-05-18] MEDS: DEXAMETHASONE 4 MG TABLET (FP) PO SCH (09:39)
[2022-05-18] MEDS: TIOTROPIUM BROMIDE 2.5 MCG (SPIRIVA) RESPIMAT INHALER IH SCH (09:41)
[2022-05-18] MEDS: FLUTICASONE PROP 0.05% 16 GM NASAL SPRAY NS SCH (09:41)
[2022-05-18] MEDS: BUDESONIDE/FORMETEROL FUMARATE 160/4.5 mcg INHALER IH SCH ×2 (09:42→21:44)
[2022-05-18] MEDS: DOCUSATE SODIUM 100 MG CAPSULE (FP) PO SCH (21:41)
[2022-05-18] MEDS: ATORVASTATIN CA 20 MG TABLET (FP) PO SCH (21:42)
[2022-05-18] MEDS: MONTELUKAST NA 10 MG TABLET PO SCH (21:43)
[2022-05-19] MEDS: GABAPENTIN 100 MG CAPSULE PO SCH ×3 (06:32→21:03)
[2022-05-19] MEDS: PANTOPRAZOLE 40 MG TABLET PO SCH (06:33)
[2022-05-19] MEDS: INSULIN SLIDING SCALE (NOVOLOG) 1 VIAL SQ SCH ×4 (06:37→21:12)
[2022-05-19] MEDS: ACETAMINOPHEN 325 MG TABLET (FP) PO PRN ×2 (06:38→16:56)
[2022-05-19 08:19] LABS: CALCIUM 9.3 mg/dL (8.5-10.1)
[2022-05-19 08:20] LABS: BLOOD UREA NITROGEN 38.2 mg/dL (7-18)
[2022-05-19 08:23] LABS: CREATININE 0.9 mg/dL (0.55-1.3)
[2022-05-19 08:24] LABS: BILIRUBIN,TOTAL 0.3 mg/dL (0.2-1); TOT PROT 5.8 g/dl (6.4-8.2)
[2022-05-19] MEDS: LORATADINE 10 MG TABLET PO SCH (10:58)
[2022-05-19] MEDS: APIXABAN 5 MG TABLET PO SCH ×2 (10:59→21:04)
[2022-05-19] MEDS: AMIODARONE HCL 200 MG TABLET PO SCH (10:59)
[2022-05-19] MEDS: DEXAMETHASONE 4 MG TABLET (FP) PO SCH (10:59)
[2022-05-19] MEDS: FUROSEMIDE 40 MG TABLET (FP) PO SCH (10:59)
[2022-05-19] MEDS: TIOTROPIUM BROMIDE 2.5 MCG (SPIRIVA) RESPIMAT INHALER IH SCH (11:00)
[2022-05-19] MEDS: FLUTICASONE PROP 0.05% 16 GM NASAL SPRAY NS SCH (11:00)
[2022-05-19] MEDS: SERTRALINE HCL 50 MG TABLET (FP) PO SCH (11:00)
[2022-05-19] MEDS: BUDESONIDE/FORMETEROL FUMARATE 160/4.5 mcg INHALER IH SCH (11:00)
[2022-05-19 12:23] LABS: HEMATOCRIT 40.3 % (32.4-45.2); HEMOGLOBIN 12.2 GM/dL (10.7-15.3); MCHC 30.2 g/dl (32.0-36.0); MEAN CELL VOLUME 82.8 fl (80-96); MEAN PLT VOLUME 8.3 fl (7.5-11.1); PLATELET COUNT 126 10^3/uL (134-434); RBC 4.87 M/mm3 (3.60-5.2); RDW 17.4 % (11.6-15.6); WHITE BLOOD COUNT 5.5 K/mm3 (4.0-10.0)
[2022-05-19] MEDS ORDERED: INSULIN (NOVOLOG) ASPART 100 UNITS/ML 10ML VIAL ONE (17:20)
[2022-05-19] MEDS: DOCUSATE SODIUM 100 MG CAPSULE (FP) PO SCH (21:03)
[2022-05-19] MEDS: ATORVASTATIN CA 20 MG TABLET (FP) PO SCH (21:04)
[2022-05-19] MEDS: MONTELUKAST NA 10 MG TABLET PO SCH (21:05)
[2022-05-20] MEDS: BUDESONIDE/FORMETEROL FUMARATE 160/4.5 mcg INHALER IH SCH ×3 (00:26→22:45)
[2022-05-20] MEDS: GABAPENTIN 100 MG CAPSULE PO SCH ×4 (06:26→22:41)
[2022-05-20] MEDS: PANTOPRAZOLE 40 MG TABLET PO SCH (06:27)
[2022-05-20] MEDS: INSULIN SLIDING SCALE (NOVOLOG) 1 VIAL SQ SCH ×4 (06:33→22:42)
[2022-05-20] MEDS: DEXAMETHASONE 4 MG TABLET (FP) PO SCH (10:15)
[2022-05-20] MEDS: AMIODARONE HCL 200 MG TABLET PO SCH (10:15)
[2022-05-20] MEDS: SERTRALINE HCL 50 MG TABLET (FP) PO SCH (10:16)
[2022-05-20] MEDS: APIXABAN 5 MG TABLET PO SCH ×2 (10:17→22:41)
[2022-05-20] MEDS: LORATADINE 10 MG TABLET PO SCH (10:18)
[2022-05-20] MEDS: TIOTROPIUM BROMIDE 2.5 MCG (SPIRIVA) RESPIMAT INHALER IH SCH (10:20)
[2022-05-20] MEDS: FLUTICASONE PROP 0.05% 16 GM NASAL SPRAY NS SCH (10:21)
[2022-05-20] MEDS: FUROSEMIDE 40 MG TABLET (FP) PO SCH (11:30)
[2022-05-20] MEDS: ACETAMINOPHEN 325 MG TABLET (FP) PO PRN (16:40)
[2022-05-20] MEDS: DOCUSATE SODIUM 100 MG CAPSULE (FP) PO SCH (22:41)
[2022-05-20] MEDS: MONTELUKAST NA 10 MG TABLET PO SCH (22:41)
[2022-05-20] MEDS: ATORVASTATIN CA 20 MG TABLET (FP) PO SCH (22:42)
[2022-05-21] MEDS: INSULIN SLIDING SCALE (NOVOLOG) 1 VIAL SQ SCH ×4 (06:34→21:54)
[2022-05-21] MEDS: PANTOPRAZOLE 40 MG TABLET PO SCH (06:34)
[2022-05-21] MEDS: GABAPENTIN 100 MG CAPSULE PO SCH ×3 (06:34→21:54)
[2022-05-21] MEDS ORDERED: INSULIN (NOVOLOG) ASPART 100 UNITS/ML 10ML VIAL ONE (11:16)
[2022-05-21] MEDS: APIXABAN 5 MG TABLET PO SCH ×2 (12:14→21:54)
[2022-05-21] MEDS: LORATADINE 10 MG TABLET PO SCH (12:14)
[2022-05-21] MEDS: FUROSEMIDE 40 MG TABLET (FP) PO SCH (12:14)
[2022-05-21] MEDS: DEXAMETHASONE 4 MG TABLET (FP) PO SCH (12:14)
[2022-05-21] MEDS: SERTRALINE HCL 50 MG TABLET (FP) PO SCH (12:15)
[2022-05-21] MEDS: AMIODARONE HCL 200 MG TABLET PO SCH (12:15)
[2022-05-21] MEDS: ACETAMINOPHEN 325 MG TABLET (FP) PO PRN ×2 (12:15→17:35)
[2022-05-21] MEDS: TIOTROPIUM BROMIDE 2.5 MCG (SPIRIVA) RESPIMAT INHALER IH SCH (12:21)
[2022-05-21] MEDS: FLUTICASONE PROP 0.05% 16 GM NASAL SPRAY NS SCH (12:21)
[2022-05-21] MEDS: BUDESONIDE/FORMETEROL FUMARATE 160/4.5 mcg INHALER IH SCH ×2 (12:21→21:53)
[2022-05-21] MEDS: ATORVASTATIN CA 20 MG TABLET (FP) PO SCH (21:54)
[2022-05-21] MEDS: DOCUSATE SODIUM 100 MG CAPSULE (FP) PO SCH (21:54)
[2022-05-21] MEDS: MONTELUKAST NA 10 MG TABLET PO SCH (21:54)
[2022-05-22] MEDS: GABAPENTIN 100 MG CAPSULE PO SCH ×3 (06:25→22:20)
[2022-05-22] MEDS: INSULIN SLIDING SCALE (NOVOLOG) 1 VIAL SQ SCH ×3 (06:25→16:51)
[2022-05-22] MEDS: PANTOPRAZOLE 40 MG TABLET PO SCH (06:25)
[2022-05-22] MEDS: SERTRALINE HCL 50 MG TABLET (FP) PO SCH (10:00)
[2022-05-22] MEDS: FUROSEMIDE 40 MG TABLET (FP) PO SCH (10:14)
[2022-05-22] MEDS: DEXAMETHASONE 4 MG TABLET (FP) PO SCH (10:14)
[2022-05-22] MEDS: AMIODARONE HCL 200 MG TABLET PO SCH (10:15)
[2022-05-22] MEDS: LORATADINE 10 MG TABLET PO SCH (10:15)
[2022-05-22] MEDS: BUDESONIDE/FORMETEROL FUMARATE 160/4.5 mcg INHALER IH SCH ×2 (10:16→22:22)
[2022-05-22] MEDS: APIXABAN 5 MG TABLET PO SCH ×2 (10:16→22:20)
[2022-05-22] MEDS: TIOTROPIUM BROMIDE 2.5 MCG (SPIRIVA) RESPIMAT INHALER IH SCH (10:16)
[2022-05-22] MEDS: FLUTICASONE PROP 0.05% 16 GM NASAL SPRAY NS SCH (10:16)
[2022-05-22] MEDS: ATORVASTATIN CA 20 MG TABLET (FP) PO SCH (22:20)
[2022-05-22] MEDS: DOCUSATE SODIUM 100 MG CAPSULE (FP) PO SCH (22:20)
[2022-05-22] MEDS: MONTELUKAST NA 10 MG TABLET PO SCH (22:20)
[2022-05-23] MEDS: ACETAMINOPHEN 325 MG TABLET (FP) PO PRN ×2 (00:31→12:02)
[2022-05-23] MEDS: INSULIN SLIDING SCALE (NOVOLOG) 1 VIAL SQ SCH ×5 (00:31→22:44)
[2022-05-23] MEDS: PANTOPRAZOLE 40 MG TABLET PO SCH (07:09)
[2022-05-23] MEDS: GABAPENTIN 100 MG CAPSULE PO SCH ×3 (07:09→22:34)
[2022-05-23] MEDS: FLUTICASONE PROP 0.05% 16 GM NASAL SPRAY NS SCH (10:18)
[2022-05-23] MEDS: BUDESONIDE/FORMETEROL FUMARATE 160/4.5 mcg INHALER IH SCH ×2 (10:19→22:44)
[2022-05-23] MEDS: SERTRALINE HCL 50 MG TABLET (FP) PO SCH (10:19)
[2022-05-23] MEDS: DEXAMETHASONE 4 MG TABLET (FP) PO SCH (10:20)
[2022-05-23] MEDS: FUROSEMIDE 40 MG TABLET (FP) PO SCH (10:20)
[2022-05-23] MEDS: TIOTROPIUM BROMIDE 2.5 MCG (SPIRIVA) RESPIMAT INHALER IH SCH (10:20)
[2022-05-23] MEDS: APIXABAN 5 MG TABLET PO SCH ×2 (10:20→22:34)
[2022-05-23] MEDS: AMIODARONE HCL 200 MG TABLET PO SCH (10:20)
[2022-05-23] MEDS: LORATADINE 10 MG TABLET PO SCH (10:20)
[2022-05-23] MEDS ORDERED: INSULIN (NOVOLOG) ASPART 100 UNITS/ML 10ML VIAL ONE ×2 (16:49→22:27)
[2022-05-23] MEDS: ATORVASTATIN CA 20 MG TABLET (FP) PO SCH (22:34)
[2022-05-23] MEDS: DOCUSATE SODIUM 100 MG CAPSULE (FP) PO SCH (22:34)
[2022-05-23] MEDS: MONTELUKAST NA 10 MG TABLET PO SCH (22:34)
[2022-05-24] MEDS: GABAPENTIN 100 MG CAPSULE PO SCH ×3 (07:25→22:16)
[2022-05-24] MEDS: PANTOPRAZOLE 40 MG TABLET PO SCH (07:25)
[2022-05-24] MEDS: INSULIN SLIDING SCALE (NOVOLOG) 1 VIAL SQ SCH ×4 (07:28→22:40)
[2022-05-24] MEDS: DEXAMETHASONE 4 MG TABLET (FP) PO SCH (09:30)
[2022-05-24] MEDS: SERTRALINE HCL 50 MG TABLET (FP) PO SCH (09:30)
[2022-05-24] MEDS: AMIODARONE HCL 200 MG TABLET PO SCH (09:30)
[2022-05-24] MEDS: LORATADINE 10 MG TABLET PO SCH (09:30)
[2022-05-24] MEDS: FUROSEMIDE 40 MG TABLET (FP) PO SCH (09:30)
[2022-05-24] MEDS: APIXABAN 5 MG TABLET PO SCH ×2 (09:30→22:16)
[2022-05-24] MEDS: FLUTICASONE PROP 0.05% 16 GM NASAL SPRAY NS SCH (09:31)
[2022-05-24] MEDS: TIOTROPIUM BROMIDE 2.5 MCG (SPIRIVA) RESPIMAT INHALER IH SCH (09:31)
[2022-05-24] MEDS: BUDESONIDE/FORMETEROL FUMARATE 160/4.5 mcg INHALER IH SCH ×2 (09:31→22:17)
[2022-05-24] MEDS: ACETAMINOPHEN 325 MG TABLET (FP) PO PRN ×2 (14:24→20:40)
[2022-05-24] MEDS: ATORVASTATIN CA 20 MG TABLET (FP) PO SCH (22:16)
[2022-05-24] MEDS: MONTELUKAST NA 10 MG TABLET PO SCH (22:16)
[2022-05-24] MEDS: DOCUSATE SODIUM 100 MG CAPSULE (FP) PO SCH (22:16)
[2022-05-25] MEDS: PANTOPRAZOLE 40 MG TABLET PO SCH (06:11)
[2022-05-25] MEDS: GABAPENTIN 100 MG CAPSULE PO SCH ×3 (06:11→22:43)
[2022-05-25] MEDS: INSULIN SLIDING SCALE (NOVOLOG) 1 VIAL SQ SCH ×4 (06:11→22:50)
[2022-05-25] MEDS: LORATADINE 10 MG TABLET PO SCH (11:18)
[2022-05-25] MEDS: FUROSEMIDE 40 MG TABLET (FP) PO SCH (11:18)
[2022-05-25] MEDS: APIXABAN 5 MG TABLET PO SCH ×2 (11:18→22:43)
[2022-05-25] MEDS: AMIODARONE HCL 200 MG TABLET PO SCH (11:18)
[2022-05-25] MEDS: SERTRALINE HCL 50 MG TABLET (FP) PO SCH (11:18)
[2022-05-25] MEDS: DEXAMETHASONE 4 MG TABLET (FP) PO SCH (11:18)
[2022-05-25] MEDS: BUDESONIDE/FORMETEROL FUMARATE 160/4.5 mcg INHALER IH SCH ×2 (11:22→22:45)
[2022-05-25] MEDS: TIOTROPIUM BROMIDE 2.5 MCG (SPIRIVA) RESPIMAT INHALER IH SCH (11:22)
[2022-05-25] MEDS: FLUTICASONE PROP 0.05% 16 GM NASAL SPRAY NS SCH (11:23)
[2022-05-25] MEDS: ACETAMINOPHEN 325 MG TABLET (FP) PO PRN (11:52)
[2022-05-25] MEDS: DOCUSATE SODIUM 100 MG CAPSULE (FP) PO SCH (22:43)
[2022-05-25] MEDS: ATORVASTATIN CA 20 MG TABLET (FP) PO SCH (22:43)
[2022-05-25] MEDS: MONTELUKAST NA 10 MG TABLET PO SCH (22:44)
[2022-05-25] MEDS ORDERED: INSULIN (NOVOLOG) ASPART 100 UNITS/ML 10ML VIAL ONE (23:16)
[2022-05-26] MEDS: GABAPENTIN 100 MG CAPSULE PO SCH ×3 (07:06→22:56)
[2022-05-26] MEDS: PANTOPRAZOLE 40 MG TABLET PO SCH (07:06)
[2022-05-26] MEDS: INSULIN SLIDING SCALE (NOVOLOG) 1 VIAL SQ SCH ×4 (07:11→23:07)
[2022-05-26] MEDS: APIXABAN 5 MG TABLET PO SCH ×2 (10:46→22:56)
[2022-05-26] MEDS: FUROSEMIDE 40 MG TABLET (FP) PO SCH (10:46)
[2022-05-26] MEDS: LORATADINE 10 MG TABLET PO SCH (10:46)
[2022-05-26] MEDS: AMIODARONE HCL 200 MG TABLET PO SCH (10:46)
[2022-05-26] MEDS: DEXAMETHASONE 4 MG TABLET (FP) PO SCH (10:46)
[2022-05-26] MEDS: SERTRALINE HCL 50 MG TABLET (FP) PO SCH (10:48)
[2022-05-26] MEDS: FLUTICASONE PROP 0.05% 16 GM NASAL SPRAY NS SCH (10:49)
[2022-05-26] MEDS: TIOTROPIUM BROMIDE 2.5 MCG (SPIRIVA) RESPIMAT INHALER IH SCH (10:50)
[2022-05-26] MEDS: BUDESONIDE/FORMETEROL FUMARATE 160/4.5 mcg INHALER IH SCH ×2 (10:50→23:08)
[2022-05-26] MEDS: ACETAMINOPHEN 325 MG TABLET (FP) PO PRN (13:36)
[2022-05-26] MEDS ORDERED: INSULIN (NOVOLOG) ASPART 100 UNITS/ML 10ML VIAL ONE ×2 (16:56→17:19)
[2022-05-26] MEDS ORDERED: ALPRAZolam 0.25 MG TABLET PO ONE (19:12)
[2022-05-26] MEDS: DOCUSATE SODIUM 100 MG CAPSULE (FP) PO SCH (22:55)
[2022-05-26] MEDS: MONTELUKAST NA 10 MG TABLET PO SCH (22:56)
[2022-05-26] MEDS: ATORVASTATIN CA 20 MG TABLET (FP) PO SCH (22:56)
[2022-05-27] MEDS: GABAPENTIN 100 MG CAPSULE PO SCH ×2 (06:58→13:25)
[2022-05-27] MEDS: PANTOPRAZOLE 40 MG TABLET PO SCH (06:58)
[2022-05-27] MEDS: INSULIN SLIDING SCALE (NOVOLOG) 1 VIAL SQ SCH ×2 (07:01→11:38)
[2022-05-27] MEDS: ACETAMINOPHEN 325 MG TABLET (FP) PO PRN ×2 (07:02→13:30)
[2022-05-27] MEDS: AMIODARONE HCL 200 MG TABLET PO SCH (10:40)
[2022-05-27] MEDS: DEXAMETHASONE 4 MG TABLET (FP) PO SCH (10:40)
[2022-05-27] MEDS: LORATADINE 10 MG TABLET PO SCH (10:40)
[2022-05-27] MEDS: APIXABAN 5 MG TABLET PO SCH (10:41)
[2022-05-27] MEDS: SERTRALINE HCL 50 MG TABLET (FP) PO SCH (10:41)
[2022-05-27] MEDS: FUROSEMIDE 40 MG TABLET (FP) PO SCH (10:41)
[2022-05-27] MEDS: FLUTICASONE PROP 0.05% 16 GM NASAL SPRAY NS SCH (10:42)
[2022-05-27] MEDS: BUDESONIDE/FORMETEROL FUMARATE 160/4.5 mcg INHALER IH SCH (10:42)
[2022-05-27] MEDS: TIOTROPIUM BROMIDE 2.5 MCG (SPIRIVA) RESPIMAT INHALER IH SCH (10:42)
[2022-05-27 11:29] VITALS: RESP 20
[2022-05-27 12:51] VITALS: BP 100/59; PULSE 77; TEMP 98.9
== END 2022-05-27 14:58 | DRG 177 ==
LOC: JER 15:28 → JERBED 20:58 → J6S 04-29 23:58 → JICU 05-01 19:41 → J4W 05-03 17:39 → J7W 05-17 17:04
PROVIDERS: ADMIT Internal Medicine; ATTEND Internal Medicine
PROC: XW033E5 Introduction of Remdesivir Anti-infective into Peripheral Vein, Percutaneous Approach, New Technology Group 5 (ICD-10-PCS; principal; 2022-04-29)
DX: U07.1 COVID-19 (principal); I50.33 Acute on chronic diastolic (congestive) heart failure; J96.21 Acute and chronic respiratory failure with hypoxia; J96.22 Acute and chronic respiratory failure with hypercapnia; J12.82 Pneumonia due to coronavirus disease 2019; I13.0 Hypertensive heart and chronic kidney disease with heart failure and stage 1 through stage 4 chronic kidney disease, or unspecified chronic kidney disease; Z68.41 Body mass index [BMI] 40.0-44.9, adult; I48.92 Unspecified atrial flutter; J44.1 Chronic obstructive pulmonary disease with (acute) exacerbation; E66.01 Morbid (severe) obesity due to excess calories; Z99.81 Dependence on supplemental oxygen; G47.33 Obstructive sleep apnea (adult) (pediatric); M54.31 Sciatica, right side; D64.9 Anemia, unspecified; E11.42 Type 2 diabetes mellitus with diabetic polyneuropathy; E11.22 Type 2 diabetes mellitus with diabetic chronic kidney disease; N18.9 Chronic kidney disease, unspecified; I48.0 Paroxysmal atrial fibrillation; Z79.4 Long term (current) use of insulin; K21.9 Gastro-esophageal reflux disease without esophagitis; I27.20 Pulmonary hypertension, unspecified; F32.A Depression, unspecified
CPT/HCPCS: 0241U-QW; 36415; 36600; 71045-TC-FY; 71046-TC-FY; 80053; 82728; 82803; 82962; 83735; 83880; 84100; 84484; 85025; 85027; 85379; 86140; 93005; 93010; 94010; 94660; 97116-GP; 97162-GP; 99285-25; C9399; C9803-CS; J1100; U0003; U0005

== ENCOUNTER 2022-07-21 14:25 | Inpatient (IN) | payer OTHER ==
[2022-07-21] MEDS ORDERED: MAG HYDROX/AL HYDROX/SIMETH -MYLANTA- ORAL SUSPENSION PO ONE (15:16)
[2022-07-21] MEDS ORDERED: LIDOCAINE VISCOUS 2% ORAL/TOP 15 ML UNIT-DOSE CUP MM ONE (15:16)
[2022-07-21] MEDS ORDERED: ACETAMINOPHEN 325 MG TABLET (FP) PO ONE (16:26)
[2022-07-21] MEDS ORDERED: LIDOCAINE VISCOUS 2% ORAL/TOP 15 ML UNIT-DOSE CUP ONE (16:29)
[2022-07-21] MEDS ORDERED: MAG HYDROX/AL HYDROX/SIMETH 30 ML UNIT-DOSE CUP ONE (16:29)
[2022-07-21] MEDS ORDERED: ACETAMINOPHEN 325 MG TABLET (FP) ONE (16:29)
[2022-07-21 17:48] LABS: BASO % 0.3 % (0-2.0); EOS % 0.7 % (0-4.5); HEMATOCRIT 35.7 % (32.4-45.2); HEMOGLOBIN 11.3 GM/dL (10.7-15.3); LYMPH % 7.5 % (8-40); MCHC 31.6 g/dl (32.0-36.0); MEAN CELL VOLUME 79.2 fl (80-96); MONO % 8.6 % (3.8-10.2); NEUT % 82.9 % (42.8-82.8); PLATELET COUNT 160 10^3/uL (134-434); RBC 4.51 M/mm3 (3.60-5.2); RDW 16.8 % (11.6-15.6); WHITE BLOOD COUNT 4.9 K/mm3 (4.0-10.0)
[2022-07-21 17:49] LABS: VENOUS BASE EXCESS 17.3 mmol/L (-2-2); VENOUS O2 SATURATION 36.2 % (70-80); VENOUS PH 7.25 (7.310-7.410)
[2022-07-21 17:53] LABS: VENOUS PCO2 117.9 mmHg (38-52)
[2022-07-21 18:16] LABS: CALCIUM 9.4 mg/dL (8.5-10.1)
[2022-07-21 18:17] LABS: ALBUMIN 3.3 g/dl (3.4-5.0); BLOOD UREA NITROGEN 13.3 mg/dL (7-18)
[2022-07-21 18:19] LABS: CREATININE 0.7 mg/dL (0.55-1.3)
[2022-07-21 18:21] LABS: BILIRUBIN,TOTAL 0.4 mg/dL (0.2-1); TOT PROT 6.3 g/dl (6.4-8.2)
[2022-07-21] MEDS ORDERED: MAGNESIUM SULF 50% (8.12 MEQ/2 ML-1 GM VIAL) IVPB ONE (18:22)
[2022-07-21] MEDS ORDERED: POTASSIUM CHLORIDE ORAL LIQUID 20 MEQ/15 ML PO ONE (18:29)
[2022-07-21] MEDS ORDERED: POTASSIUM CHLORIDE ORAL LIQUID 20 MEQ/15 ML ONE (18:42)
[2022-07-21] MEDS ORDERED: MAGNESIUM SULFATE IN WATER 2 GM/50 ML IVPB IVPB ONE (18:42)
[2022-07-21] MEDS ORDERED: AZITHROMYCIN IVPB 500 MG in DEXTROSE 5%-WATER - 250 ML IVPB ONE (23:03)
[2022-07-21] MEDS ORDERED: CEFTRIAXONE 1,000 MG in DEXTROSE 5%-WATER - 50 ML IVPB ONE (23:03)
[2022-07-21] MEDS ORDERED: morphine CARPU-JECT 4 MG/1 ML DISP.SYRIN IVPUSH ONE (23:06)
[2022-07-21] MEDS ORDERED: morphine SULFATE 4 MG/ML VIAL ONE (23:06)
[2022-07-21] MEDS ORDERED: CEFTRIAXONE 1 GM/50 ML BAG ONE (23:07)
[2022-07-21] MEDS ORDERED: methylPREDNISolone NA SUCC 125 MG/2 ML VIAL IVPB ONE (23:17)
[2022-07-21] MEDS ORDERED: methylPREDNISolone NA SUCC 125 MG/2 ML VIAL ONE (23:25)
[2022-07-21] MEDS ORDERED: AZITHROMYCIN IVPB 500 MG/250 ML BAG IVPB ONE (23:25)
[2022-07-21] MEDS ORDERED: GABAPENTIN 100 MG CAPSULE PO ONE (23:31)
[2022-07-21] MEDS ORDERED: GABAPENTIN 300 MG CAPSULE ONE (23:31)
[2022-07-21] MEDS ORDERED: GABAPENTIN 300 MG CAPSULE PO ONE (23:33)
[2022-07-22 00:27] LABS: VENOUS BASE EXCESS 12.9 mmol/L (-2-2); VENOUS O2 SATURATION 69.6 % (70-80); VENOUS PH 7.304 (7.310-7.410)
[2022-07-22] MEDS ORDERED: ALBUTEROL SO4 2.5/IPRATROPIUM 0.5 INH SOL 3 ML VIAL.NEB. NEB PRN (09:31)
[2022-07-22] MEDS ORDERED: AZITHROMYCIN IVPB 250 MG in DEXTROSE 5%-WATER - 250 ML IVPB SCH (10:00)
[2022-07-22 11:03] LABS: HEMATOCRIT 38.6 % (32.4-45.2); HEMOGLOBIN 12.3 GM/dL (10.7-15.3); MCH 25.4 pg (25.7-33.7); MCHC 31.8 g/dl (32.0-36.0); MEAN PLT VOLUME 8.1 fl (7.5-11.1); PLATELET COUNT 175 10^3/uL (134-434); RBC 4.82 M/mm3 (3.60-5.2); RDW 16.9 % (11.6-15.6); WHITE BLOOD COUNT 5.5 K/mm3 (4.0-10.0)
[2022-07-22] MEDS: AZITHROMYCIN IVPB 250 MG in DEXTROSE 5%-WATER - 250 ML IVPB SCH (11:12)
[2022-07-22] MEDS: CEFTRIAXONE 1 GM in DEXTROSE 5%-WATER - 50 ML IVPB SCH (11:12)
[2022-07-22] MEDS: methylPREDNISolone NA SUCC 40 MG/1 ML VIAL IVPUSH SCH ×2 (11:12→18:02)
[2022-07-22] MEDS: FUROSEMIDE 40 MG TABLET (FP) PO SCH (11:13)
[2022-07-22] MEDS: APIXABAN 5 MG TABLET PO SCH ×2 (11:13→21:31)
[2022-07-22] MEDS: LORATADINE 10 MG TABLET PO SCH (11:13)
[2022-07-22] MEDS: SERTRALINE HCL 50 MG TABLET (FP) PO SCH (11:13)
[2022-07-22] MEDS: TIOTROPIUM BROMIDE 2.5 MCG (SPIRIVA) RESPIMAT INHALER IH SCH (11:13)
[2022-07-22] MEDS: AMIODARONE HCL 200 MG TABLET PO SCH (11:13)
[2022-07-22 11:22] LABS: POTASSIUM 4.3 mmol/L (3.5-5.1)
[2022-07-22 11:24] LABS: CALCIUM 9.8 mg/dL (8.5-10.1)
[2022-07-22 11:25] LABS: ALBUMIN 3.5 g/dl (3.4-5.0); BLOOD UREA NITROGEN 11.2 mg/dL (7-18)
[2022-07-22 11:28] LABS: CREATININE 0.8 mg/dL (0.55-1.3)
[2022-07-22 11:29] LABS: BILIRUBIN,TOTAL 0.3 mg/dL (0.2-1)
[2022-07-22 11:30] LABS: TOT PROT 6.8 g/dl (6.4-8.2)
[2022-07-22] MEDS: INSULIN SLIDING SCALE (NOVOLOG) 1 VIAL SQ SCH ×3 (13:00→23:28)
[2022-07-22 13:05] LABS: ANISOCYTOSIS 0; MACROCYTOSIS 0
[2022-07-22] MEDS: GABAPENTIN 100 MG CAPSULE PO SCH ×2 (14:58→21:28)
[2022-07-22] MEDS: SUCRALFATE 1 GM TABLET (FP) PO SCH ×3 (14:58→21:28)
[2022-07-22] MEDS: ATORVASTATIN CA 20 MG TABLET (FP) PO SCH (21:34)
[2022-07-22] MEDS: DOCUSATE SODIUM 100 MG CAPSULE (FP) PO SCH (21:34)
[2022-07-22] MEDS: PANTOPRAZOLE 40 MG TABLET PO SCH (23:29)
[2022-07-23] MEDS: methylPREDNISolone NA SUCC 40 MG/1 ML VIAL IVPUSH SCH ×3 (02:19→17:41)
[2022-07-23] MEDS: GABAPENTIN 100 MG CAPSULE PO SCH ×3 (06:16→21:09)
[2022-07-23] MEDS: INSULIN SLIDING SCALE (NOVOLOG) 1 VIAL SQ SCH ×4 (06:17→21:17)
[2022-07-23 06:38] LABS: HEMATOCRIT 36.2 % (32.4-45.2); HEMOGLOBIN 11.6 GM/dL (10.7-15.3); MCH 25.5 pg (25.7-33.7); MCHC 32.1 g/dl (32.0-36.0); MEAN CELL VOLUME 79.4 fl (80-96); MEAN PLT VOLUME 8.5 fl (7.5-11.1); PLATELET COUNT 168 10^3/uL (134-434); RBC 4.56 M/mm3 (3.60-5.2); RDW 16.6 % (11.6-15.6); WHITE BLOOD COUNT 6.8 K/mm3 (4.0-10.0)
[2022-07-23] MEDS ORDERED: PANTOPRAZOLE 40 MG TABLET PO SCH (07:00)
[2022-07-23 07:05] LABS: POTASSIUM 4.4 mmol/L (3.5-5.1)
[2022-07-23 07:11] LABS: CALCIUM 10.2 mg/dL (8.5-10.1)
[2022-07-23 07:12] LABS: ALBUMIN 3.4 g/dl (3.4-5.0); BLOOD UREA NITROGEN 19.3 mg/dL (7-18)
[2022-07-23 07:15] LABS: CREATININE 0.9 mg/dL (0.55-1.3)
[2022-07-23 07:16] LABS: BILIRUBIN,TOTAL 0.3 mg/dL (0.2-1); TOT PROT 6.7 g/dl (6.4-8.2)
[2022-07-23] MEDS: PANTOPRAZOLE 40 MG TABLET PO SCH ×2 (09:40→21:09)
[2022-07-23] MEDS: SUCRALFATE 1 GM TABLET (FP) PO SCH ×4 (09:40→21:09)
[2022-07-23] MEDS: SERTRALINE HCL 50 MG TABLET (FP) PO SCH (09:40)
[2022-07-23] MEDS: FUROSEMIDE 40 MG TABLET (FP) PO SCH (09:41)
[2022-07-23] MEDS: AMIODARONE HCL 200 MG TABLET PO SCH (09:41)
[2022-07-23] MEDS: APIXABAN 5 MG TABLET PO SCH ×2 (09:41→21:09)
[2022-07-23] MEDS: LORATADINE 10 MG TABLET PO SCH (09:41)
[2022-07-23] MEDS: CEFTRIAXONE 1 GM in DEXTROSE 5%-WATER - 50 ML IVPB SCH (09:41)
[2022-07-23] MEDS: TIOTROPIUM BROMIDE 2.5 MCG (SPIRIVA) RESPIMAT INHALER IH SCH (10:14)
[2022-07-23 10:21] LABS: ANISOCYTOSIS 0; HELMET CELLS 0; HOWELL-JOLLY BODIES 0; MACROCYTOSIS 0; OVALOCYTE 0; ROULEAU 0; SICKELED CELLS 0; TARGET CELLS 0; TEAR DROP CELLS 0; TOXIC GRANULATION 0
[2022-07-23] MEDS: AZITHROMYCIN IVPB 250 MG in DEXTROSE 5%-WATER - 250 ML IVPB SCH (10:48)
[2022-07-23] MEDS: ACETAMINOPHEN 325 MG TABLET (FP) PO PRN (17:07)
[2022-07-23] MEDS: DOCUSATE SODIUM 100 MG CAPSULE (FP) PO SCH (21:08)
[2022-07-23] MEDS: ATORVASTATIN CA 20 MG TABLET (FP) PO SCH (21:09)
[2022-07-24] MEDS: methylPREDNISolone NA SUCC 40 MG/1 ML VIAL IVPUSH SCH ×3 (02:16→17:15)
[2022-07-24] MEDS: ACETAMINOPHEN 325 MG TABLET (FP) PO PRN ×2 (02:24→17:15)
[2022-07-24] MEDS: GABAPENTIN 100 MG CAPSULE PO SCH ×3 (05:53→22:23)
[2022-07-24] MEDS: INSULIN SLIDING SCALE (NOVOLOG) 1 VIAL SQ SCH ×4 (06:19→22:23)
[2022-07-24] MEDS: SUCRALFATE 1 GM TABLET (FP) PO SCH ×4 (09:06→22:23)
[2022-07-24] MEDS: LORATADINE 10 MG TABLET PO SCH (09:06)
[2022-07-24] MEDS: APIXABAN 5 MG TABLET PO SCH ×2 (09:06→22:23)
[2022-07-24] MEDS: AMIODARONE HCL 200 MG TABLET PO SCH (09:06)
[2022-07-24] MEDS: FUROSEMIDE 40 MG TABLET (FP) PO SCH (09:06)
[2022-07-24] MEDS: CEFTRIAXONE 1 GM in DEXTROSE 5%-WATER - 50 ML IVPB SCH (09:07)
[2022-07-24] MEDS: SERTRALINE HCL 50 MG TABLET (FP) PO SCH (09:07)
[2022-07-24] MEDS: PANTOPRAZOLE 40 MG TABLET PO SCH ×2 (09:07→22:24)
[2022-07-24] MEDS: AZITHROMYCIN IVPB 250 MG in DEXTROSE 5%-WATER - 250 ML IVPB SCH (11:27)
[2022-07-24] MEDS ORDERED: INSULIN (NOVOLOG) ASPART 100 UNITS/ML 10ML VIAL ONE (11:53)
[2022-07-24] MEDS: TIOTROPIUM BROMIDE 2.5 MCG (SPIRIVA) RESPIMAT INHALER IH SCH (14:10)
[2022-07-24] MEDS: ATORVASTATIN CA 20 MG TABLET (FP) PO SCH (22:23)
[2022-07-24] MEDS: DOCUSATE SODIUM 100 MG CAPSULE (FP) PO SCH (22:23)
[2022-07-25] MEDS: ACETAMINOPHEN 325 MG TABLET (FP) PO PRN (00:54)
[2022-07-25] MEDS: methylPREDNISolone NA SUCC 40 MG/1 ML VIAL IVPUSH SCH ×3 (03:26→17:07)
[2022-07-25] MEDS: GABAPENTIN 100 MG CAPSULE PO SCH ×3 (05:53→21:44)
[2022-07-25] MEDS ORDERED: INSULIN (NOVOLOG) ASPART 100 UNITS/ML 10ML VIAL ONE ×3 (06:30→21:24)
[2022-07-25] MEDS: INSULIN SLIDING SCALE (NOVOLOG) 1 VIAL SQ SCH ×4 (06:32→21:45)
[2022-07-25] MEDS: SERTRALINE HCL 50 MG TABLET (FP) PO SCH (09:54)
[2022-07-25] MEDS: LORATADINE 10 MG TABLET PO SCH (09:54)
[2022-07-25] MEDS: APIXABAN 5 MG TABLET PO SCH ×2 (09:54→21:44)
[2022-07-25] MEDS: AMIODARONE HCL 200 MG TABLET PO SCH (09:54)
[2022-07-25] MEDS: CEFTRIAXONE 1 GM in DEXTROSE 5%-WATER - 50 ML IVPB SCH (09:54)
[2022-07-25] MEDS: SUCRALFATE 1 GM TABLET (FP) PO SCH ×4 (09:54→21:43)
[2022-07-25] MEDS: PANTOPRAZOLE 40 MG TABLET PO SCH ×2 (09:54→21:44)
[2022-07-25] MEDS: FUROSEMIDE 40 MG TABLET (FP) PO SCH (09:54)
[2022-07-25] MEDS: AZITHROMYCIN IVPB 250 MG in DEXTROSE 5%-WATER - 250 ML IVPB SCH (09:55)
[2022-07-25] MEDS: TIOTROPIUM BROMIDE 2.5 MCG (SPIRIVA) RESPIMAT INHALER IH SCH (09:55)
[2022-07-25] MEDS: ALBUTEROL SO4 2.5/IPRATROPIUM 0.5 INH SOL 3 ML VIAL.NEB. NEB SCH ×2 (16:24→20:40)
[2022-07-25] MEDS: DOCUSATE SODIUM 100 MG CAPSULE (FP) PO SCH (21:43)
[2022-07-25] MEDS: ATORVASTATIN CA 20 MG TABLET (FP) PO SCH (21:44)
[2022-07-26] MEDS: methylPREDNISolone NA SUCC 40 MG/1 ML VIAL IVPUSH SCH ×3 (03:32→17:39)
[2022-07-26] MEDS: INSULIN SLIDING SCALE (NOVOLOG) 1 VIAL SQ SCH ×4 (06:25→23:10)
[2022-07-26] MEDS: GABAPENTIN 100 MG CAPSULE PO SCH ×3 (06:25→23:01)
[2022-07-26] MEDS: ACETAMINOPHEN 325 MG TABLET (FP) PO PRN (06:28)
[2022-07-26 08:08] LABS: HEMATOCRIT 34.2 % (32.4-45.2); MCH 25.9 pg (25.7-33.7); MCHC 32.2 g/dl (32.0-36.0); MEAN CELL VOLUME 80.6 fl (80-96); MEAN PLT VOLUME 8.7 fl (7.5-11.1); PLATELET COUNT 151 10^3/uL (134-434); RBC 4.24 M/mm3 (3.60-5.2); RDW 16.6 % (11.6-15.6)
[2022-07-26 08:49] LABS: POTASSIUM 4.5 mmol/L (3.5-5.1)
[2022-07-26 09:05] LABS: ANISOCYTOSIS 0; HELMET CELLS 0; HOWELL-JOLLY BODIES 0; MACROCYTOSIS 0; OVALOCYTE 0; ROULEAU 0; SICKELED CELLS 0; TARGET CELLS 0; TEAR DROP CELLS 0; TOXIC GRANULATION 0
[2022-07-26 09:09] LABS: ALBUMIN 3.2 g/dl (3.4-5.0); CALCIUM 10.2 mg/dL (8.5-10.1)
[2022-07-26 09:10] LABS: BLOOD UREA NITROGEN 36.1 mg/dL (7-18)
[2022-07-26 09:11] LABS: CREATININE 0.9 mg/dL (0.55-1.3)
[2022-07-26 09:13] LABS: BILIRUBIN,TOTAL 0.2 mg/dL (0.2-1); TOT PROT 6.1 g/dl (6.4-8.2)
[2022-07-26] MEDS: ALBUTEROL SO4 2.5/IPRATROPIUM 0.5 INH SOL 3 ML VIAL.NEB. NEB SCH ×4 (10:14→20:50)
[2022-07-26] MEDS: AZITHROMYCIN IVPB 250 MG in DEXTROSE 5%-WATER - 250 ML IVPB SCH (10:18)
[2022-07-26] MEDS: CEFTRIAXONE 1 GM in DEXTROSE 5%-WATER - 50 ML IVPB SCH (10:18)
[2022-07-26] MEDS: APIXABAN 5 MG TABLET PO SCH ×2 (10:19→23:01)
[2022-07-26] MEDS: SERTRALINE HCL 50 MG TABLET (FP) PO SCH (10:19)
[2022-07-26] MEDS: PANTOPRAZOLE 40 MG TABLET PO SCH ×2 (10:19→23:02)
[2022-07-26] MEDS: AMIODARONE HCL 200 MG TABLET PO SCH (10:19)
[2022-07-26] MEDS: FUROSEMIDE 40 MG TABLET (FP) PO SCH (10:19)
[2022-07-26] MEDS: SUCRALFATE 1 GM TABLET (FP) PO SCH ×4 (10:19→23:02)
[2022-07-26] MEDS: LORATADINE 10 MG TABLET PO SCH (10:20)
[2022-07-26] MEDS ORDERED: INSULIN (NOVOLOG) ASPART 100 UNITS/ML 10ML VIAL ONE ×3 (12:03→23:10)
[2022-07-26 13:47] LABS: ARTERIAL BLD GAS O2 SATURATION 94.2 % (95-98); ARTERIAL BLOOD GAS BASE EXCESS 9.9 mmol/L (-2-2); ARTERIAL BLOOD GAS pH 7.246 (7.350-7.450)
[2022-07-26 13:51] LABS: ALLENS TEST POSITIVE
[2022-07-26] MEDS: FUROSEMIDE 40 MG/4 ML INJECTABLE VIAL IVPUSH SCH (15:03)
[2022-07-26 17:59] LABS: ARTERIAL BLOOD GAS BASE EXCESS 15.6 mmol/L (-2-2); ARTERIAL BLOOD GAS PO2 40.8 mmHg (80-100); ARTERIAL BLOOD GAS pH 7.345 (7.350-7.450)
[2022-07-26 18:05] LABS: ALLENS TEST POSITIVE
[2022-07-26] MEDS: ATORVASTATIN CA 20 MG TABLET (FP) PO SCH (23:01)
[2022-07-26] MEDS: DOCUSATE SODIUM 100 MG CAPSULE (FP) PO SCH (23:02)
[2022-07-27] MEDS: methylPREDNISolone NA SUCC 40 MG/1 ML VIAL IVPUSH SCH ×3 (03:30→18:20)
[2022-07-27] MEDS: INSULIN SLIDING SCALE (NOVOLOG) 1 VIAL SQ SCH ×4 (06:50→22:22)
[2022-07-27] MEDS: GABAPENTIN 100 MG CAPSULE PO SCH ×3 (06:50→22:25)
[2022-07-27] MEDS: ALBUTEROL SO4 2.5/IPRATROPIUM 0.5 INH SOL 3 ML VIAL.NEB. NEB SCH ×4 (08:25→21:42)
[2022-07-27] MEDS: SUCRALFATE 1 GM TABLET (FP) PO SCH ×4 (09:33→22:24)
[2022-07-27] MEDS: ACETAMINOPHEN 325 MG TABLET (FP) PO PRN ×2 (09:33→18:23)
[2022-07-27] MEDS: LORATADINE 10 MG TABLET PO SCH (09:33)
[2022-07-27] MEDS: APIXABAN 5 MG TABLET PO SCH ×2 (09:33→22:25)
[2022-07-27] MEDS: PANTOPRAZOLE 40 MG TABLET PO SCH ×2 (09:33→22:24)
[2022-07-27] MEDS: FUROSEMIDE 40 MG/4 ML INJECTABLE VIAL IVPUSH SCH (09:33)
[2022-07-27] MEDS: SERTRALINE HCL 50 MG TABLET (FP) PO SCH (09:34)
[2022-07-27] MEDS: AZITHROMYCIN IVPB 250 MG in DEXTROSE 5%-WATER - 250 ML IVPB SCH (09:34)
[2022-07-27] MEDS: AMIODARONE HCL 200 MG TABLET PO SCH (09:34)
[2022-07-27] MEDS: CEFTRIAXONE 1 GM in DEXTROSE 5%-WATER - 50 ML IVPB SCH (09:35)
[2022-07-27] MEDS ORDERED: INSULIN (NOVOLOG) ASPART 100 UNITS/ML 10ML VIAL ONE ×2 (12:18→22:20)
[2022-07-27] MEDS: ATORVASTATIN CA 20 MG TABLET (FP) PO SCH (22:24)
[2022-07-27] MEDS: DOCUSATE SODIUM 100 MG CAPSULE (FP) PO SCH (22:24)
[2022-07-28] MEDS: methylPREDNISolone NA SUCC 40 MG/1 ML VIAL IVPUSH SCH ×3 (01:19→17:41)
[2022-07-28] MEDS ORDERED: INSULIN (NOVOLOG) ASPART 100 UNITS/ML 10ML VIAL ONE ×4 (05:47→11:42)
[2022-07-28] MEDS: GABAPENTIN 100 MG CAPSULE PO SCH ×3 (05:48→22:19)
[2022-07-28] MEDS: INSULIN SLIDING SCALE (NOVOLOG) 1 VIAL SQ SCH ×4 (06:40→22:20)
[2022-07-28 07:34] LABS: MCH 25.5 pg (25.7-33.7); MCHC 32.2 g/dl (32.0-36.0); MEAN CELL VOLUME 79.1 fl (80-96); MEAN PLT VOLUME 8.7 fl (7.5-11.1); PLATELET COUNT 131 10^3/uL (134-434); RDW 16.6 % (11.6-15.6)
[2022-07-28 07:57] LABS: POTASSIUM 4.1 mmol/L (3.5-5.1)
[2022-07-28 08:00] LABS: ALBUMIN 3.2 g/dl (3.4-5.0); BLOOD UREA NITROGEN 36.2 mg/dL (7-18)
[2022-07-28 08:03] LABS: CREATININE 0.8 mg/dL (0.55-1.3)
[2022-07-28 08:05] LABS: BILIRUBIN,TOTAL 0.6 mg/dL (0.2-1); TOT PROT 5.9 g/dl (6.4-8.2)
[2022-07-28] MEDS: ALBUTEROL SO4 2.5/IPRATROPIUM 0.5 INH SOL 3 ML VIAL.NEB. NEB SCH ×4 (08:41→20:39)
[2022-07-28 08:55] LABS: ANISOCYTOSIS 0; HELMET CELLS 0; HOWELL-JOLLY BODIES 0; MACROCYTOSIS 0; OVALOCYTE 0; ROULEAU 0; SICKELED CELLS 0; TARGET CELLS 0; TEAR DROP CELLS 0; TOXIC GRANULATION 0
[2022-07-28] MEDS: CEFTRIAXONE 1 GM in DEXTROSE 5%-WATER - 50 ML IVPB SCH (09:30)
[2022-07-28] MEDS: SUCRALFATE 1 GM TABLET (FP) PO SCH ×4 (09:31→22:19)
[2022-07-28] MEDS: AMIODARONE HCL 200 MG TABLET PO SCH (09:31)
[2022-07-28] MEDS: LORATADINE 10 MG TABLET PO SCH (09:31)
[2022-07-28] MEDS: PANTOPRAZOLE 40 MG TABLET PO SCH ×2 (09:31→22:19)
[2022-07-28] MEDS: APIXABAN 5 MG TABLET PO SCH ×2 (09:31→22:19)
[2022-07-28] MEDS: FUROSEMIDE 40 MG/4 ML INJECTABLE VIAL IVPUSH SCH (09:31)
[2022-07-28] MEDS: SERTRALINE HCL 50 MG TABLET (FP) PO SCH (09:32)
[2022-07-28] MEDS: AZITHROMYCIN IVPB 250 MG in DEXTROSE 5%-WATER - 250 ML IVPB SCH (10:20)
[2022-07-28] MEDS: ACETAMINOPHEN 325 MG TABLET (FP) PO PRN ×2 (17:39→22:53)
[2022-07-28] MEDS: DOCUSATE SODIUM 100 MG CAPSULE (FP) PO SCH (22:19)
[2022-07-28] MEDS: ATORVASTATIN CA 20 MG TABLET (FP) PO SCH (22:19)
[2022-07-29] MEDS: methylPREDNISolone NA SUCC 40 MG/1 ML VIAL IVPUSH SCH ×3 (03:01→17:25)
[2022-07-29] MEDS: GABAPENTIN 100 MG CAPSULE PO SCH ×3 (06:42→22:06)
[2022-07-29] MEDS: INSULIN SLIDING SCALE (NOVOLOG) 1 VIAL SQ SCH ×4 (06:43→22:06)
[2022-07-29] MEDS: ACETAMINOPHEN 325 MG TABLET (FP) PO PRN ×2 (06:47→14:38)
[2022-07-29] MEDS: ALBUTEROL SO4 2.5/IPRATROPIUM 0.5 INH SOL 3 ML VIAL.NEB. NEB SCH ×4 (07:45→20:05)
[2022-07-29] MEDS: PANTOPRAZOLE 40 MG TABLET PO SCH ×2 (09:10→22:06)
[2022-07-29] MEDS: SERTRALINE HCL 50 MG TABLET (FP) PO SCH (09:11)
[2022-07-29] MEDS: AMIODARONE HCL 200 MG TABLET PO SCH (09:12)
[2022-07-29] MEDS: FUROSEMIDE 40 MG/4 ML INJECTABLE VIAL IVPUSH SCH (09:12)
[2022-07-29] MEDS: APIXABAN 5 MG TABLET PO SCH ×2 (09:12→22:06)
[2022-07-29] MEDS: LORATADINE 10 MG TABLET PO SCH (09:12)
[2022-07-29] MEDS: SUCRALFATE 1 GM TABLET (FP) PO SCH ×4 (10:12→22:06)
[2022-07-29] MEDS: ATORVASTATIN CA 20 MG TABLET (FP) PO SCH (22:06)
[2022-07-29] MEDS: DOCUSATE SODIUM 100 MG CAPSULE (FP) PO SCH (22:06)
[2022-07-30] MEDS: methylPREDNISolone NA SUCC 40 MG/1 ML VIAL IVPUSH SCH ×3 (02:50→14:18)
[2022-07-30] MEDS: GABAPENTIN 100 MG CAPSULE PO SCH ×3 (07:17→21:31)
[2022-07-30] MEDS: INSULIN SLIDING SCALE (NOVOLOG) 1 VIAL SQ SCH ×4 (07:17→21:29)
[2022-07-30] MEDS: ACETAMINOPHEN 325 MG TABLET (FP) PO PRN ×2 (07:20→13:37)
[2022-07-30] MEDS: ALBUTEROL SO4 2.5/IPRATROPIUM 0.5 INH SOL 3 ML VIAL.NEB. NEB SCH ×2 (08:10→11:25)
[2022-07-30] MEDS: SERTRALINE HCL 50 MG TABLET (FP) PO SCH (09:03)
[2022-07-30] MEDS: PANTOPRAZOLE 40 MG TABLET PO SCH ×2 (09:03→21:31)
[2022-07-30] MEDS: FUROSEMIDE 40 MG/4 ML INJECTABLE VIAL IVPUSH SCH (09:03)
[2022-07-30] MEDS: APIXABAN 5 MG TABLET PO SCH ×2 (09:03→21:31)
[2022-07-30] MEDS: AMIODARONE HCL 200 MG TABLET PO SCH (09:04)
[2022-07-30] MEDS: LORATADINE 10 MG TABLET PO SCH (09:04)
[2022-07-30] MEDS: SUCRALFATE 1 GM TABLET (FP) PO SCH ×4 (10:15→21:31)
[2022-07-30] MEDS ORDERED: INSULIN (NOVOLOG) ASPART 100 UNITS/ML 10ML VIAL ONE (11:07)
[2022-07-30] MEDS ORDERED: KETOROLAC TROMETHAMINE 30 MG/1 ML VIAL IVPUSH ONE (13:45)
[2022-07-30] MEDS: DOCUSATE SODIUM 100 MG CAPSULE (FP) PO SCH (21:31)
[2022-07-30] MEDS: ATORVASTATIN CA 20 MG TABLET (FP) PO SCH (21:31)
[2022-07-31] MEDS: methylPREDNISolone NA SUCC 40 MG/1 ML VIAL IVPUSH SCH ×2 (03:00→13:31)
[2022-07-31] MEDS: ACETAMINOPHEN 325 MG TABLET (FP) PO PRN ×2 (03:03→13:30)
[2022-07-31] MEDS: GABAPENTIN 100 MG CAPSULE PO SCH ×3 (06:12→21:51)
[2022-07-31] MEDS: INSULIN SLIDING SCALE (NOVOLOG) 1 VIAL SQ SCH ×4 (06:12→21:54)
[2022-07-31] MEDS: LORATADINE 10 MG TABLET PO SCH (09:42)
[2022-07-31] MEDS: SUCRALFATE 1 GM TABLET (FP) PO SCH ×4 (09:42→21:51)
[2022-07-31] MEDS: FUROSEMIDE 40 MG/4 ML INJECTABLE VIAL IVPUSH SCH (09:43)
[2022-07-31] MEDS: APIXABAN 5 MG TABLET PO SCH ×2 (09:43→21:51)
[2022-07-31] MEDS: PANTOPRAZOLE 40 MG TABLET PO SCH ×2 (09:43→21:51)
[2022-07-31] MEDS: SERTRALINE HCL 50 MG TABLET (FP) PO SCH (09:43)
[2022-07-31] MEDS: AMIODARONE HCL 200 MG TABLET PO SCH (09:44)
[2022-07-31] MEDS ORDERED: INSULIN (NOVOLOG) ASPART 100 UNITS/ML 10ML VIAL ONE (11:43)
[2022-07-31] MEDS: FLUTICASONE PROP 0.05% 16 GM NASAL SPRAY NS SCH ×2 (13:31→21:52)
[2022-07-31] MEDS: FLUTICASONE/UMECLIDIN/VILANTER(200-62.5-25 TRELEGY ELLIPTA) INAHLER IH SCH (13:31)
[2022-07-31] MEDS: ATORVASTATIN CA 20 MG TABLET (FP) PO SCH (21:51)
[2022-07-31] MEDS: DOCUSATE SODIUM 100 MG CAPSULE (FP) PO SCH (21:51)
[2022-08-01] MEDS: methylPREDNISolone NA SUCC 40 MG/1 ML VIAL IVPUSH SCH ×2 (00:29→13:46)
[2022-08-01] MEDS: INSULIN SLIDING SCALE (NOVOLOG) 1 VIAL SQ SCH ×4 (06:10→22:24)
[2022-08-01] MEDS: GABAPENTIN 100 MG CAPSULE PO SCH ×3 (06:10→22:23)
[2022-08-01 08:17] LABS: HEMATOCRIT 33.3 % (32.4-45.2); HEMOGLOBIN 10.8 GM/dL (10.7-15.3); MCHC 32.4 g/dl (32.0-36.0); MEAN CELL VOLUME 80.4 fl (80-96); MEAN PLT VOLUME 8.5 fl (7.5-11.1); PLATELET COUNT 106 10^3/uL (134-434); RBC 4.14 M/mm3 (3.60-5.2); RDW 16.3 % (11.6-15.6); WHITE BLOOD COUNT 8.2 K/mm3 (4.0-10.0)
[2022-08-01] MEDS: ACETAMINOPHEN 325 MG TABLET (FP) PO PRN (08:34)
[2022-08-01 08:42] LABS: CHLORIDE 94 mmol/L (98-107); POTASSIUM 4.5 mmol/L (3.5-5.1); SODIUM 140 mmol/L (136-145)
[2022-08-01 08:53] LABS: ALBUMIN 2.9 g/dl (3.4-5.0); BLOOD UREA NITROGEN 35.9 mg/dL (7-18); CALCIUM 9.5 mg/dL (8.5-10.1); CREATININE 0.8 mg/dL (0.55-1.3); GLUCOSE,RANDOM 236 mg/dL (74-106)
[2022-08-01 08:54] LABS: SGOT/AST 12 U/L (15-37)
[2022-08-01 08:55] LABS: BILIRUBIN,TOTAL 0.4 mg/dL (0.2-1); TOT PROT 5.7 g/dl (6.4-8.2)
[2022-08-01 08:57] LABS: ALK PHOS 85 U/L (45-117); SGPT/ALT 46 U/L (13-61)
[2022-08-01 09:15] LABS: ANION GAP 2 MMOL/L (8-16); CO2 > 45 mmol/L (21-32)
[2022-08-01] MEDS: SERTRALINE HCL 50 MG TABLET (FP) PO SCH (09:17)
[2022-08-01] MEDS: LORATADINE 10 MG TABLET PO SCH (09:18)
[2022-08-01] MEDS: AMIODARONE HCL 200 MG TABLET PO SCH (09:18)
[2022-08-01] MEDS: APIXABAN 5 MG TABLET PO SCH ×2 (09:22→22:23)
[2022-08-01] MEDS: SUCRALFATE 1 GM TABLET (FP) PO SCH ×4 (09:23→22:23)
[2022-08-01] MEDS: PANTOPRAZOLE 40 MG TABLET PO SCH ×2 (09:24→22:23)
[2022-08-01] MEDS: FUROSEMIDE 40 MG/4 ML INJECTABLE VIAL IVPUSH SCH (09:24)
[2022-08-01 09:33] LABS: ANISOCYTOSIS 0; MACROCYTOSIS 0
[2022-08-01] MEDS: FLUTICASONE PROP 0.05% 16 GM NASAL SPRAY NS SCH ×2 (09:36→22:23)
[2022-08-01] MEDS: FLUTICASONE/UMECLIDIN/VILANTER(200-62.5-25 TRELEGY ELLIPTA) INAHLER IH SCH (09:36)
[2022-08-01] MEDS ORDERED: INSULIN (NOVOLOG) ASPART 100 UNITS/ML 10ML VIAL ONE ×3 (12:31→22:26)
[2022-08-01] MEDS: DOCUSATE SODIUM 100 MG CAPSULE (FP) PO SCH (22:23)
[2022-08-01] MEDS: ATORVASTATIN CA 20 MG TABLET (FP) PO SCH (22:23)
[2022-08-02] MEDS: methylPREDNISolone NA SUCC 40 MG/1 ML VIAL IVPUSH SCH ×2 (02:04→12:58)
[2022-08-02] MEDS: ACETAMINOPHEN 325 MG TABLET (FP) PO PRN ×2 (04:58→20:35)
[2022-08-02] MEDS: GABAPENTIN 100 MG CAPSULE PO SCH ×3 (05:00→21:40)
[2022-08-02] MEDS ORDERED: INSULIN (NOVOLOG) ASPART 100 UNITS/ML 10ML VIAL ONE ×6 (06:33→21:37)
[2022-08-02] MEDS: INSULIN SLIDING SCALE (NOVOLOG) 1 VIAL SQ SCH ×4 (06:34→21:39)
[2022-08-02] MEDS: PANTOPRAZOLE 40 MG TABLET PO SCH ×2 (09:20→21:40)
[2022-08-02] MEDS: SUCRALFATE 1 GM TABLET (FP) PO SCH ×4 (09:20→21:40)
[2022-08-02] MEDS: SERTRALINE HCL 50 MG TABLET (FP) PO SCH (09:20)
[2022-08-02] MEDS: AMIODARONE HCL 200 MG TABLET PO SCH (09:21)
[2022-08-02] MEDS: FUROSEMIDE 40 MG/4 ML INJECTABLE VIAL IVPUSH SCH (09:21)
[2022-08-02] MEDS: APIXABAN 5 MG TABLET PO SCH ×2 (09:21→21:40)
[2022-08-02] MEDS: FLUTICASONE PROP 0.05% 16 GM NASAL SPRAY NS SCH ×2 (09:21→21:41)
[2022-08-02] MEDS: FLUTICASONE/UMECLIDIN/VILANTER(200-62.5-25 TRELEGY ELLIPTA) INAHLER IH SCH (09:21)
[2022-08-02] MEDS: LORATADINE 10 MG TABLET PO SCH (09:21)
[2022-08-02] MEDS: ATORVASTATIN CA 20 MG TABLET (FP) PO SCH (21:40)
[2022-08-02] MEDS: DOCUSATE SODIUM 100 MG CAPSULE (FP) PO SCH (21:40)
[2022-08-03] MEDS: methylPREDNISolone NA SUCC 40 MG/1 ML VIAL IVPUSH SCH ×2 (01:20→14:19)
[2022-08-03] MEDS ORDERED: INSULIN (NOVOLOG) ASPART 100 UNITS/ML 10ML VIAL ONE ×3 (06:53→17:31)
[2022-08-03] MEDS: GABAPENTIN 100 MG CAPSULE PO SCH ×3 (06:55→22:09)
[2022-08-03] MEDS: INSULIN SLIDING SCALE (NOVOLOG) 1 VIAL SQ SCH ×4 (06:55→22:11)
[2022-08-03] MEDS: SERTRALINE HCL 50 MG TABLET (FP) PO SCH (09:35)
[2022-08-03] MEDS: APIXABAN 5 MG TABLET PO SCH ×2 (09:35→22:10)
[2022-08-03] MEDS: SUCRALFATE 1 GM TABLET (FP) PO SCH ×4 (09:35→22:10)
[2022-08-03] MEDS: PANTOPRAZOLE 40 MG TABLET PO SCH ×2 (09:35→22:10)
[2022-08-03] MEDS: LORATADINE 10 MG TABLET PO SCH (09:35)
[2022-08-03] MEDS: AMIODARONE HCL 200 MG TABLET PO SCH (09:35)
[2022-08-03] MEDS: FUROSEMIDE 40 MG/4 ML INJECTABLE VIAL IVPUSH SCH (09:35)
[2022-08-03] MEDS: FLUTICASONE PROP 0.05% 16 GM NASAL SPRAY NS SCH ×2 (09:36→22:18)
[2022-08-03] MEDS: FLUTICASONE/UMECLIDIN/VILANTER(200-62.5-25 TRELEGY ELLIPTA) INAHLER IH SCH (09:36)
[2022-08-03] MEDS: ACETAMINOPHEN 325 MG TABLET (FP) PO PRN (18:47)
[2022-08-03] MEDS: DOCUSATE SODIUM 100 MG CAPSULE (FP) PO SCH (22:10)
[2022-08-03] MEDS: POLYETHYLENE GLYCOL (HEALTHYLAX) 3350 17 GM PACKET PO SCH (22:10)
[2022-08-03] MEDS: ATORVASTATIN CA 20 MG TABLET (FP) PO SCH (22:10)
[2022-08-04] MEDS: methylPREDNISolone NA SUCC 40 MG/1 ML VIAL IVPUSH SCH ×2 (01:58→13:44)
[2022-08-04] MEDS: INSULIN SLIDING SCALE (NOVOLOG) 1 VIAL SQ SCH ×4 (06:21→21:05)
[2022-08-04] MEDS: GABAPENTIN 100 MG CAPSULE PO SCH ×3 (06:22→21:04)
[2022-08-04] MEDS: ACETAMINOPHEN 325 MG TABLET (FP) PO PRN ×2 (06:22→21:05)
[2022-08-04 08:17] LABS: HEMATOCRIT 34.8 % (32.4-45.2); HEMOGLOBIN 10.9 GM/dL (10.7-15.3); MCH 25.8 pg (25.7-33.7); MCHC 31.5 g/dl (32.0-36.0); MEAN CELL VOLUME 81.9 fl (80-96); MEAN PLT VOLUME 9.1 fl (7.5-11.1); PLATELET COUNT 105 10^3/uL (134-434); RBC 4.25 M/mm3 (3.60-5.2); RDW 17.1 % (11.6-15.6); WHITE BLOOD COUNT 8.1 K/mm3 (4.0-10.0)
[2022-08-04 08:58] LABS: POTASSIUM 4.3 mmol/L (3.5-5.1)
[2022-08-04 09:07] LABS: ALBUMIN 3.1 g/dl (3.4-5.0); BLOOD UREA NITROGEN 36.3 mg/dL (7-18)
[2022-08-04 09:09] LABS: ANISOCYTOSIS 0; CREATININE 0.8 mg/dL (0.55-1.3); HELMET CELLS 0; HOWELL-JOLLY BODIES 0; MACROCYTOSIS 0; OVALOCYTE 0; ROULEAU 0; SICKELED CELLS 0; TARGET CELLS 0; TEAR DROP CELLS 0; TOXIC GRANULATION 0
[2022-08-04 09:11] LABS: BILIRUBIN,TOTAL 0.4 mg/dL (0.2-1); TOT PROT 5.6 g/dl (6.4-8.2)
[2022-08-04] MEDS: SUCRALFATE 1 GM TABLET (FP) PO SCH ×4 (10:05→21:04)
[2022-08-04] MEDS: APIXABAN 5 MG TABLET PO SCH ×2 (10:05→21:04)
[2022-08-04] MEDS: LORATADINE 10 MG TABLET PO SCH (10:06)
[2022-08-04] MEDS: SERTRALINE HCL 50 MG TABLET (FP) PO SCH (10:06)
[2022-08-04] MEDS: PANTOPRAZOLE 40 MG TABLET PO SCH ×2 (10:06→21:04)
[2022-08-04] MEDS: AMIODARONE HCL 200 MG TABLET PO SCH (10:06)
[2022-08-04] MEDS: FUROSEMIDE 40 MG/4 ML INJECTABLE VIAL IVPUSH SCH (10:07)
[2022-08-04] MEDS: FLUTICASONE/UMECLIDIN/VILANTER(200-62.5-25 TRELEGY ELLIPTA) INAHLER IH SCH (10:08)
[2022-08-04] MEDS: POLYETHYLENE GLYCOL (HEALTHYLAX) 3350 17 GM PACKET PO SCH ×2 (10:08→21:04)
[2022-08-04] MEDS: FLUTICASONE PROP 0.05% 16 GM NASAL SPRAY NS SCH ×2 (10:09→21:12)
[2022-08-04] MEDS ORDERED: INSULIN (NOVOLOG) ASPART 100 UNITS/ML 10ML VIAL ONE ×3 (12:13→21:00)
[2022-08-04] MEDS: ATORVASTATIN CA 20 MG TABLET (FP) PO SCH (21:04)
[2022-08-04] MEDS: DOCUSATE SODIUM 100 MG CAPSULE (FP) PO SCH (21:04)
[2022-08-05] MEDS ORDERED: INSULIN (NOVOLOG) ASPART 100 UNITS/ML 10ML VIAL ONE (06:56)
[2022-08-05] MEDS: methylPREDNISolone NA SUCC 40 MG/1 ML VIAL IVPUSH SCH ×2 (07:02→13:14)
[2022-08-05] MEDS: INSULIN (LEVEMIR) 100 UNITS/ML UNITS SQ SCH ×2 (07:02→22:13)
[2022-08-05] MEDS: GABAPENTIN 100 MG CAPSULE PO SCH ×3 (07:02→21:53)
[2022-08-05] MEDS: INSULIN SLIDING SCALE (NOVOLOG) 1 VIAL SQ SCH ×4 (07:04→22:14)
[2022-08-05] MEDS: INSULIN (NOVOLOG) ASPART 100 UNITS/ML 10ML VIAL SQ SCH ×3 (07:04→17:27)
[2022-08-05] MEDS: PANTOPRAZOLE 40 MG TABLET PO SCH ×2 (09:31→21:53)
[2022-08-05] MEDS: SUCRALFATE 1 GM TABLET (FP) PO SCH ×4 (09:31→21:53)
[2022-08-05] MEDS: APIXABAN 5 MG TABLET PO SCH ×2 (09:31→21:53)
[2022-08-05] MEDS: POLYETHYLENE GLYCOL (HEALTHYLAX) 3350 17 GM PACKET PO SCH ×2 (09:31→21:53)
[2022-08-05] MEDS: AMIODARONE HCL 200 MG TABLET PO SCH (09:31)
[2022-08-05] MEDS: SERTRALINE HCL 50 MG TABLET (FP) PO SCH (09:31)
[2022-08-05] MEDS: LORATADINE 10 MG TABLET PO SCH (09:31)
[2022-08-05] MEDS: FUROSEMIDE 40 MG/4 ML INJECTABLE VIAL IVPUSH SCH ×2 (09:31→13:13)
[2022-08-05] MEDS: FLUTICASONE PROP 0.05% 16 GM NASAL SPRAY NS SCH ×2 (09:45→22:14)
[2022-08-05] MEDS: FLUTICASONE/UMECLIDIN/VILANTER(200-62.5-25 TRELEGY ELLIPTA) INAHLER IH SCH (09:45)
[2022-08-05] MEDS: ACETAMINOPHEN 325 MG TABLET (FP) PO PRN (13:14)
[2022-08-05] MEDS: ATORVASTATIN CA 20 MG TABLET (FP) PO SCH (21:53)
[2022-08-05] MEDS: DOCUSATE SODIUM 100 MG CAPSULE (FP) PO SCH (21:53)
[2022-08-05] MEDS: SACUBITRIL/VALSARTAN 24 MG-26 MG TABLET PO SCH (21:53)
[2022-08-06] MEDS: methylPREDNISolone NA SUCC 40 MG/1 ML VIAL IVPUSH SCH ×2 (02:00→12:45)
[2022-08-06] MEDS: GABAPENTIN 100 MG CAPSULE PO SCH ×3 (06:04→21:03)
[2022-08-06] MEDS: INSULIN (LEVEMIR) 100 UNITS/ML UNITS SQ SCH ×2 (06:05→22:16)
[2022-08-06] MEDS: INSULIN (NOVOLOG) ASPART 100 UNITS/ML 10ML VIAL SQ SCH ×3 (06:05→17:28)
[2022-08-06] MEDS: INSULIN SLIDING SCALE (NOVOLOG) 1 VIAL SQ SCH ×4 (06:06→22:15)
[2022-08-06] MEDS: ACETAMINOPHEN 325 MG TABLET (FP) PO PRN ×2 (06:08→21:05)
[2022-08-06] MEDS: PANTOPRAZOLE 40 MG TABLET PO SCH ×2 (09:26→21:04)
[2022-08-06] MEDS: SERTRALINE HCL 50 MG TABLET (FP) PO SCH (09:26)
[2022-08-06] MEDS: SACUBITRIL/VALSARTAN 24 MG-26 MG TABLET PO SCH ×2 (09:26→21:04)
[2022-08-06] MEDS: AMIODARONE HCL 200 MG TABLET PO SCH (09:26)
[2022-08-06] MEDS: APIXABAN 5 MG TABLET PO SCH ×2 (09:26→21:04)
[2022-08-06] MEDS: FUROSEMIDE 40 MG/4 ML INJECTABLE VIAL IVPUSH SCH (09:26)
[2022-08-06] MEDS: POLYETHYLENE GLYCOL (HEALTHYLAX) 3350 17 GM PACKET PO SCH ×2 (09:26→21:07)
[2022-08-06] MEDS: LORATADINE 10 MG TABLET PO SCH (09:27)
[2022-08-06] MEDS: SUCRALFATE 1 GM TABLET (FP) PO SCH ×4 (09:27→21:11)
[2022-08-06] MEDS: FLUTICASONE PROP 0.05% 16 GM NASAL SPRAY NS SCH (09:27)
[2022-08-06] MEDS: FLUTICASONE/UMECLIDIN/VILANTER(200-62.5-25 TRELEGY ELLIPTA) INAHLER IH SCH (09:28)
[2022-08-06] MEDS: ATORVASTATIN CA 20 MG TABLET (FP) PO SCH (21:04)
[2022-08-06] MEDS: DOCUSATE SODIUM 100 MG CAPSULE (FP) PO SCH (21:06)
[2022-08-07] MEDS: methylPREDNISolone NA SUCC 40 MG/1 ML VIAL IVPUSH SCH (02:19)
[2022-08-07] MEDS: INSULIN (LEVEMIR) 100 UNITS/ML UNITS SQ SCH ×2 (06:07→23:04)
[2022-08-07] MEDS: GABAPENTIN 100 MG CAPSULE PO SCH ×3 (06:08→22:50)
[2022-08-07] MEDS: FLUTICASONE PROP 0.05% 16 GM NASAL SPRAY NS SCH ×3 (06:10→23:02)
[2022-08-07] MEDS: INSULIN SLIDING SCALE (NOVOLOG) 1 VIAL SQ SCH ×4 (06:14→22:35)
[2022-08-07] MEDS: INSULIN (NOVOLOG) ASPART 100 UNITS/ML 10ML VIAL SQ SCH ×3 (06:15→17:05)
[2022-08-07] MEDS: PANTOPRAZOLE 40 MG TABLET PO SCH ×2 (09:57→22:51)
[2022-08-07] MEDS: AMIODARONE HCL 200 MG TABLET PO SCH (09:57)
[2022-08-07] MEDS: SUCRALFATE 1 GM TABLET (FP) PO SCH ×4 (09:57→22:51)
[2022-08-07] MEDS: FUROSEMIDE 40 MG/4 ML INJECTABLE VIAL IVPUSH SCH (09:57)
[2022-08-07] MEDS: SERTRALINE HCL 50 MG TABLET (FP) PO SCH (09:57)
[2022-08-07] MEDS: SACUBITRIL/VALSARTAN 24 MG-26 MG TABLET PO SCH ×2 (09:57→22:51)
[2022-08-07] MEDS: LORATADINE 10 MG TABLET PO SCH (09:57)
[2022-08-07] MEDS: APIXABAN 5 MG TABLET PO SCH ×2 (09:57→22:50)
[2022-08-07] MEDS: FLUTICASONE/UMECLIDIN/VILANTER(200-62.5-25 TRELEGY ELLIPTA) INAHLER IH SCH (09:57)
[2022-08-07] MEDS: POLYETHYLENE GLYCOL (HEALTHYLAX) 3350 17 GM PACKET PO SCH ×2 (09:58→22:51)
[2022-08-07] MEDS ORDERED: INSULIN (NOVOLOG) ASPART 100 UNITS/ML 10ML VIAL ONE (16:37)
[2022-08-07] MEDS: ACETAMINOPHEN 325 MG TABLET (FP) PO PRN (22:50)
[2022-08-07] MEDS: ATORVASTATIN CA 20 MG TABLET (FP) PO SCH (22:51)
[2022-08-07] MEDS: DOCUSATE SODIUM 100 MG CAPSULE (FP) PO SCH (22:51)
[2022-08-08] MEDS: INSULIN (LEVEMIR) 100 UNITS/ML UNITS SQ SCH ×2 (06:13→22:48)
[2022-08-08] MEDS: GABAPENTIN 100 MG CAPSULE PO SCH ×3 (06:24→22:47)
[2022-08-08] MEDS: INSULIN SLIDING SCALE (NOVOLOG) 1 VIAL SQ SCH ×4 (07:23→22:48)
[2022-08-08] MEDS ORDERED: INSULIN (NOVOLOG) ASPART 100 UNITS/ML 10ML VIAL ONE ×2 (07:46→22:39)
[2022-08-08] MEDS: INSULIN (NOVOLOG) ASPART 100 UNITS/ML 10ML VIAL SQ SCH ×3 (07:51→17:35)
[2022-08-08] MEDS: FUROSEMIDE 40 MG/4 ML INJECTABLE VIAL IVPUSH SCH (10:05)
[2022-08-08] MEDS: methylPREDNISolone NA SUCC 40 MG/1 ML VIAL IVPUSH SCH (10:05)
[2022-08-08] MEDS: PANTOPRAZOLE 40 MG TABLET PO SCH ×2 (10:05→22:47)
[2022-08-08] MEDS: POLYETHYLENE GLYCOL (HEALTHYLAX) 3350 17 GM PACKET PO SCH ×2 (10:06→22:48)
[2022-08-08] MEDS: APIXABAN 5 MG TABLET PO SCH ×2 (10:06→22:47)
[2022-08-08] MEDS: SACUBITRIL/VALSARTAN 24 MG-26 MG TABLET PO SCH ×2 (10:06→22:47)
[2022-08-08] MEDS: SUCRALFATE 1 GM TABLET (FP) PO SCH ×4 (10:06→22:47)
[2022-08-08] MEDS: SERTRALINE HCL 50 MG TABLET (FP) PO SCH (10:06)
[2022-08-08] MEDS: AMIODARONE HCL 200 MG TABLET PO SCH (10:06)
[2022-08-08] MEDS: LORATADINE 10 MG TABLET PO SCH (10:06)
[2022-08-08] MEDS: FLUTICASONE PROP 0.05% 16 GM NASAL SPRAY NS SCH ×2 (10:23→22:53)
[2022-08-08] MEDS: FLUTICASONE/UMECLIDIN/VILANTER(200-62.5-25 TRELEGY ELLIPTA) INAHLER IH SCH (10:23)
[2022-08-08 10:40] LABS: BASO % 0.2 % (0-2.0); EOS % 1.2 % (0-4.5); HEMATOCRIT 37.6 % (32.4-45.2); HEMOGLOBIN 11.9 GM/dL (10.7-15.3); LYMPH % 4.4 % (8-40); MCHC 31.5 g/dl (32.0-36.0); MEAN CELL VOLUME 82.4 fl (80-96); MEAN PLT VOLUME 8.7 fl (7.5-11.1); MONO % 8.3 % (3.8-10.2); NEUT % 85.9 % (42.8-82.8); PLATELET COUNT 109 10^3/uL (134-434); RBC 4.57 M/mm3 (3.60-5.2); RDW 17.4 % (11.6-15.6); WHITE BLOOD COUNT 10.3 K/mm3 (4.0-10.0)
[2022-08-08 10:44] LABS: POTASSIUM 3.6 mmol/L (3.5-5.1)
[2022-08-08 11:03] LABS: CALCIUM 10.1 mg/dL (8.5-10.1)
[2022-08-08 11:04] LABS: ALBUMIN 3.4 g/dl (3.4-5.0); BLOOD UREA NITROGEN 35.8 mg/dL (7-18)
[2022-08-08 11:08] LABS: CREATININE 0.9 mg/dL (0.55-1.3)
[2022-08-08 11:09] LABS: BILIRUBIN,TOTAL 0.7 mg/dL (0.2-1); TOT PROT 6.3 g/dl (6.4-8.2)
[2022-08-08] MEDS ORDERED: INSULIN (LEVEMIR) 100 UNITS/ML UNITS SQ ONE (22:41)
[2022-08-08] MEDS: DOCUSATE SODIUM 100 MG CAPSULE (FP) PO SCH (22:47)
[2022-08-08] MEDS: ATORVASTATIN CA 20 MG TABLET (FP) PO SCH (22:47)
[2022-08-09] MEDS: INSULIN SLIDING SCALE (NOVOLOG) 1 VIAL SQ SCH ×4 (06:43→22:31)
[2022-08-09] MEDS: INSULIN (NOVOLOG) ASPART 100 UNITS/ML 10ML VIAL SQ SCH ×3 (06:45→17:27)
[2022-08-09] MEDS: INSULIN (LEVEMIR) 100 UNITS/ML UNITS SQ SCH ×2 (06:45→22:31)
[2022-08-09] MEDS: GABAPENTIN 100 MG CAPSULE PO SCH ×3 (06:48→22:32)
[2022-08-09] MEDS: SACUBITRIL/VALSARTAN 24 MG-26 MG TABLET PO SCH ×2 (09:46→22:31)
[2022-08-09] MEDS: POLYETHYLENE GLYCOL (HEALTHYLAX) 3350 17 GM PACKET PO SCH ×2 (09:47→22:33)
[2022-08-09] MEDS: LORATADINE 10 MG TABLET PO SCH (09:47)
[2022-08-09] MEDS: FUROSEMIDE 40 MG/4 ML INJECTABLE VIAL IVPUSH SCH (09:47)
[2022-08-09] MEDS: PANTOPRAZOLE 40 MG TABLET PO SCH ×2 (09:47→22:32)
[2022-08-09] MEDS: AMIODARONE HCL 200 MG TABLET PO SCH (09:47)
[2022-08-09] MEDS: APIXABAN 5 MG TABLET PO SCH ×2 (09:47→22:32)
[2022-08-09] MEDS: SUCRALFATE 1 GM TABLET (FP) PO SCH ×4 (09:47→22:32)
[2022-08-09] MEDS: SERTRALINE HCL 50 MG TABLET (FP) PO SCH (09:47)
[2022-08-09] MEDS: methylPREDNISolone NA SUCC 40 MG/1 ML VIAL IVPUSH SCH (09:47)
[2022-08-09] MEDS: FLUTICASONE/UMECLIDIN/VILANTER(200-62.5-25 TRELEGY ELLIPTA) INAHLER IH SCH (09:48)
[2022-08-09] MEDS: FLUTICASONE PROP 0.05% 16 GM NASAL SPRAY NS SCH ×2 (09:48→22:30)
[2022-08-09] MEDS: ACETAMINOPHEN 325 MG TABLET (FP) PO PRN ×2 (09:56→22:41)
[2022-08-09] MEDS ORDERED: INSULIN (NOVOLOG) ASPART 100 UNITS/ML 10ML VIAL ONE ×2 (12:05→22:28)
[2022-08-09] MEDS ORDERED: INSULIN (LEVEMIR) 100 UNITS/ML UNITS SQ ONE (22:28)
[2022-08-09] MEDS: ATORVASTATIN CA 20 MG TABLET (FP) PO SCH (22:32)
[2022-08-09] MEDS: DOCUSATE SODIUM 100 MG CAPSULE (FP) PO SCH (22:32)
[2022-08-10] MEDS: GABAPENTIN 100 MG CAPSULE PO SCH ×3 (06:43→22:17)
[2022-08-10] MEDS: INSULIN SLIDING SCALE (NOVOLOG) 1 VIAL SQ SCH ×4 (06:43→22:26)
[2022-08-10] MEDS: INSULIN (LEVEMIR) 100 UNITS/ML UNITS SQ SCH ×2 (06:45→22:24)
[2022-08-10] MEDS: INSULIN (NOVOLOG) ASPART 100 UNITS/ML 10ML VIAL SQ SCH ×3 (06:45→17:28)
[2022-08-10] MEDS: ACETAMINOPHEN 325 MG TABLET (FP) PO PRN ×3 (06:47→22:16)
[2022-08-10] MEDS: SERTRALINE HCL 50 MG TABLET (FP) PO SCH (09:37)
[2022-08-10] MEDS: APIXABAN 5 MG TABLET PO SCH ×2 (09:37→22:17)
[2022-08-10] MEDS: POLYETHYLENE GLYCOL (HEALTHYLAX) 3350 17 GM PACKET PO SCH ×2 (09:37→22:16)
[2022-08-10] MEDS: FUROSEMIDE 40 MG/4 ML INJECTABLE VIAL IVPUSH SCH (09:38)
[2022-08-10] MEDS: FLUTICASONE/UMECLIDIN/VILANTER(200-62.5-25 TRELEGY ELLIPTA) INAHLER IH SCH (09:38)
[2022-08-10] MEDS: SACUBITRIL/VALSARTAN 24 MG-26 MG TABLET PO SCH ×2 (09:38→22:18)
[2022-08-10] MEDS: FLUTICASONE PROP 0.05% 16 GM NASAL SPRAY NS SCH ×2 (09:38→22:23)
[2022-08-10] MEDS: PANTOPRAZOLE 40 MG TABLET PO SCH ×2 (09:38→22:16)
[2022-08-10] MEDS: AMIODARONE HCL 200 MG TABLET PO SCH (09:38)
[2022-08-10] MEDS: SUCRALFATE 1 GM TABLET (FP) PO SCH ×4 (09:38→22:17)
[2022-08-10] MEDS: methylPREDNISolone NA SUCC 40 MG/1 ML VIAL IVPUSH SCH (09:38)
[2022-08-10] MEDS: LORATADINE 10 MG TABLET PO SCH (09:38)
[2022-08-10] MEDS: DOCUSATE SODIUM 100 MG CAPSULE (FP) PO SCH (22:17)
[2022-08-10] MEDS: ATORVASTATIN CA 20 MG TABLET (FP) PO SCH (22:17)
[2022-08-11] MEDS: ACETAMINOPHEN 325 MG TABLET (FP) PO PRN ×3 (05:29→22:58)
[2022-08-11] MEDS: GABAPENTIN 100 MG CAPSULE PO SCH ×3 (05:29→21:45)
[2022-08-11] MEDS: INSULIN SLIDING SCALE (NOVOLOG) 1 VIAL SQ SCH ×4 (06:26→21:46)
[2022-08-11] MEDS: INSULIN (LEVEMIR) 100 UNITS/ML UNITS SQ SCH ×2 (07:14→21:45)
[2022-08-11] MEDS: INSULIN (NOVOLOG) ASPART 100 UNITS/ML 10ML VIAL SQ SCH ×3 (07:16→17:36)
[2022-08-11] MEDS: SUCRALFATE 1 GM TABLET (FP) PO SCH ×4 (10:27→21:45)
[2022-08-11] MEDS: SACUBITRIL/VALSARTAN 24 MG-26 MG TABLET PO SCH ×2 (10:27→21:47)
[2022-08-11] MEDS: SERTRALINE HCL 50 MG TABLET (FP) PO SCH (10:27)
[2022-08-11] MEDS: APIXABAN 5 MG TABLET PO SCH ×2 (10:27→21:45)
[2022-08-11] MEDS: AMIODARONE HCL 200 MG TABLET PO SCH (10:27)
[2022-08-11] MEDS: PANTOPRAZOLE 40 MG TABLET PO SCH ×2 (10:28→21:45)
[2022-08-11] MEDS: FLUTICASONE PROP 0.05% 16 GM NASAL SPRAY NS SCH ×2 (10:28→21:48)
[2022-08-11] MEDS: POLYETHYLENE GLYCOL (HEALTHYLAX) 3350 17 GM PACKET PO SCH ×2 (10:28→21:47)
[2022-08-11] MEDS: FLUTICASONE/UMECLIDIN/VILANTER(200-62.5-25 TRELEGY ELLIPTA) INAHLER IH SCH (10:28)
[2022-08-11] MEDS: LORATADINE 10 MG TABLET PO SCH (10:28)
[2022-08-11] MEDS: methylPREDNISolone NA SUCC 40 MG/1 ML VIAL IVPUSH SCH (10:28)
[2022-08-11] MEDS: FUROSEMIDE 40 MG/4 ML INJECTABLE VIAL IVPUSH SCH (10:28)
[2022-08-11] MEDS ORDERED: INSULIN (NOVOLOG) ASPART 100 UNITS/ML 10ML VIAL ONE (21:39)
[2022-08-11] MEDS: ATORVASTATIN CA 20 MG TABLET (FP) PO SCH (21:45)
[2022-08-11] MEDS: DOCUSATE SODIUM 100 MG CAPSULE (FP) PO SCH (21:46)
[2022-08-12 00:16] VITALS: BMI 48.7
[2022-08-12] MEDS: ACETAMINOPHEN 325 MG TABLET (FP) PO PRN ×3 (05:13→22:03)
[2022-08-12] MEDS: GABAPENTIN 100 MG CAPSULE PO SCH ×3 (05:15→21:32)
[2022-08-12] MEDS: INSULIN (NOVOLOG) ASPART 100 UNITS/ML 10ML VIAL SQ SCH ×3 (06:34→17:22)
[2022-08-12] MEDS: INSULIN SLIDING SCALE (NOVOLOG) 1 VIAL SQ SCH ×4 (06:34→21:39)
[2022-08-12] MEDS: INSULIN (LEVEMIR) 100 UNITS/ML UNITS SQ SCH ×2 (07:02→21:39)
[2022-08-12 08:51] LABS: BASO % 0.2 % (0-2.0); EOS % 1.1 % (0-4.5); HEMATOCRIT 33.7 % (32.4-45.2); HEMOGLOBIN 10.6 GM/dL (10.7-15.3); LYMPH % 5.5 % (8-40); MCH 25.9 pg (25.7-33.7); MCHC 31.6 g/dl (32.0-36.0); MEAN CELL VOLUME 82.2 fl (80-96); MEAN PLT VOLUME 8.7 fl (7.5-11.1); MONO % 7.4 % (3.8-10.2); NEUT % 85.8 % (42.8-82.8); PLATELET COUNT 93 10^3/uL (134-434); RBC 4.11 M/mm3 (3.60-5.2); RDW 17.3 % (11.6-15.6); WHITE BLOOD COUNT 5.9 K/mm3 (4.0-10.0)
[2022-08-12 09:06] LABS: CHLORIDE 93 mmol/L (98-107); POTASSIUM 4.2 mmol/L (3.5-5.1); SODIUM 139 mmol/L (136-145)
[2022-08-12 09:12] LABS: ALBUMIN 3.2 g/dl (3.4-5.0); BLOOD UREA NITROGEN 33.7 mg/dL (7-18); CALCIUM 10.1 mg/dL (8.5-10.1)
[2022-08-12 09:13] LABS: GLUCOSE,RANDOM 195 mg/dL (74-106)
[2022-08-12 09:15] LABS: CREATININE 0.9 mg/dL (0.55-1.3); SGOT/AST 15 U/L (15-37); SGPT/ALT 41 U/L (13-61)
[2022-08-12 09:17] LABS: BILIRUBIN,TOTAL 0.4 mg/dL (0.2-1)
[2022-08-12 09:18] LABS: ALK PHOS 91 U/L (45-117)
[2022-08-12] MEDS: FUROSEMIDE 40 MG/4 ML INJECTABLE VIAL IVPUSH SCH (09:28)
[2022-08-12] MEDS: POLYETHYLENE GLYCOL (HEALTHYLAX) 3350 17 GM PACKET PO SCH ×2 (09:28→21:33)
[2022-08-12] MEDS: AMIODARONE HCL 200 MG TABLET PO SCH (09:28)
[2022-08-12] MEDS: APIXABAN 5 MG TABLET PO SCH ×2 (09:28→21:31)
[2022-08-12] MEDS: methylPREDNISolone NA SUCC 40 MG/1 ML VIAL IVPUSH SCH (09:28)
[2022-08-12] MEDS: SUCRALFATE 1 GM TABLET (FP) PO SCH ×4 (09:29→21:32)
[2022-08-12] MEDS: SERTRALINE HCL 50 MG TABLET (FP) PO SCH (09:29)
[2022-08-12] MEDS: PANTOPRAZOLE 40 MG TABLET PO SCH ×2 (09:29→21:35)
[2022-08-12] MEDS: SACUBITRIL/VALSARTAN 24 MG-26 MG TABLET PO SCH ×2 (09:29→21:33)
[2022-08-12] MEDS: FLUTICASONE/UMECLIDIN/VILANTER(200-62.5-25 TRELEGY ELLIPTA) INAHLER IH SCH (09:30)
[2022-08-12] MEDS: FLUTICASONE PROP 0.05% 16 GM NASAL SPRAY NS SCH ×2 (09:30→21:31)
[2022-08-12 09:31] LABS: ANION GAP 1 MMOL/L (8-16); CO2 > 45 mmol/L (21-32)
[2022-08-12] MEDS: LORATADINE 10 MG TABLET PO SCH (11:22)
[2022-08-12] MEDS ORDERED: INSULIN (NOVOLOG) ASPART 100 UNITS/ML 10ML VIAL ONE ×3 (12:04→21:39)
[2022-08-12] MEDS: DOCUSATE SODIUM 100 MG CAPSULE (FP) PO SCH (21:31)
[2022-08-12] MEDS: ATORVASTATIN CA 20 MG TABLET (FP) PO SCH (21:33)
[2022-08-13] MEDS: GABAPENTIN 100 MG CAPSULE PO SCH ×3 (06:03→21:04)
[2022-08-13] MEDS: ACETAMINOPHEN 325 MG TABLET (FP) PO PRN ×3 (06:04→21:18)
[2022-08-13] MEDS: INSULIN (LEVEMIR) 100 UNITS/ML UNITS SQ SCH ×2 (06:29→22:55)
[2022-08-13] MEDS: INSULIN SLIDING SCALE (NOVOLOG) 1 VIAL SQ SCH ×4 (06:29→22:55)
[2022-08-13] MEDS: INSULIN (NOVOLOG) ASPART 100 UNITS/ML 10ML VIAL SQ SCH ×3 (06:30→17:36)
[2022-08-13] MEDS: POLYETHYLENE GLYCOL (HEALTHYLAX) 3350 17 GM PACKET PO SCH ×2 (09:46→21:04)
[2022-08-13] MEDS: FUROSEMIDE 40 MG/4 ML INJECTABLE VIAL IVPUSH SCH (09:46)
[2022-08-13] MEDS: SACUBITRIL/VALSARTAN 24 MG-26 MG TABLET PO SCH ×2 (09:46→21:03)
[2022-08-13] MEDS: SERTRALINE HCL 50 MG TABLET (FP) PO SCH (09:46)
[2022-08-13] MEDS: methylPREDNISolone NA SUCC 40 MG/1 ML VIAL IVPUSH SCH (09:47)
[2022-08-13] MEDS: AMIODARONE HCL 200 MG TABLET PO SCH (09:47)
[2022-08-13] MEDS: PANTOPRAZOLE 40 MG TABLET PO SCH ×2 (09:47→21:04)
[2022-08-13] MEDS: LORATADINE 10 MG TABLET PO SCH (09:47)
[2022-08-13] MEDS: SUCRALFATE 1 GM TABLET (FP) PO SCH ×4 (09:47→21:03)
[2022-08-13] MEDS: APIXABAN 5 MG TABLET PO SCH ×2 (09:47→21:03)
[2022-08-13] MEDS: FLUTICASONE PROP 0.05% 16 GM NASAL SPRAY NS SCH ×2 (09:57→21:05)
[2022-08-13] MEDS: FLUTICASONE/UMECLIDIN/VILANTER(200-62.5-25 TRELEGY ELLIPTA) INAHLER IH SCH (09:57)
[2022-08-13] MEDS ORDERED: INSULIN (NOVOLOG) ASPART 100 UNITS/ML 10ML VIAL ONE ×2 (12:40→17:49)
[2022-08-13] MEDS: DOCUSATE SODIUM 100 MG CAPSULE (FP) PO SCH (21:03)
[2022-08-13] MEDS: ATORVASTATIN CA 20 MG TABLET (FP) PO SCH (21:04)
[2022-08-14] MEDS: GABAPENTIN 100 MG CAPSULE PO SCH ×3 (05:26→21:32)
[2022-08-14] MEDS: ACETAMINOPHEN 325 MG TABLET (FP) PO PRN ×3 (05:26→21:32)
[2022-08-14] MEDS: INSULIN SLIDING SCALE (NOVOLOG) 1 VIAL SQ SCH ×4 (06:18→21:32)
[2022-08-14] MEDS: INSULIN (LEVEMIR) 100 UNITS/ML UNITS SQ SCH ×2 (06:25→21:31)
[2022-08-14] MEDS: INSULIN (NOVOLOG) ASPART 100 UNITS/ML 10ML VIAL SQ SCH ×3 (06:26→16:15)
[2022-08-14] MEDS: methylPREDNISolone NA SUCC 40 MG/1 ML VIAL IVPUSH SCH (09:06)
[2022-08-14] MEDS: APIXABAN 5 MG TABLET PO SCH ×2 (09:06→21:29)
[2022-08-14] MEDS: LORATADINE 10 MG TABLET PO SCH (09:06)
[2022-08-14] MEDS: POLYETHYLENE GLYCOL (HEALTHYLAX) 3350 17 GM PACKET PO SCH ×2 (09:06→21:30)
[2022-08-14] MEDS: SUCRALFATE 1 GM TABLET (FP) PO SCH ×4 (09:06→21:29)
[2022-08-14] MEDS: SACUBITRIL/VALSARTAN 24 MG-26 MG TABLET PO SCH ×2 (09:06→21:29)
[2022-08-14] MEDS: PANTOPRAZOLE 40 MG TABLET PO SCH ×2 (09:06→21:32)
[2022-08-14] MEDS: SERTRALINE HCL 50 MG TABLET (FP) PO SCH (09:06)
[2022-08-14] MEDS: AMIODARONE HCL 200 MG TABLET PO SCH (09:06)
[2022-08-14] MEDS: FUROSEMIDE 40 MG/4 ML INJECTABLE VIAL IVPUSH SCH (09:06)
[2022-08-14] MEDS: FLUTICASONE/UMECLIDIN/VILANTER(200-62.5-25 TRELEGY ELLIPTA) INAHLER IH SCH (09:07)
[2022-08-14] MEDS: FLUTICASONE PROP 0.05% 16 GM NASAL SPRAY NS SCH ×2 (09:07→21:30)
[2022-08-14] MEDS ORDERED: INSULIN (NOVOLOG) ASPART 100 UNITS/ML 10ML VIAL ONE (21:20)
[2022-08-14] MEDS ORDERED: INSULIN (LEVEMIR) 100 UNITS/ML UNITS SQ ONE (21:20)
[2022-08-14] MEDS: DOCUSATE SODIUM 100 MG CAPSULE (FP) PO SCH (21:29)
[2022-08-14] MEDS: ATORVASTATIN CA 20 MG TABLET (FP) PO SCH (21:32)
[2022-08-15] MEDS ORDERED: INSULIN (LEVEMIR) 100 UNITS/ML UNITS SQ ONE (05:53)
[2022-08-15] MEDS ORDERED: INSULIN (NOVOLOG) ASPART 100 UNITS/ML 10ML VIAL ONE ×3 (05:54→16:38)
[2022-08-15] MEDS: GABAPENTIN 100 MG CAPSULE PO SCH ×3 (06:04→22:19)
[2022-08-15] MEDS: INSULIN SLIDING SCALE (NOVOLOG) 1 VIAL SQ SCH ×4 (06:05→22:20)
[2022-08-15] MEDS: INSULIN (LEVEMIR) 100 UNITS/ML UNITS SQ SCH ×2 (06:05→22:00)
[2022-08-15] MEDS: INSULIN (NOVOLOG) ASPART 100 UNITS/ML 10ML VIAL SQ SCH ×3 (06:05→16:41)
[2022-08-15] MEDS: ACETAMINOPHEN 325 MG TABLET (FP) PO PRN ×2 (06:21→11:21)
[2022-08-15 07:45] LABS: HEMOGLOBIN 10.8 GM/dL (10.7-15.3); MCH 26.1 pg (25.7-33.7); MCHC 31.7 g/dl (32.0-36.0); MEAN CELL VOLUME 82.1 fl (80-96); MEAN PLT VOLUME 8.8 fl (7.5-11.1); PLATELET COUNT 93 10^3/uL (134-434); RBC 4.14 M/mm3 (3.60-5.2); RDW 17.4 % (11.6-15.6); WHITE BLOOD COUNT 5.8 K/mm3 (4.0-10.0)
[2022-08-15 08:05] LABS: POTASSIUM 3.9 mmol/L (3.5-5.1)
[2022-08-15 08:08] LABS: CALCIUM 9.9 mg/dL (8.5-10.1)
[2022-08-15 08:09] LABS: BLOOD UREA NITROGEN 32.2 mg/dL (7-18)
[2022-08-15 08:12] LABS: CREATININE 0.8 mg/dL (0.55-1.3)
[2022-08-15] MEDS: POLYETHYLENE GLYCOL (HEALTHYLAX) 3350 17 GM PACKET PO SCH ×2 (10:22→22:18)
[2022-08-15] MEDS: FUROSEMIDE 40 MG/4 ML INJECTABLE VIAL IVPUSH SCH (10:23)
[2022-08-15] MEDS: PANTOPRAZOLE 40 MG TABLET PO SCH ×2 (10:23→22:19)
[2022-08-15] MEDS: APIXABAN 5 MG TABLET PO SCH ×2 (10:23→22:19)
[2022-08-15] MEDS: SACUBITRIL/VALSARTAN 24 MG-26 MG TABLET PO SCH ×2 (10:23→22:19)
[2022-08-15] MEDS: LORATADINE 10 MG TABLET PO SCH (10:23)
[2022-08-15] MEDS: methylPREDNISolone NA SUCC 40 MG/1 ML VIAL IVPUSH SCH (10:23)
[2022-08-15] MEDS: SERTRALINE HCL 50 MG TABLET (FP) PO SCH (10:23)
[2022-08-15] MEDS: AMIODARONE HCL 200 MG TABLET PO SCH (10:23)
[2022-08-15] MEDS: SUCRALFATE 1 GM TABLET (FP) PO SCH ×4 (10:23→22:19)
[2022-08-15] MEDS: FLUTICASONE PROP 0.05% 16 GM NASAL SPRAY NS SCH ×2 (10:27→23:03)
[2022-08-15] MEDS: FLUTICASONE/UMECLIDIN/VILANTER(200-62.5-25 TRELEGY ELLIPTA) INAHLER IH SCH (10:28)
[2022-08-15] MEDS: ATORVASTATIN CA 20 MG TABLET (FP) PO SCH (22:19)
[2022-08-15] MEDS: DOCUSATE SODIUM 100 MG CAPSULE (FP) PO SCH (22:19)
[2022-08-16] MEDS: INSULIN SLIDING SCALE (NOVOLOG) 1 VIAL SQ SCH ×4 (06:11→21:51)
[2022-08-16] MEDS: INSULIN (LEVEMIR) 100 UNITS/ML UNITS SQ SCH ×2 (06:15→23:21)
[2022-08-16] MEDS: ACETAMINOPHEN 325 MG TABLET (FP) PO PRN ×3 (06:17→20:00)
[2022-08-16] MEDS: GABAPENTIN 100 MG CAPSULE PO SCH ×3 (06:18→21:50)
[2022-08-16] MEDS: INSULIN (NOVOLOG) ASPART 100 UNITS/ML 10ML VIAL SQ SCH ×3 (06:19→17:04)
[2022-08-16] MEDS: FUROSEMIDE 40 MG/4 ML INJECTABLE VIAL IVPUSH SCH (10:39)
[2022-08-16] MEDS: POLYETHYLENE GLYCOL (HEALTHYLAX) 3350 17 GM PACKET PO SCH ×2 (10:40→21:49)
[2022-08-16] MEDS: PANTOPRAZOLE 40 MG TABLET PO SCH ×2 (10:40→21:49)
[2022-08-16] MEDS: SERTRALINE HCL 50 MG TABLET (FP) PO SCH (10:40)
[2022-08-16] MEDS: APIXABAN 5 MG TABLET PO SCH ×2 (10:40→21:49)
[2022-08-16] MEDS: methylPREDNISolone NA SUCC 40 MG/1 ML VIAL IVPUSH SCH (10:40)
[2022-08-16] MEDS: SUCRALFATE 1 GM TABLET (FP) PO SCH ×4 (10:40→21:49)
[2022-08-16] MEDS: LORATADINE 10 MG TABLET PO SCH (10:40)
[2022-08-16] MEDS: SACUBITRIL/VALSARTAN 49 MG-51 MG TABLET PO SCH ×2 (10:41→21:49)
[2022-08-16] MEDS: FLUTICASONE PROP 0.05% 16 GM NASAL SPRAY NS SCH ×2 (10:43→21:56)
[2022-08-16] MEDS: FLUTICASONE/UMECLIDIN/VILANTER(200-62.5-25 TRELEGY ELLIPTA) INAHLER IH SCH (10:43)
[2022-08-16] MEDS ORDERED: INSULIN (NOVOLOG) ASPART 100 UNITS/ML 10ML VIAL ONE ×2 (18:03→21:36)
[2022-08-16] MEDS ORDERED: INSULIN (LEVEMIR) 100 UNITS/ML UNITS SQ ONE (18:04)
[2022-08-16] MEDS: ATORVASTATIN CA 20 MG TABLET (FP) PO SCH (21:49)
[2022-08-16] MEDS: DOCUSATE SODIUM 100 MG CAPSULE (FP) PO SCH (21:49)
[2022-08-17] MEDS: ACETAMINOPHEN 325 MG TABLET (FP) PO PRN ×2 (03:43→17:36)
[2022-08-17] MEDS: GABAPENTIN 100 MG CAPSULE PO SCH ×3 (06:30→21:52)
[2022-08-17] MEDS: INSULIN (NOVOLOG) ASPART 100 UNITS/ML 10ML VIAL SQ SCH ×3 (06:31→17:35)
[2022-08-17] MEDS: INSULIN (LEVEMIR) 100 UNITS/ML UNITS SQ SCH ×2 (06:31→21:53)
[2022-08-17] MEDS: INSULIN SLIDING SCALE (NOVOLOG) 1 VIAL SQ SCH ×4 (06:32→22:15)
[2022-08-17] MEDS: FUROSEMIDE 40 MG/4 ML INJECTABLE VIAL IVPUSH SCH (10:07)
[2022-08-17] MEDS: methylPREDNISolone NA SUCC 40 MG/1 ML VIAL IVPUSH SCH (10:07)
[2022-08-17] MEDS: PANTOPRAZOLE 40 MG TABLET PO SCH ×2 (10:08→21:52)
[2022-08-17] MEDS: SERTRALINE HCL 50 MG TABLET (FP) PO SCH (10:08)
[2022-08-17] MEDS: APIXABAN 5 MG TABLET PO SCH ×2 (10:08→21:53)
[2022-08-17] MEDS: LORATADINE 10 MG TABLET PO SCH (10:08)
[2022-08-17] MEDS: SUCRALFATE 1 GM TABLET (FP) PO SCH ×4 (10:08→21:51)
[2022-08-17] MEDS: FLUTICASONE PROP 0.05% 16 GM NASAL SPRAY NS SCH ×2 (10:10→22:01)
[2022-08-17] MEDS: POLYETHYLENE GLYCOL (HEALTHYLAX) 3350 17 GM PACKET PO SCH ×2 (10:10→21:51)
[2022-08-17] MEDS: SACUBITRIL/VALSARTAN 49 MG-51 MG TABLET PO SCH ×2 (10:10→21:52)
[2022-08-17] MEDS: FLUTICASONE/UMECLIDIN/VILANTER(200-62.5-25 TRELEGY ELLIPTA) INAHLER IH SCH (10:10)
[2022-08-17 13:59] LABS: ARTERIAL BLD GAS O2 SATURATION 90.2 % (95-98); ARTERIAL BLOOD GAS BASE EXCESS 14.1 mmol/L (-2-2); ARTERIAL BLOOD GAS PO2 65.5 mmHg (80-100); ARTERIAL BLOOD GAS pH 7.327 (7.350-7.450)
[2022-08-17 14:02] LABS: ALLENS TEST POSITIVE
[2022-08-17] MEDS: ATORVASTATIN CA 20 MG TABLET (FP) PO SCH (21:52)
[2022-08-17] MEDS: DOCUSATE SODIUM 100 MG CAPSULE (FP) PO SCH (21:52)
[2022-08-17] MEDS ORDERED: INSULIN (NOVOLOG) ASPART 100 UNITS/ML 10ML VIAL ONE (21:59)
[2022-08-18] MEDS ORDERED: INSULIN (NOVOLOG) ASPART 100 UNITS/ML 10ML VIAL ONE ×3 (05:49→16:25)
[2022-08-18] MEDS: INSULIN (NOVOLOG) ASPART 100 UNITS/ML 10ML VIAL SQ SCH ×3 (06:22→16:13)
[2022-08-18] MEDS: INSULIN (LEVEMIR) 100 UNITS/ML UNITS SQ SCH ×2 (06:23→22:50)
[2022-08-18] MEDS: ACETAMINOPHEN 325 MG TABLET (FP) PO PRN ×2 (06:36→20:00)
[2022-08-18] MEDS: INSULIN SLIDING SCALE (NOVOLOG) 1 VIAL SQ SCH ×4 (06:37→22:41)
[2022-08-18] MEDS: GABAPENTIN 100 MG CAPSULE PO SCH ×3 (06:37→22:05)
[2022-08-18] MEDS: APIXABAN 5 MG TABLET PO SCH ×2 (09:19→22:04)
[2022-08-18] MEDS: SACUBITRIL/VALSARTAN 49 MG-51 MG TABLET PO SCH ×2 (09:19→22:04)
[2022-08-18] MEDS: FUROSEMIDE 40 MG/4 ML INJECTABLE VIAL IVPUSH SCH (09:19)
[2022-08-18] MEDS: SUCRALFATE 1 GM TABLET (FP) PO SCH ×4 (09:19→22:04)
[2022-08-18] MEDS: PANTOPRAZOLE 40 MG TABLET PO SCH ×2 (09:19→22:05)
[2022-08-18] MEDS: methylPREDNISolone NA SUCC 40 MG/1 ML VIAL IVPUSH SCH (09:19)
[2022-08-18] MEDS: LORATADINE 10 MG TABLET PO SCH (09:19)
[2022-08-18] MEDS: SERTRALINE HCL 50 MG TABLET (FP) PO SCH (09:19)
[2022-08-18] MEDS: FLUTICASONE/UMECLIDIN/VILANTER(200-62.5-25 TRELEGY ELLIPTA) INAHLER IH SCH (09:20)
[2022-08-18] MEDS: POLYETHYLENE GLYCOL (HEALTHYLAX) 3350 17 GM PACKET PO SCH ×2 (09:20→22:05)
[2022-08-18] MEDS: FLUTICASONE PROP 0.05% 16 GM NASAL SPRAY NS SCH ×2 (09:20→22:06)
[2022-08-18] MEDS: DOCUSATE SODIUM 100 MG CAPSULE (FP) PO SCH (22:04)
[2022-08-18] MEDS: ATORVASTATIN CA 20 MG TABLET (FP) PO SCH (22:05)
[2022-08-19] MEDS: GABAPENTIN 100 MG CAPSULE PO SCH ×3 (06:48→21:20)
[2022-08-19] MEDS: INSULIN SLIDING SCALE (NOVOLOG) 1 VIAL SQ SCH ×4 (06:49→22:20)
[2022-08-19] MEDS: INSULIN (NOVOLOG) ASPART 100 UNITS/ML 10ML VIAL SQ SCH ×3 (06:49→15:48)
[2022-08-19] MEDS: INSULIN (LEVEMIR) 100 UNITS/ML UNITS SQ SCH ×2 (06:49→22:20)
[2022-08-19] MEDS: ACETAMINOPHEN 325 MG TABLET (FP) PO PRN ×3 (06:49→21:27)
[2022-08-19] MEDS: methylPREDNISolone NA SUCC 40 MG/1 ML VIAL IVPUSH SCH (09:15)
[2022-08-19] MEDS: APIXABAN 5 MG TABLET PO SCH ×2 (09:15→21:21)
[2022-08-19] MEDS: LORATADINE 10 MG TABLET PO SCH (09:15)
[2022-08-19] MEDS: SUCRALFATE 1 GM TABLET (FP) PO SCH ×4 (09:15→21:21)
[2022-08-19] MEDS: SERTRALINE HCL 50 MG TABLET (FP) PO SCH (09:15)
[2022-08-19] MEDS: PANTOPRAZOLE 40 MG TABLET PO SCH ×2 (09:15→21:33)
[2022-08-19] MEDS: FUROSEMIDE 40 MG/4 ML INJECTABLE VIAL IVPUSH SCH (09:15)
[2022-08-19] MEDS: FLUTICASONE PROP 0.05% 16 GM NASAL SPRAY NS SCH ×2 (09:16→21:24)
[2022-08-19] MEDS: FLUTICASONE/UMECLIDIN/VILANTER(200-62.5-25 TRELEGY ELLIPTA) INAHLER IH SCH (09:16)
[2022-08-19] MEDS: SACUBITRIL/VALSARTAN 49 MG-51 MG TABLET PO SCH ×2 (09:16→21:24)
[2022-08-19] MEDS: POLYETHYLENE GLYCOL (HEALTHYLAX) 3350 17 GM PACKET PO SCH ×2 (09:16→21:25)
[2022-08-19] MEDS ORDERED: INSULIN (NOVOLOG) ASPART 100 UNITS/ML 10ML VIAL ONE ×2 (12:39→15:57)
[2022-08-19] MEDS: ATORVASTATIN CA 20 MG TABLET (FP) PO SCH (21:21)
[2022-08-19] MEDS: DOCUSATE SODIUM 100 MG CAPSULE (FP) PO SCH (21:23)
[2022-08-19] MEDS ORDERED: INSULIN (LEVEMIR) 100 UNITS/ML UNITS SQ ONE (22:15)
[2022-08-19] MEDS: MELATONIN 5 MG TABLETS PO PRN (22:19)
[2022-08-20] MEDS: GABAPENTIN 100 MG CAPSULE PO SCH (06:14)
[2022-08-20] MEDS: ACETAMINOPHEN 325 MG TABLET (FP) PO PRN (06:14)
[2022-08-20] MEDS ORDERED: INSULIN (LEVEMIR) 100 UNITS/ML UNITS SQ ONE (06:18)
[2022-08-20] MEDS: INSULIN (LEVEMIR) 100 UNITS/ML UNITS SQ SCH ×2 (06:19→23:03)
[2022-08-20] MEDS: INSULIN (NOVOLOG) ASPART 100 UNITS/ML 10ML VIAL SQ SCH ×3 (07:13→16:13)
[2022-08-20] MEDS: INSULIN SLIDING SCALE (NOVOLOG) 1 VIAL SQ SCH ×4 (07:32→23:03)
[2022-08-20] MEDS: SUCRALFATE 1 GM TABLET (FP) PO SCH ×4 (09:53→22:52)
[2022-08-20] MEDS: APIXABAN 5 MG TABLET PO SCH ×2 (09:53→22:53)
[2022-08-20] MEDS: FUROSEMIDE 40 MG/4 ML INJECTABLE VIAL IVPUSH SCH (09:54)
[2022-08-20] MEDS: methylPREDNISolone NA SUCC 40 MG/1 ML VIAL IVPUSH SCH (09:54)
[2022-08-20] MEDS: PANTOPRAZOLE 40 MG TABLET PO SCH ×2 (09:54→22:54)
[2022-08-20] MEDS: SERTRALINE HCL 50 MG TABLET (FP) PO SCH (09:54)
[2022-08-20] MEDS: POLYETHYLENE GLYCOL (HEALTHYLAX) 3350 17 GM PACKET PO SCH ×2 (09:54→22:53)
[2022-08-20] MEDS: LORATADINE 10 MG TABLET PO SCH (09:54)
[2022-08-20] MEDS: SACUBITRIL/VALSARTAN 49 MG-51 MG TABLET PO SCH ×2 (09:55→22:53)
[2022-08-20] MEDS: FLUTICASONE/UMECLIDIN/VILANTER(200-62.5-25 TRELEGY ELLIPTA) INAHLER IH SCH (09:55)
[2022-08-20] MEDS: FLUTICASONE PROP 0.05% 16 GM NASAL SPRAY NS SCH ×2 (09:55→22:54)
[2022-08-20] MEDS ORDERED: INSULIN (NOVOLOG) ASPART 100 UNITS/ML 10ML VIAL ONE ×3 (11:38→23:03)
[2022-08-20 13:08] LABS: BASO % 0.1 % (0-2.0); EOS % 1.7 % (0-4.5); HEMATOCRIT 34.8 % (32.4-45.2); HEMOGLOBIN 10.9 GM/dL (10.7-15.3); LYMPH % 3.5 % (8-40); MCH 26.1 pg (25.7-33.7); MCHC 31.3 g/dl (32.0-36.0); MEAN CELL VOLUME 83.4 fl (80-96); MONO % 4.6 % (3.8-10.2); NEUT % 90.1 % (42.8-82.8); PLATELET COUNT 116 10^3/uL (134-434); RBC 4.17 M/mm3 (3.60-5.2); RDW 17.4 % (11.6-15.6); WHITE BLOOD COUNT 5.3 K/mm3 (4.0-10.0)
[2022-08-20 13:32] LABS: CHLORIDE 93 mmol/L (98-107); POTASSIUM 3.9 mmol/L (3.5-5.1); SODIUM 140 mmol/L (136-145)
[2022-08-20 13:35] LABS: ALBUMIN 3.5 g/dl (3.4-5.0); BLOOD UREA NITROGEN 34.3 mg/dL (7-18); GLUCOSE,RANDOM 192 mg/dL (74-106)
[2022-08-20 13:38] LABS: CREATININE 0.9 mg/dL (0.55-1.3); SGOT/AST 25 U/L (15-37); SGPT/ALT 54 U/L (13-61)
[2022-08-20 13:40] LABS: BILIRUBIN,TOTAL 0.2 mg/dL (0.2-1); TOT PROT 6.2 g/dl (6.4-8.2)
[2022-08-20 13:41] LABS: ALK PHOS 94 U/L (45-117)
[2022-08-20 14:02] LABS: ANION GAP 2 MMOL/L (8-16); CO2 > 45 mmol/L (21-32)
[2022-08-20] MEDS: GABAPENTIN 300 MG CAPSULE PO SCH ×2 (14:08→22:54)
[2022-08-20] MEDS ORDERED: FUROSEMIDE 40 MG/4 ML INJECTABLE VIAL IVPUSH ONE (18:00)
[2022-08-20] MEDS: DOCUSATE SODIUM 100 MG CAPSULE (FP) PO SCH (22:52)
[2022-08-20] MEDS: ATORVASTATIN CA 20 MG TABLET (FP) PO SCH (22:53)
[2022-08-20] MEDS: MELATONIN 5 MG TABLETS PO PRN (22:57)
[2022-08-21] MEDS: INSULIN SLIDING SCALE (NOVOLOG) 1 VIAL SQ SCH ×4 (06:25→22:22)
[2022-08-21] MEDS: INSULIN (NOVOLOG) ASPART 100 UNITS/ML 10ML VIAL SQ SCH ×3 (06:25→17:19)
[2022-08-21] MEDS: GABAPENTIN 300 MG CAPSULE PO SCH ×3 (06:25→22:18)
[2022-08-21] MEDS: ACETAMINOPHEN 325 MG TABLET (FP) PO PRN ×2 (06:48→17:17)
[2022-08-21] MEDS: INSULIN (LEVEMIR) 100 UNITS/ML UNITS SQ SCH ×2 (07:32→22:22)
[2022-08-21 08:37] LABS: BASO % 0.2 % (0-2.0); EOS % 1.2 % (0-4.5); HEMOGLOBIN 10.8 GM/dL (10.7-15.3); LYMPH % 8.2 % (8-40); MCH 26.1 pg (25.7-33.7); MCHC 31.7 g/dl (32.0-36.0); MEAN CELL VOLUME 82.3 fl (80-96); MEAN PLT VOLUME 8.1 fl (7.5-11.1); MONO % 9.6 % (3.8-10.2); NEUT % 80.8 % (42.8-82.8); PLATELET COUNT 123 10^3/uL (134-434); RBC 4.14 M/mm3 (3.60-5.2); RDW 17.3 % (11.6-15.6); WHITE BLOOD COUNT 4.7 K/mm3 (4.0-10.0)
[2022-08-21 08:49] LABS: POTASSIUM 3.6 mmol/L (3.5-5.1)
[2022-08-21 08:52] LABS: ALBUMIN 3.2 g/dl (3.4-5.0); BLOOD UREA NITROGEN 34.7 mg/dL (7-18); CALCIUM 9.7 mg/dL (8.5-10.1)
[2022-08-21 08:55] LABS: CREATININE 0.8 mg/dL (0.55-1.3)
[2022-08-21 08:57] LABS: BILIRUBIN,TOTAL 0.3 mg/dL (0.2-1); TOT PROT 5.9 g/dl (6.4-8.2)
[2022-08-21] MEDS: methylPREDNISolone NA SUCC 40 MG/1 ML VIAL IVPUSH SCH (10:33)
[2022-08-21] MEDS: POLYETHYLENE GLYCOL (HEALTHYLAX) 3350 17 GM PACKET PO SCH ×3 (10:33→22:35)
[2022-08-21] MEDS: SERTRALINE HCL 50 MG TABLET (FP) PO SCH (10:33)
[2022-08-21] MEDS: FUROSEMIDE 40 MG/4 ML INJECTABLE VIAL IVPUSH SCH (10:33)
[2022-08-21] MEDS: APIXABAN 5 MG TABLET PO SCH ×2 (10:34→22:18)
[2022-08-21] MEDS: SUCRALFATE 1 GM TABLET (FP) PO SCH ×4 (10:34→22:17)
[2022-08-21] MEDS: SACUBITRIL/VALSARTAN 49 MG-51 MG TABLET PO SCH ×2 (10:34→22:18)
[2022-08-21] MEDS: PANTOPRAZOLE 40 MG TABLET PO SCH ×2 (10:34→22:18)
[2022-08-21] MEDS: LORATADINE 10 MG TABLET PO SCH (10:34)
[2022-08-21] MEDS: FLUTICASONE/UMECLIDIN/VILANTER(200-62.5-25 TRELEGY ELLIPTA) INAHLER IH SCH (10:35)
[2022-08-21] MEDS: FLUTICASONE PROP 0.05% 16 GM NASAL SPRAY NS SCH ×2 (10:35→22:35)
[2022-08-21] MEDS ORDERED: INSULIN (NOVOLOG) ASPART 100 UNITS/ML 10ML VIAL ONE ×3 (12:07→22:22)
[2022-08-21] MEDS: IRON SUCROSE INJECTION 200 MG in SODIUM CHLORIDE 90 ML IVPB SCH (17:17)
[2022-08-21] MEDS: DOCUSATE SODIUM 100 MG CAPSULE (FP) PO SCH (22:17)
[2022-08-21] MEDS: ATORVASTATIN CA 20 MG TABLET (FP) PO SCH (22:18)
[2022-08-21] MEDS: MELATONIN 5 MG TABLETS PO PRN (22:25)
[2022-08-22] MEDS: ACETAMINOPHEN 325 MG TABLET (FP) PO PRN ×4 (00:08→23:06)
[2022-08-22] MEDS: GABAPENTIN 300 MG CAPSULE PO SCH ×3 (06:12→23:06)
[2022-08-22] MEDS: INSULIN (NOVOLOG) ASPART 100 UNITS/ML 10ML VIAL SQ SCH ×3 (06:24→17:21)
[2022-08-22] MEDS: INSULIN SLIDING SCALE (NOVOLOG) 1 VIAL SQ SCH ×4 (06:24→23:05)
[2022-08-22] MEDS: INSULIN (LEVEMIR) 100 UNITS/ML UNITS SQ SCH ×2 (06:24→23:12)
[2022-08-22] MEDS: methylPREDNISolone NA SUCC 40 MG/1 ML VIAL IVPUSH SCH (10:23)
[2022-08-22] MEDS: IRON SUCROSE INJECTION 200 MG in SODIUM CHLORIDE 90 ML IVPB SCH (10:23)
[2022-08-22] MEDS: PANTOPRAZOLE 40 MG TABLET PO SCH ×2 (10:23→23:06)
[2022-08-22] MEDS: SUCRALFATE 1 GM TABLET (FP) PO SCH ×4 (10:23→23:06)
[2022-08-22] MEDS: LORATADINE 10 MG TABLET PO SCH (10:23)
[2022-08-22] MEDS: FUROSEMIDE 40 MG/4 ML INJECTABLE VIAL IVPUSH SCH (10:23)
[2022-08-22] MEDS: SERTRALINE HCL 50 MG TABLET (FP) PO SCH (10:24)
[2022-08-22] MEDS: APIXABAN 5 MG TABLET PO SCH ×2 (10:24→23:06)
[2022-08-22] MEDS: SACUBITRIL/VALSARTAN 49 MG-51 MG TABLET PO SCH ×2 (10:24→23:12)
[2022-08-22] MEDS: POLYETHYLENE GLYCOL (HEALTHYLAX) 3350 17 GM PACKET PO SCH ×2 (10:25→23:12)
[2022-08-22] MEDS: FLUTICASONE/UMECLIDIN/VILANTER(200-62.5-25 TRELEGY ELLIPTA) INAHLER IH SCH (10:25)
[2022-08-22] MEDS: FLUTICASONE PROP 0.05% 16 GM NASAL SPRAY NS SCH ×2 (12:30→23:13)
[2022-08-22] MEDS ORDERED: INSULIN (NOVOLOG) ASPART 100 UNITS/ML 10ML VIAL ONE ×2 (12:36→17:51)
[2022-08-22] MEDS: ATORVASTATIN CA 20 MG TABLET (FP) PO SCH (23:06)
[2022-08-22] MEDS: DOCUSATE SODIUM 100 MG CAPSULE (FP) PO SCH (23:06)
[2022-08-22] MEDS ORDERED: INSULIN (LEVEMIR) 100 UNITS/ML UNITS SQ ONE (23:10)
[2022-08-22] MEDS: MELATONIN 5 MG TABLETS PO PRN (23:18)
[2022-08-23] MEDS: INSULIN (NOVOLOG) ASPART 100 UNITS/ML 10ML VIAL SQ SCH ×3 (06:38→17:46)
[2022-08-23] MEDS: INSULIN (LEVEMIR) 100 UNITS/ML UNITS SQ SCH ×2 (06:38→23:20)
[2022-08-23] MEDS: INSULIN SLIDING SCALE (NOVOLOG) 1 VIAL SQ SCH ×4 (06:38→23:15)
[2022-08-23] MEDS: GABAPENTIN 300 MG CAPSULE PO SCH ×3 (06:39→23:16)
[2022-08-23 08:16] LABS: BASO % 0.2 % (0-2.0); EOS % 0.8 % (0-4.5); HEMATOCRIT 31.5 % (32.4-45.2); HEMOGLOBIN 10.1 GM/dL (10.7-15.3); LYMPH % 9.3 % (8-40); MCH 26.5 pg (25.7-33.7); MCHC 32.1 g/dl (32.0-36.0); MEAN CELL VOLUME 82.5 fl (80-96); MEAN PLT VOLUME 8.2 fl (7.5-11.1); MONO % 10.3 % (3.8-10.2); NEUT % 79.4 % (42.8-82.8); PLATELET COUNT 122 10^3/uL (134-434); RBC 3.81 M/mm3 (3.60-5.2); RDW 17.5 % (11.6-15.6); WHITE BLOOD COUNT 4.3 K/mm3 (4.0-10.0)
[2022-08-23 08:34] LABS: CHLORIDE 96 mmol/L (98-107); POTASSIUM 3.6 mmol/L (3.5-5.1); SODIUM 143 mmol/L (136-145)
[2022-08-23 08:42] LABS: BLOOD UREA NITROGEN 34.7 mg/dL (7-18); CALCIUM 9.6 mg/dL (8.5-10.1); GLUCOSE,RANDOM 98 mg/dL (74-106)
[2022-08-23 08:46] LABS: CREATININE 0.8 mg/dL (0.55-1.3); SGOT/AST 20 U/L (15-37); SGPT/ALT 40 U/L (13-61)
[2022-08-23 08:47] LABS: BILIRUBIN,TOTAL 0.2 mg/dL (0.2-1)
[2022-08-23 08:48] LABS: ALK PHOS 67 U/L (45-117); TOT PROT 5.3 g/dl (6.4-8.2)
[2022-08-23 08:54] LABS: ANISOCYTOSIS 0; HELMET CELLS 0; HOWELL-JOLLY BODIES 0; MACROCYTOSIS 0; OVALOCYTE 0; ROULEAU 0; SICKELED CELLS 0; TARGET CELLS 0; TEAR DROP CELLS 0; TOXIC GRANULATION 0
[2022-08-23 09:02] LABS: ANION GAP 2 MMOL/L (8-16); CO2 > 45 mmol/L (21-32)
[2022-08-23] MEDS: POLYETHYLENE GLYCOL (HEALTHYLAX) 3350 17 GM PACKET PO SCH ×2 (10:17→23:16)
[2022-08-23] MEDS: IRON SUCROSE INJECTION 200 MG in SODIUM CHLORIDE 90 ML IVPB SCH (10:17)
[2022-08-23] MEDS: methylPREDNISolone NA SUCC 40 MG/1 ML VIAL IVPUSH SCH (10:17)
[2022-08-23] MEDS: SERTRALINE HCL 50 MG TABLET (FP) PO SCH (10:17)
[2022-08-23] MEDS: FUROSEMIDE 40 MG/4 ML INJECTABLE VIAL IVPUSH SCH (10:17)
[2022-08-23] MEDS: ACETAMINOPHEN 325 MG TABLET (FP) PO PRN (10:17)
[2022-08-23] MEDS: PANTOPRAZOLE 40 MG TABLET PO SCH ×2 (10:18→23:16)
[2022-08-23] MEDS: SUCRALFATE 1 GM TABLET (FP) PO SCH ×4 (10:18→23:16)
[2022-08-23] MEDS: LORATADINE 10 MG TABLET PO SCH (10:18)
[2022-08-23] MEDS: APIXABAN 5 MG TABLET PO SCH ×2 (10:18→23:17)
[2022-08-23] MEDS: FLUTICASONE PROP 0.05% 16 GM NASAL SPRAY NS SCH ×2 (10:19→23:17)
[2022-08-23] MEDS: FLUTICASONE/UMECLIDIN/VILANTER(200-62.5-25 TRELEGY ELLIPTA) INAHLER IH SCH (10:19)
[2022-08-23] MEDS: SACUBITRIL/VALSARTAN 49 MG-51 MG TABLET PO SCH ×2 (10:22→23:16)
[2022-08-23] MEDS ORDERED: INSULIN (NOVOLOG) ASPART 100 UNITS/ML 10ML VIAL ONE ×2 (11:59→18:02)
[2022-08-23] MEDS: ATORVASTATIN CA 20 MG TABLET (FP) PO SCH (23:16)
[2022-08-23] MEDS: DOCUSATE SODIUM 100 MG CAPSULE (FP) PO SCH (23:17)
[2022-08-23] MEDS: MELATONIN 5 MG TABLETS PO PRN (23:27)
[2022-08-24] MEDS: ACETAMINOPHEN 325 MG TABLET (FP) PO PRN ×2 (04:20→16:13)
[2022-08-24] MEDS: GABAPENTIN 300 MG CAPSULE PO SCH ×3 (06:57→22:29)
[2022-08-24] MEDS: INSULIN SLIDING SCALE (NOVOLOG) 1 VIAL SQ SCH ×4 (06:58→22:30)
[2022-08-24] MEDS: INSULIN (LEVEMIR) 100 UNITS/ML UNITS SQ SCH ×2 (06:58→22:29)
[2022-08-24] MEDS: INSULIN (NOVOLOG) ASPART 100 UNITS/ML 10ML VIAL SQ SCH ×3 (06:58→16:44)
[2022-08-24] MEDS: IRON SUCROSE INJECTION 200 MG in SODIUM CHLORIDE 90 ML IVPB SCH (08:32)
[2022-08-24] MEDS: SACUBITRIL/VALSARTAN 49 MG-51 MG TABLET PO SCH ×2 (10:05→22:29)
[2022-08-24] MEDS: SERTRALINE HCL 50 MG TABLET (FP) PO SCH (10:05)
[2022-08-24] MEDS: methylPREDNISolone NA SUCC 40 MG/1 ML VIAL IVPUSH SCH (10:06)
[2022-08-24] MEDS: LORATADINE 10 MG TABLET PO SCH (10:06)
[2022-08-24] MEDS: PANTOPRAZOLE 40 MG TABLET PO SCH ×2 (10:06→22:29)
[2022-08-24] MEDS: SUCRALFATE 1 GM TABLET (FP) PO SCH ×4 (10:06→22:29)
[2022-08-24] MEDS: APIXABAN 5 MG TABLET PO SCH ×2 (10:06→22:29)
[2022-08-24] MEDS: POLYETHYLENE GLYCOL (HEALTHYLAX) 3350 17 GM PACKET PO SCH ×2 (10:06→22:30)
[2022-08-24] MEDS: FUROSEMIDE 40 MG/4 ML INJECTABLE VIAL IVPUSH SCH (10:06)
[2022-08-24] MEDS: FLUTICASONE PROP 0.05% 16 GM NASAL SPRAY NS SCH ×2 (10:07→22:33)
[2022-08-24] MEDS: FLUTICASONE/UMECLIDIN/VILANTER(200-62.5-25 TRELEGY ELLIPTA) INAHLER IH SCH (10:21)
[2022-08-24] MEDS: ATORVASTATIN CA 20 MG TABLET (FP) PO SCH (22:29)
[2022-08-24] MEDS: MELATONIN 5 MG TABLETS PO PRN (22:29)
[2022-08-24] MEDS: DOCUSATE SODIUM 100 MG CAPSULE (FP) PO SCH (22:29)
[2022-08-25] MEDS: ACETAMINOPHEN 325 MG TABLET (FP) PO PRN ×2 (06:00→16:32)
[2022-08-25] MEDS: INSULIN (NOVOLOG) ASPART 100 UNITS/ML 10ML VIAL SQ SCH ×3 (06:17→17:19)
[2022-08-25] MEDS: GABAPENTIN 300 MG CAPSULE PO SCH ×3 (06:17→21:27)
[2022-08-25] MEDS: INSULIN SLIDING SCALE (NOVOLOG) 1 VIAL SQ SCH ×4 (06:17→23:19)
[2022-08-25] MEDS: INSULIN (LEVEMIR) 100 UNITS/ML UNITS SQ SCH ×2 (06:17→23:21)
[2022-08-25 07:50] LABS: HEMATOCRIT 32.9 % (32.4-45.2); HEMOGLOBIN 10.7 GM/dL (10.7-15.3); MCH 26.9 pg (25.7-33.7); MCHC 32.4 g/dl (32.0-36.0); MEAN CELL VOLUME 82.9 fl (80-96); MEAN PLT VOLUME 8.4 fl (7.5-11.1); PLATELET COUNT 147 10^3/uL (134-434); RBC 3.97 M/mm3 (3.60-5.2); RDW 17.5 % (11.6-15.6); WHITE BLOOD COUNT 5.2 K/mm3 (4.0-10.0)
[2022-08-25 08:08] LABS: CHLORIDE 98 mmol/L (98-107); POTASSIUM 3.5 mmol/L (3.5-5.1); SODIUM 146 mmol/L (136-145)
[2022-08-25 08:18] LABS: ALBUMIN 3.4 g/dl (3.4-5.0); CALCIUM 10.2 mg/dL (8.5-10.1); CREATININE 0.9 mg/dL (0.55-1.3); GLUCOSE,RANDOM 108 mg/dL (74-106); SGOT/AST 14 U/L (15-37)
[2022-08-25 08:20] LABS: ALK PHOS 87 U/L (45-117); BILIRUBIN,TOTAL 0.4 mg/dL (0.2-1); SGPT/ALT 43 U/L (13-61); TOT PROT 5.9 g/dl (6.4-8.2)
[2022-08-25 08:25] LABS: ANION GAP 3 MMOL/L (8-16); CO2 > 45 mmol/L (21-32)
[2022-08-25] MEDS: FLUTICASONE PROP 0.05% 16 GM NASAL SPRAY NS SCH ×2 (09:46→23:12)
[2022-08-25] MEDS: FLUTICASONE/UMECLIDIN/VILANTER(200-62.5-25 TRELEGY ELLIPTA) INAHLER IH SCH (09:47)
[2022-08-25] MEDS: methylPREDNISolone NA SUCC 40 MG/1 ML VIAL IVPUSH SCH (09:47)
[2022-08-25] MEDS: FUROSEMIDE 40 MG/4 ML INJECTABLE VIAL IVPUSH SCH (09:47)
[2022-08-25] MEDS: APIXABAN 5 MG TABLET PO SCH ×2 (09:48→21:27)
[2022-08-25] MEDS: SERTRALINE HCL 50 MG TABLET (FP) PO SCH (09:48)
[2022-08-25] MEDS: SACUBITRIL/VALSARTAN 49 MG-51 MG TABLET PO SCH ×2 (09:48→21:33)
[2022-08-25] MEDS: PANTOPRAZOLE 40 MG TABLET PO SCH ×2 (09:48→22:00)
[2022-08-25] MEDS: LORATADINE 10 MG TABLET PO SCH (09:48)
[2022-08-25] MEDS: SUCRALFATE 1 GM TABLET (FP) PO SCH ×4 (09:48→21:29)
[2022-08-25] MEDS: POLYETHYLENE GLYCOL (HEALTHYLAX) 3350 17 GM PACKET PO SCH (09:50)
[2022-08-25] MEDS: IRON SUCROSE INJECTION 200 MG in SODIUM CHLORIDE 90 ML IVPB SCH (09:55)
[2022-08-25 11:51] LABS: ANISOCYTOSIS 1+; MACROCYTOSIS 0; OVALOCYTE 2+
[2022-08-25] MEDS ORDERED: ALBUTEROL SO4 HFA INHALER IH PRN (12:11)
[2022-08-25] MEDS ORDERED: MAG HYDROX/AL HYDROX/SIMETH 30 ML UNIT-DOSE CUP PO ONE (12:15)
[2022-08-25] MEDS: ALBUTEROL SO4 0.042% IH SOL 1.25 MG/3 ML VIAL.NEB NEB PRN (14:23)
[2022-08-25] MEDS: DOCUSATE SODIUM 100 MG CAPSULE (FP) PO SCH (21:26)
[2022-08-25] MEDS: MELATONIN 5 MG TABLETS PO PRN (21:26)
[2022-08-25] MEDS: ATORVASTATIN CA 20 MG TABLET (FP) PO SCH (21:29)
[2022-08-26] MEDS: ACETAMINOPHEN 325 MG TABLET (FP) PO PRN ×3 (03:04→22:01)
[2022-08-26] MEDS: POLYETHYLENE GLYCOL (HEALTHYLAX) 3350 17 GM PACKET PO SCH ×4 (05:46→22:44)
[2022-08-26] MEDS: GABAPENTIN 300 MG CAPSULE PO SCH ×3 (05:47→22:01)
[2022-08-26] MEDS: INSULIN (LEVEMIR) 100 UNITS/ML UNITS SQ SCH ×2 (06:02→22:43)
[2022-08-26] MEDS: INSULIN SLIDING SCALE (NOVOLOG) 1 VIAL SQ SCH ×4 (06:15→22:43)
[2022-08-26] MEDS: INSULIN (NOVOLOG) ASPART 100 UNITS/ML 10ML VIAL SQ SCH ×3 (06:15→17:15)
[2022-08-26] MEDS: ALBUTEROL SO4 0.042% IH SOL 1.25 MG/3 ML VIAL.NEB NEB PRN ×2 (09:43→17:05)
[2022-08-26] MEDS: SACUBITRIL/VALSARTAN 49 MG-51 MG TABLET PO SCH ×2 (09:53→21:59)
[2022-08-26] MEDS: FUROSEMIDE 40 MG/4 ML INJECTABLE VIAL IVPUSH SCH (09:53)
[2022-08-26] MEDS: APIXABAN 5 MG TABLET PO SCH ×2 (09:54→22:01)
[2022-08-26] MEDS: SUCRALFATE 1 GM TABLET (FP) PO SCH ×4 (09:54→21:59)
[2022-08-26] MEDS: methylPREDNISolone NA SUCC 40 MG/1 ML VIAL IVPUSH SCH (09:54)
[2022-08-26] MEDS: SERTRALINE HCL 50 MG TABLET (FP) PO SCH (09:54)
[2022-08-26] MEDS: LORATADINE 10 MG TABLET PO SCH (09:54)
[2022-08-26] MEDS: PANTOPRAZOLE 40 MG TABLET PO SCH ×2 (09:54→22:03)
[2022-08-26] MEDS: FLUTICASONE/UMECLIDIN/VILANTER(200-62.5-25 TRELEGY ELLIPTA) INAHLER IH SCH (10:00)
[2022-08-26] MEDS: FLUTICASONE PROP 0.05% 16 GM NASAL SPRAY NS SCH (10:00)
[2022-08-26] MEDS: ATORVASTATIN CA 20 MG TABLET (FP) PO SCH (22:00)
[2022-08-26] MEDS: MELATONIN 5 MG TABLETS PO PRN (22:00)
[2022-08-26] MEDS: DOCUSATE SODIUM 100 MG CAPSULE (FP) PO SCH (22:01)
[2022-08-27] MEDS: ACETAMINOPHEN 325 MG TABLET (FP) PO PRN ×2 (06:30→22:35)
[2022-08-27] MEDS: GABAPENTIN 300 MG CAPSULE PO SCH (06:30)
[2022-08-27] MEDS: INSULIN (LEVEMIR) 100 UNITS/ML UNITS SQ SCH ×2 (06:33→23:25)
[2022-08-27] MEDS: FLUTICASONE PROP 0.05% 16 GM NASAL SPRAY NS SCH ×3 (06:33→23:26)
[2022-08-27] MEDS: INSULIN (NOVOLOG) ASPART 100 UNITS/ML 10ML VIAL SQ SCH ×3 (06:34→17:33)
[2022-08-27] MEDS: INSULIN SLIDING SCALE (NOVOLOG) 1 VIAL SQ SCH ×4 (07:54→23:24)
[2022-08-27] MEDS: APIXABAN 5 MG TABLET PO SCH ×2 (10:41→23:26)
[2022-08-27] MEDS: PANTOPRAZOLE 40 MG TABLET PO SCH ×2 (10:41→22:37)
[2022-08-27] MEDS: SERTRALINE HCL 50 MG TABLET (FP) PO SCH (10:41)
[2022-08-27] MEDS: SUCRALFATE 1 GM TABLET (FP) PO SCH ×4 (10:41→22:34)
[2022-08-27] MEDS: methylPREDNISolone NA SUCC 40 MG/1 ML VIAL IVPUSH SCH (10:41)
[2022-08-27] MEDS: LORATADINE 10 MG TABLET PO SCH (10:41)
[2022-08-27] MEDS: FUROSEMIDE 40 MG/4 ML INJECTABLE VIAL IVPUSH SCH (10:42)
[2022-08-27] MEDS: SACUBITRIL/VALSARTAN 49 MG-51 MG TABLET PO SCH ×2 (10:42→22:40)
[2022-08-27] MEDS: POLYETHYLENE GLYCOL (HEALTHYLAX) 3350 17 GM PACKET PO SCH ×2 (10:42→23:25)
[2022-08-27] MEDS: FLUTICASONE/UMECLIDIN/VILANTER(200-62.5-25 TRELEGY ELLIPTA) INAHLER IH SCH (10:50)
[2022-08-27] MEDS: GABAPENTIN 100 MG CAPSULE PO SCH ×2 (14:57→22:35)
[2022-08-27] MEDS: ALBUTEROL SO4 2.5/IPRATROPIUM 0.5 INH SOL 3 ML VIAL.NEB. NEB SCH ×2 (15:05→20:36)
[2022-08-27] MEDS: DOCUSATE SODIUM 100 MG CAPSULE (FP) PO SCH (22:34)
[2022-08-27] MEDS: ATORVASTATIN CA 20 MG TABLET (FP) PO SCH (22:34)
[2022-08-27] MEDS: MELATONIN 5 MG TABLETS PO PRN (22:35)
[2022-08-28] MEDS: ACETAMINOPHEN 325 MG TABLET (FP) PO PRN ×2 (04:39→21:59)
[2022-08-28] MEDS: GABAPENTIN 100 MG CAPSULE PO SCH ×3 (06:21→21:53)
[2022-08-28] MEDS: INSULIN (LEVEMIR) 100 UNITS/ML UNITS SQ SCH ×2 (06:23→21:58)
[2022-08-28] MEDS: INSULIN (NOVOLOG) ASPART 100 UNITS/ML 10ML VIAL SQ SCH ×3 (06:23→17:17)
[2022-08-28] MEDS: INSULIN SLIDING SCALE (NOVOLOG) 1 VIAL SQ SCH ×4 (06:23→21:59)
[2022-08-28] MEDS: ALBUTEROL SO4 2.5/IPRATROPIUM 0.5 INH SOL 3 ML VIAL.NEB. NEB SCH ×3 (07:30→20:15)
[2022-08-28] MEDS: methylPREDNISolone NA SUCC 40 MG/1 ML VIAL IVPUSH SCH (10:08)
[2022-08-28] MEDS: FUROSEMIDE 40 MG/4 ML INJECTABLE VIAL IVPUSH SCH (10:08)
[2022-08-28] MEDS: LORATADINE 10 MG TABLET PO SCH (10:09)
[2022-08-28] MEDS: PANTOPRAZOLE 40 MG TABLET PO SCH ×2 (10:09→22:17)
[2022-08-28] MEDS: POLYETHYLENE GLYCOL (HEALTHYLAX) 3350 17 GM PACKET PO SCH ×2 (10:09→21:55)
[2022-08-28] MEDS: SUCRALFATE 1 GM TABLET (FP) PO SCH ×4 (10:09→21:56)
[2022-08-28] MEDS: SERTRALINE HCL 50 MG TABLET (FP) PO SCH (10:09)
[2022-08-28] MEDS: SACUBITRIL/VALSARTAN 49 MG-51 MG TABLET PO SCH ×2 (10:09→21:55)
[2022-08-28] MEDS: APIXABAN 5 MG TABLET PO SCH ×2 (10:09→21:53)
[2022-08-28] MEDS: FLUTICASONE PROP 0.05% 16 GM NASAL SPRAY NS SCH ×2 (10:10→21:52)
[2022-08-28] MEDS: FLUTICASONE/UMECLIDIN/VILANTER(200-62.5-25 TRELEGY ELLIPTA) INAHLER IH SCH (10:10)
[2022-08-28] MEDS ORDERED: INSULIN (NOVOLOG) ASPART 100 UNITS/ML 10ML VIAL ONE (21:48)
[2022-08-28] MEDS: ATORVASTATIN CA 20 MG TABLET (FP) PO SCH (21:54)
[2022-08-28] MEDS: DOCUSATE SODIUM 100 MG CAPSULE (FP) PO SCH (21:54)
[2022-08-28] MEDS: MELATONIN 5 MG TABLETS PO PRN (21:59)
[2022-08-29] MEDS: ACETAMINOPHEN 325 MG TABLET (FP) PO PRN ×3 (03:29→22:22)
[2022-08-29] MEDS: GABAPENTIN 100 MG CAPSULE PO SCH ×3 (06:23→22:12)
[2022-08-29] MEDS: INSULIN (LEVEMIR) 100 UNITS/ML UNITS SQ SCH ×2 (06:24→22:26)
[2022-08-29] MEDS: INSULIN (NOVOLOG) ASPART 100 UNITS/ML 10ML VIAL SQ SCH ×3 (06:25→16:29)
[2022-08-29] MEDS: INSULIN SLIDING SCALE (NOVOLOG) 1 VIAL SQ SCH ×4 (06:25→22:21)
[2022-08-29] MEDS: ALBUTEROL SO4 2.5/IPRATROPIUM 0.5 INH SOL 3 ML VIAL.NEB. NEB SCH ×3 (08:04→20:34)
[2022-08-29] MEDS: methylPREDNISolone NA SUCC 40 MG/1 ML VIAL IVPUSH SCH (08:59)
[2022-08-29] MEDS: FUROSEMIDE 40 MG/4 ML INJECTABLE VIAL IVPUSH SCH (09:00)
[2022-08-29] MEDS: SERTRALINE HCL 50 MG TABLET (FP) PO SCH (09:00)
[2022-08-29] MEDS: PANTOPRAZOLE 40 MG TABLET PO SCH ×2 (09:00→22:12)
[2022-08-29] MEDS: SUCRALFATE 1 GM TABLET (FP) PO SCH ×4 (09:01→22:11)
[2022-08-29] MEDS: APIXABAN 5 MG TABLET PO SCH ×2 (09:01→22:11)
[2022-08-29] MEDS: LORATADINE 10 MG TABLET PO SCH (09:01)
[2022-08-29] MEDS: SACUBITRIL/VALSARTAN 49 MG-51 MG TABLET PO SCH ×2 (09:01→22:11)
[2022-08-29] MEDS: FLUTICASONE PROP 0.05% 16 GM NASAL SPRAY NS SCH ×2 (09:01→22:20)
[2022-08-29] MEDS: POLYETHYLENE GLYCOL (HEALTHYLAX) 3350 17 GM PACKET PO SCH ×2 (09:07→22:21)
[2022-08-29] MEDS: FLUTICASONE/UMECLIDIN/VILANTER(200-62.5-25 TRELEGY ELLIPTA) INAHLER IH SCH (09:11)
[2022-08-29] MEDS ORDERED: INSULIN (NOVOLOG) ASPART 100 UNITS/ML 10ML VIAL ONE ×2 (11:07→16:23)
[2022-08-29 12:02] LABS: CHLORIDE 93 mmol/L (98-107); POTASSIUM 3.8 mmol/L (3.5-5.1); SODIUM 142 mmol/L (136-145)
[2022-08-29 12:09] LABS: HEMATOCRIT 33.4 % (32.4-45.2); HEMOGLOBIN 10.7 GM/dL (10.7-15.3); MCH 27.1 pg (25.7-33.7); MEAN CELL VOLUME 84.9 fl (80-96); MEAN PLT VOLUME 8.5 fl (7.5-11.1); PLATELET COUNT 158 10^3/uL (134-434); RBC 3.93 M/mm3 (3.60-5.2); WHITE BLOOD COUNT 6.7 K/mm3 (4.0-10.0)
[2022-08-29 12:16] LABS: CALCIUM 10.1 mg/dL (8.5-10.1); GLUCOSE,RANDOM 207 mg/dL (74-106)
[2022-08-29 12:17] LABS: ALBUMIN 3.4 g/dl (3.4-5.0)
[2022-08-29 12:19] LABS: SGPT/ALT 39 U/L (13-61)
[2022-08-29 12:20] LABS: CREATININE 0.9 mg/dL (0.55-1.3); SGOT/AST 20 U/L (15-37)
[2022-08-29 12:21] LABS: BILIRUBIN,TOTAL 0.3 mg/dL (0.2-1); TOT PROT 6.2 g/dl (6.4-8.2)
[2022-08-29 12:22] LABS: ALK PHOS 85 U/L (45-117)
[2022-08-29 12:34] LABS: ANISOCYTOSIS 1+; MACROCYTOSIS 1+
[2022-08-29 13:09] LABS: ANION GAP 3 MMOL/L (8-16); CO2 > 45 mmol/L (21-32)
[2022-08-29] MEDS: ATORVASTATIN CA 20 MG TABLET (FP) PO SCH (22:12)
[2022-08-29] MEDS: DOCUSATE SODIUM 100 MG CAPSULE (FP) PO SCH (22:14)
[2022-08-29] MEDS: MELATONIN 5 MG TABLETS PO PRN (22:24)
[2022-08-30] MEDS: INSULIN (NOVOLOG) ASPART 100 UNITS/ML 10ML VIAL SQ SCH ×3 (06:15→16:46)
[2022-08-30] MEDS: INSULIN (LEVEMIR) 100 UNITS/ML UNITS SQ SCH ×2 (06:15→21:52)
[2022-08-30] MEDS: INSULIN SLIDING SCALE (NOVOLOG) 1 VIAL SQ SCH ×4 (06:16→21:54)
[2022-08-30] MEDS: GABAPENTIN 100 MG CAPSULE PO SCH ×3 (06:29→21:46)
[2022-08-30] MEDS: ACETAMINOPHEN 325 MG TABLET (FP) PO PRN ×3 (06:34→21:51)
[2022-08-30 07:12] LABS: HEMATOCRIT 32.7 % (32.4-45.2); HEMOGLOBIN 10.5 GM/dL (10.7-15.3); MCH 27.4 pg (25.7-33.7); MCHC 32.2 g/dl (32.0-36.0); MEAN CELL VOLUME 84.9 fl (80-96); MEAN PLT VOLUME 8.9 fl (7.5-11.1); PLATELET COUNT 150 10^3/uL (134-434); RBC 3.86 M/mm3 (3.60-5.2); RDW 18.5 % (11.6-15.6); WHITE BLOOD COUNT 5.4 K/mm3 (4.0-10.0)
[2022-08-30 07:26] LABS: CHLORIDE 94 mmol/L (98-107); POTASSIUM 3.6 mmol/L (3.5-5.1); SODIUM 143 mmol/L (136-145)
[2022-08-30 07:31] LABS: CALCIUM 10.1 mg/dL (8.5-10.1)
[2022-08-30 07:32] LABS: ALBUMIN 3.4 g/dl (3.4-5.0); GLUCOSE,RANDOM 96 mg/dL (74-106)
[2022-08-30 07:34] LABS: SGPT/ALT 34 U/L (13-61)
[2022-08-30 07:35] LABS: CREATININE 0.8 mg/dL (0.55-1.3); SGOT/AST 13 U/L (15-37)
[2022-08-30 07:36] LABS: BILIRUBIN,TOTAL 0.4 mg/dL (0.2-1)
[2022-08-30 07:37] LABS: ALK PHOS 68 U/L (45-117)
[2022-08-30 07:39] LABS: ANION GAP 4 MMOL/L (8-16); CO2 > 45 mmol/L (21-32)
[2022-08-30] MEDS: ALBUTEROL SO4 2.5/IPRATROPIUM 0.5 INH SOL 3 ML VIAL.NEB. NEB SCH ×3 (07:40→20:26)
[2022-08-30 08:40] LABS: ANISOCYTOSIS 0; HELMET CELLS 0; HOWELL-JOLLY BODIES 0; MACROCYTOSIS 0; OVALOCYTE 0; ROULEAU 0; SICKELED CELLS 0; TARGET CELLS 0; TEAR DROP CELLS 0; TOXIC GRANULATION 0
[2022-08-30] MEDS: POLYETHYLENE GLYCOL (HEALTHYLAX) 3350 17 GM PACKET PO SCH ×2 (09:02→21:55)
[2022-08-30] MEDS: APIXABAN 5 MG TABLET PO SCH ×2 (09:02→21:46)
[2022-08-30] MEDS: PANTOPRAZOLE 40 MG TABLET PO SCH ×2 (09:03→21:46)
[2022-08-30] MEDS: SACUBITRIL/VALSARTAN 49 MG-51 MG TABLET PO SCH ×2 (09:03→21:46)
[2022-08-30] MEDS: FUROSEMIDE 40 MG/4 ML INJECTABLE VIAL IVPUSH SCH (09:03)
[2022-08-30] MEDS: LORATADINE 10 MG TABLET PO SCH (09:03)
[2022-08-30] MEDS: SUCRALFATE 1 GM TABLET (FP) PO SCH ×4 (09:03→21:46)
[2022-08-30] MEDS: SERTRALINE HCL 50 MG TABLET (FP) PO SCH (09:03)
[2022-08-30] MEDS: predniSONE 10 MG TABLET (UD) PO SCH (09:04)
[2022-08-30] MEDS: FLUTICASONE PROP 0.05% 16 GM NASAL SPRAY NS SCH ×2 (09:13→21:55)
[2022-08-30] MEDS: FLUTICASONE/UMECLIDIN/VILANTER(200-62.5-25 TRELEGY ELLIPTA) INAHLER IH SCH (09:14)
[2022-08-30] MEDS ORDERED: INSULIN (NOVOLOG) ASPART 100 UNITS/ML 10ML VIAL ONE (16:41)
[2022-08-30] MEDS ORDERED: MAG HYDROX/AL HYDROX/SIMETH -MYLANTA- ORAL SUSPENSION PO SCH (18:00)
[2022-08-30] MEDS: ATORVASTATIN CA 20 MG TABLET (FP) PO SCH (21:46)
[2022-08-30] MEDS: MELATONIN 5 MG TABLETS PO PRN (21:46)
[2022-08-30] MEDS: DOCUSATE SODIUM 100 MG CAPSULE (FP) PO SCH (21:51)
[2022-08-31] MEDS: MAG HYDROX/AL HYDROX/SIMETH 30 ML UNIT-DOSE CUP PO SCH ×2 (00:29→05:51)
[2022-08-31 05:31] VITALS: RESP 18
[2022-08-31] MEDS: GABAPENTIN 100 MG CAPSULE PO SCH (05:51)
[2022-08-31] MEDS: INSULIN (NOVOLOG) ASPART 100 UNITS/ML 10ML VIAL SQ SCH (06:03)
[2022-08-31] MEDS: INSULIN (LEVEMIR) 100 UNITS/ML UNITS SQ SCH (06:04)
[2022-08-31] MEDS: INSULIN SLIDING SCALE (NOVOLOG) 1 VIAL SQ SCH (06:04)
[2022-08-31] MEDS: ACETAMINOPHEN 325 MG TABLET (FP) PO PRN (06:26)
[2022-08-31] MEDS: ALBUTEROL SO4 2.5/IPRATROPIUM 0.5 INH SOL 3 ML VIAL.NEB. NEB SCH (07:35)
[2022-08-31] MEDS: predniSONE 10 MG TABLET (UD) PO SCH (09:10)
[2022-08-31] MEDS: SACUBITRIL/VALSARTAN 49 MG-51 MG TABLET PO SCH (09:11)
[2022-08-31] MEDS: APIXABAN 5 MG TABLET PO SCH (09:11)
[2022-08-31] MEDS: SUCRALFATE 1 GM TABLET (FP) PO SCH (09:11)
[2022-08-31] MEDS: PANTOPRAZOLE 40 MG TABLET PO SCH (09:11)
[2022-08-31] MEDS: SERTRALINE HCL 50 MG TABLET (FP) PO SCH (09:12)
[2022-08-31] MEDS: LORATADINE 10 MG TABLET PO SCH (09:12)
[2022-08-31] MEDS: FUROSEMIDE 40 MG/4 ML INJECTABLE VIAL IVPUSH SCH (09:12)
[2022-08-31] MEDS: POLYETHYLENE GLYCOL (HEALTHYLAX) 3350 17 GM PACKET PO SCH (09:13)
[2022-08-31] MEDS: FLUTICASONE/UMECLIDIN/VILANTER(200-62.5-25 TRELEGY ELLIPTA) INAHLER IH SCH (09:13)
[2022-08-31] MEDS: FLUTICASONE PROP 0.05% 16 GM NASAL SPRAY NS SCH (09:13)
[2022-08-31 11:01] VITALS: BP 122/44; PULSE 93; TEMP 97.5
== END 2022-08-31 11:55 | DRG 189 ==
LOC: JER 14:25 → JERBED 22:55 → J4W 07-22 03:08 → OBSVTOIN 07-22 09:26 → J4W 07-23 11:57
PROVIDERS: ADMIT Internal Medicine; ATTEND Internal Medicine
DX: J96.21 Acute and chronic respiratory failure with hypoxia (principal); J18.9 Pneumonia, unspecified organism; J44.0 Chronic obstructive pulmonary disease with (acute) lower respiratory infection; I50.32 Chronic diastolic (congestive) heart failure; Z68.43 Body mass index [BMI] 50.0-59.9, adult; K92.2 Gastrointestinal hemorrhage, unspecified; E66.2 Morbid (severe) obesity with alveolar hypoventilation; I13.0 Hypertensive heart and chronic kidney disease with heart failure and stage 1 through stage 4 chronic kidney disease, or unspecified chronic kidney disease; N17.9 Acute kidney failure, unspecified; I48.92 Unspecified atrial flutter; E87.29 Other acidosis; J44.1 Chronic obstructive pulmonary disease with (acute) exacerbation; J96.22 Acute and chronic respiratory failure with hypercapnia; F32.9 Major depressive disorder, single episode, unspecified; E11.42 Type 2 diabetes mellitus with diabetic polyneuropathy; I11.0 Hypertensive heart disease with heart failure; D64.9 Anemia, unspecified; E78.00 Pure hypercholesterolemia, unspecified; I48.0 Paroxysmal atrial fibrillation; E78.5 Hyperlipidemia, unspecified; K21.9 Gastro-esophageal reflux disease without esophagitis; D69.6 Thrombocytopenia, unspecified
CPT/HCPCS: 0241U-QW; 36415; 36600; 71045-TC-FY; 74177-TC; 76705-TC; 80048; 80053; 82272; 82728; 82803; 82962; 83036; 83540; 83550; 83690; 84484; 85025; 85027; 93005; 93010; 93306-TC; 94010; 94640; 94660; 97116-GP; 97162-GP; 99285-25; C9803-CS; G0378; J1756; Q9967; U0003; U0005

== ENCOUNTER 2022-08-31 16:41 | Inpatient (IN) | payer OTHER ==
[2022-08-31 17:04] VITALS: BMI 39.4
[2022-08-31] MEDS ORDERED: MAG HYDROX/AL HYDROX/SIMETH 30 ML UNIT-DOSE CUP PO ONE (17:35)
[2022-08-31] MEDS ORDERED: ACETAMINOPHEN 1000 MG/100 ML BAG IVPB ONE (17:35)
[2022-08-31] MEDS ORDERED: FAMOTIDINE 20 MG/50 ML IVPB 20 MG/50 ML MG IVPB ONE ×2 (17:35→18:31)
[2022-08-31] MEDS ORDERED: ACETAMINOPHEN INJECTION 100 ML IVPB ONE (18:30)
[2022-08-31] MEDS ORDERED: MAG HYDROX/AL HYDROX/SIMETH 30 ML UNIT-DOSE CUP ONE (18:31)
[2022-08-31 19:20] LABS: VENOUS O2 SATURATION 58.2 % (70-80); VENOUS PH 7.332 (7.310-7.410)
[2022-08-31 19:22] LABS: HEMATOCRIT 34.6 % (32.4-45.2); HEMOGLOBIN 10.8 GM/dL (10.7-15.3); MCH 26.6 pg (25.7-33.7); MCHC 31.3 g/dl (32.0-36.0); MEAN PLT VOLUME 8.2 fl (7.5-11.1); PLATELET COUNT 148 10^3/uL (134-434); RBC 4.07 M/mm3 (3.60-5.2); RDW 18.8 % (11.6-15.6); WHITE BLOOD COUNT 6.9 K/mm3 (4.0-10.0)
[2022-08-31 19:27] LABS: VENOUS BASE EXCESS 19.2 mmol/L (-2-2)
[2022-08-31 19:29] LABS: VENOUS PCO2 96.8 mmHg (38-52)
[2022-08-31 19:41] LABS: CHLORIDE 92 mmol/L (98-107); POTASSIUM 3.8 mmol/L (3.5-5.1); SODIUM 140 mmol/L (136-145)
[2022-08-31 19:45] LABS: ALBUMIN 3.7 g/dl (3.4-5.0); BLOOD UREA NITROGEN 31.4 mg/dL (7-18); GLUCOSE,RANDOM 177 mg/dL (74-106)
[2022-08-31 19:48] LABS: CREATININE 0.9 mg/dL (0.55-1.3); SGOT/AST 15 U/L (15-37); SGPT/ALT 36 U/L (13-61)
[2022-08-31 19:49] LABS: BILIRUBIN,TOTAL 0.4 mg/dL (0.2-1); TOT PROT 6.3 g/dl (6.4-8.2)
[2022-08-31 19:51] LABS: ALK PHOS 73 U/L (45-117)
[2022-08-31 19:56] LABS: ANION GAP 4 MMOL/L (8-16); CO2 > 45 mmol/L (21-32)
[2022-08-31 20:27] LABS: ANISOCYTOSIS 3+; MACROCYTOSIS 0; OVALOCYTE 1+
[2022-08-31] MEDS ORDERED: MAG HYDROX/AL HYDROX/SIMETH 30 ML UNIT-DOSE CUP PO PRN (22:50)
[2022-08-31] MEDS ORDERED: ALBUTEROL SO4 HFA INHALER IH PRN (22:50)
[2022-09-01] MEDS: PANTOPRAZOLE 40 MG TABLET PO SCH ×3 (00:29→22:16)
[2022-09-01] MEDS: GABAPENTIN 100 MG CAPSULE PO SCH ×4 (00:30→22:16)
[2022-09-01] MEDS: APIXABAN 5 MG TABLET PO SCH ×3 (00:30→22:15)
[2022-09-01] MEDS: ACETAMINOPHEN 325 MG TABLET (FP) PO PRN ×2 (04:06→22:31)
[2022-09-01] MEDS: MELATONIN 5 MG TABLETS PO PRN ×2 (04:06→22:33)
[2022-09-01] MEDS: INSULIN (NOVOLOG) ASPART 100 UNITS/ML 10ML VIAL SQ SCH ×3 (06:49→16:40)
[2022-09-01] MEDS: INSULIN (LEVEMIR) 100 UNITS/ML UNITS SQ SCH ×2 (06:49→22:26)
[2022-09-01] MEDS: INSULIN SLIDING SCALE (NOVOLOG) 1 VIAL SQ SCH ×4 (06:50→22:22)
[2022-09-01] MEDS: ALBUTEROL SO4 2.5/IPRATROPIUM 0.5 INH SOL 3 ML VIAL.NEB. NEB SCH ×3 (07:35→20:08)
[2022-09-01] MEDS: predniSONE 10 MG TABLET (UD) PO SCH (10:37)
[2022-09-01] MEDS: LORATADINE 10 MG TABLET PO SCH (10:37)
[2022-09-01] MEDS: FUROSEMIDE 40 MG TABLET (FP) PO SCH (10:37)
[2022-09-01] MEDS: SERTRALINE HCL 50 MG TABLET (FP) PO SCH (10:37)
[2022-09-01] MEDS: SUCRALFATE 1 GM TABLET (FP) PO SCH ×4 (10:38→22:17)
[2022-09-01] MEDS: POLYETHYLENE GLYCOL (HEALTHYLAX) 3350 17 GM PACKET PO SCH ×3 (10:38→22:19)
[2022-09-01] MEDS: SACUBITRIL/VALSARTAN 49 MG-51 MG TABLET PO SCH ×2 (10:38→22:19)
[2022-09-01 12:44] LABS: HEMATOCRIT 33.8 % (32.4-45.2); HEMOGLOBIN 10.6 GM/dL (10.7-15.3); MCH 26.8 pg (25.7-33.7); MCHC 31.4 g/dl (32.0-36.0); MEAN CELL VOLUME 85.2 fl (80-96); MEAN PLT VOLUME 8.9 fl (7.5-11.1); PLATELET COUNT 132 10^3/uL (134-434); RBC 3.96 M/mm3 (3.60-5.2); RDW 18.6 % (11.6-15.6); WHITE BLOOD COUNT 4.7 K/mm3 (4.0-10.0)
[2022-09-01 12:59] LABS: CHLORIDE 97 mmol/L (98-107); POTASSIUM 3.3 mmol/L (3.5-5.1); SODIUM 145 mmol/L (136-145)
[2022-09-01 13:01] LABS: CALCIUM 9.9 mg/dL (8.5-10.1)
[2022-09-01 13:02] LABS: ALBUMIN 3.3 g/dl (3.4-5.0); BLOOD UREA NITROGEN 27.9 mg/dL (7-18); GLUCOSE,RANDOM 100 mg/dL (74-106)
[2022-09-01 13:04] LABS: SGPT/ALT 35 U/L (13-61)
[2022-09-01 13:05] LABS: CREATININE 0.9 mg/dL (0.55-1.3); SGOT/AST 13 U/L (15-37)
[2022-09-01 13:07] LABS: BILIRUBIN,TOTAL 0.2 mg/dL (0.2-1)
[2022-09-01 13:08] LABS: ALK PHOS 76 U/L (45-117)
[2022-09-01 13:09] LABS: ANION GAP 3 MMOL/L (8-16); CO2 > 45 mmol/L (21-32)
[2022-09-01] MEDS: FLUTICASONE/UMECLIDIN/VILANTER(200-62.5-25 TRELEGY ELLIPTA) INAHLER IH SCH (13:38)
[2022-09-01 14:13] LABS: ANISOCYTOSIS 2+; MACROCYTOSIS 0
[2022-09-01] MEDS: FLUTICASONE PROP 0.05% 16 GM NASAL SPRAY NS SCH ×2 (14:37→22:20)
[2022-09-01] MEDS ORDERED: POTASSIUM CHLORIDE ORAL LIQUID 20 MEQ/15 ML PO ONE (21:15)
[2022-09-01] MEDS ORDERED: ATORVASTATIN CA 20 MG TABLET (FP) PO SCH (22:00)
[2022-09-01] MEDS ORDERED: DOCUSATE SODIUM 100 MG CAPSULE (FP) PO SCH (22:00)
[2022-09-01] MEDS ORDERED: INSULIN (NOVOLOG) ASPART 100 UNITS/ML 10ML VIAL ONE (22:06)
[2022-09-01 22:27] VITALS: RESP 20
[2022-09-02] MEDS: INSULIN (LEVEMIR) 100 UNITS/ML UNITS SQ SCH (06:52)
[2022-09-02] MEDS: INSULIN (NOVOLOG) ASPART 100 UNITS/ML 10ML VIAL SQ SCH ×2 (06:58→11:43)
[2022-09-02] MEDS: INSULIN SLIDING SCALE (NOVOLOG) 1 VIAL SQ SCH ×2 (06:59→11:47)
[2022-09-02] MEDS: ACETAMINOPHEN 325 MG TABLET (FP) PO PRN (07:00)
[2022-09-02] MEDS: GABAPENTIN 100 MG CAPSULE PO SCH ×2 (07:05→14:28)
[2022-09-02] MEDS ORDERED: INSULIN (NOVOLOG) ASPART 100 UNITS/ML 10ML VIAL ONE (07:31)
[2022-09-02] MEDS ORDERED: INSULIN (LEVEMIR) 100 UNITS/ML UNITS SQ ONE (07:31)
[2022-09-02] MEDS: ALBUTEROL SO4 2.5/IPRATROPIUM 0.5 INH SOL 3 ML VIAL.NEB. NEB SCH ×2 (07:55→15:35)
[2022-09-02 08:01] LABS: POTASSIUM 3.9 mmol/L (3.5-5.1)
[2022-09-02 08:14] LABS: CALCIUM 10.1 mg/dL (8.5-10.1)
[2022-09-02 08:15] LABS: ALBUMIN 3.5 g/dl (3.4-5.0); BLOOD UREA NITROGEN 33.1 mg/dL (7-18)
[2022-09-02 08:19] LABS: TOT PROT 6.3 g/dl (6.4-8.2)
[2022-09-02 08:20] LABS: BILIRUBIN,TOTAL 0.3 mg/dL (0.2-1)
[2022-09-02] MEDS: FUROSEMIDE 40 MG TABLET (FP) PO SCH (10:42)
[2022-09-02] MEDS: LORATADINE 10 MG TABLET PO SCH (10:42)
[2022-09-02] MEDS: predniSONE 10 MG TABLET (UD) PO SCH (10:42)
[2022-09-02] MEDS: PANTOPRAZOLE 40 MG TABLET PO SCH (10:42)
[2022-09-02] MEDS: FLUTICASONE/UMECLIDIN/VILANTER(200-62.5-25 TRELEGY ELLIPTA) INAHLER IH SCH (10:43)
[2022-09-02] MEDS: SERTRALINE HCL 50 MG TABLET (FP) PO SCH (10:43)
[2022-09-02] MEDS: APIXABAN 5 MG TABLET PO SCH (10:43)
[2022-09-02] MEDS: POLYETHYLENE GLYCOL (HEALTHYLAX) 3350 17 GM PACKET PO SCH (10:43)
[2022-09-02] MEDS: FLUTICASONE PROP 0.05% 16 GM NASAL SPRAY NS SCH (10:44)
[2022-09-02] MEDS: SUCRALFATE 1 GM TABLET (FP) PO SCH ×2 (10:48→14:29)
[2022-09-02] MEDS: SACUBITRIL/VALSARTAN 49 MG-51 MG TABLET PO SCH (10:48)
[2022-09-02 15:37] VITALS: BP 115/63; PULSE 86; TEMP 98.4
== END 2022-09-02 16:45 | DRG 189 ==
LOC: JER 16:41 → JERBED 17:47 → J7W 22:44
PROVIDERS: ADMIT Internal Medicine; ATTEND Internal Medicine
DX: J96.21 Acute and chronic respiratory failure with hypoxia (principal); I50.33 Acute on chronic diastolic (congestive) heart failure; I13.0 Hypertensive heart and chronic kidney disease with heart failure and stage 1 through stage 4 chronic kidney disease, or unspecified chronic kidney disease; J98.11 Atelectasis; Z68.42 Body mass index [BMI] 45.0-49.9, adult; J96.11 Chronic respiratory failure with hypoxia; J96.22 Acute and chronic respiratory failure with hypercapnia; G47.33 Obstructive sleep apnea (adult) (pediatric); E11.40 Type 2 diabetes mellitus with diabetic neuropathy, unspecified; E78.00 Pure hypercholesterolemia, unspecified; E66.01 Morbid (severe) obesity due to excess calories; J44.9 Chronic obstructive pulmonary disease, unspecified; I27.20 Pulmonary hypertension, unspecified; E11.22 Type 2 diabetes mellitus with diabetic chronic kidney disease; N18.9 Chronic kidney disease, unspecified; K21.9 Gastro-esophageal reflux disease without esophagitis; I48.0 Paroxysmal atrial fibrillation; Z87.11 Personal history of peptic ulcer disease; Z99.81 Dependence on supplemental oxygen
CPT/HCPCS: 0241U-QW; 36415; 71045-TC-FY; 80053; 82803; 82962; 83880; 84484; 85025; 93005; 93010; 94640; 94660; 97116-GP; 97161-GP; 99285-25

== ENCOUNTER 2022-09-02 22:03 | Inpatient (IN) | payer OTHER ==
[2022-09-03] MEDS ORDERED: CEFTRIAXONE 1,000 MG in DEXTROSE 5%-WATER - 50 ML IVPB ONE (00:02)
[2022-09-03] MEDS ORDERED: CEFTRIAXONE 1 GM/50 ML BAG ONE (00:07)
[2022-09-03] MEDS ORDERED: AZITHROMYCIN IVPB 500 MG/250 ML BAG IVPB ONE ×2 (00:07→00:10)
[2022-09-03] MEDS: AZITHROMYCIN IVPB 500 MG in DEXTROSE 5%-WATER - 250 ML IVPB ONE ×2 (00:30→05:59)
[2022-09-03] MEDS ORDERED: GABAPENTIN 100 MG CAPSULE PO ONE (00:35)
[2022-09-03] MEDS ORDERED: ACETAMINOPHEN 1000 MG/100 ML BAG IVPB ONE (00:35)
[2022-09-03] MEDS ORDERED: GABAPENTIN 100 MG CAPSULE ONE (00:45)
[2022-09-03] MEDS ORDERED: ACETAMINOPHEN INJECTION 100 ML IVPB ONE (00:45)
[2022-09-03] MEDS: ALBUTEROL SO4 2.5/IPRATROPIUM 0.5 INH SOL 3 ML VIAL.NEB. NEB SCH ×6 (00:47→20:14)
[2022-09-03] MEDS ORDERED: ALBUTEROL SO4 2.5/IPRATROPIUM 0.5 INH SOL 3 ML VIAL.NEB. NEB ONE (00:48)
[2022-09-03 01:04] LABS: BASO % 0.1 % (0-2.0); EOS % 0.1 % (0-4.5); HEMATOCRIT 34.7 % (32.4-45.2); HEMOGLOBIN 11.1 GM/dL (10.7-15.3); MCH 27.2 pg (25.7-33.7); MCHC 31.9 g/dl (32.0-36.0); MEAN CELL VOLUME 85.1 fl (80-96); MEAN PLT VOLUME 8.7 fl (7.5-11.1); MONO % 6.6 % (3.8-10.2); NEUT % 89.2 % (42.8-82.8); PLATELET COUNT 139 10^3/uL (134-434); RBC 4.08 M/mm3 (3.60-5.2); RDW 18.2 % (11.6-15.6); WHITE BLOOD COUNT 6.6 K/mm3 (4.0-10.0)
[2022-09-03 01:20] LABS: CHLORIDE 96 mmol/L (98-107); POTASSIUM 4.1 mmol/L (3.5-5.1); SODIUM 142 mmol/L (136-145)
[2022-09-03 01:22] LABS: ALBUMIN 3.7 g/dl (3.4-5.0); CALCIUM 9.4 mg/dL (8.5-10.1)
[2022-09-03 01:23] LABS: BLOOD UREA NITROGEN 31.9 mg/dL (7-18); GLUCOSE,RANDOM 133 mg/dL (74-106); MAGNESIUM 2.1 mg/dL (1.8-2.4)
[2022-09-03 01:25] LABS: SGPT/ALT 54 U/L (13-61)
[2022-09-03 01:26] LABS: SGOT/AST 29 U/L (15-37)
[2022-09-03 01:27] LABS: BILIRUBIN,TOTAL 0.3 mg/dL (0.2-1); TOT PROT 6.6 g/dl (6.4-8.2)
[2022-09-03 01:29] LABS: ALK PHOS 88 U/L (45-117)
[2022-09-03 01:31] LABS: N-TERMINAL BNP 1385.2 pg/ml (5-125)
[2022-09-03] MEDS ORDERED: MAG HYDROX/AL HYDROX/SIMETH 30 ML UNIT-DOSE CUP PO PRN (02:08)
[2022-09-03] MEDS ORDERED: ALBUTEROL SO4 HFA INHALER IH PRN (02:08)
[2022-09-03] MEDS ORDERED: MELATONIN 5 MG TABLETS PO PRN (02:08)
[2022-09-03 02:24] LABS: ANION GAP 1 MMOL/L (8-16); CO2 > 45 mmol/L (21-32)
[2022-09-03 02:27] LABS: ANISOCYTOSIS 2+; MACROCYTOSIS 0; OVALOCYTE 2+; TARGET CELLS 1+
[2022-09-03] MEDS: INSULIN (LEVEMIR) 100 UNITS/ML UNITS SQ SCH ×2 (07:42→21:38)
[2022-09-03] MEDS: INSULIN SLIDING SCALE (NOVOLOG) 1 VIAL SQ SCH ×4 (07:43→21:39)
[2022-09-03] MEDS: INSULIN (NOVOLOG) ASPART 100 UNITS/ML 10ML VIAL SQ SCH ×3 (07:43→17:02)
[2022-09-03 08:31] VITALS: BMI 42.5
[2022-09-03] MEDS: FUROSEMIDE 40 MG TABLET (FP) PO SCH (09:13)
[2022-09-03] MEDS: SERTRALINE HCL 50 MG TABLET (FP) PO SCH (09:13)
[2022-09-03] MEDS: LORATADINE 10 MG TABLET PO SCH (09:14)
[2022-09-03] MEDS: predniSONE 10 MG TABLET (UD) PO SCH (09:14)
[2022-09-03] MEDS: PANTOPRAZOLE 40 MG TABLET PO SCH ×2 (09:14→21:32)
[2022-09-03] MEDS: POLYETHYLENE GLYCOL (HEALTHYLAX) 3350 17 GM PACKET PO SCH ×2 (09:14→21:32)
[2022-09-03] MEDS: APIXABAN 5 MG TABLET PO SCH ×2 (09:14→21:32)
[2022-09-03] MEDS: ACETAMINOPHEN 325 MG TABLET (FP) PO PRN ×2 (10:14→22:43)
[2022-09-03] MEDS: FLUTICASONE PROP 0.05% 16 GM NASAL SPRAY NS SCH ×2 (10:20→21:33)
[2022-09-03] MEDS: SUCRALFATE 1 GM TABLET (FP) PO SCH ×4 (10:20→21:34)
[2022-09-03] MEDS: FLUTICASONE/UMECLIDIN/VILANTER(200-62.5-25 TRELEGY ELLIPTA) INAHLER IH SCH (10:20)
[2022-09-03 10:29] LABS: HEMATOCRIT 35.1 % (32.4-45.2); HEMOGLOBIN 10.6 GM/dL (10.7-15.3); MCH 26.3 pg (25.7-33.7); MCHC 30.1 g/dl (32.0-36.0); MEAN CELL VOLUME 87.3 fl (80-96); MEAN PLT VOLUME 8.6 fl (7.5-11.1); PLATELET COUNT 143 10^3/uL (134-434); RBC 4.02 M/mm3 (3.60-5.2); WHITE BLOOD COUNT 7.2 K/mm3 (4.0-10.0)
[2022-09-03 10:33] LABS: BLOOD UREA NITROGEN 33.6 mg/dL (7-18); CALCIUM 10.2 mg/dL (8.5-10.1)
[2022-09-03 10:34] LABS: ALBUMIN 3.4 g/dl (3.4-5.0)
[2022-09-03 10:37] LABS: CREATININE 0.9 mg/dL (0.55-1.3)
[2022-09-03 10:38] LABS: BILIRUBIN,TOTAL 0.2 mg/dL (0.2-1); TOT PROT 6.2 g/dl (6.4-8.2)
[2022-09-03] MEDS: SACUBITRIL/VALSARTAN 49 MG-51 MG TABLET PO SCH ×2 (11:22→21:32)
[2022-09-03 11:55] LABS: ANISOCYTOSIS 0; HELMET CELLS 0; HOWELL-JOLLY BODIES 0; MACROCYTOSIS 0; OVALOCYTE 0; ROULEAU 0; SICKELED CELLS 0; TARGET CELLS 0; TEAR DROP CELLS 0; TOXIC GRANULATION 0
[2022-09-03] MEDS: GABAPENTIN 100 MG CAPSULE PO SCH ×2 (13:56→21:33)
[2022-09-03] MEDS: DOCUSATE SODIUM 100 MG CAPSULE (FP) PO SCH (21:32)
[2022-09-03] MEDS: ATORVASTATIN CA 20 MG TABLET (FP) PO SCH (21:32)
[2022-09-04] MEDS: GABAPENTIN 100 MG CAPSULE PO SCH ×3 (06:15→23:22)
[2022-09-04] MEDS: INSULIN SLIDING SCALE (NOVOLOG) 1 VIAL SQ SCH ×4 (06:18→23:20)
[2022-09-04] MEDS: INSULIN (NOVOLOG) ASPART 100 UNITS/ML 10ML VIAL SQ SCH ×3 (06:18→17:40)
[2022-09-04] MEDS: ALBUTEROL SO4 2.5/IPRATROPIUM 0.5 INH SOL 3 ML VIAL.NEB. NEB SCH ×3 (07:32→19:06)
[2022-09-04 09:19] LABS: ARTERIAL BLD GAS O2 SATURATION 90.6 % (95-98); ARTERIAL BLOOD GAS BASE EXCESS 15.8 mmol/L (-2-2); ARTERIAL BLOOD GAS PO2 67.1 mmHg (80-100); ARTERIAL BLOOD GAS pH 7.325 (7.350-7.450)
[2022-09-04] MEDS: FUROSEMIDE 40 MG TABLET (FP) PO SCH (09:20)
[2022-09-04] MEDS: APIXABAN 5 MG TABLET PO SCH ×2 (09:20→23:21)
[2022-09-04] MEDS: predniSONE 10 MG TABLET (UD) PO SCH (09:21)
[2022-09-04] MEDS: SACUBITRIL/VALSARTAN 49 MG-51 MG TABLET PO SCH ×2 (09:21→23:22)
[2022-09-04] MEDS: PANTOPRAZOLE 40 MG TABLET PO SCH ×2 (09:21→23:21)
[2022-09-04] MEDS: SUCRALFATE 1 GM TABLET (FP) PO SCH ×4 (09:21→23:22)
[2022-09-04] MEDS: LORATADINE 10 MG TABLET PO SCH (09:21)
[2022-09-04] MEDS: SERTRALINE HCL 50 MG TABLET (FP) PO SCH (09:21)
[2022-09-04 09:22] LABS: ALLENS TEST POSITIVE
[2022-09-04] MEDS: ACETAMINOPHEN 325 MG TABLET (FP) PO PRN (09:22)
[2022-09-04] MEDS: POLYETHYLENE GLYCOL (HEALTHYLAX) 3350 17 GM PACKET PO SCH ×3 (09:23→23:34)
[2022-09-04] MEDS: FLUTICASONE PROP 0.05% 16 GM NASAL SPRAY NS SCH ×2 (09:27→23:21)
[2022-09-04] MEDS: FLUTICASONE/UMECLIDIN/VILANTER(200-62.5-25 TRELEGY ELLIPTA) INAHLER IH SCH (09:27)
[2022-09-04] MEDS: INSULIN (LEVEMIR) 100 UNITS/ML UNITS SQ SCH ×2 (20:12→23:25)
[2022-09-04] MEDS: ATORVASTATIN CA 20 MG TABLET (FP) PO SCH (23:21)
[2022-09-04] MEDS: DOCUSATE SODIUM 100 MG CAPSULE (FP) PO SCH (23:21)
[2022-09-05] MEDS: INSULIN SLIDING SCALE (NOVOLOG) 1 VIAL SQ SCH ×4 (06:08→21:47)
[2022-09-05] MEDS: INSULIN (NOVOLOG) ASPART 100 UNITS/ML 10ML VIAL SQ SCH ×3 (06:08→17:02)
[2022-09-05] MEDS: INSULIN (LEVEMIR) 100 UNITS/ML UNITS SQ SCH ×3 (06:09→21:49)
[2022-09-05] MEDS: GABAPENTIN 100 MG CAPSULE PO SCH ×3 (06:11→21:48)
[2022-09-05] MEDS: ALBUTEROL SO4 2.5/IPRATROPIUM 0.5 INH SOL 3 ML VIAL.NEB. NEB SCH ×3 (08:55→20:38)
[2022-09-05] MEDS: SERTRALINE HCL 50 MG TABLET (FP) PO SCH (09:41)
[2022-09-05] MEDS: LORATADINE 10 MG TABLET PO SCH (09:41)
[2022-09-05] MEDS: FUROSEMIDE 40 MG TABLET (FP) PO SCH (09:41)
[2022-09-05] MEDS: predniSONE 10 MG TABLET (UD) PO SCH (09:41)
[2022-09-05] MEDS: PANTOPRAZOLE 40 MG TABLET PO SCH ×2 (09:41→21:48)
[2022-09-05] MEDS: APIXABAN 5 MG TABLET PO SCH ×2 (09:42→21:48)
[2022-09-05] MEDS: POLYETHYLENE GLYCOL (HEALTHYLAX) 3350 17 GM PACKET PO SCH ×2 (09:43→21:48)
[2022-09-05] MEDS: SUCRALFATE 1 GM TABLET (FP) PO SCH ×4 (09:45→21:48)
[2022-09-05] MEDS: SACUBITRIL/VALSARTAN 49 MG-51 MG TABLET PO SCH ×2 (09:45→21:48)
[2022-09-05] MEDS: FLUTICASONE/UMECLIDIN/VILANTER(200-62.5-25 TRELEGY ELLIPTA) INAHLER IH SCH (09:47)
[2022-09-05] MEDS: FLUTICASONE PROP 0.05% 16 GM NASAL SPRAY NS SCH ×2 (09:48→21:57)
[2022-09-05] MEDS ORDERED: INSULIN (NOVOLOG) ASPART 100 UNITS/ML 10ML VIAL ONE (16:59)
[2022-09-05] MEDS: ATORVASTATIN CA 20 MG TABLET (FP) PO SCH (21:48)
[2022-09-05] MEDS: DOCUSATE SODIUM 100 MG CAPSULE (FP) PO SCH (21:48)
[2022-09-06] MEDS: ACETAMINOPHEN 325 MG TABLET (FP) PO PRN ×3 (01:38→22:01)
[2022-09-06] MEDS: GABAPENTIN 100 MG CAPSULE PO SCH ×3 (06:13→22:01)
[2022-09-06] MEDS: INSULIN SLIDING SCALE (NOVOLOG) 1 VIAL SQ SCH ×4 (06:13→22:04)
[2022-09-06] MEDS: INSULIN (LEVEMIR) 100 UNITS/ML UNITS SQ SCH ×2 (06:43→22:03)
[2022-09-06] MEDS: INSULIN (NOVOLOG) ASPART 100 UNITS/ML 10ML VIAL SQ SCH ×3 (06:45→17:02)
[2022-09-06] MEDS ORDERED: INSULIN (LEVEMIR) 100 UNITS/ML UNITS SQ ONE (06:48)
[2022-09-06] MEDS: ALBUTEROL SO4 2.5/IPRATROPIUM 0.5 INH SOL 3 ML VIAL.NEB. NEB SCH ×3 (07:40→20:10)
[2022-09-06] MEDS: predniSONE 10 MG TABLET (UD) PO SCH (09:18)
[2022-09-06] MEDS: POLYETHYLENE GLYCOL (HEALTHYLAX) 3350 17 GM PACKET PO SCH ×2 (09:18→22:02)
[2022-09-06] MEDS: APIXABAN 5 MG TABLET PO SCH ×2 (09:18→22:00)
[2022-09-06] MEDS: PANTOPRAZOLE 40 MG TABLET PO SCH ×2 (09:19→22:01)
[2022-09-06] MEDS: FUROSEMIDE 40 MG TABLET (FP) PO SCH (09:19)
[2022-09-06] MEDS: LORATADINE 10 MG TABLET PO SCH (09:19)
[2022-09-06] MEDS: SERTRALINE HCL 50 MG TABLET (FP) PO SCH (09:19)
[2022-09-06] MEDS: SUCRALFATE 1 GM TABLET (FP) PO SCH ×4 (09:20→22:01)
[2022-09-06] MEDS: SACUBITRIL/VALSARTAN 49 MG-51 MG TABLET PO SCH ×2 (09:20→22:02)
[2022-09-06] MEDS: FLUTICASONE/UMECLIDIN/VILANTER(200-62.5-25 TRELEGY ELLIPTA) INAHLER IH SCH (09:22)
[2022-09-06] MEDS: FLUTICASONE PROP 0.05% 16 GM NASAL SPRAY NS SCH ×2 (09:22→22:02)
[2022-09-06] MEDS ORDERED: INSULIN (NOVOLOG) ASPART 100 UNITS/ML 10ML VIAL ONE (21:21)
[2022-09-06] MEDS: DOCUSATE SODIUM 100 MG CAPSULE (FP) PO SCH (22:00)
[2022-09-06] MEDS: ATORVASTATIN CA 20 MG TABLET (FP) PO SCH (22:06)
[2022-09-07] MEDS: INSULIN (NOVOLOG) ASPART 100 UNITS/ML 10ML VIAL SQ SCH ×2 (06:18→11:45)
[2022-09-07] MEDS: GABAPENTIN 100 MG CAPSULE PO SCH ×2 (06:18→06:28)
[2022-09-07] MEDS: INSULIN (LEVEMIR) 100 UNITS/ML UNITS SQ SCH (06:18)
[2022-09-07] MEDS: INSULIN SLIDING SCALE (NOVOLOG) 1 VIAL SQ SCH ×2 (06:19→11:45)
[2022-09-07] MEDS: ALBUTEROL SO4 2.5/IPRATROPIUM 0.5 INH SOL 3 ML VIAL.NEB. NEB SCH (07:40)
[2022-09-07] MEDS: LORATADINE 10 MG TABLET PO SCH (09:56)
[2022-09-07] MEDS: PANTOPRAZOLE 40 MG TABLET PO SCH (09:56)
[2022-09-07] MEDS: APIXABAN 5 MG TABLET PO SCH (09:56)
[2022-09-07] MEDS: FUROSEMIDE 40 MG TABLET (FP) PO SCH (09:56)
[2022-09-07] MEDS: SERTRALINE HCL 50 MG TABLET (FP) PO SCH (09:56)
[2022-09-07] MEDS: SACUBITRIL/VALSARTAN 49 MG-51 MG TABLET PO SCH (09:57)
[2022-09-07] MEDS: SUCRALFATE 1 GM TABLET (FP) PO SCH (09:57)
[2022-09-07] MEDS ORDERED: predniSONE 10 MG TABLET (UD) PO SCH (10:00)
[2022-09-07] MEDS: POLYETHYLENE GLYCOL (HEALTHYLAX) 3350 17 GM PACKET PO SCH (10:00)
[2022-09-07] MEDS: FLUTICASONE/UMECLIDIN/VILANTER(200-62.5-25 TRELEGY ELLIPTA) INAHLER IH SCH (10:01)
[2022-09-07] MEDS: ACETAMINOPHEN 325 MG TABLET (FP) PO PRN (10:06)
[2022-09-07] MEDS: FLUTICASONE PROP 0.05% 16 GM NASAL SPRAY NS SCH (10:10)
[2022-09-07 13:24] VITALS: BP 121/53; PULSE 86; RESP 20; TEMP 98.5
== END 2022-09-07 14:28 | DRG 189 ==
LOC: JER 22:03 → JERBED 23:52 → J6S 09-03 06:18
PROVIDERS: ADMIT Internal Medicine; ATTEND Internal Medicine
DX: J96.22 Acute and chronic respiratory failure with hypercapnia (principal); J44.1 Chronic obstructive pulmonary disease with (acute) exacerbation; I13.0 Hypertensive heart and chronic kidney disease with heart failure and stage 1 through stage 4 chronic kidney disease, or unspecified chronic kidney disease; I50.32 Chronic diastolic (congestive) heart failure; J96.21 Acute and chronic respiratory failure with hypoxia; I48.0 Paroxysmal atrial fibrillation; E66.01 Morbid (severe) obesity due to excess calories; G47.33 Obstructive sleep apnea (adult) (pediatric); Z68.41 Body mass index [BMI] 40.0-44.9, adult; E11.40 Type 2 diabetes mellitus with diabetic neuropathy, unspecified; R10.13 Epigastric pain; K21.9 Gastro-esophageal reflux disease without esophagitis; E78.5 Hyperlipidemia, unspecified; D64.9 Anemia, unspecified; D35.00 Benign neoplasm of unspecified adrenal gland; E11.22 Type 2 diabetes mellitus with diabetic chronic kidney disease; N18.9 Chronic kidney disease, unspecified; Z99.81 Dependence on supplemental oxygen
CPT/HCPCS: 0241U-QW; 36415; 36600; 71045-TC-FY; 80053; 82803; 82962; 83735; 83880; 85025; 93005; 93010; 94010; 94640; 94660; 99285-25

== ENCOUNTER 2022-09-27 15:04 | Inpatient (IN) | payer OTHER ==
[2022-09-27 15:21] VITALS: BMI 43.4
[2022-09-27 17:23] LABS: VENOUS BASE EXCESS 23.2 mmol/L (-2-2); VENOUS O2 SATURATION 21.5 % (70-80); VENOUS PH 7.29 (7.310-7.410)
[2022-09-27 17:24] LABS: BASO % 0.2 % (0-2.0); EOS % 0.4 % (0-4.5); HEMATOCRIT 34.8 % (32.4-45.2); HEMOGLOBIN 10.7 GM/dL (10.7-15.3); LYMPH % 3.8 % (8-40); MCHC 30.8 g/dl (32.0-36.0); MEAN CELL VOLUME 84.6 fl (80-96); MONO % 7.6 % (3.8-10.2); PLATELET COUNT 159 10^3/uL (134-434); RBC 4.11 M/mm3 (3.60-5.2); RDW 17.5 % (11.6-15.6); VENOUS PCO2 122.7 mmHg (38-52)
[2022-09-27 17:32] LABS: INR 1.31 (0.83-1.09); PROTHROMBIN TIME (PATIENT) 15.1 SEC (9.7-13.0)
[2022-09-27] MEDS ORDERED: ALBUTEROL SO4 2.5/IPRATROPIUM 0.5 INH SOL 3 ML VIAL.NEB. NEB ONE ×2 (17:41→17:55)
[2022-09-27] MEDS: ALBUTEROL SO4 2.5/IPRATROPIUM 0.5 INH SOL 3 ML VIAL.NEB. NEB SCH ×4 (17:42→18:22)
[2022-09-27] MEDS ORDERED: methylPREDNISolone NA SUCC 125 MG/2 ML VIAL IVPUSH ONE (17:48)
[2022-09-27] MEDS ORDERED: methylPREDNISolone NA SUCC 125 MG/2 ML VIAL ONE (17:55)
[2022-09-27 18:00] LABS: CHLORIDE 91 mmol/L (98-107); POTASSIUM 4.9 mmol/L (3.5-5.1); SODIUM 143 mmol/L (136-145)
[2022-09-27 18:02] LABS: CALCIUM 10.5 mg/dL (8.5-10.1)
[2022-09-27 18:03] LABS: ALBUMIN 3.7 g/dl (3.4-5.0); BLOOD UREA NITROGEN 19.8 mg/dL (7-18); GLUCOSE,RANDOM 98 mg/dL (74-106); MAGNESIUM 1.8 mg/dL (1.8-2.4)
[2022-09-27 18:06] LABS: CREATININE 0.7 mg/dL (0.55-1.3); SGOT/AST 44 U/L (15-37); SGPT/ALT 40 U/L (13-61)
[2022-09-27 18:08] LABS: BILIRUBIN,TOTAL 0.3 mg/dL (0.2-1); TOT PROT 6.7 g/dl (6.4-8.2)
[2022-09-27 18:09] LABS: ALK PHOS 83 U/L (45-117)
[2022-09-27 18:11] LABS: N-TERMINAL BNP 2675.4 pg/ml (5-125)
[2022-09-27 18:39] LABS: ANION GAP 7 MMOL/L (8-16); CO2 > 45 mmol/L (21-32)
[2022-09-27] MEDS ORDERED: FUROSEMIDE 40 MG/4 ML INJECTABLE VIAL IVPUSH ONE (19:41)
[2022-09-27] MEDS ORDERED: FUROSEMIDE 40 MG/4 ML INJECTABLE VIAL ONE (19:48)
[2022-09-27 19:52] LABS: ARTERIAL BLD GAS O2 SATURATION 69.2 % (95-98); ARTERIAL BLOOD GAS BASE EXCESS 21.3 mmol/L (-2-2); ARTERIAL BLOOD GAS PO2 39.4 mmHg (80-100)
[2022-09-27 19:53] LABS: ALLENS TEST POSITIVE
[2022-09-27 19:55] LABS: VENT RATE 16
[2022-09-27 20:41] LABS: VENOUS BASE EXCESS 18.6 mmol/L (-2-2); VENOUS O2 SATURATION 50.1 % (70-80); VENOUS PH 7.344 (7.310-7.410)
[2022-09-27 20:43] LABS: VENOUS PCO2 90.9 mmHg (38-52)
[2022-09-27] MEDS ORDERED: ALBUTEROL SO4 HFA INHALER IH PRN (23:10)
[2022-09-27] MEDS: GABAPENTIN 100 MG CAPSULE PO SCH (23:48)
[2022-09-27] MEDS: APIXABAN 5 MG TABLET PO SCH (23:49)
[2022-09-28] MEDS: methylPREDNISolone NA SUCC 40 MG/1 ML VIAL IVPUSH SCH ×3 (01:17→17:20)
[2022-09-28] MEDS: GABAPENTIN 100 MG CAPSULE PO SCH ×3 (06:16→22:05)
[2022-09-28] MEDS: INSULIN (LEVEMIR) 100 UNITS/ML UNITS SQ SCH ×2 (06:19→22:09)
[2022-09-28] MEDS: INSULIN SLIDING SCALE (NOVOLOG) 1 VIAL SQ SCH ×4 (06:20→22:43)
[2022-09-28] MEDS: INSULIN (NOVOLOG) ASPART 100 UNITS/ML 10ML VIAL SQ SCH ×3 (06:20→16:56)
[2022-09-28 06:41] LABS: HEMOGLOBIN 10.8 GM/dL (10.7-15.3); MCH 26.1 pg (25.7-33.7); MEAN CELL VOLUME 84.4 fl (80-96); MEAN PLT VOLUME 8.9 fl (7.5-11.1); PLATELET COUNT 165 10^3/uL (134-434); RBC 4.14 M/mm3 (3.60-5.2); RDW 16.7 % (11.6-15.6); WHITE BLOOD COUNT 5.8 K/mm3 (4.0-10.0)
[2022-09-28 07:00] LABS: CHLORIDE 90 mmol/L (98-107); POTASSIUM 3.7 mmol/L (3.5-5.1); SODIUM 143 mmol/L (136-145)
[2022-09-28 07:02] LABS: CALCIUM 10.2 mg/dL (8.5-10.1)
[2022-09-28 07:03] LABS: ALBUMIN 3.5 g/dl (3.4-5.0); BLOOD UREA NITROGEN 24.4 mg/dL (7-18); GLUCOSE,RANDOM 135 mg/dL (74-106)
[2022-09-28 07:06] LABS: CREATININE 0.8 mg/dL (0.55-1.3); SGOT/AST 11 U/L (15-37); SGPT/ALT 33 U/L (13-61)
[2022-09-28 07:07] LABS: BILIRUBIN,TOTAL 0.3 mg/dL (0.2-1); TOT PROT 6.1 g/dl (6.4-8.2)
[2022-09-28 07:09] LABS: ALK PHOS 77 U/L (45-117)
[2022-09-28 07:18] LABS: ANION GAP 8 MMOL/L (8-16); CO2 > 45 mmol/L (21-32)
[2022-09-28] MEDS: LORATADINE 10 MG TABLET PO SCH (09:24)
[2022-09-28] MEDS: PANTOPRAZOLE 40 MG TABLET PO SCH ×2 (09:24→22:43)
[2022-09-28] MEDS: APIXABAN 5 MG TABLET PO SCH ×2 (09:25→22:08)
[2022-09-28] MEDS: SERTRALINE HCL 50 MG TABLET (FP) PO SCH (09:26)
[2022-09-28] MEDS: FUROSEMIDE 40 MG TABLET (FP) PO SCH (09:26)
[2022-09-28] MEDS: SUCRALFATE 1 GM TABLET (FP) PO SCH ×4 (09:27→22:42)
[2022-09-28] MEDS: SACUBITRIL/VALSARTAN 49 MG-51 MG TABLET PO SCH ×2 (09:27→22:42)
[2022-09-28] MEDS: FLUTICASONE/UMECLIDIN/VILANTER(200-62.5-25 TRELEGY ELLIPTA) INAHLER IH SCH (09:28)
[2022-09-28] MEDS: FLUTICASONE PROP 0.05% 16 GM NASAL SPRAY NS SCH ×2 (09:29→22:42)
[2022-09-28] MEDS: POLYETHYLENE GLYCOL (HEALTHYLAX) 3350 17 GM PACKET PO SCH ×2 (09:30→22:43)
[2022-09-28 09:50] LABS: ANISOCYTOSIS 0; MACROCYTOSIS 0
[2022-09-28] MEDS ORDERED: ACETAMINOPHEN 325 MG TABLET (FP) PO ONE (11:15)
[2022-09-28 17:35] LABS: ALLENS TEST POSITIVE; ARTERIAL BLD GAS O2 SATURATION 91.6 % (95-98); ARTERIAL BLOOD GAS BASE EXCESS 20.2 mmol/L (-2-2); ARTERIAL BLOOD GAS PO2 59.7 mmHg (80-100); ARTERIAL BLOOD GAS pH 7.482 (7.350-7.450)
[2022-09-28 17:36] LABS: VENT MODE S/T; VENT RATE 16
[2022-09-28] MEDS: DOCUSATE SODIUM 100 MG CAPSULE (FP) PO SCH (22:08)
[2022-09-28] MEDS: ATORVASTATIN CA 20 MG TABLET (FP) PO SCH (22:08)
[2022-09-29] MEDS: methylPREDNISolone NA SUCC 40 MG/1 ML VIAL IVPUSH SCH ×3 (01:32→18:07)
[2022-09-29] MEDS: GABAPENTIN 100 MG CAPSULE PO SCH ×3 (06:48→22:31)
[2022-09-29] MEDS: INSULIN (LEVEMIR) 100 UNITS/ML UNITS SQ SCH ×2 (06:49→22:36)
[2022-09-29] MEDS: INSULIN (NOVOLOG) ASPART 100 UNITS/ML 10ML VIAL SQ SCH ×3 (06:50→16:45)
[2022-09-29] MEDS: INSULIN SLIDING SCALE (NOVOLOG) 1 VIAL SQ SCH ×4 (06:51→22:37)
[2022-09-29] MEDS: LORATADINE 10 MG TABLET PO SCH (09:57)
[2022-09-29] MEDS: FUROSEMIDE 40 MG TABLET (FP) PO SCH (09:57)
[2022-09-29] MEDS: SERTRALINE HCL 50 MG TABLET (FP) PO SCH (09:57)
[2022-09-29] MEDS: PANTOPRAZOLE 40 MG TABLET PO SCH ×2 (09:58→22:32)
[2022-09-29] MEDS: APIXABAN 5 MG TABLET PO SCH ×2 (09:58→22:32)
[2022-09-29] MEDS: FLUTICASONE PROP 0.05% 16 GM NASAL SPRAY NS SCH ×2 (09:58→22:38)
[2022-09-29] MEDS: FLUTICASONE/UMECLIDIN/VILANTER(200-62.5-25 TRELEGY ELLIPTA) INAHLER IH SCH (09:58)
[2022-09-29] MEDS: SUCRALFATE 1 GM TABLET (FP) PO SCH ×4 (09:59→22:32)
[2022-09-29] MEDS: POLYETHYLENE GLYCOL (HEALTHYLAX) 3350 17 GM PACKET PO SCH ×2 (10:00→22:38)
[2022-09-29] MEDS: SACUBITRIL/VALSARTAN 49 MG-51 MG TABLET PO SCH ×2 (10:00→22:32)
[2022-09-29] MEDS: ACETAMINOPHEN 325 MG TABLET (FP) PO PRN ×2 (10:21→22:31)
[2022-09-29] MEDS: DOCUSATE SODIUM 100 MG CAPSULE (FP) PO SCH (22:31)
[2022-09-29] MEDS: ATORVASTATIN CA 20 MG TABLET (FP) PO SCH (22:32)
[2022-09-30] MEDS: methylPREDNISolone NA SUCC 40 MG/1 ML VIAL IVPUSH SCH ×3 (02:05→17:47)
[2022-09-30] MEDS: GABAPENTIN 100 MG CAPSULE PO SCH ×3 (07:11→21:17)
[2022-09-30] MEDS: INSULIN SLIDING SCALE (NOVOLOG) 1 VIAL SQ SCH ×4 (07:14→21:23)
[2022-09-30] MEDS: INSULIN (LEVEMIR) 100 UNITS/ML UNITS SQ SCH ×2 (07:14→21:23)
[2022-09-30] MEDS: INSULIN (NOVOLOG) ASPART 100 UNITS/ML 10ML VIAL SQ SCH ×3 (07:14→16:23)
[2022-09-30 08:15] LABS: POTASSIUM 3.7 mmol/L (3.5-5.1)
[2022-09-30 08:17] LABS: ALBUMIN 3.1 g/dl (3.4-5.0); BLOOD UREA NITROGEN 35.5 mg/dL (7-18); CALCIUM 9.8 mg/dL (8.5-10.1)
[2022-09-30 08:21] LABS: CREATININE 0.8 mg/dL (0.55-1.3)
[2022-09-30 08:22] LABS: BILIRUBIN,TOTAL 0.3 mg/dL (0.2-1); TOT PROT 5.7 g/dl (6.4-8.2)
[2022-09-30] MEDS: SERTRALINE HCL 50 MG TABLET (FP) PO SCH (09:16)
[2022-09-30] MEDS: LORATADINE 10 MG TABLET PO SCH (09:16)
[2022-09-30] MEDS: PANTOPRAZOLE 40 MG TABLET PO SCH ×2 (09:17→21:16)
[2022-09-30] MEDS: POLYETHYLENE GLYCOL (HEALTHYLAX) 3350 17 GM PACKET PO SCH ×2 (09:17→21:21)
[2022-09-30] MEDS: APIXABAN 5 MG TABLET PO SCH ×2 (09:17→21:18)
[2022-09-30] MEDS: FUROSEMIDE 40 MG TABLET (FP) PO SCH (09:17)
[2022-09-30] MEDS: FLUTICASONE/UMECLIDIN/VILANTER(200-62.5-25 TRELEGY ELLIPTA) INAHLER IH SCH (09:18)
[2022-09-30] MEDS: SUCRALFATE 1 GM TABLET (FP) PO SCH ×4 (09:18→21:17)
[2022-09-30] MEDS: FLUTICASONE PROP 0.05% 16 GM NASAL SPRAY NS SCH ×2 (09:18→21:18)
[2022-09-30] MEDS: SACUBITRIL/VALSARTAN 49 MG-51 MG TABLET PO SCH ×2 (09:19→21:11)
[2022-09-30] MEDS: MELATONIN 5 MG TABLETS PO PRN (21:16)
[2022-09-30] MEDS: ATORVASTATIN CA 20 MG TABLET (FP) PO SCH (21:16)
[2022-09-30] MEDS: DOCUSATE SODIUM 100 MG CAPSULE (FP) PO SCH (21:21)
[2022-09-30] MEDS: ACETAMINOPHEN 325 MG TABLET (FP) PO PRN (23:20)
[2022-10-01] MEDS: methylPREDNISolone NA SUCC 40 MG/1 ML VIAL IVPUSH SCH ×3 (01:38→17:28)
[2022-10-01] MEDS: GABAPENTIN 100 MG CAPSULE PO SCH ×3 (06:12→22:21)
[2022-10-01] MEDS: ACETAMINOPHEN 325 MG TABLET (FP) PO PRN ×2 (06:12→22:21)
[2022-10-01] MEDS: INSULIN (LEVEMIR) 100 UNITS/ML UNITS SQ SCH ×2 (06:20→22:22)
[2022-10-01] MEDS: INSULIN (NOVOLOG) ASPART 100 UNITS/ML 10ML VIAL SQ SCH ×3 (06:22→17:19)
[2022-10-01] MEDS: INSULIN SLIDING SCALE (NOVOLOG) 1 VIAL SQ SCH ×4 (06:22→22:20)
[2022-10-01] MEDS: FUROSEMIDE 40 MG TABLET (FP) PO SCH (10:33)
[2022-10-01] MEDS: SACUBITRIL/VALSARTAN 49 MG-51 MG TABLET PO SCH ×2 (10:33→22:21)
[2022-10-01] MEDS: POLYETHYLENE GLYCOL (HEALTHYLAX) 3350 17 GM PACKET PO SCH ×2 (10:33→22:24)
[2022-10-01] MEDS: SUCRALFATE 1 GM TABLET (FP) PO SCH ×4 (10:33→22:20)
[2022-10-01] MEDS: APIXABAN 5 MG TABLET PO SCH ×2 (10:33→22:20)
[2022-10-01] MEDS: LORATADINE 10 MG TABLET PO SCH (10:33)
[2022-10-01] MEDS: PANTOPRAZOLE 40 MG TABLET PO SCH ×2 (10:33→22:20)
[2022-10-01] MEDS: SERTRALINE HCL 50 MG TABLET (FP) PO SCH (10:33)
[2022-10-01] MEDS: FLUTICASONE PROP 0.05% 16 GM NASAL SPRAY NS SCH ×2 (10:34→22:23)
[2022-10-01] MEDS: FLUTICASONE/UMECLIDIN/VILANTER(200-62.5-25 TRELEGY ELLIPTA) INAHLER IH SCH (10:34)
[2022-10-01] MEDS: ATORVASTATIN CA 20 MG TABLET (FP) PO SCH (22:20)
[2022-10-01] MEDS: MELATONIN 5 MG TABLETS PO PRN (22:20)
[2022-10-01] MEDS: DOCUSATE SODIUM 100 MG CAPSULE (FP) PO SCH (22:24)
[2022-10-02] MEDS: methylPREDNISolone NA SUCC 40 MG/1 ML VIAL IVPUSH SCH ×3 (01:42→18:15)
[2022-10-02] MEDS: GABAPENTIN 100 MG CAPSULE PO SCH ×3 (06:16→21:07)
[2022-10-02] MEDS: INSULIN (LEVEMIR) 100 UNITS/ML UNITS SQ SCH ×2 (06:16→21:09)
[2022-10-02] MEDS: INSULIN (NOVOLOG) ASPART 100 UNITS/ML 10ML VIAL SQ SCH ×3 (06:18→17:18)
[2022-10-02] MEDS: INSULIN SLIDING SCALE (NOVOLOG) 1 VIAL SQ SCH ×4 (06:18→21:10)
[2022-10-02] MEDS: ACETAMINOPHEN 325 MG TABLET (FP) PO PRN ×2 (06:23→21:14)
[2022-10-02] MEDS: FLUTICASONE/UMECLIDIN/VILANTER(200-62.5-25 TRELEGY ELLIPTA) INAHLER IH SCH (09:11)
[2022-10-02] MEDS: FLUTICASONE PROP 0.05% 16 GM NASAL SPRAY NS SCH ×2 (09:11→21:09)
[2022-10-02] MEDS: SERTRALINE HCL 50 MG TABLET (FP) PO SCH (09:12)
[2022-10-02] MEDS: FUROSEMIDE 40 MG TABLET (FP) PO SCH (09:12)
[2022-10-02] MEDS: POLYETHYLENE GLYCOL (HEALTHYLAX) 3350 17 GM PACKET PO SCH ×2 (09:12→21:08)
[2022-10-02] MEDS: APIXABAN 5 MG TABLET PO SCH ×2 (09:13→21:07)
[2022-10-02] MEDS: LORATADINE 10 MG TABLET PO SCH (09:13)
[2022-10-02] MEDS: PANTOPRAZOLE 40 MG TABLET PO SCH ×2 (09:13→21:07)
[2022-10-02] MEDS: SACUBITRIL/VALSARTAN 49 MG-51 MG TABLET PO SCH ×2 (09:14→21:08)
[2022-10-02] MEDS: SUCRALFATE 1 GM TABLET (FP) PO SCH ×4 (09:14→21:07)
[2022-10-02] MEDS: MELATONIN 5 MG TABLETS PO PRN (21:06)
[2022-10-02] MEDS: ATORVASTATIN CA 20 MG TABLET (FP) PO SCH (21:07)
[2022-10-02] MEDS: DOCUSATE SODIUM 100 MG CAPSULE (FP) PO SCH (21:07)
[2022-10-02] MEDS: MAG HYDROX/AL HYDROX/SIMETH 30 ML UNIT-DOSE CUP PO PRN (21:14)
[2022-10-03] MEDS: GABAPENTIN 100 MG CAPSULE PO SCH ×3 (06:49→21:57)
[2022-10-03] MEDS: methylPREDNISolone NA SUCC 40 MG/1 ML VIAL IVPUSH SCH (06:49)
[2022-10-03] MEDS: INSULIN (LEVEMIR) 100 UNITS/ML UNITS SQ SCH ×2 (06:50→22:01)
[2022-10-03] MEDS: INSULIN (NOVOLOG) ASPART 100 UNITS/ML 10ML VIAL SQ SCH ×3 (06:51→16:26)
[2022-10-03] MEDS: INSULIN SLIDING SCALE (NOVOLOG) 1 VIAL SQ SCH ×4 (06:51→22:00)
[2022-10-03] MEDS: ACETAMINOPHEN 325 MG TABLET (FP) PO PRN (06:56)
[2022-10-03] MEDS: MAG HYDROX/AL HYDROX/SIMETH 30 ML UNIT-DOSE CUP PO PRN ×2 (06:58→17:03)
[2022-10-03] MEDS ORDERED: INSULIN SLIDING SCALE (NOVOLOG) 1 VIAL SQ ONE (07:01)
[2022-10-03] MEDS ORDERED: INSULIN (LEVEMIR) 100 UNITS/ML UNITS SQ ONE (07:01)
[2022-10-03 07:47] LABS: POTASSIUM 4.2 mmol/L (3.5-5.1)
[2022-10-03 08:03] LABS: CALCIUM 10.1 mg/dL (8.5-10.1)
[2022-10-03 08:04] LABS: ALBUMIN 3.3 g/dl (3.4-5.0); BLOOD UREA NITROGEN 37.8 mg/dL (7-18)
[2022-10-03 08:07] LABS: CREATININE 1.1 mg/dL (0.55-1.3)
[2022-10-03 08:09] LABS: BILIRUBIN,TOTAL 0.3 mg/dL (0.2-1); TOT PROT 6.1 g/dl (6.4-8.2)
[2022-10-03] MEDS: APIXABAN 5 MG TABLET PO SCH ×2 (09:54→21:57)
[2022-10-03] MEDS: PANTOPRAZOLE 40 MG TABLET PO SCH ×2 (09:54→21:58)
[2022-10-03] MEDS: SERTRALINE HCL 50 MG TABLET (FP) PO SCH (09:54)
[2022-10-03] MEDS: FUROSEMIDE 40 MG TABLET (FP) PO SCH (09:54)
[2022-10-03] MEDS: SACUBITRIL/VALSARTAN 49 MG-51 MG TABLET PO SCH ×2 (09:54→21:57)
[2022-10-03] MEDS: LORATADINE 10 MG TABLET PO SCH (09:54)
[2022-10-03] MEDS: SUCRALFATE 1 GM TABLET (FP) PO SCH ×4 (09:54→21:57)
[2022-10-03] MEDS: FLUTICASONE PROP 0.05% 16 GM NASAL SPRAY NS SCH ×2 (09:55→21:58)
[2022-10-03] MEDS: FLUTICASONE/UMECLIDIN/VILANTER(200-62.5-25 TRELEGY ELLIPTA) INAHLER IH SCH (09:55)
[2022-10-03] MEDS: POLYETHYLENE GLYCOL (HEALTHYLAX) 3350 17 GM PACKET PO SCH ×2 (11:19→21:58)
[2022-10-03] MEDS: ATORVASTATIN CA 20 MG TABLET (FP) PO SCH (21:57)
[2022-10-03] MEDS: DOCUSATE SODIUM 100 MG CAPSULE (FP) PO SCH (21:58)
[2022-10-04] MEDS: ACETAMINOPHEN 325 MG TABLET (FP) PO PRN ×2 (03:55→22:26)
[2022-10-04] MEDS: GABAPENTIN 100 MG CAPSULE PO SCH ×3 (05:47→22:16)
[2022-10-04] MEDS: MAG HYDROX/AL HYDROX/SIMETH 30 ML UNIT-DOSE CUP PO PRN ×2 (06:49→13:40)
[2022-10-04] MEDS: INSULIN SLIDING SCALE (NOVOLOG) 1 VIAL SQ SCH ×4 (06:57→22:20)
[2022-10-04] MEDS: INSULIN (NOVOLOG) ASPART 100 UNITS/ML 10ML VIAL SQ SCH ×3 (07:00→17:41)
[2022-10-04] MEDS: INSULIN (LEVEMIR) 100 UNITS/ML UNITS SQ SCH ×2 (07:02→22:21)
[2022-10-04] MEDS: methylPREDNISolone NA SUCC 40 MG/1 ML VIAL IVPUSH SCH (09:24)
[2022-10-04] MEDS: FUROSEMIDE 40 MG TABLET (FP) PO SCH (09:24)
[2022-10-04] MEDS: PANTOPRAZOLE 40 MG TABLET PO SCH ×2 (09:24→22:16)
[2022-10-04] MEDS: LORATADINE 10 MG TABLET PO SCH (09:24)
[2022-10-04] MEDS: SUCRALFATE 1 GM TABLET (FP) PO SCH ×3 (09:24→22:17)
[2022-10-04] MEDS: SERTRALINE HCL 50 MG TABLET (FP) PO SCH (09:24)
[2022-10-04] MEDS: APIXABAN 5 MG TABLET PO SCH ×2 (09:24→22:16)
[2022-10-04] MEDS: FLUTICASONE PROP 0.05% 16 GM NASAL SPRAY NS SCH ×2 (09:25→22:23)
[2022-10-04] MEDS: FLUTICASONE/UMECLIDIN/VILANTER(200-62.5-25 TRELEGY ELLIPTA) INAHLER IH SCH (09:25)
[2022-10-04] MEDS: POLYETHYLENE GLYCOL (HEALTHYLAX) 3350 17 GM PACKET PO SCH ×2 (09:26→22:22)
[2022-10-04] MEDS: SACUBITRIL/VALSARTAN 49 MG-51 MG TABLET PO SCH ×2 (10:52→22:17)
[2022-10-04] MEDS ORDERED: metoPROLOL SUCCINATE 25 MG TAB.SR.24H (FP) PO ONE (17:45)
[2022-10-04] MEDS: ATORVASTATIN CA 20 MG TABLET (FP) PO SCH (22:16)
[2022-10-04] MEDS: DOCUSATE SODIUM 100 MG CAPSULE (FP) PO SCH (22:16)
[2022-10-05] MEDS: GABAPENTIN 100 MG CAPSULE PO SCH ×3 (05:38→21:42)
[2022-10-05] MEDS: INSULIN (NOVOLOG) ASPART 100 UNITS/ML 10ML VIAL SQ SCH ×3 (06:03→18:18)
[2022-10-05] MEDS: INSULIN (LEVEMIR) 100 UNITS/ML UNITS SQ SCH ×2 (06:04→21:31)
[2022-10-05] MEDS: INSULIN SLIDING SCALE (NOVOLOG) 1 VIAL SQ SCH ×4 (06:04→21:57)
[2022-10-05] MEDS: methylPREDNISolone NA SUCC 40 MG/1 ML VIAL IVPUSH SCH (10:40)
[2022-10-05] MEDS: FLUTICASONE/UMECLIDIN/VILANTER(200-62.5-25 TRELEGY ELLIPTA) INAHLER IH SCH (10:40)
[2022-10-05] MEDS: FLUTICASONE PROP 0.05% 16 GM NASAL SPRAY NS SCH ×2 (10:40→21:47)
[2022-10-05] MEDS: SUCRALFATE 1 GM TABLET (FP) PO SCH ×4 (10:42→21:45)
[2022-10-05] MEDS: SERTRALINE HCL 50 MG TABLET (FP) PO SCH (10:42)
[2022-10-05] MEDS: FUROSEMIDE 40 MG TABLET (FP) PO SCH (10:42)
[2022-10-05] MEDS: PANTOPRAZOLE 40 MG TABLET PO SCH ×2 (10:43→21:42)
[2022-10-05] MEDS: LORATADINE 10 MG TABLET PO SCH (10:43)
[2022-10-05] MEDS: APIXABAN 5 MG TABLET PO SCH ×2 (10:44→21:43)
[2022-10-05] MEDS: POLYETHYLENE GLYCOL (HEALTHYLAX) 3350 17 GM PACKET PO SCH ×2 (10:44→21:51)
[2022-10-05] MEDS: SACUBITRIL/VALSARTAN 49 MG-51 MG TABLET PO SCH ×2 (11:46→21:44)
[2022-10-05] MEDS: MAG HYDROX/AL HYDROX/SIMETH 30 ML UNIT-DOSE CUP PO PRN (18:20)
[2022-10-05] MEDS ORDERED: INSULIN SLIDING SCALE (NOVOLOG) 1 VIAL SQ ONE (18:24)
[2022-10-05] MEDS: ACETAMINOPHEN 325 MG TABLET (FP) PO PRN (20:07)
[2022-10-05] MEDS: DOCUSATE SODIUM 100 MG CAPSULE (FP) PO SCH (21:42)
[2022-10-05] MEDS: ATORVASTATIN CA 20 MG TABLET (FP) PO SCH (21:42)
[2022-10-06] MEDS: ACETAMINOPHEN 325 MG TABLET (FP) PO PRN ×3 (01:30→22:41)
[2022-10-06] MEDS: GABAPENTIN 100 MG CAPSULE PO SCH ×3 (06:07→22:37)
[2022-10-06] MEDS: INSULIN (NOVOLOG) ASPART 100 UNITS/ML 10ML VIAL SQ SCH ×3 (06:12→17:03)
[2022-10-06] MEDS: INSULIN (LEVEMIR) 100 UNITS/ML UNITS SQ SCH ×2 (06:14→22:43)
[2022-10-06] MEDS: MAG HYDROX/AL HYDROX/SIMETH 30 ML UNIT-DOSE CUP PO PRN ×2 (06:16→17:01)
[2022-10-06] MEDS: FLUTICASONE PROP 0.05% 16 GM NASAL SPRAY NS SCH ×2 (09:04→22:41)
[2022-10-06] MEDS: SERTRALINE HCL 50 MG TABLET (FP) PO SCH (09:05)
[2022-10-06] MEDS: methylPREDNISolone NA SUCC 40 MG/1 ML VIAL IVPUSH SCH (09:05)
[2022-10-06] MEDS: FLUTICASONE/UMECLIDIN/VILANTER(200-62.5-25 TRELEGY ELLIPTA) INAHLER IH SCH (09:05)
[2022-10-06] MEDS: APIXABAN 5 MG TABLET PO SCH ×2 (09:06→22:39)
[2022-10-06] MEDS: FUROSEMIDE 40 MG TABLET (FP) PO SCH (09:06)
[2022-10-06] MEDS: PANTOPRAZOLE 40 MG TABLET PO SCH ×2 (09:06→22:37)
[2022-10-06] MEDS: LORATADINE 10 MG TABLET PO SCH (09:06)
[2022-10-06] MEDS: SACUBITRIL/VALSARTAN 49 MG-51 MG TABLET PO SCH ×2 (09:07→22:44)
[2022-10-06] MEDS: SUCRALFATE 1 GM TABLET (FP) PO SCH ×4 (09:07→22:44)
[2022-10-06] MEDS: POLYETHYLENE GLYCOL (HEALTHYLAX) 3350 17 GM PACKET PO SCH ×2 (09:08→22:40)
[2022-10-06 10:24] LABS: ARTERIAL BLD GAS O2 SATURATION 89.7 % (95-98); ARTERIAL BLOOD GAS BASE EXCESS 11.3 mmol/L (-2-2); ARTERIAL BLOOD GAS PO2 62.2 mmHg (80-100); ARTERIAL BLOOD GAS pH 7.352 (7.350-7.450)
[2022-10-06 10:26] LABS: ALLENS TEST POSITIVE
[2022-10-06] MEDS: INSULIN SLIDING SCALE (NOVOLOG) 1 VIAL SQ SCH ×3 (11:26→22:36)
[2022-10-06 11:39] LABS: POTASSIUM 3.8 mmol/L (3.5-5.1)
[2022-10-06 11:47] LABS: CALCIUM 9.5 mg/dL (8.5-10.1)
[2022-10-06 11:48] LABS: ALBUMIN 2.8 g/dl (3.4-5.0); BLOOD UREA NITROGEN 31.5 mg/dL (7-18)
[2022-10-06 11:49] LABS: CREATININE 0.8 mg/dL (0.55-1.3)
[2022-10-06 11:50] LABS: BILIRUBIN,TOTAL 0.2 mg/dL (0.2-1)
[2022-10-06 11:51] LABS: HEMATOCRIT 36.8 % (32.4-45.2); HEMOGLOBIN 11.5 GM/dL (10.7-15.3); MCH 26.2 pg (25.7-33.7); MCHC 31.2 g/dl (32.0-36.0); MEAN CELL VOLUME 84.2 fl (80-96); MEAN PLT VOLUME 8.1 fl (7.5-11.1); PLATELET COUNT 175 10^3/uL (134-434); RBC 4.37 M/mm3 (3.60-5.2); RDW 17.6 % (11.6-15.6); WHITE BLOOD COUNT 7.3 K/mm3 (4.0-10.0)
[2022-10-06 13:05] LABS: ANISOCYTOSIS 1+; MACROCYTOSIS 0; OVALOCYTE 1+
[2022-10-06] MEDS: RIFAXIMIN 550 MG TABLET PO SCH ×2 (17:04→22:42)
[2022-10-06] MEDS ORDERED: INSULIN SLIDING SCALE (NOVOLOG) 1 VIAL SQ ONE (17:14)
[2022-10-06] MEDS: ATORVASTATIN CA 20 MG TABLET (FP) PO SCH (22:38)
[2022-10-06] MEDS: MELATONIN 5 MG TABLETS PO PRN (22:38)
[2022-10-06] MEDS: DOCUSATE SODIUM 100 MG CAPSULE (FP) PO SCH (22:42)
[2022-10-07] MEDS: MAG HYDROX/AL HYDROX/SIMETH 30 ML UNIT-DOSE CUP PO PRN (02:45)
[2022-10-07] MEDS: RIFAXIMIN 550 MG TABLET PO SCH ×3 (06:36→22:31)
[2022-10-07] MEDS: GABAPENTIN 100 MG CAPSULE PO SCH ×3 (06:36→22:24)
[2022-10-07] MEDS: INSULIN SLIDING SCALE (NOVOLOG) 1 VIAL SQ SCH ×5 (06:36→22:27)
[2022-10-07] MEDS: INSULIN (NOVOLOG) ASPART 100 UNITS/ML 10ML VIAL SQ SCH ×3 (06:49→16:59)
[2022-10-07] MEDS: INSULIN (LEVEMIR) 100 UNITS/ML UNITS SQ SCH ×2 (06:50→22:31)
[2022-10-07] MEDS ORDERED: INSULIN (LEVEMIR) 100 UNITS/ML UNITS SQ ONE (07:00)
[2022-10-07] MEDS ORDERED: INSULIN SLIDING SCALE (NOVOLOG) 1 VIAL SQ ONE (07:00)
[2022-10-07] MEDS: LORATADINE 10 MG TABLET PO SCH (10:46)
[2022-10-07] MEDS: methylPREDNISolone NA SUCC 40 MG/1 ML VIAL IVPUSH SCH (10:46)
[2022-10-07] MEDS: PANTOPRAZOLE 40 MG TABLET PO SCH ×2 (10:47→22:25)
[2022-10-07] MEDS: FUROSEMIDE 40 MG TABLET (FP) PO SCH (10:47)
[2022-10-07] MEDS: SERTRALINE HCL 50 MG TABLET (FP) PO SCH ×2 (10:47→14:12)
[2022-10-07] MEDS: APIXABAN 5 MG TABLET PO SCH ×2 (10:48→22:25)
[2022-10-07] MEDS: SACUBITRIL/VALSARTAN 49 MG-51 MG TABLET PO SCH ×2 (10:50→22:31)
[2022-10-07] MEDS: SUCRALFATE 1 GM TABLET (FP) PO SCH ×5 (10:51→22:33)
[2022-10-07] MEDS: POLYETHYLENE GLYCOL (HEALTHYLAX) 3350 17 GM PACKET PO SCH ×2 (10:52→22:25)
[2022-10-07] MEDS: FLUTICASONE PROP 0.05% 16 GM NASAL SPRAY NS SCH ×2 (11:07→22:34)
[2022-10-07] MEDS: FLUTICASONE/UMECLIDIN/VILANTER(200-62.5-25 TRELEGY ELLIPTA) INAHLER IH SCH (11:07)
[2022-10-07] MEDS: ACETAMINOPHEN 325 MG TABLET (FP) PO PRN (12:02)
[2022-10-07] MEDS: dilTIAZem HCL 60 MG TABLET PO SCH ×2 (12:03→18:02)
[2022-10-07] MEDS: METOCLOPRAMIDE HCL INJECTION 10 MG/2 ML VIAL IVPB SCH ×2 (16:24→22:37)
[2022-10-07] MEDS: DOCUSATE SODIUM 100 MG CAPSULE (FP) PO SCH (22:24)
[2022-10-07] MEDS: ATORVASTATIN CA 20 MG TABLET (FP) PO SCH (22:25)
[2022-10-08] MEDS: dilTIAZem HCL 60 MG TABLET PO SCH ×4 (00:18→17:26)
[2022-10-08] MEDS: GABAPENTIN 100 MG CAPSULE PO SCH ×3 (05:33→21:40)
[2022-10-08] MEDS: RIFAXIMIN 550 MG TABLET PO SCH ×3 (05:33→21:41)
[2022-10-08] MEDS: INSULIN (NOVOLOG) ASPART 100 UNITS/ML 10ML VIAL SQ SCH ×3 (06:13→17:25)
[2022-10-08] MEDS: INSULIN (LEVEMIR) 100 UNITS/ML UNITS SQ SCH ×2 (06:14→21:42)
[2022-10-08] MEDS: INSULIN SLIDING SCALE (NOVOLOG) 1 VIAL SQ SCH ×4 (06:14→21:43)
[2022-10-08] MEDS: ACETAMINOPHEN 325 MG TABLET (FP) PO PRN ×2 (10:25→21:46)
[2022-10-08] MEDS: LORATADINE 10 MG TABLET PO SCH (10:26)
[2022-10-08] MEDS: SERTRALINE HCL 50 MG TABLET (FP) PO SCH (10:26)
[2022-10-08] MEDS: PANTOPRAZOLE 40 MG TABLET PO SCH ×2 (10:26→21:40)
[2022-10-08] MEDS: POLYETHYLENE GLYCOL (HEALTHYLAX) 3350 17 GM PACKET PO SCH ×2 (10:26→21:45)
[2022-10-08] MEDS: FUROSEMIDE 40 MG TABLET (FP) PO SCH (10:26)
[2022-10-08] MEDS: SUCRALFATE 1 GM TABLET (FP) PO SCH ×4 (10:27→21:44)
[2022-10-08] MEDS: methylPREDNISolone NA SUCC 40 MG/1 ML VIAL IVPUSH SCH (10:29)
[2022-10-08] MEDS: SACUBITRIL/VALSARTAN 49 MG-51 MG TABLET PO SCH ×2 (10:29→21:41)
[2022-10-08] MEDS: APIXABAN 5 MG TABLET PO SCH ×2 (10:29→21:40)
[2022-10-08] MEDS: FLUTICASONE/UMECLIDIN/VILANTER(200-62.5-25 TRELEGY ELLIPTA) INAHLER IH SCH (10:30)
[2022-10-08] MEDS: FLUTICASONE PROP 0.05% 16 GM NASAL SPRAY NS SCH ×2 (10:30→21:44)
[2022-10-08] MEDS: METOCLOPRAMIDE HCL INJECTION 10 MG/2 ML VIAL IVPB SCH (10:43)
[2022-10-08] MEDS: DOCUSATE SODIUM 100 MG CAPSULE (FP) PO SCH (21:40)
[2022-10-08] MEDS: ATORVASTATIN CA 20 MG TABLET (FP) PO SCH (21:40)
[2022-10-09] MEDS: dilTIAZem HCL 60 MG TABLET PO SCH ×5 (00:05→23:04)
[2022-10-09] MEDS: GABAPENTIN 100 MG CAPSULE PO SCH ×3 (05:45→21:39)
[2022-10-09] MEDS: RIFAXIMIN 550 MG TABLET PO SCH ×3 (05:45→21:40)
[2022-10-09] MEDS: ACETAMINOPHEN 325 MG TABLET (FP) PO PRN ×2 (05:46→22:55)
[2022-10-09] MEDS: INSULIN (LEVEMIR) 100 UNITS/ML UNITS SQ SCH ×2 (06:09→21:40)
[2022-10-09] MEDS: INSULIN SLIDING SCALE (NOVOLOG) 1 VIAL SQ SCH ×4 (06:10→21:41)
[2022-10-09 07:54] LABS: BASO % 0.1 % (0-2.0); EOS % 0.4 % (0-4.5); HEMATOCRIT 34.6 % (32.4-45.2); HEMOGLOBIN 10.6 GM/dL (10.7-15.3); LYMPH % 6.2 % (8-40); MCH 26.3 pg (25.7-33.7); MCHC 30.7 g/dl (32.0-36.0); MEAN CELL VOLUME 85.5 fl (80-96); MEAN PLT VOLUME 9.3 fl (7.5-11.1); MONO % 9.3 % (3.8-10.2); PLATELET COUNT 165 10^3/uL (134-434); RBC 4.05 M/mm3 (3.60-5.2); RDW 17.1 % (11.6-15.6); WHITE BLOOD COUNT 6.8 K/mm3 (4.0-10.0)
[2022-10-09 08:10] LABS: POTASSIUM 3.9 mmol/L (3.5-5.1)
[2022-10-09 08:12] LABS: CALCIUM 9.6 mg/dL (8.5-10.1)
[2022-10-09 08:13] LABS: BLOOD UREA NITROGEN 40.3 mg/dL (7-18)
[2022-10-09 08:16] LABS: CREATININE 0.9 mg/dL (0.55-1.3)
[2022-10-09 08:17] LABS: TOT PROT 5.3 g/dl (6.4-8.2)
[2022-10-09 08:18] LABS: BILIRUBIN,TOTAL 0.2 mg/dL (0.2-1)
[2022-10-09] MEDS: methylPREDNISolone NA SUCC 40 MG/1 ML VIAL IVPUSH SCH (09:39)
[2022-10-09] MEDS: POLYETHYLENE GLYCOL (HEALTHYLAX) 3350 17 GM PACKET PO SCH ×2 (09:39→21:38)
[2022-10-09] MEDS: SERTRALINE HCL 50 MG TABLET (FP) PO SCH (09:39)
[2022-10-09] MEDS: SACUBITRIL/VALSARTAN 49 MG-51 MG TABLET PO SCH ×2 (09:40→21:39)
[2022-10-09] MEDS: FUROSEMIDE 40 MG TABLET (FP) PO SCH (09:40)
[2022-10-09] MEDS: PANTOPRAZOLE 40 MG TABLET PO SCH ×2 (09:40→21:40)
[2022-10-09] MEDS: APIXABAN 5 MG TABLET PO SCH ×2 (09:40→21:40)
[2022-10-09] MEDS: LORATADINE 10 MG TABLET PO SCH (09:40)
[2022-10-09] MEDS: SUCRALFATE 1 GM TABLET (FP) PO SCH ×4 (09:41→21:39)
[2022-10-09] MEDS: FLUTICASONE/UMECLIDIN/VILANTER(200-62.5-25 TRELEGY ELLIPTA) INAHLER IH SCH (10:26)
[2022-10-09] MEDS: FLUTICASONE PROP 0.05% 16 GM NASAL SPRAY NS SCH ×2 (10:26→21:36)
[2022-10-09] MEDS: INSULIN (NOVOLOG) ASPART 100 UNITS/ML 10ML VIAL SQ SCH ×2 (11:05→13:07)
[2022-10-09] MEDS: DOCUSATE SODIUM 100 MG CAPSULE (FP) PO SCH (21:39)
[2022-10-09] MEDS: ATORVASTATIN CA 20 MG TABLET (FP) PO SCH (21:39)
[2022-10-10] MEDS: FLUTICASONE PROP 0.05% 16 GM NASAL SPRAY NS SCH ×3 (01:30→22:38)
[2022-10-10] MEDS: INSULIN (LEVEMIR) 100 UNITS/ML UNITS SQ SCH ×2 (07:07→22:39)
[2022-10-10] MEDS: INSULIN SLIDING SCALE (NOVOLOG) 1 VIAL SQ SCH ×4 (07:07→22:37)
[2022-10-10] MEDS: RIFAXIMIN 550 MG TABLET PO SCH ×3 (07:08→22:37)
[2022-10-10] MEDS: GABAPENTIN 100 MG CAPSULE PO SCH ×3 (07:08→22:37)
[2022-10-10] MEDS: dilTIAZem HCL 60 MG TABLET PO SCH ×4 (07:08→23:30)
[2022-10-10] MEDS: ACETAMINOPHEN 325 MG TABLET (FP) PO PRN ×3 (07:09→18:26)
[2022-10-10] MEDS: POLYETHYLENE GLYCOL (HEALTHYLAX) 3350 17 GM PACKET PO SCH ×2 (10:30→22:38)
[2022-10-10] MEDS: LORATADINE 10 MG TABLET PO SCH (10:30)
[2022-10-10] MEDS: FUROSEMIDE 40 MG TABLET (FP) PO SCH (10:30)
[2022-10-10] MEDS: SERTRALINE HCL 50 MG TABLET (FP) PO SCH (10:30)
[2022-10-10] MEDS: APIXABAN 5 MG TABLET PO SCH ×2 (10:30→22:37)
[2022-10-10] MEDS: methylPREDNISolone NA SUCC 40 MG/1 ML VIAL IVPUSH SCH (10:32)
[2022-10-10] MEDS: SACUBITRIL/VALSARTAN 49 MG-51 MG TABLET PO SCH ×2 (10:32→22:37)
[2022-10-10] MEDS: SUCRALFATE 1 GM TABLET (FP) PO SCH ×4 (10:33→22:39)
[2022-10-10] MEDS: PANTOPRAZOLE 40 MG TABLET PO SCH ×2 (10:33→22:37)
[2022-10-10] MEDS: FLUTICASONE/UMECLIDIN/VILANTER(200-62.5-25 TRELEGY ELLIPTA) INAHLER IH SCH (10:34)
[2022-10-10] MEDS: ATORVASTATIN CA 20 MG TABLET (FP) PO SCH (22:37)
[2022-10-10] MEDS: DOCUSATE SODIUM 100 MG CAPSULE (FP) PO SCH (22:39)
[2022-10-11] MEDS: dilTIAZem HCL 60 MG TABLET PO SCH ×3 (06:40→18:06)
[2022-10-11] MEDS: INSULIN (LEVEMIR) 100 UNITS/ML UNITS SQ SCH ×2 (06:40→22:20)
[2022-10-11] MEDS: GABAPENTIN 100 MG CAPSULE PO SCH ×3 (06:40→22:17)
[2022-10-11] MEDS: RIFAXIMIN 550 MG TABLET PO SCH ×3 (06:47→22:18)
[2022-10-11] MEDS: INSULIN SLIDING SCALE (NOVOLOG) 1 VIAL SQ SCH ×4 (06:47→22:19)
[2022-10-11] MEDS: SERTRALINE HCL 50 MG TABLET (FP) PO SCH (09:55)
[2022-10-11] MEDS: PANTOPRAZOLE 40 MG TABLET PO SCH ×2 (09:56→22:17)
[2022-10-11] MEDS: FUROSEMIDE 40 MG TABLET (FP) PO SCH (09:56)
[2022-10-11] MEDS: LORATADINE 10 MG TABLET PO SCH (09:56)
[2022-10-11] MEDS: SUCRALFATE 1 GM TABLET (FP) PO SCH ×4 (09:57→22:18)
[2022-10-11] MEDS: APIXABAN 5 MG TABLET PO SCH ×2 (10:01→22:17)
[2022-10-11] MEDS: SACUBITRIL/VALSARTAN 49 MG-51 MG TABLET PO SCH ×2 (10:01→22:18)
[2022-10-11] MEDS: FLUTICASONE/UMECLIDIN/VILANTER(200-62.5-25 TRELEGY ELLIPTA) INAHLER IH SCH (10:32)
[2022-10-11] MEDS: POLYETHYLENE GLYCOL (HEALTHYLAX) 3350 17 GM PACKET PO SCH ×2 (10:32→22:20)
[2022-10-11] MEDS: FLUTICASONE PROP 0.05% 16 GM NASAL SPRAY NS SCH ×2 (10:32→22:20)
[2022-10-11] MEDS: DOCUSATE SODIUM 100 MG CAPSULE (FP) PO SCH (22:17)
[2022-10-11] MEDS: ATORVASTATIN CA 20 MG TABLET (FP) PO SCH (22:17)
[2022-10-11] MEDS: ACETAMINOPHEN 325 MG TABLET (FP) PO PRN (22:18)
[2022-10-11] MEDS: MAG HYDROX/AL HYDROX/SIMETH 30 ML UNIT-DOSE CUP PO PRN (22:18)
[2022-10-12] MEDS: dilTIAZem HCL 60 MG TABLET PO SCH ×5 (00:15→23:00)
[2022-10-12] MEDS: GABAPENTIN 100 MG CAPSULE PO SCH ×3 (05:58→22:54)
[2022-10-12] MEDS: RIFAXIMIN 550 MG TABLET PO SCH ×3 (05:59→22:58)
[2022-10-12] MEDS: SUCRALFATE 1 GM TABLET (FP) PO SCH ×4 (06:01→22:55)
[2022-10-12] MEDS: INSULIN SLIDING SCALE (NOVOLOG) 1 VIAL SQ SCH ×4 (06:05→22:52)
[2022-10-12] MEDS: INSULIN (LEVEMIR) 100 UNITS/ML UNITS SQ SCH ×2 (06:05→22:54)
[2022-10-12] MEDS ORDERED: INSULIN (LEVEMIR) 100 UNITS/ML UNITS SQ ONE (06:56)
[2022-10-12] MEDS: SERTRALINE HCL 50 MG TABLET (FP) PO SCH (09:31)
[2022-10-12] MEDS: APIXABAN 5 MG TABLET PO SCH ×2 (09:31→22:55)
[2022-10-12] MEDS: PANTOPRAZOLE 40 MG TABLET PO SCH ×2 (09:31→22:55)
[2022-10-12] MEDS: FUROSEMIDE 40 MG TABLET (FP) PO SCH (09:31)
[2022-10-12] MEDS: LORATADINE 10 MG TABLET PO SCH (09:32)
[2022-10-12] MEDS: SACUBITRIL/VALSARTAN 49 MG-51 MG TABLET PO SCH ×2 (09:32→22:54)
[2022-10-12] MEDS: POLYETHYLENE GLYCOL (HEALTHYLAX) 3350 17 GM PACKET PO SCH ×2 (09:33→22:56)
[2022-10-12] MEDS: FLUTICASONE PROP 0.05% 16 GM NASAL SPRAY NS SCH ×2 (10:43→22:56)
[2022-10-12] MEDS: FLUTICASONE/UMECLIDIN/VILANTER(200-62.5-25 TRELEGY ELLIPTA) INAHLER IH SCH (10:43)
[2022-10-12 18:29] VITALS: RESP 20
[2022-10-12] MEDS: ATORVASTATIN CA 20 MG TABLET (FP) PO SCH (22:54)
[2022-10-12] MEDS: DOCUSATE SODIUM 100 MG CAPSULE (FP) PO SCH (22:56)
[2022-10-12] MEDS: ACETAMINOPHEN 325 MG TABLET (FP) PO PRN (22:59)
[2022-10-13] MEDS: RIFAXIMIN 550 MG TABLET PO SCH (05:15)
[2022-10-13] MEDS: GABAPENTIN 100 MG CAPSULE PO SCH (05:15)
[2022-10-13] MEDS: dilTIAZem HCL 60 MG TABLET PO SCH (05:15)
[2022-10-13] MEDS: ACETAMINOPHEN 325 MG TABLET (FP) PO PRN (06:37)
[2022-10-13] MEDS: INSULIN SLIDING SCALE (NOVOLOG) 1 VIAL SQ SCH (06:37)
[2022-10-13] MEDS: SUCRALFATE 1 GM TABLET (FP) PO SCH (06:38)
[2022-10-13] MEDS: INSULIN (LEVEMIR) 100 UNITS/ML UNITS SQ SCH (06:40)
[2022-10-13 09:49] LABS: POTASSIUM 3.7 mmol/L (3.5-5.1)
[2022-10-13 09:55] LABS: ALBUMIN 3.1 g/dl (3.4-5.0)
[2022-10-13 09:56] LABS: CALCIUM 9.6 mg/dL (8.5-10.1)
[2022-10-13 09:57] LABS: BLOOD UREA NITROGEN 33.6 mg/dL (7-18)
[2022-10-13 10:01] LABS: BILIRUBIN,TOTAL 0.3 mg/dL (0.2-1); TOT PROT 5.3 g/dl (6.4-8.2)
[2022-10-13 10:13] VITALS: TEMP 98.2
[2022-10-13] MEDS: FUROSEMIDE 40 MG TABLET (FP) PO SCH (10:19)
[2022-10-13] MEDS: PANTOPRAZOLE 40 MG TABLET PO SCH (10:19)
[2022-10-13] MEDS: SACUBITRIL/VALSARTAN 49 MG-51 MG TABLET PO SCH (10:20)
[2022-10-13] MEDS: SERTRALINE HCL 50 MG TABLET (FP) PO SCH (10:20)
[2022-10-13] MEDS: LORATADINE 10 MG TABLET PO SCH (10:20)
[2022-10-13] MEDS: POLYETHYLENE GLYCOL (HEALTHYLAX) 3350 17 GM PACKET PO SCH (10:20)
[2022-10-13] MEDS: APIXABAN 5 MG TABLET PO SCH (10:20)
[2022-10-13] MEDS: FLUTICASONE/UMECLIDIN/VILANTER(200-62.5-25 TRELEGY ELLIPTA) INAHLER IH SCH (10:21)
[2022-10-13] MEDS: FLUTICASONE PROP 0.05% 16 GM NASAL SPRAY NS SCH (10:21)
[2022-10-13 10:24] VITALS: BP 112/66; PULSE 90
== END 2022-10-13 11:16 | DRG 189 ==
LOC: JER 15:04 → JERBED 18:51 → J4S 22:17
PROVIDERS: ADMIT Internal Medicine; ATTEND Internal Medicine
DX: J96.21 Acute and chronic respiratory failure with hypoxia (principal); I50.33 Acute on chronic diastolic (congestive) heart failure; J44.1 Chronic obstructive pulmonary disease with (acute) exacerbation; E66.2 Morbid (severe) obesity with alveolar hypoventilation; Z68.43 Body mass index [BMI] 50.0-59.9, adult; I13.0 Hypertensive heart and chronic kidney disease with heart failure and stage 1 through stage 4 chronic kidney disease, or unspecified chronic kidney disease; E87.29 Other acidosis; J96.22 Acute and chronic respiratory failure with hypercapnia; E78.5 Hyperlipidemia, unspecified; K76.0 Fatty (change of) liver, not elsewhere classified; I48.0 Paroxysmal atrial fibrillation; R10.13 Epigastric pain; E11.43 Type 2 diabetes mellitus with diabetic autonomic (poly)neuropathy; K31.84 Gastroparesis; I27.20 Pulmonary hypertension, unspecified; F32.A Depression, unspecified; G47.33 Obstructive sleep apnea (adult) (pediatric); K21.9 Gastro-esophageal reflux disease without esophagitis; K57.90 Diverticulosis of intestine, part unspecified, without perforation or abscess without bleeding; E11.22 Type 2 diabetes mellitus with diabetic chronic kidney disease; N18.9 Chronic kidney disease, unspecified; E11.40 Type 2 diabetes mellitus with diabetic neuropathy, unspecified; D35.02 Benign neoplasm of left adrenal gland; Z86.718 Personal history of other venous thrombosis and embolism; Z99.81 Dependence on supplemental oxygen
CPT/HCPCS: 0241U-QW; 36415; 36600; 71045-TC-FY; 74019-TC-FY; 80053; 82550; 82553; 82803; 82962; 83735; 83880; 84484; 85025; 85610; 87635; 93005; 93010; 94660; 97116-GP; 97161-GP; 99291

== ENCOUNTER 2022-11-15 17:40 | Inpatient (IN) | payer OTHER ==
[2022-11-15] MEDS ORDERED: VANCOMYCIN/WATER 2 GM/400 ML PREMIX BAG (RESTRICTED TO ID ONLY) IVPB ONE (18:49)
[2022-11-15] MEDS ORDERED: ACETAMINOPHEN 1000 MG/100 ML BAG IVPB ONE (19:52)
[2022-11-15] MEDS ORDERED: ACETAMINOPHEN INJECTION 100 ML IVPB ONE (19:59)
[2022-11-15 20:08] LABS: BASO % 0.5 % (0-2.0); HEMATOCRIT 28.8 % (32.4-45.2); HEMOGLOBIN 8.7 GM/dL (10.7-15.3); LYMPH % 4.9 % (8-40); MCH 24.3 pg (25.7-33.7); MCHC 30.2 g/dl (32.0-36.0); MEAN CELL VOLUME 80.6 fl (80-96); MEAN PLT VOLUME 8.1 fl (7.5-11.1); MONO % 11.2 % (3.8-10.2); NEUT % 80.4 % (42.8-82.8); PLATELET COUNT 157 10^3/uL (134-434); RBC 3.57 M/mm3 (3.60-5.2); RDW 18.9 % (11.6-15.6); WHITE BLOOD COUNT 4.6 K/mm3 (4.0-10.0)
[2022-11-15 20:19] LABS: VENOUS BASE EXCESS 13.1 mmol/L (-2-2); VENOUS O2 SATURATION 22.3 % (70-80); VENOUS PH 7.316 (7.310-7.410)
[2022-11-15 20:24] LABS: INR 1.56 (0.83-1.09); VENOUS PCO2 84.7 mmHg (38-52)
[2022-11-15 20:33] LABS: BLOOD UREA NITROGEN 19.7 mg/dL (7-18); CALCIUM 9.3 mg/dL (8.5-10.1)
[2022-11-15 20:36] LABS: CREATININE 0.9 mg/dL (0.55-1.3)
[2022-11-15 20:38] LABS: BILIRUBIN,TOTAL 0.2 mg/dL (0.2-1)
[2022-11-15] MEDS ORDERED: PIPERACILLIN/TAZOB 4.5 GM 4.5 GM in DEXTROSE 5%-WATER 100 ML IVPB ONE (20:44)
[2022-11-15] MEDS ORDERED: PIPERACILLIN/TAZOB 4.5 GM 4.5 GM/100 ML BAG IVPB ONE (21:12)
[2022-11-16] MEDS ORDERED: ACETAMINOPHEN 1000 MG/100 ML BAG IVPB PRN (01:20)
[2022-11-16] MEDS: PIPERACILLIN/TAZOB 3.375 GM 3.375 GM in DEXTROSE 5%-WATER - 50 ML IVPB SCH ×4 (01:44→17:39)
[2022-11-16 02:09] VITALS: BMI 57.9
[2022-11-16] MEDS: INSULIN SLIDING SCALE (NOVOLOG) 1 VIAL SQ SCH ×4 (06:31→21:30)
[2022-11-16] MEDS: GABAPENTIN 100 MG CAPSULE PO SCH ×3 (06:31→21:28)
[2022-11-16] MEDS: RIFAXIMIN 550 MG TABLET PO SCH ×3 (06:31→21:28)
[2022-11-16] MEDS: LORATADINE 10 MG TABLET PO SCH (09:26)
[2022-11-16] MEDS: APIXABAN 5 MG TABLET PO SCH ×2 (09:26→21:28)
[2022-11-16] MEDS: SERTRALINE HCL 50 MG TABLET (FP) PO SCH (09:26)
[2022-11-16] MEDS: PANTOPRAZOLE 40 MG TABLET PO SCH ×2 (09:26→21:29)
[2022-11-16] MEDS: SUCRALFATE 1 GM TABLET (FP) PO SCH ×4 (09:26→21:29)
[2022-11-16] MEDS ORDERED: VANCOMYCIN 1 GM in D5W (PRE-DOCKED) 1,000 MG/250 ML (RESTRICTED TO ID ONLY IVPB SCH (10:00)
[2022-11-16] MEDS ORDERED: VANCOMYCIN/WATER FOR INJ (PEG) 1,000 MG/200 ML BAG IVPB SCH (10:00)
[2022-11-16 10:22] LABS: BASO % 0.5 % (0-2.0); EOS % 3.3 % (0-4.5); HEMATOCRIT 26.1 % (32.4-45.2); HEMOGLOBIN 7.9 GM/dL (10.7-15.3); LYMPH % 5.9 % (8-40); MCH 24.5 pg (25.7-33.7); MCHC 30.1 g/dl (32.0-36.0); MEAN CELL VOLUME 81.2 fl (80-96); NEUT % 78.3 % (42.8-82.8); PLATELET COUNT 150 10^3/uL (134-434); RBC 3.21 M/mm3 (3.60-5.2); RDW 18.8 % (11.6-15.6); WHITE BLOOD COUNT 4.3 K/mm3 (4.0-10.0)
[2022-11-16 10:46] LABS: POTASSIUM 3.8 mmol/L (3.5-5.1)
[2022-11-16 10:49] LABS: CALCIUM 9.3 mg/dL (8.5-10.1)
[2022-11-16 10:50] LABS: ALBUMIN 2.7 g/dl (3.4-5.0); BLOOD UREA NITROGEN 19.8 mg/dL (7-18)
[2022-11-16 10:55] LABS: BILIRUBIN,TOTAL 0.4 mg/dL (0.2-1); TOT PROT 5.3 g/dl (6.4-8.2)
[2022-11-16] MEDS: ALBUTEROL SO4 2.5/IPRATROPIUM 0.5 INH SOL 3 ML VIAL.NEB. NEB PRN (18:09)
[2022-11-16] MEDS: LEVALBUTEROL HCL 0.31 MG/3 ML VIAL.NEB IH SCH (20:05)
[2022-11-16] MEDS: TIOTROPIUM BROMIDE 2.5 MCG (SPIRIVA) RESPIMAT INHALER IH SCH (21:28)
[2022-11-16] MEDS: ATORVASTATIN CA 20 MG TABLET (FP) PO SCH (21:29)
[2022-11-16] MEDS: DOCUSATE SODIUM 100 MG CAPSULE (FP) PO SCH (21:30)
[2022-11-17] MEDS: PIPERACILLIN/TAZOB 3.375 GM 3.375 GM in DEXTROSE 5%-WATER - 50 ML IVPB SCH ×3 (01:05→17:36)
[2022-11-17] MEDS: RIFAXIMIN 550 MG TABLET PO SCH ×3 (05:30→22:14)
[2022-11-17] MEDS: GABAPENTIN 100 MG CAPSULE PO SCH ×3 (05:30→22:14)
[2022-11-17] MEDS: INSULIN SLIDING SCALE (NOVOLOG) 1 VIAL SQ SCH ×4 (06:26→22:14)
[2022-11-17] MEDS: LEVALBUTEROL HCL 0.31 MG/3 ML VIAL.NEB IH SCH ×3 (07:56→19:55)
[2022-11-17] MEDS: ALBUTEROL SO4 2.5/IPRATROPIUM 0.5 INH SOL 3 ML VIAL.NEB. NEB PRN (09:48)
[2022-11-17] MEDS: APIXABAN 5 MG TABLET PO SCH ×2 (10:28→22:14)
[2022-11-17] MEDS: SERTRALINE HCL 50 MG TABLET (FP) PO SCH (10:28)
[2022-11-17] MEDS: PANTOPRAZOLE 40 MG TABLET PO SCH ×2 (10:29→22:15)
[2022-11-17] MEDS: SUCRALFATE 1 GM TABLET (FP) PO SCH ×4 (10:29→22:14)
[2022-11-17] MEDS: TIOTROPIUM BROMIDE 2.5 MCG (SPIRIVA) RESPIMAT INHALER IH SCH (10:29)
[2022-11-17] MEDS: LORATADINE 10 MG TABLET PO SCH (10:29)
[2022-11-17] MEDS: SACUBITRIL/VALSARTAN 49 MG-51 MG TABLET PO SCH ×2 (12:05→22:14)
[2022-11-17] MEDS: dilTIAZem HCL 60 MG TABLET PO SCH ×3 (12:05→23:23)
[2022-11-17] MEDS: FUROSEMIDE 40 MG/4 ML INJECTABLE VIAL IVPUSH SCH (14:15)
[2022-11-17] MEDS ORDERED: ACETAMINOPHEN 1000 MG/100 ML BAG IVPB ONE (16:51)
[2022-11-17] MEDS ORDERED: ACETAMINOPHEN 1000 MG/100 ML BAG IVPB PRN (22:14)
[2022-11-17] MEDS: DOCUSATE SODIUM 100 MG CAPSULE (FP) PO SCH (22:14)
[2022-11-17] MEDS: ATORVASTATIN CA 20 MG TABLET (FP) PO SCH (22:14)
[2022-11-18] MEDS: PIPERACILLIN/TAZOB 3.375 GM 3.375 GM in DEXTROSE 5%-WATER - 50 ML IVPB SCH ×3 (02:18→18:08)
[2022-11-18] MEDS: dilTIAZem HCL 60 MG TABLET PO SCH ×4 (06:17→23:36)
[2022-11-18] MEDS: GABAPENTIN 100 MG CAPSULE PO SCH ×3 (06:17→21:46)
[2022-11-18] MEDS: FUROSEMIDE 40 MG/4 ML INJECTABLE VIAL IVPUSH SCH ×2 (06:17→15:26)
[2022-11-18] MEDS: INSULIN SLIDING SCALE (NOVOLOG) 1 VIAL SQ SCH ×4 (06:17→21:46)
[2022-11-18] MEDS: LEVALBUTEROL HCL 0.31 MG/3 ML VIAL.NEB IH SCH ×3 (08:15→21:20)
[2022-11-18 10:51] LABS: BASO % 0.4 % (0-2.0); HEMATOCRIT 26.9 % (32.4-45.2); HEMOGLOBIN 8.2 GM/dL (10.7-15.3); LYMPH % 3.9 % (8-40); MCH 24.8 pg (25.7-33.7); MCHC 30.4 g/dl (32.0-36.0); MEAN CELL VOLUME 81.8 fl (80-96); MEAN PLT VOLUME 8.7 fl (7.5-11.1); MONO % 9.5 % (3.8-10.2); NEUT % 84.2 % (42.8-82.8); PLATELET COUNT 127 10^3/uL (134-434); RBC 3.29 M/mm3 (3.60-5.2); RDW 19.2 % (11.6-15.6); WHITE BLOOD COUNT 5.5 K/mm3 (4.0-10.0)
[2022-11-18] MEDS: PANTOPRAZOLE 40 MG TABLET PO SCH ×2 (10:54→21:46)
[2022-11-18] MEDS: APIXABAN 5 MG TABLET PO SCH ×2 (10:55→21:46)
[2022-11-18] MEDS: TIOTROPIUM BROMIDE 2.5 MCG (SPIRIVA) RESPIMAT INHALER IH SCH (10:55)
[2022-11-18] MEDS: LORATADINE 10 MG TABLET PO SCH (10:55)
[2022-11-18] MEDS: SERTRALINE HCL 50 MG TABLET (FP) PO SCH (10:55)
[2022-11-18] MEDS: SUCRALFATE 1 GM TABLET (FP) PO SCH ×4 (10:55→21:46)
[2022-11-18 12:00] LABS: ALBUMIN 2.9 g/dl (3.4-5.0); BILIRUBIN,TOTAL 0.3 mg/dL (0.2-1); BLOOD UREA NITROGEN 15.8 mg/dL (7-18); POTASSIUM 3.9 mmol/L (3.5-5.1); TOT PROT 5.7 g/dl (6.4-8.2)
[2022-11-18] MEDS: SACUBITRIL/VALSARTAN 49 MG-51 MG TABLET PO SCH ×2 (14:06→21:46)
[2022-11-18] MEDS: RIFAXIMIN 550 MG TABLET PO SCH ×3 (15:19→21:46)
[2022-11-18] MEDS ORDERED: ALBUTEROL SO4 0.083% IH SOL 2.5 MG/3 ML VIAL.NEB. NEB PRN (15:32)
[2022-11-18] MEDS: DOCUSATE SODIUM 100 MG CAPSULE (FP) PO SCH (21:46)
[2022-11-18] MEDS: ATORVASTATIN CA 20 MG TABLET (FP) PO SCH (21:46)
[2022-11-19] MEDS: PIPERACILLIN/TAZOB 3.375 GM 3.375 GM in DEXTROSE 5%-WATER - 50 ML IVPB SCH ×3 (01:30→17:42)
[2022-11-19] MEDS: RIFAXIMIN 550 MG TABLET PO SCH ×3 (05:47→22:19)
[2022-11-19] MEDS: GABAPENTIN 100 MG CAPSULE PO SCH ×3 (05:47→22:18)
[2022-11-19] MEDS: INSULIN SLIDING SCALE (NOVOLOG) 1 VIAL SQ SCH ×4 (06:31→23:01)
[2022-11-19] MEDS: dilTIAZem HCL 60 MG TABLET PO SCH ×3 (06:31→17:41)
[2022-11-19] MEDS: FUROSEMIDE 40 MG/4 ML INJECTABLE VIAL IVPUSH SCH ×2 (06:31→13:31)
[2022-11-19] MEDS: LEVALBUTEROL HCL 0.31 MG/3 ML VIAL.NEB IH SCH ×3 (08:10→20:10)
[2022-11-19] MEDS: LORATADINE 10 MG TABLET PO SCH (09:26)
[2022-11-19] MEDS: SUCRALFATE 1 GM TABLET (FP) PO SCH ×4 (09:26→22:17)
[2022-11-19] MEDS: SACUBITRIL/VALSARTAN 49 MG-51 MG TABLET PO SCH ×2 (09:27→22:18)
[2022-11-19] MEDS: TIOTROPIUM BROMIDE 2.5 MCG (SPIRIVA) RESPIMAT INHALER IH SCH (09:27)
[2022-11-19] MEDS: APIXABAN 5 MG TABLET PO SCH ×2 (09:27→22:18)
[2022-11-19] MEDS: SERTRALINE HCL 50 MG TABLET (FP) PO SCH (09:27)
[2022-11-19] MEDS: PANTOPRAZOLE 40 MG TABLET PO SCH ×2 (09:27→22:19)
[2022-11-19] MEDS: ACETAMINOPHEN 1000 MG/100 ML BAG IVPB PRN ×2 (11:04→22:22)
[2022-11-19 13:49] LABS: ARTERIAL BLOOD GAS BASE EXCESS 9.8 mmol/L (-2-2); ARTERIAL BLOOD GAS PO2 63.2 mmHg (80-100)
[2022-11-19 13:52] LABS: ALLENS TEST POSITIVE; VENT MODE SK; VENT RATE 16
[2022-11-19 16:14] VITALS: RESP 18
[2022-11-19 19:19] VITALS: BP 93/44; PULSE 122; TEMP 98
[2022-11-19] MEDS ORDERED: methylPREDNISolone NA SUCC 40 MG/1 ML VIAL IVPUSH SCH (22:00)
[2022-11-19] MEDS: DOCUSATE SODIUM 100 MG CAPSULE (FP) PO SCH (22:17)
[2022-11-19] MEDS: ATORVASTATIN CA 20 MG TABLET (FP) PO SCH (22:18)
[2022-11-20] MEDS: PIPERACILLIN/TAZOB 3.375 GM 3.375 GM in DEXTROSE 5%-WATER - 50 ML IVPB SCH (01:17)
[2022-11-20] MEDS: dilTIAZem HCL 60 MG TABLET PO SCH (01:17)
== END 2022-11-20 08:31 | disposition expired | DRG 602 ==
LOC: JER 17:40 → JERBED 21:18 → INTOOBSV 23:13 → OBSVTOIN 23:13 → J5S 11-16 00:09 → OBSVTOIN 11-16 01:14
PROVIDERS: ADMIT Internal Medicine; ATTEND Internal Medicine
PROC: 0BH17EZ Insertion of Endotracheal Airway into Trachea, Via Natural or Artificial Opening (ICD-10-PCS; principal; 2022-11-20)
PROC: 5A12012 Performance of Cardiac Output, Single, Manual (ICD-10-PCS; 2022-11-20)
DX: L03.115 Cellulitis of right lower limb (principal); I50.33 Acute on chronic diastolic (congestive) heart failure; J96.21 Acute and chronic respiratory failure with hypoxia; J96.22 Acute and chronic respiratory failure with hypercapnia; I13.0 Hypertensive heart and chronic kidney disease with heart failure and stage 1 through stage 4 chronic kidney disease, or unspecified chronic kidney disease; I48.92 Unspecified atrial flutter; Z68.43 Body mass index [BMI] 50.0-59.9, adult; L03.116 Cellulitis of left lower limb; N61.0 Mastitis without abscess; J44.9 Chronic obstructive pulmonary disease, unspecified; G47.33 Obstructive sleep apnea (adult) (pediatric); E66.01 Morbid (severe) obesity due to excess calories; D64.9 Anemia, unspecified; F32.A Depression, unspecified; E11.42 Type 2 diabetes mellitus with diabetic polyneuropathy; Z79.4 Long term (current) use of insulin; E11.22 Type 2 diabetes mellitus with diabetic chronic kidney disease; N18.9 Chronic kidney disease, unspecified; I48.0 Paroxysmal atrial fibrillation; I46.9 Cardiac arrest, cause unspecified
CPT/HCPCS: 0241U-QW; 36415; 36600; 71045-TC-FY; 80053; 82803; 82962; 85025; 85610; 85730; 87040; 93005; 93010; 93970-TC; 94640; 94660; 99285-25; G0378